=== PATIENT | female | born 1960 | race Caucasian/White ===

== ENCOUNTER 2020-02-10 01:30 | Emergency (ER) | payer OTHER, BC ==
--- OUTSIDE RECORDS SUMMARY | 2020-02-10 01:33 | XMS REPORT | Continuity of Care Document ---
:1960 Author Organization [facility] t Address [address] [place] [address] Care Team Providers Name Role Phone Doctor Unassigned, Name Attending Clinician Unavailable Milo MARCUS, S Attending Clinician Problems This patient has no known problems. Allergies, Adverse Reactions, Alerts This patient has no known allergies or adverse reactions. Medications This patient has no known medications. Procedures This patient has no known procedures. Encounters Start End Encounter Admission Attending Care Care Encounter Source Date/Time Date/Time Type Type Clinicians Facility Department ID 2019-11-08 2019-11-08 Orders Doctor DANUTA [id number] 00:00:00 00:00:00 Only Unassigned, JOSE [id number] [place] [facility] [id number] 2019-11-02 2019-11-02 [facility] ISIDRA Pedraza [id number] 08:01:19 08:16:19 ne Visit [facility] [id number] Surgical [id number] Specialti [id number] [address] [place] 2019-09-28 2019-09-28 ISIDRA Barron [id number] 00:00:00 00:00:00 (Out) [facility] [id number] Surgical [id number] Specialti [id number] [address] 2019-09-13 2019-09-13 ISIDRA Barron [id number] 00:00:00 00:00:00 (Out) [facility] [id number] Surgical [id number] Specialti [id number] [address] [place] 2019-09-11 2019-09-11 Telephone [facility] [id number] 00:00:00 00:00:00 [facility] [id number] Surgical [id number] Specialti [id number] [address] [place] 2019-09-07 2019-09-07 Office [facility] [id number] 07:55:18 08:10:18 Visit [facility] [id number] Surgical [id number] Specialti [id number] [address] [place] 2019-09-07 2019-09-07 Letter [facility] [id number] 00:00:00 00:00:00 (Out) [facility] [id number] Surgical [id number] Specialti [id number] [address] 2019-08-24 2019-08-24 Orders Doctor DANUTA [id number] 00:00:00 00:00:00 Only Unassigned, JOSE [id number] [place] [facility] [id number] Results This patient has no known results.
[2020-02-10] MEDS ORDERED: IBUPROFEN 400 MG TAB ONE (02:23)
--- NOTE | 2020-02-10 03:25 | EDPHYS ---
Physician Documentation [facility] Name: Jade Shaikh Age: 59 yrs Sex: Female : 1960 Arrival Date: 02/10/2020 Time: 01:31 Bed 19 Private MD: SAULO Physician Cain Rosado HPI: 02/09 01:58 This 59 yrs old Female presents to ER via Ambulatory with complaints of Foot mh7 Injury. 01:58 The patient presents with an injury. The complaints affect the left foot. Context: The mh7 problem was sustained at a parking lot, resulted from the patient falling, down stairs, Mechanism of Injury: Unknown the patient can fully bear weight, the patient is able to ambulate, with mild difficulty. 01:59 Onset: The symptoms/episode began/occurred 3 day(s) ago, and became worse today, after mh7 accidentally dropping heavy box onto foot. Modifying factors: The symptoms are alleviated by sitting, the symptoms are aggravated by weight bearing. Associated signs and symptoms: Pertinent negatives: calf tenderness, fever, nausea, numbness, rash, swelling, tingling, vomiting, warmth, weakness. Severity of symptoms: At their worst the symptoms were moderate, earlier today, in the emergency department the symptoms have improved, moderately. Historical: - Allergies: 01:54 Sulfa (Sulfonamide Antibiotics); sg - PSHx: 01:54 Cholecystectomy; Appendectomy; Tubal ligation; Hysterectomy; breast mass removal on sg right; Knee surgery; - Immunization history:: Adult Immunizations up to date. - Social history:: Smoking status: Patient denies any tobacco usage or history of. ROS: 01:59 Constitutional: Negative for fever, chills, and weight loss, Eyes: Negative for injury, mh7 pain, redness, and discharge, ENT: Negative for injury, pain, and discharge, Neck: Negative for injury, pain, and swelling, Cardiovascular: Negative for chest pain, palpitations, and edema, Respiratory: Negative for shortness of breath, cough, wheezing, and pleuritic chest pain, Abdomen/GI: Negative for abdominal pain, nausea, vomiting, diarrhea, and constipation, Back: Negative for injury and pain, : Negative for injury, bleeding, discharge, and swelling, Skin: Negative for injury, rash, and discoloration, Neuro: Negative for headache, weakness, numbness, tingling, and seizure, Psych: Negative for depression, anxiety, suicide ideation, homicidal ideation, and hallucinations, Allergy/Immunology: Negative for hives, rash, and allergies, Endocrine: Negative for neck swelling, polydipsia, polyuria, polyphagia, and marked weight changes, Hematologic/Lymphatic: Negative for swollen nodes, abnormal bleeding, and unusual bruising. Exam: 01:59 Constitutional: This is a well developed, well nourished patient who is awake, alert, mh7 and in no acute distress. Head/Face: Normocephalic, atraumatic. Eyes: Pupils equal round and reactive to light, extra-ocular motions intact. Lids and lashes normal. Conjunctiva and sclera are non-icteric and not injected. Cornea within normal limits. Periorbital areas with no swelling, redness, or edema. Neck: Trachea midline, no thyromegaly or masses palpated, and no cervical lymphadenopathy. Supple, full range of motion without nuchal rigidity, or vertebral point tenderness. No Meningismus. Chest/axilla: Normal chest wall appearance and motion. Nontender with no deformity. No lesions are appreciated. Cardiovascular: Regular rate and rhythm with a normal S1 and S2. No gallops, murmurs, or rubs. Normal PMI, no JVD. No pulse deficits. Respiratory: Lungs have equal breath sounds bilaterally, clear to auscultation and percussion. No rales, rhonchi or wheezes noted. No increased work of breathing, no retractions or nasal flaring. Abdomen/GI: Soft, non-tender, with normal bowel sounds. No distension or tympany. No guarding or rebound. No evidence of tenderness throughout. Back: No spinal tenderness. No costovertebral tenderness. Full range of motion. Skin: Warm, dry with normal turgor. Normal color with no rashes, no lesions, and no evidence of cellulitis. 01:59 Neuro: Awake and alert, GCS 15, oriented to person, place, time, and situation. Cranial nerves II-XII grossly intact. Motor strength 5/5 in all extremities. Sensory grossly intact. Cerebellar exam normal. Normal gait. Psych: Awake, alert, with orientation to person, place and time. Behavior, mood, and affect are within normal limits. 01:59 Musculoskeletal/extremity: Extremities: noted in the left foot: pain, tenderness, noted in the left ankle: pain, tenderness, ROM: intact in all extremities, Circulation is intact in all extremities. Pulses: are normal with no appreciated deficits, Perfusion: the patient is normally perfused throughout, Perfusion: the extremity is normally perfused throughout, Calf tenderness, is absent, Edema, is not appreciated, Sensation intact. Compartment Syndrome exam of affected extremity: is normal. no numbness, no tingling, no sensation deficit, no palor, no weak pulses, Joints: the left ankle displays tenderness, Weight bearing: able to fully bear weight, limping, Tendon exam: specific tendon testing normal through active and passive range of motion Vital Signs: 01:56 BP 150 / 72; Pulse 80; Resp 18; Temp 97.7; Pulse Ox 97% on R/A; Weight 99.79 kg; Height ea 5 ft. 2 in. (157.48 cm); 01:56 Body Mass Index 40.24 (99.79 kg, 157.48 cm) ea MDM: 01:57 Patient medically screened. [facility] 03:21 Differential diagnosis: fracture, sprain, arthritis. Data reviewed: vital signs, nurses [facility] notes, radiologic studies, plain films. Data interpreted: Pulse oximetry: on room air is 97 %. Interpretation: normal. Counseling: I had a detailed discussion with the patient and/or guardian regarding: the historical points, exam findings, and any diagnostic results supporting the discharge/admit diagnosis, the presence of at least one elevated blood pressure reading (>120/80) during this emergency department visit, radiology results, the need for outpatient follow up, a orthopedic surgeon, to return to the emergency department if symptoms worsen or persist or if there are any questions or concerns that arise at home. Response to treatment: the patient's symptoms have markedly improved after treatment. 02/09 01:58 Order name: Foot Left 3 View XRAY 7 02/09 01:58 Order name: Ankle Left 3 View XRAY 7 Administered Medications: 02:16 Drug: Ibuprofen 800 mg Route: PO; ea 03:07 Follow up: Response: No adverse reaction ea Disposition: 02/10/20 03:24 Discharged to Home. Impression: Left Foot Contusion, Left Ankle Sprain. - Condition is Stable. - Discharge Instructions: Ankle Sprain, [id number], Foot Contusion, [id number]. - Prescriptions for Ibuprofen 800 mg Oral Tablet - take 1 tablet by ORAL route every 8 hours As needed take with food; 15 tablet. - Medication Reconciliation Form, Thank You Letter, Antibiotic Education, Prescription Opioid Use form. - Follow up: Pj Olea DPM; When: 2 - 3 days; Reason: Worsening of condition, Recheck today's complaints. - Problem is new. - Symptoms have improved. Signatures: Dispatcher [employer] EDJason Maldonado RN Rola Ortiz RN RN ea Holmes, Maurice, MD MD mh7 Corrections: (The following items were deleted from the chart) 03:33 03:24 02/10/2020 03:24 Discharged to Home. Impression: Left Foot Contusion; Left Ankle ea Sprain. Condition is Stable. Forms are Medication Reconciliation Form, Thank You Letter, Antibiotic Education, Prescription Opioid Use. Follow up: Pj Olea; When: 2 - 3 days; Reason: Worsening of condition, Recheck today's complaints. Problem is new. Symptoms have improved. mh7
--- NOTE | 2020-02-10 03:25 | ER ---
Nurse's Notes [facility] Name: Jade Shaikh Age: 59 yrs Sex: Female : 1960 Arrival Date: 02/10/2020 Time: 01:31 Bed 19 Private MD: Diagnosis: Left Foot Contusion;Left Ankle Sprain Presentation: 02/09 01:50 Chief complaint: Patient states: pt states that she was walking out of the camper when sg she lost her footing on the steps and fell onto her left foot, pain to the left foot and left ankle, pt reports hitting head but denies LOC, pt states pain in the topside of left foot and the left ankle. Coronavirus screen: Patient denies a cough. Patient denies shortness of breath or difficulty breathing. Patient denies measured and/or subjective temperature greater than 100.4F prior to today's visit. Patient denies travel on a cruise ship or to a country the [facility] currently lists as an affected area. Patient denies contact with known and/or suspected case of COVID-19. Proceed with normal triage. Ebola Screen: Patient negative for fever greater than or equal to 101.5 degrees Fahrenheit, and additional compatible Ebola Virus Disease symptoms Patient denies exposure to infectious person. Patient denies travel to an Ebola-affected area in the 21 days before illness onset. No symptoms or risks identified at this time. Initial Sepsis Screen: Does the patient meet any 2 criteria? No. Patient's initial sepsis screen is negative. Does the patient have a suspected source of infection? No. Patient's initial sepsis screen is negative. Risk Assessment: Do you want to hurt yourself or someone else? Patient reports no desire to harm self or others. Onset of symptoms was February 09, 2020. Care prior to arrival: None. Mechanism of Injury: Fall 2 [address] steps. Transition of care: patient was not received from another setting of care. 01:50 Method Of Arrival: Ambulatory sg 01:50 Acuity: STEVE 4 sg Triage Assessment: 02:00 General: Appears uncomfortable, Behavior is appropriate for age. Pain: Complains of ea pain in left foot. Musculoskeletal: Circulation, motion, and sensation intact. Historical: - Allergies: 01:54 Sulfa (Sulfonamide Antibiotics); sg - PSHx: 01:54 Cholecystectomy; Appendectomy; Tubal ligation; Hysterectomy; breast mass removal on sg right; Knee surgery; - Immunization history:: Adult Immunizations up to date. - Social history:: Smoking status: Patient denies any tobacco usage or history of. Screenin:56 Abuse screen: Denies threats or abuse. Nutritional screening: No deficits noted. ea Tuberculosis screening: No symptoms or risk factors identified. Fall Risk Fall in past 12 months (25 points). Assessment: 02:00 Reassessment: see triage assessment. ea 03:32 Reassessment: Patient and/or family updated on plan of care and expected duration. Pain ea level reassessed. Patient is alert, oriented x 3, equal unlabored respirations, skin warm/dry/pink. Discharge instruction given to patient, verbalized the understanding of instruction. Pt left ED ambulatory tolerating well. Vital Signs: 01:56 BP 150 / 72; Pulse 80; Resp 18; Temp 97.7; Pulse Ox 97% on R/A; Weight 99.79 kg; Height ea 5 ft. 2 in. (157.48 cm); 01:56 Body Mass Index 40.24 (99.79 kg, 157.48 cm) ea ED Course: 01:31 Patient arrived in ED. ds1 01:43 Cain Rosado MD is Attending Physician. mh7 01:53 Triage completed. sg 01:54 Arm band placed on. sg 01:59 Patient has correct armband on for positive identification. Bed in low position. Call ea light in reach. 02:14 Rola uLong, SOPHIA is Primary Nurse. ea 02:28 Foot Left 3 View XRAY In Process Unspecified. EDMS 02:28 Ankle Left 3 View XRAY In Process Unspecified. EDMS 03:23 Pj Olea DPM is Referral Physician. 7 03:32 No provider procedures requiring assistance completed. Patient did not have IV access ea during this emergency room visit. Administered Medications: 02:16 Drug: Ibuprofen 800 mg Route: PO; ea 03:07 Follow up: Response: No adverse reaction ea Outcome: 03:24 Discharge ordered by . 7 03:33 Discharged to home ambulatory, with family. ea 03:33 Condition: stable 03:33 Discharge instructions given to patient, Instructed on discharge instructions, follow up and referral plans. medication usage, Demonstrated understanding of instructions, follow-up care, medications, Prescriptions given X 1. 03:33 Patient left the ED. kelsy Signatures: Dispatcher [employer] EDJason Maldonado RN RN sg Sanford, Demi ds1 Rola Luong RN RN ea Holmes, Maurice, MD MD mh7
[2020-02-10 03:55] VITALS: BP 150/72; TEMP 97.7; O2SAT 97
--- NOTE | 2020-02-12 09:12 | RAD REPORT ---
EXAM DESCRIPTION: RAD - Ankle Left 3 View - 02/10/2020 2:28 am CLINICAL HISTORY: Trauma/pain. COMPARISON: None. FINDINGS: 3 views of the left ankle. No acute fracture or dislocation. Normal osseous mineralization . Tibial plafond and talar dome have appropriate alignment. Soft tissue edema. Plantar calcaneal spur . IMPRESSION: 1. No acute fracture or dislocation. Electronically signed by: Ghanshyam Álvarez 02/10/2020 3:14 AM CDT Due to temporary technical issues with the PACS/Fluency reporting system, reports are being signed by the in house radiologist without review as a courtesy to ensure prompt reporting. The interpreting r adiologist is fully responsible for the content of the report.
--- NOTE | 2020-02-12 09:14 | RAD REPORT ---
EXAM DESCRIPTION: RAD - Foot Left 3 View - 02/10/2020 2:28 am CLINICAL HISTORY: Trauma COMPARISON: None. FINDINGS: 3 views of the left foot. No acute fracture or dislocation. Velocities mineralization. Tar sals and metatarsals are appropriately aligned. Dorsal soft tissue edema. IMPRESSION: 1. No acute fracture or dislocation. Electronically signed by: Ghanshyam Álvarez 02/10/2020 3:13 AM CDT Due to temporary technical issues with the PACS/Fluency reporting system, reports are being signed by the in house radiologist without review as a courtesy to ensure prompt reporting. The interpreting r adiologist is fully responsible for the content of the report.
== END 2020-02-10 03:33 | disposition home or self-care (01) ==
LOC: ER 01:30
DX: S93.402A Sprain of unspecified ligament of left ankle, initial encounter (principal); S90.32XA Contusion of left foot, initial encounter; W10.9XXA Fall (on) (from) unspecified stairs and steps, initial encounter; Y93.9 Activity, unspecified; Y92.481 Parking lot as the place of occurrence of the external cause; Z88.2 Allergy status to sulfonamides
CPT/HCPCS: 99283

== ENCOUNTER 2022-09-15 17:16 | Emergency (ER) | payer SELFPAY ==
--- OUTSIDE RECORDS SUMMARY | 2022-09-15 17:37 | XMS REPORT | Continuity of Care Document ---
:1960 Author Organization [facility] t Address [address] [place] [address] [address] [place] [address] Care Team Providers Name Role Phone JODY BRITTON Primary Care Physician Unavailable YESENIA SARABIA Attending Clinician Unavailable Doctor Unassigned, [place] Attending Clinician Unavailable Yesenia Sarabia MD Attending Clinician Vincent Chase Attending Clinician VINCENT AGUSTIN Attending Clinician Unavailable Only, Adc Test Attending Clinician Unavailable Pob, Adc Lab Main Attending Clinician Unavailable Olayinka Ricardo MD Attending Clinician OLAYINKA RICARDO Attending Clinician Unavailable Usama Arteaga DO Attending Clinician Eze Vallejo MD Attending Clinician Pj Mora MD Attending Clinician EZE VALLEJO Attending Clinician Unavailable YESENIA SARABIA Admitting Clinician Unavailable Yesenia Sarabia MD Admitting Clinician Payers Payer Name Policy Type Policy Number Effective Date Expiration Date Chula DE SOUZA II [id number] 2018 00:00:00 [facility] - [id number] 2021 00:00:00 OUT OF STATE Problems Condition Condition Condition Status Onset Resolution Last Treating Co mments Source Name Details Category Date Date Treatment Clinician Date S/P S/P Disease Active 2020-07 Univers revision revision 09-14 ity of of total of total 00:00: [place] knee, left knee, left 00 Me dical Branch Status Status Disease Active 2020-07 Overview: Univer s post post 09-01 Formattin ity of revision revision 00:00: g of this [place] as of total of total 00 note Medica l knee knee might be Branch replacemen replacemen different t, left t, left from the original. Added automatic ally from request for surgery [id number] Primary Primary Disease Active Overview: Univ ers osteoarthr osteoarthr 03-25 Formattin ity of itis of itis of 00:00: g of this [place] left knee left knee 00 note Medi isiah might be Branch different from the original. Added automatic ally from request for surgery [id number] S/P S/P Disease Active 2019-07 Univers revision revision 08-25 ity of of total of total 00:00: [place] knee knee 00 Medical Branch Status Status Disease Active 2019-07 Overview: Univer s post total post total 08-10 Formattin ity of knee knee 00:00: g of this [place] replacemen replacemen 00 note Me dical t, right t, right might be Bran ch different from the original. Added automatic ally from request for surgery [id number] Obesity Obesity Disease Active 2018-07 Univers (BMI (BMI 2-30 ity of 30-39.9) 30-39.9) 00:00: [place] 00 Medical Branch Total knee Total knee Disease Active 2018-07 U nivers replacemen replacemen 2-30 it y of t status t status 00:00: [place] 00 Medical Branch Patellofem Patellofem Disease Active 2018-07 Overview : Univers oral oral 09-10 Formattin ity of arthritis arthritis 00:00: g of this [place] of right of right 00 note Medica l knee knee might be Branch different from the original. Added automatic ally from request for surgery [id number] Low back Low back Disease Active Unive rs pain of pain of 2-19 ity of over 3 over 3 00:00: [place] months months 00 Medical duration duration Branch Type 2 Type 2 Disease Active Univers diabetes diabetes 2-19 ity of mellitus, mellitus, 00:00[place] without without 00 Medical long-term long-term Bran ch current current use of use of insulin insulin Diabetic Diabetic Disease Active Unive rs neuropathy neuropathy 2-19 it y of associated associated [place] with type with type 00 Medi isiah 2 diabetes 2 diabetes Br anch mellitus mellitus Right leg Right leg Disease Active Uni vers pain pain 8-18 ity of 00:00: [address] Branch Allergies, Adverse Reactions, Alerts Allergy Allergy Status Severity Reaction(s) Onset Inactive Treating Comm ents Source Name Type Date Date Clinician SULFA Drug Active Hives Univers (SULFONA Class 5-12 ity of MIDE 00:00: [place] ANTIBIOT 00 Medical ICS) Branch Sulfa Propensi Active Hives Univers (Sulfona ty to 5-12 ity of mide adverse 00:00: [place] Antibiot reaction 00 Medica l ics) s Branch Sulfa Propensi Active Hives Univers (Sulfona ty to 5-12 ity of mide adverse 00:00: [place] Antibiot reaction 00 Medica l ics) s Branch Social History Social Habit Start Date Stop Date Quantity Comments Source History of tobacco Cigarette Smoker University of use [facility] o f Alcohol Frequency [facility] Branch History [facility] o f Alcohol Std Drinks [facility] History [facility] o f Alcohol Binge [facility] Branch Exposure to Not sure University of SARS-CoV-2 (event) [facility] Alcohol intake 2021-08-29 2021-08-29 0 /d University of 00:00:00 00:00:00 [facility] Education 2021-07-14 2021-07-14 9 University of 00:00:00 00:00:00 [facility] Cigarettes smoked 2021-07-09 2021-07-09 Univers ity of current (pack per 00:00:00 00:00:00 [facility] ) - Reported Branch Cigarette 2021-07-09 2021-07-09 University of pack-years 00:00:00 00:00:00 [facility] Tobacco use and 2021-07-09 2021-07-09 User of smokeless Un iversity of exposure 00:00:00 00:00:00 tobacco [facility] Tobacco Comment 2021-07-09 2021-07-09 Vaped and quit 3 Uni versity of 00:00:00 00:00:00 mnths, ago smoker Ariana Lambert edical for 44 years Branch Alcohol Comment 2019-07-10 2019-07-10 Occasional Universit y of 00:00:00 00:00:00 Drinker [facility] Sex Ass[birth year] At [birth year] Universit y of 00:00:00 00:00:00 [facility] Smoking Status Start Date Stop Date Source Ex-smoker 2021-07-09 00:00:00 2021-07-09 00:00:00 Universi ty of [facility] Medications Ordered Filled Start Stop Current Ordering Indication Dosage Frequency Signature Comments Components Source Medication Medication Date Date Medication? Clinician (SIG) Name Name glyBURIDE 5 2020-07 Yes 5mg Take 5 mg U nivers mg tablet 2-28 by mouth 2 ity of 15:00: (two) [place] 27 times Medical daily. Branch glyBURIDE 5 2020-07 Yes 5mg Take 5 mg U nivers mg tablet 2-28 by mouth 2 ity of 15:00: (two) [place] 27 times Medical daily. Branch glyBURIDE 5 2020-07 Yes 5mg Take 5 mg U nivers mg tablet 2-28 by mouth 2 ity of 15:00: (two) [place] 27 times Medical daily. Branch glyBURIDE 5 2020-07 Yes 5mg Take 5 mg U nivers mg tablet 2-28 by mouth 2 ity of 15:00: (two) [place] 27 times Medical daily. Branch glyBURIDE 5 2020-07 Yes 5mg Take 5 mg U nivers mg tablet 2-28 by mouth 2 ity of 15:00: (two) [place] 27 times Medical daily. Branch glyBURIDE 5 2020-07 Yes 5mg Take 5 mg U nivers mg tablet 2-28 by mouth 2 ity of 15:00: (two) [place] 27 times Medical daily. Branch acetaminoph 2020-07 Yes 4647 2{tbl} Take 2 Un torri en-codeine 2-28 tablets by ity of (TYLENOL-CO 00:00: mouth [place] DEINE #3) 00 every 6 Medical 300-30 mg (six) Branch tablet hours as needed for Pain (scale 4-6) or Pain (scale 7-10). Indication s: acute pain acetaminoph 2020-07 Yes 4647 2{tbl} Take 2 Un torri en-codeine 2-28 tablets by ity of (TYLENOL-CO 00:00: mouth [place] DEINE #3) 00 every 6 Medical 300-30 mg (six) Branch tablet hours as needed for Pain (scale 4-6) or Pain (scale 7-10). Indication s: acute pain acetaminoph 2020-07 Yes 4647 2{tbl} Take 2 Un torri en-codeine 2-28 tablets by ity of (TYLENOL-CO 00:00: mouth [place] DEINE #3) 00 every 6 Medical 300-30 mg (six) Branch tablet hours as needed for Pain (scale 4-6) or Pain (scale 7-10). Indication s: acute pain acetaminoph 2020-07 Yes 4647 2{tbl} Take 2 Un torri en-codeine 2-28 tablets by ity of (TYLENOL-CO 00:00: mouth [place] DEINE #3) 00 every 6 Medical 300-30 mg (six) Branch tablet hours as needed for Pain (scale 4-6) or Pain (scale 7-10). Indication s: acute pain acetaminoph 2020-07 Yes 4647 2{tbl} Take 2 Un torri en-codeine 2-28 tablets by ity of (TYLENOL-CO 00:00: mouth [place] DEINE #3) 00 every 6 Medical 300-30 mg (six) Branch tablet hours as needed for Pain (scale 4-6) or Pain (scale 7-10). Indication s: acute pain acetaminoph 2020-07 Yes 4647 2{tbl} Take 2 Un torri en-codeine 2-28 tablets by ity of (TYLENOL-CO 00:00: mouth [place] DEINE #3) 00 every 6 Medical 300-30 mg (six) Branch tablet hours as needed for Pain (scale 4-6) or Pain (scale 7-10). Indication s: acute pain gabapentin 2018-07 Yes 300mg Take 300 Un torri 300 mg 2-19 mg by ity of capsule 00:00: mouth 4 00 (four) Medical times Branch daily. gabapentin 2018-07 Yes 300mg Take 300 Un torri 300 mg 2-19 mg by ity of capsule 00:00: mouth 4 00 (four) Medical times Branch daily. gabapentin 2018-07 Yes 300mg Take 300 Un torri 300 mg 2-19 mg by ity of capsule 00:00: mouth 4 (four) Medical times Branch daily. gabapentin 2018-07 Yes 300mg Take 300 Un torri 300 mg 2-19 mg by ity of capsule 00:00: mouth 4 (four) Medical times Branch daily. gabapentin 2018-07 Yes 300mg Take 300 Un torri 300 mg 2-19 mg by ity of capsule 00:00: mouth 4 (four) Medical times Branch daily. gabapentin 2018-07 Yes 300mg Take 300 Un torri 300 mg 2-19 mg by ity of capsule 00:00: mouth 4 (four) Medical times Branch daily. glipiZIDE 2018-07 Yes 10mg Take 10 mg Un torri 10 mg 1-13 by mouth 2 ity of tablet 00:00: (two) [place] 00 times Medical daily. Branch glipiZIDE 2018-07 Yes 10mg Take 10 mg Un torri 10 mg 1-13 by mouth 2 ity of tablet 00:00: (two) [place] 00 times Medical daily. Branch glipiZIDE 2018-07 Yes 10mg Take 10 mg Un torri 10 mg 1-13 by mouth 2 ity of tablet 00:00: (two) [place] 00 times Medical daily. Branch glipiZIDE 2018-07 Yes 10mg Take 10 mg Un torri 10 mg 1-13 by mouth 2 ity of tablet 00:00: (two) [place] 00 times Medical daily. Branch glipiZIDE 2018-07 Yes 10mg Take 10 mg Un torri 10 mg 1-13 by mouth 2 ity of tablet 00:00: (two) [place] 00 times Medical daily. Branch glipiZIDE 2018-07 Yes 10mg Take 10 mg Un torri 10 mg 1-13 by mouth 2 ity of tablet 00:00: (two) [place] 00 times Medical daily. Branch NYSTOP Yes 1{dose} Apply 1 Unive rs 100,000 9-25 Dose to ity of unit/gram 00:00: area[place] powder 00 needed. Medical Branch NYSTOP Yes 1{dose} Apply 1 Unive rs 100,000 9-25 Dose to ity of unit/gram 00:00: area[place] powder 00 needed. Medical Branch NYSTOP Yes 1{dose} Apply 1 Unive rs 100,000 9-25 Dose to ity of unit/gram 00:00: area[place] powder 00 needed. Medical Branch NYSTOP Yes 1{dose} Apply 1 Unive rs 100,000 9-25 Dose to ity of unit/gram 00:00: area[place] as [place] powder 00 needed. Medical Branch NYSTOP Yes 1{dose} Apply 1 Unive rs 100,000 9-25 Dose to ity of unit/gram 00:00: area[place] as [place] powder 00 needed. Medical Branch NYSTOP Yes 1{dose} Apply 1 Unive rs 100,000 9-25 Dose to ity of unit/gram 00:00: area[place] powder 00 needed. Medical Branch metFORMIN Yes TAKE 1 Univer s 500 mg 3-05 TABLET BY ity of tablet 00:00: MOUTH [facility] Medical TIMES Branch DAILY metFORMIN Yes TAKE 1 Univer s 500 mg 3-05 TABLET BY ity of tablet 00:00: MOUTH 00 THREE Medical TIMES Branch DAILY metFORMIN Yes TAKE 1 Univer s 500 mg 3-05 TABLET BY ity of tablet 00:00: MOUTH 00 THREE Medical TIMES Branch DAILY metFORMIN Yes TAKE 1 Univer s 500 mg 3-05 TABLET BY ity of tablet 00:00: MOUTH 00 THREE Medical TIMES Branch DAILY metFORMIN Yes TAKE 1 Univer s 500 mg 3-05 TABLET BY ity of tablet 00:00: MOUTH [facility] Medical TIMES Branch DAILY metFORMIN Yes TAKE 1 Univer s 500 mg 3-05 TABLET BY ity of tablet 00:00: MOUTH [place] 00 [facility] Medical TIMES Branch DAILY Immunizations Ordered Filled Immunization Date Status Comments [facility] e Immunization Name Name Influenza Virus 2019-07-18 Completed Universit y of Vaccine Quad .5 mL 00:00:00 [facility] IM 6+ MO Branch Influenza Virus 2019-07-18 Completed Universit y of Vaccine Quad .5 mL 00:00:00 [place] [facility] IM 6+ MO Branch Influenza Virus 2019-07-18 Completed Universit y of Vaccine Quad .5 mL 00:00:00 [place] [facility] IM 6+ MO Branch Influenza Virus 2019-07-18 Completed Universit y of Vaccine Quad .5 mL 00:00:00 [facility] [place] [facility] IM 6+ MO Branch Influenza Virus 2019-07-18 Completed Universit y of Vaccine Quad .5 mL 00:00:00 [place] [facility] IM 6+ MO Branch Influenza Virus 2019-07-18 Completed Universit y of Vaccine Quad .5 mL 00:00:00 [facility] 6+ [place] Branch Vital Signs Vital Name Observation Time Observation Value Comments Source Systolic blood 2021-08-29 17:33:00 151 mm[Hg] Univer sity [facility] pressure [facility] Diastolic blood 2021-08-29 17:33:00 82 mm[Hg] Unive rsity [facility] Heart rate 2021-08-29 17:33:00 78 /min [facility] Body height 2021-08-29 17:22:00 160 cm [facility] Body weight 2021-08-29 17:22:00 98.93 kg [facility] BMI 2021-08-29 17:22:00 38.63 kg/m2 [facility] Oxygen saturation 2021-08-29 17:22:00 97 /min [facility] in Arterial blood [facility] anch by Pulse oximetry Procedures Procedure Date / Time Performed Performing Clinician Sour e DISABILITY/FMLA 2022-02-24 05:01:00 [facility]3 VW LEFT 2021-08-29 17:54:29 Yesenia Sarabia [facility] REFERRAL- 2021-08-19 06:01:00 Doctor Unassigned, No Univer sity of [place] REQUEST/RESPONSE [facility] Encounters Start End Encounter Admission Attending Care Care Encounter Source Date/Time Date/Time Type Type Clinicians Facility Department ID 2021-07-02 Outpatient R NO [facility] SOR [id number] Univers 16:08:43 YESENIA cobb [facility] [place] [facility] 2021-05-19 Outpatient NO [facility] SOR [id number] Univers 20:54:10 [facility] 2022-02-24 2022-02-24 Orders Doctor TIPTON [id number] [id number] Univers 00:00:00 00:00:00 Only UnassJOSE araujo [id number] ity of [place] [facility] 4.2.7.2.686 Calvin as [id number] [address] 2021-10-20 2021-10-20 [facility] 1.2.104.412 [id number] Univers 00:00:00 00:00:00 (Out) Yesenia Mckenna [facility] [id number] it y of [facility] [id number] Calvin as DAQUAN?BLEA [id number] [place] elvin LOPEZ [address] [facility] OFFICE [facility] 2021-10-20 2021-10-20 Letter [facility] [id number] Univers 00:00:00 00:00:00 (Out) Yesenia [facility] [id number] it y of [place] 4.2.7.2.686 Calvin as DAQUAN?BLEA [id number] [place] elvin LOPEZ 198 [facility] 2021-08-29 2021-08-29 [facility] [id number] Univers 11:45:00 23:59:00 [facility] 2021-08-29 2021-08-29 [facility] 1.2.840.114 [id number] Univers 11:45:00 23:59:00 Encounter Yesenia [facility] [id number] ity of [place] 4.2.7.2.686 Calvin as DAQUAN?BLEA [id number] [place] elvin LOPEZ [address] [facility] OFFICE [facility] 2021-08-29 2021-08-29 Office [facility] [id number] Univers 11:00:00 11:15:00 Visit [facility] [id number] it y of [facility] 4.2.7.2.686 Calvin as DAQUAN?BLEA [phone] [place] elvin LOPEZ [address] [facility] OFFICE [facility] 2021-08-29 2021-08-29 [facility] [id number] Univers 11:00:00 11:00:00 [facility] 2021-08-19 2021-08-19 Orders Doctor TIPTON 1.2.840.114 [id number] Univers 00:00:00 00:00:00 Only Unassigned, JOSE 350.1.13.10 ity of [facility] 4.2.7.2.686 Calvin as [id number] [address] 2021-07-31 2021-07-31 Outpatient Jimena NIKOLE [facility] [id number] Univers 11:15:00 11:15:00 VINCENT ity [facility] [place] [facility] 2021-07-31 2021-07-31 Outpatient [facility] [id number] Univers 11:15:00 11:15:00 VINCENT ity [facility] [place] [facility] 2021-07-29 2021-07-29 Outpatient [facility] [id number] Univers 13:28:03 23:59:00 VINCENT ity [facility] [place] [facility] 2021-07-29 2021-07-29 [facility] 1.2.840.114 [id number] Univers 13:28:03 23:59:00 Encounter [facility] [id number] ity of [place] 4.2.7.2.686 Calvin as DAQUAN?BLEA [id number] [facility] [address] [place] MEDICAL OFFICE [facility] 2021-07-29 2021-07-29 Outpatient [facility] [id number] Univers 13:28:03 23:59:00 [facility] 2021-07-29 2021-07-29 Office [facility] 1.2.840.114 [id number] Univers 13:15:00 13:30:00 Visit Vincent S HEALTH 350.1.13.10 it y of [place] 4.2.7.2.686 Calvin as DAQUAN?BLEA [id number] [facility] [address] [place] MEDICAL OFFICE [facility] 2021-07-29 2021-07-29 Outpatient Jimena [facility] [id number] Univers 13:15:00 13:15:00 VINCENT ity [facility] [place] [facility] 2021-07-28 2021-07-28 Telephone [facility] 1.2.840.114 [id number] Univers 00:00:00 00:00:00 [facility] HEALTH [id number] it y of [place] 4.2.7.2.686 Calvin as DAQUAN?BLEA [id number] [place] elvin LOPEZ [address] [place] MEDICAL OFFICE [facility] 2021-07-25 2021-07-25 Outpatient R NIKOLE [facility] [id number] Univers 09:00:00 09:00:00 VINCENT ity of [facility] 2021-07-17 2021-07-[address] [facility] 1.2.840.114 [id number] Univers 00:00:00 00:00:00 Yesenia Mckenna HEALTH 350.1.13.10 it y of [place] 4.2.7.2.686 Calvin as DAQUAN?BLEA [id number] Me elvin LOPEZ [address] [place] [address] OFFICE [facility] 2021-07-17 2021-07-[address] [facility] 1.2.840.114 [id number] Univers 00:00:00 00:00:00 Yesenia Mckenna HEALTH 350.1.13.10 it y of [place] 4.2.7.2.686 Calvin as DAQUAN?BLEA [id number] Me elvin LOPEZ [address] [place] [address] OFFICE [facility] 2021-07-17 2021-07-17 Orders Doctor DANUTA 1.2.840.114 [id number] Univers 00:00:00 00:00:00 Only Unassigned, JOSE 350.1.13.10 ity of [place] [facility] 4.2.7.2.686 Calvin as [phone] [address] 2021-07-16 2021-07-[address] [facility] 1.2.840.114 [id number] Univers 00:00:00 00:00:00 Yesenia Mckenna SPECIALTY 350.1.13.10 ity of C[place] 4.2.7.2.686 [place] [facility] [phone] [place] el[place] VOGEL [address] [place] [address] 2021-07-14 2021-07-[address] [facility] SOR [id number] Univers 10:19:00 15:00:00 YESENIA cobb of [facility] 2021-07-14 2021-07-15 [facility] [address] [facility] 1.2.840.114 [id number] Univers 10:19:00 15:00:00 Encounter Yesenia BONNER 350.1.13.10 ity of [place] 4.2.7.2.686 [facility] [id number] [facility] 081 Branch 2021-07-14 2021-07-14 Surgery No [facility] [id number] Univers 12:35:00 15:54:00 Yesenia BONNER 350.1.13.10 i ty of [place] 4.2.7.2.686 [facility] [id number] [facility] 020 Branch 2021-07-14 2021-07-14 Orders Doctor DANUTA 1.2.840.114 [id number] Univers 00:00:00 00:00:00 Only Unassigned, JOSE 350.1.13.10 ity of [place] [facility] 4.2.7.2.686 Calvin as [id number] [facility] [address] [place] 2021-07-11 2021-07-11 Laboratory Only, Adc Test [facility] 1.2.840. 114 [id number] Univers 11:15:00 11:30:00 Only Yesenia Sarabia Clarisa BONNER 350.1.13.10 ity of [place] 4.2.7.2.686 [facility] [id number] [facility] 353 Branch 2021-07-11 2021-07-11 Outpatient R NO [facility] [id number] Univers 11:15:00 11:15:00 YESENIA cobb [facility] [place] [facility] 2021-07-11 2021-07-11 Orders Doctor DANUTA 1.2.840.114 [id number] Univers 00:00:00 00:00:00 Only Unassigned, JOSE 350.1.13.10 ity of [place] [facility] 4.2.7.2.686 Calvin as [id number] [facility] 009 Branch 2021-07-10 2021-07-10 Outpatient R NO [facility] [id number] Univers 14:32:10 23:59:00 YESENIA cobb [facility] [place] [facility] 2021-07-10 2021-07-10 Hospital No [facility] 1.2.840.114 [id number] Univers 12:00:00 23:59:00 Encounter Yesenia BONNER 350.1.13.10 ity of [place] 4.2.7.2.686 [place] [id number] [facility] isiah [address] [place] 2021-07-10 2021-07-10 Outpatient R SARABIA [facility] [id number] Univers 14:31:09 14:31:09 YESENIA ity of [facility] 2021-07-10 2021-07-10 Hospital No [facility] 1.2.840.114 [id number] Univers 11:45:00 11:59:00 Encounter Yesenia BONNER 350.1.13.10 ity of [place] 4.2.7.2.686 [place] [phone] [facility] isiah [address] [place] 2021-07-10 2021-07-10 Rn Family Cl, Genevieve Lab Main [facility] 1.2.8 40.114 [id number] Univers 11:30:00 11:45:00 Visit Yesenia Sarabia KAILEY 350.1.13.10 ity of [place] 4.2.7.2.686 [place] [id number] W[place] dical NAL 353 [facility] 2021-06-30 2021-06-[address] [facility] 1.2.840.114 [id number] Univers 00:00:00 00:00:00 Yesenia Mckenna HEALTH 350.1.13.10 it y of [place] 4.2.7.2.686 Calvin as DAQUAN?BLEA [id number] [place] dicbita LOPEZ [address] [place] MEDICAL OFFICE [facility] 2021-06-30 2021-06-[address] [facility] 1.2.840.114 [id number] Univers 00:00:00 00:00:00 Surgery Yesenia Mckenna HEALTH 350.1.13.10 it y of [place] 4.2.7.2.686 Calvin as DAQUAN?BLEA [phone] Wv dical KNEY [address] [facility] OFFICE [facility] 2021-06-27 2021-06-27 Telephone Haleigh [facility] [id number] Univers 00:00:00 00:00:00 Olayinka CATERINATON 350.1.13.10 ity of [place] 4.2.7.2.686 [place] CRIST[place] [id number] Me dical NAL [address] [facility] 2021-06-26 2021-06-26 [facility] [id number] Univers 09:00:00 11:19:13 YESENIA cobb [facility] [place] [facility] 2021-06-26 2021-06-26 [facility] [id number] Univers 09:00:00 11:19:13 YESENIA cobb [facility] [place] [facility] 2021-06-26 2021-06-[address] [facility] [id number] Univers 08:43:47 11:19:13 Visit Yesenia Mckenna [facility] 350.1.13.10 it y of [facility] 4.2.7.2.686 Calvin as DAQUAN?BLEA [phone] [place] elvin [address] 2021-06-26 2021-06-26 [facility] [id number] Univers 09:00:00 09:00:00 YESENIA cobb [facility] [place] [facility] 2021-06-17 2021-06-[address] [facility] 1.2.840.114 [id number] Univers 00:00:00 00:00:00 Yesenia CABALLERO 350.1.13.10 it y of [place] 4.2.7.2.686 Calvin as DAQUAN?BLEA [phone] [place] elvin [address] 2021-06-16 2021-06-16 Orders Doctor DANUTA 1.2.840.114 [id number] Univers 00:00:00 00:00:00 Only Unassigned, JOSE 350.1.13.10 ity of [place] [facility] 4.2.7.2.686 Calvin as [phone] [address] 2021-05-14 2021-05-[address] [facility] 1.2.840.114 [id number] Univers 13:01:51 13:16:51 Visit Vincent [facility] 350.1.13.10 it y of [place] 4.2.7.2.686 Calvin as Daquan?Blea [phone] [place] el[place] lopez [address] [place] [address] Office [facility] 2021-05-14 2021-05-14 [facility] [id number] Univers 13:00:00 13:00:00 VINCENT [facility] 2021-05-08 2021-05-08 Orders Doctor DANUTA 1.2.840.114 [id number] Univers 00:00:00 00:00:00 Only Unassigned, JOSE 350.1.13.10 [place]y [place] [facility] 4.2.7.2.686 Calvin as [phone] [address] 2021-04-14 2021-04-14 [facility] 1.2.840.114 [id number] Univers 13:35:00 23:59:00 Encounter [facility] 350.1.13.10 ity of [place] 4.2.7.2.686 Calvin as Daquan?Blea [phone] [place] elvin lopez 809 [facility][Note 3] 2021-04-14 2021-04-14 Outpatient Jimena AGUSTIN [facility] [id number] Univers 13:35:00 23:59:00 [facility] 2021-04-14 2021-04-14 Outpatient Jim[facility] [id number] Univers 13:45:00 13:45:00 [facility] 2021-04-14 2021-04-14 Office [facility] 1.2.840.114 [id number] Univers 13:12:59 13:27:59 Visit [facility] 350.1.13.10 it y of [place] 4.2.7.2.686 Calvin as Daquan?Blea [phone] [place] elvin lopez 198 [facility] Office [facility] 2021-03-31 2021-03-31 Hospital Yesenia Sarabia [facility] 1.2.840 .114 [id number] Univers 06:35:00 15:05:00 Encounter Nikole [facility] [place] 350.1.13.10 [place] [phone] [address] 2021-03-31 2021-03-31 Surgery No [facility] 1.2.578.750 [id number] Univers 07:30:00 09:59:00 Yesenia Bonner 350.1.13.10 i [place] [phone] [facility] [address] 2021-03-31 2021-03-[address] [facility] 1.2.840.114 [id number] Univers 00:00:00 00:00:00 [facility] 350.1.13.10 it y of Surgical 4.2.7.2.686 Calvin as Specialti [phone] [place] dical es 198 [facility] 2021-03-31 2021-03-31 Orders Doctor DANUTA 1.2.840.114 [id number] Univers 00:00:00 00:00:00 Only Unassigned, JOSE 350.1.13.10 [place] [facility] 4.2.7.2.686 Calvin as [id number] [facility] [address] 2021-03-28 2021-03-28 Hospital [facility] 1.2.840.114 [id number] Univers 10:00:00 23:59:00 Encounter Yesenia Bonner 350.1.13.10 [place] 4.2.7.2.686 [place] [facility] [phone] [facility] [address] 2021-03-28 2021-03-28 Laboratory Only, [facility] Test [facility] 1.2.840. 114 [id number] Univers 13:30:08 13:45:08 Only Yesenia Sarabia Clarisa [place] 350.1.13.10 [place] 4.2.7.2.686 [place] [facility] [phone] [facility] [address] 2021-03-28 2021-03-28 Rn Family Cl, [facility] Lab Main [facility] 1.2.8 40.114 [id number] Univers 13:24:59 13:39:59 Visit Yesenia Sarabia Clarisa Bonner 350.1.13.10 [place] of [place] 4.2.7.2.686 [facility] Professio [phone] [place] dical nal [address] [facility] 2021-03-28 2021-03-28 Hospital [facility] 1.2.840.114 [id number] Univers 08:00:00 09:59:00 Encounter Yesenia Bonner 350.1.13.10 [place].2.686 [place] [id number] [facility] [address] [place] 2021-03-28 2021-03-28 Outpatient [facility] [id number] Univers 00:00:00 00:00:00 YESENIA ity of [facility] 2021-03-25 2021-03-[address] [facility] 1.2.840.114 [id number] Univers 00:00:00 00:00:00 Yesenia [facility] 350.1.13.10 it y of Surgical 4.2.7.2.686 Calvin as Specialti [phone] [place] elvin [address] 2021-03-17 2021-03-17 Orders Doctor DANUTA 1.2.840.114 [id number] Univers 00:00:00 00:00:00 Only Unassigned, JOSE 350.1.13.10 ity of [place] [facility] 4.2.7.2.686 Calvin as [phone] [facility] [address] [place] 2021-03-17 2021-03-[address] [facility] 1.2.840.114 [id number] Univers 00:00:00 00:00:00 Surgery Yesenia [facility] 350.1.13.10 it y of [place] 4.2.7.2.686 Calvin as Daquan?Blea [phone] [place] elvin lopez [address] [place] [address] Medical Office [facility] 2021-03-17 2021-03-[address] [facility] 1.2.840.114 [id number] Univers 00:00:00 00:00:00 Yesenia [facility] 350.1.13.10 it y of [place] 4.2.7.2.686 Calvin as Daquan?Blea [phone] [place] elvin [address] Medical Office [facility] 2021-03-12 2021-03-[address] [facility] 1.2.998.508 [id number] Univers 00:00:00 00:00:00 [facility] 350.1.13.10 it y of [place] 4.2.7.2.686 Calvin as Daquan?Blea [phone] [place] bayronal kney 198 [facility] Office [facility] 2021-03-07 2021-03-07 Outpatient [facility] [id number] Univers 10:37:43 23:59:00 OLAYINKA cobb o f [facility] 2021-03-07 2021-03-07 Outpatient R [facility] [id number] 363 [facility] [place] 09:20:00 09:47:20 OLAYINKA garciay o [facility] 2021-03-07 2021-03-07 Office [facility] 1.2.840.114 [id number] Univers 09:16:38 09:47:20 Visit Olayinka Bonner 350.1.13.10 [place] [phone] [place] dicbita nal [address] [place] [address] 2021-03-07 2021-03-07 Office [facility] 1.2.840.114 [id number] Univers 09:16:38 09:47:20 Visit Olayinka BONNER 350.1.13.10 ity of [place].2.7.2.[place] [phone] [place] dicbita NAL [address] [place] [address] 2021-03-07 2021-03-07 Outpatient R [facility], [facility] [id number] Univers 09:20:00 09:20:00 OLAYINKA cobb o [facility] 2021-03-07 2021-03-07 Telephone [facility] 1.2.496.423 [id number] Univers 00:00:00 00:00:00 Olayinka Bonner 350.1.13.10 [place] [phone] [place] dical nal [address] [place] [address] 2021-03-07 2021-03-07 Telephone [facility] 1.2.694.530 [id number] Univers 00:00:00 00:00:00 [facility] 350.1.13.10 it y of [place] 4.2.7.2.686 Calvin as Daquan?Blea [phone] Me dical kney 198 [facility] Office [facility] 2021-03-06 2021-03-06 Outpatient R NIKOLE [facility] [id number] Univers 10:30:00 10:30:00 [facility] 2021-03-05 2021-03-[address] [facility] 1.2.824.241 [id number] Univers 00:00:00 00:00:00 Yesenia [facility] 350.1.13.10 it y of Surgical 4.2.7.2.686 Calvin as Specialti [phone] [place] dical es 198 [facility] 2021-01-02 2021-01-02 Outpatient R NIKOLE [facility] [id number] Univers 16:00:00 16:00:00 [facility] 2021-01-02 2021-01-[address] [facility] 1.2.840.114 [id number] Univers 15:41:45 15:56:45 Visit [facility] 350.1.13.10 it y of Surgical 4.2.7.2.686 Calvin as Specialti [phone] [place] dical es 198 [facility] 2020-12-26 2020-12-[address] [facility] 1.2.840.114 [id number] Univers 00:00:00 00:00:00 Yesenia [facility] 350.1.13.10 it y of Surgical 4.2.7.2.686 Calvin as Specialti [phone] [place] dical es 198 [facility] 2020-12-20 2020-12-[address] [facility] 1.2.107.647 [id number] Univers 00:00:00 00:00:00 [facility] 350.1.13.10 it y of Surgical 4.2.7.2.686 Calvin as Specialti [phone] [place] dical es 198 [facility] 2020-12-06 2020-12-06 [facility] 1.2.840.114 [id number] Univers 08:37:34 23:59:00 Encounter [facility] 350.1.13.10 ity of Surgical 4.2.7.2.686 Calvin as Specialti [phone] Me dical es 809 [facility] 2020-12-06 2020-12-06 Outpatient NIKOLE [facility] [id number] Univers 08:37:34 23:59:00 [facility] 2020-12-06 2020-12-06 [facility] [id number] Univers 08:37:34 23:59:00 [facility] 2020-12-06 2020-12-[address] [facility] 1.2.840.114 [id number] Univers 08:16:04 09:36:38 Visit [facility] 350.1.13.10 it y of Surgical 4.2.7.2.686 Calvin as Specialti [phone] [place] dical es 198 [facility] 2020-12-06 2020-12-06 Outpatient R NIKOLE [facility] [id number] Univers 08:30:00 08:30:00 [facility] 2020-11-25 2020-11-25 Orders Doctor DANUTA 1.2.840.114 [id number] Univers 00:00:00 00:00:00 Only Unassigned, JOSE 350.1.13.10 [place] [facility] 4.2.7.2.686 Calvin as [id number] [address] 2020-10-29 2020-10-29 Orders Doctor TIPTON 1.2.840.114 [id number] Univers 00:00:00 00:00:00 Only Unassigned, JOSE 350.1.13.10 [place] [facility] 4.2.7.2.686 Calvin as [phone] [address] 2020-10-15 2020-10-15 Orders Doctor DANUTA Ortega.2.840.114 [id number] Univers 00:00:00 00:00:00 Only Unassigned, JOSE 350.1.13.10 [place] [facility] 4.2.7.2.686 Calvin as [phone] [address] 2020-09-28 2020-09-28 Patient Chandler [facility] 1.2.840.114 [id number] Univers 00:00:00 00:00:00 Outreach Usama PRIMARY 350.1.13.10 i ty of [facility] 4.2.7.2.[place] [phone] [place] dical [address] 2020-09-11 2020-09-11 Orders Doctor DANUTA 1.2.840.114 [id number] Univers 00:00:00 00:00:00 Only Unassigned, JOSE 350.1.13.10 [place] [facility] 4.2.7.2.686 Calvin as [phone] [facility] [address] 2020-08-16 2020-08-16 Outpatient [facility] [id number] Univers 10:00:00 10:00:00 OLAYINKA cobb o f [facility] 2020-08-13 2020-08-13 [facility] 1.2.084.169 [id number] Univers 14:11:28 23:59:00 Encounter Eze Bonner 350.1.13.10 [place] of [place] 4.2.7.2.686 [place] [facility] [phone] [facility] [address] [place] 2020-08-13 2020-08-13 Rn Family lC, [facility] Lab Main [facility] 1.2.8 40.114 [id number] Univers 14:16:27 14:31:27 Visit Pj Mora 350.1.13.10 [place] [phone] [place] dical nal [address] [facility] 2020-08-13 2020-08-13 Outpatient [facility] [id number] Univers 14:10:27 14:10:27 EZE ity of [facility] 2020-08-13 2020-08-13 [facility] 1.2.481.387 [id number] Univers 14:10:27 14:10:27 Encounter Eze Bonner 350.1.13.10 [place] of [place] 4.2.7.2.686 [place] [facility] [phone] [facility] [address] 2020-08-13 2020-08-13 Orders Doctor TIPTON 1.2.840.114 [id number] Univers 00:00:00 00:00:00 Only Unassigned, JOSE 350.1.13.10 [place] [facility] 4.2.7.2.686 Calvin as [phone] [address] 2020-08-06 2020-08-06 Office [facility] 1.2.840.114 [id number] Univers 09:29:10 09:44:10 Visit [facility] 350.1.13.10 it y of Surgical 4.2.7.2.686 Calvin as Specialti [phone] Me dical es 198 [facility] 2020-08-06 2020-08-06 Outpatient R [facility] [id number] Univers 09:30:00 09:30:00 [facility] 2020-07-17 2020-07-17 Orders Doctor DANUTA 1.2.840.114 [id number] Univers 00:00:00 00:00:00 Only Unassigned, JOSE 350.1.13.10 [place] [address].2.7.2.686 Calvin as [phone] [address] 2020-07-09 2020-07-09 Outpatient R [facility] [id number] Univers 09:13:48 23:59:00 VINCENT [facility] 2020-07-09 2020-07-09 Outpatient [facility] [id number] Univers 09:13:48 23:59:00 VINCENT [facility] 2020-07-09 2020-07-09 [facility] 1.2.840.114 [id number] Univers 09:13:48 23:59:00 Encounter [facility] 350.1.13.10 ity of Surgical 4.2.7.2.686 Calvin as Specialti [phone] Me dical es 809 [facility] 2020-07-09 2020-07-09 Office [facility] 1.2.840.114 [id number] Univers 08:45:28 09:27:23 Visit [facility] 350.1.13.10 it y of Surgical 4.2.7.2.686 Calvin as Specialti [phone] Me dical es 198 [facility] 2020-06-24 2020-06-25 Outpatient R NO [facility] SOR [id number] Univers 09:13:00 13:00:00 YESENIA cobb [facility] 2020-06-24 2020-06-25 Hospital No [facility] 1.2.840.114 [id number] Univers 09:13:00 13:00:00 Encounter Yesenia Bonner 350.1.13.10 [place] 4.2.7.2.686 [facility] [phone] [facility] [address] [place] 2020-06-21 2020-06-21 Rn Family Cl, Adc Lab Main [facility] 1.2.8 40.114 [id number] Univers 14:31:45 14:46:45 Visit Yesenia Sarabia 350.1.13.10 [place] 4.2.7.2.686 [facility] [phone] [place] dical nal 353 [facility] 2020-06-21 2020-06-21 Laboratory Only, Adc Test [facility] 1.2.840. 114 [id number] Univers 14:17:58 14:32:58 Only Yesenia Sarabia 350.1.13.10 [place] 4.2.7.2.686 [place] [facility] [phone] [facility] [address] [place] 2020-06-21 2020-06-21 Outpatient R NO [facility] [id number] Univers 14:15:00 14:15:00 YESENIA cobb [facility] 2020-06-21 2020-06-21 Orders Doctor DANUTA 1.2.840.114 [id number] Univers 00:00:00 00:00:00 Only Unassigned, JOSE 350.1.13.10 [place] [facility] 4.2.7.2.686 Calvin as [phone] [facility] [address] [place] 2020-06-10 2020-06-10 Prep For No [facility] 1.2.840.114 [id number] Univers 00:00:00 00:00:00 Surgery Yes[facility] 350.1.13.10 it y of Surgical 4.2.7.2.686 Calvin as Specialti [phone] [place] dical es 198 [facility] 2020-06-10 2020-06-[address] [facility] 1.2.840.114 [id number] 00:00:00 00:00:00 Surgery Yesenia [facility] 350.1.13.10 Surgical 4.2.7.2.686 Specialti [phone] es 198 [place] 2020-06-05 2020-06-[address] [facility] 1.2.840.114 [id number] [facility] [place] 14:35:26 14:50:26 Visit [facility] 350.1.13.10 it y of Surgical 4.2.7.2.686 Calvin as Specialti [phone] Me dical es 198 [facility] 2020-06-05 2020-06-05 Office [facility] 1.2.840.114 [id number] 14:35:26 14:50:26 Visit [facility] 350.1.13.10 Surgical 4.2.7.2.686 Specialti [phone] es [address] [place] [address] 2020-06-05 2020-06-05 Outpatient [facility] [id number] [facility] 14:30:00 14:30:00 VINCENT ity of [facility] 2020-05-29 2020-05-29 Telephone [facility] 1.2.840.114 [id number] Univers 00:00:00 00:00:00 Yesenia [facility] 350.1.13.10 it y of Surgical 4.2.7.2.686 Calvin as Specialti [phone] [place] dical es 198 [facility] 2020-05-23 2020-05-23 Telephone [facility] 1.2.840.114 [id number] Univers 00:00:00 00:00:00 Yesenia [facility] 350.1.13.10 it y of Surgical 4.2.7.2.686 Calvin as Specialti [phone] [place] dical es 198 [facility] 2020-05-22 2020-05-22 [facility] No [facility] 1.2.840.114 [id number] Univers 12:09:00 23:59:00 Encounter Yesenia Mckenna MARCELLUS 350.1.13.10 [place] [id number] [facility] [address] [place] 2020-05-22 2020-05-22 Orders Doctor DANUTA 1.2.840.114 [id number] Univers 00:00:00 00:00:00 Only Unassigned, JOSE 350.1.13.10 [place] [facility] 4.2.7.2.686 Calvin as [id number] [facility] [address] [place] 2020-05-17 2020-05-17 [facility] 1.2.840.114 [id number] Univers 12:41:20 23:59:00 Encounter Yesenia Bonner 350.1.13.10 [place] [phone] [facility] [address] [place] 2020-05-17 2020-05-17 Rn Family Cl, Genevieve Lab Main [facility] 1.2.8 40.114 [id number] Univers 12:36:11 12:51:11 Visit Yesenia Sarabia 350.1.13.10 [place] [phone] Me dical nal 353 [facility] 2020-05-17 2020-05-17 Office [facility] 1.2.632.559 [id number] Univers 10:25:36 11:09:24 Visit eYsenia Caballero 350.1.13.10 it y of Surgical 4.2.7.2.686 Calvin as Specialti [phone] Me dical es 198 [facility] 2020-05-17 2020-05-17 Outpatient [facility] [id number] Univers 10:30:00 10:30:00 YESENIA cobb of [facility] 2020-05-17 2020-05-17 Orders Doctor TIPTON 1.2.840.114 [id number] Univers 00:00:00 00:00:00 Only Unassigned, JOSE 350.1.13.10 [place] [facility] 4.2.7.2.686 Calvin as [phone] [facility] [address] [place] 2020-05-09 2020-05-09 [facility] 1.2.840.114 [id number] Univers 11:06:42 23:59:00 Encounter Yesenia Bonner 350.1.13.10 [place].2.[place] [id number] [facility] [address] [place] 2020-05-09 2020-05-09 Outpatient R NO [facility] [id number] Univers 15:15:00 15:15:00 YESENIA cobb [facility] 2020-05-09 2020-05-09 Rn Family Cl, Genevieve Lab Main [facility] 1.2.8 40.114 [id number] Univers 14:40:14 14:55:14 Visit Yesenia Sarabia 350.1.13.10 [place] [phone] Me dical nal 353 [facility] 2020-05-09 2020-05-[address] [facility] 1.2.057.218 [id number] Univers 13:41:15 14:16:18 Visit Yesenia Caballero 350.1.13.10 it y of Surgical 4.2.7.2.686 Calvin as Specialti [phone] Me dical es 198 [facility] 2020-05-09 2020-05-[address] [facility] 1.2.539.410 [id number] Univers 10:30:00 10:45:00 Visit Yesenia Caballero 350.1.13.10 it y of Surgical 4.2.7.2.686 Calvin as Specialti [id number] Me dical es 198 [facility] 2020-05-09 2020-05-09 Outpatient [facility] [id number] Univers 10:30:00 10:30:00 YESENIA cobb [facility] 2020-05-08 2020-05-08 [facility] 1.2.840.114 [id number] Univers 00:00:00 00:00:00 Yesenia Caballero 350.1.13.10 it y of Surgical 4.2.7.2.686 Calvin as Specialti [phone] Me dical es 198 [facility] 2020-04-30 2020-04-30 Orders Doctor DANUTA 1.2.840.114 [id number] Univers 00:00:00 00:00:00 Only Unassigned, JOSE 350.1.13.10 ity [facility] [place] [facility] 4.2.7.2.686 Calvin as [phone] [address] 2020-03-20 2020-03-20 Telephone No [facility] 1.2.840.114 [id number] Univers 00:00:00 00:00:00 Yesenia [facility] 350.1.13.10 it y of Surgical 4.2.7.2.686 Calvin as Specialti [phone] [place] dical es 198 [facility] 2020-02-22 2020-02-22 Orders Doctor DANUTA 1.2.840.114 [id number] Univers 00:00:00 00:00:00 Only Unassigned, JOSE 350.1.13.10 ity [facility] [place] [facility] 4.2.7.2.686 Calvin as [phone] [address] 2020-02-13 2020-02-13 Orders Doctor DANUTA 1.2.840.114 [id number] Univers 00:00:00 00:00:00 Only Unassigned, JOSE 350.1.13.10 ity [facility] [place] [facility] 4.2.7.2.686 Calvin as [id number] [address] 2019-11-08 2019-11-08 Orders Doctor DANUTA 1.2.840.114 [id number] Univers 00:00:00 00:00:00 Only Unassigned, JOSE 350.1.13.10 ity [facility] [place] [facility] 4.2.7.2.686 Calvin as [id number] [address] 2019-11-02 2019-11-02 Outpatient R NIKOLE [facility] [id number] Univers 13:45:00 13:45:00 VINCENT ity of [facility] 2019-11-02 2019-11-02 Telemedici Nikole DEVÍCTOR 1.2.840.114 [id number] Univers 08:01:19 08:16:19 ne Visit Vincent Membreno [facility] 350.1.13.10 i ty of Surgical 4.2.7.2.686 [place] as Specialti [phone] [place] dical es 198 [facility] 2019-09-28 2019-09-28 Teresa Agustin DEVÍCTOR 1.2.840.114 [id number] Univers 00:00:00 00:00:00 (Out) [facility] 350.1.13.10 it y of Surgical 4.2.7.2.686 Calvin as Specialti [phone] Me dical es 198 [facility] 2019-09-13 2019-09-13 Letter [facility] 1.2.840.114 [id number] Univers 00:00:00 00:00:00 (Out) [facility] 350.1.13.10 it y of Surgical 4.2.7.2.686 Calvin as Specialti [phone] Me dical es 198 [facility] 2019-09-11 2019-09-11 Telephone [facility] 1.2.954.700 [id number] Univers 00:00:00 00:00:00 [facility] 350.1.13.10 it y of Surgical 4.2.7.2.686 Calvin as Specialti [phone] Me dical es 198 [facility] 2019-09-07 2019-09-07 Office [facility] 1.2.840.114 [id number] Univers 07:55:18 08:10:18 Visit [facility] 350.1.13.10 it y of Surgical 4.2.7.2.686 Calvin as Specialti [phone] [place] dical es 198 [facility] 2019-09-07 2019-09-07 Orders Doctor TIPTON 1.2.840.114 [id number] Univers 00:00:00 00:00:00 Only Unassigned, JOSE 350.1.13.10 [facility] [place] [facility] 4.2.7.2.686 Calvin as [phone] [facility] [address] [place] 2019-09-07 2019-09-07 Letter [facility] 1.2.840.114 [id number] Univers 00:00:00 00:00:00 (Out) [facility] 350.1.13.10 it y of Surgical 4.2.7.2.686 Calvin as Specialti [phone] Me dical es 198 [facility] 2019-08-24 2019-08-24 Orders Doctor TIPTON 1.2.840.114 [id number] Univers 00:00:00 00:00:00 Only Unassigned, JOSE 350.1.13.10 ity of [facility] 4.2.7.2.686 Calvin as [id number] [address] 2019-07-31 2019-07-31 [facility] [id number] Univers 14:24:05 23:59:00 [facility] 2019-07-31 2019-07-[address] [facility] 1.2.840.114 [id number] Univers 14:24:00 23:59:00 Encounter [facility] 350.1.13.10 ity of Surgical 4.2.7.2.686 Calvin as Specialti [id number] [place] dical [place] 809 [facility] 2019-07-31 2019-07-[address] [facility] [id number] Univers 13:50:19 15:07:02 [facility] 350[facility]1.13.10 [facility] y of Surgical 4.2.7.2.686 Calvin as Specialti [phone] [place] dical es 198 [facility] 2019-07-17 2019-07-[address] [facility] S[facility] [id number] Univers 09:03:00 14:40[facility] 2019-07-10 2019-07-10 Outpatient [place] [id number] [employer] 15:22:42 15:24:00 [facility] 2019-06-23 2019-06-23 [facility] [id number] [employer] 08:07:23 23:59:00 [facility] Results Test Description Test Time Test Comments Results Result Comments Source LIPID PANEL 2022-03-11 06:03:34 Test Item Value Reference Range Interpretation Comme nts CHOLESTEROL (test code = 2210) 288 MG/DL <200 H TRIGLYCERIDES (test code = 2232) 165 MG/DL <150 H HDL CHOLESTEROL (test code = 42 MG/DL >39 2220) CALC LDL CHOL (test code = 2237) 213 MG/DL <100 H NOTE: CALCULATED LDL IS BASED ON ALEXANDER-GANDHI METHOD WHICHINCLUDES A DJUSTABLE TRIGLYCERIDE:VL DL CHOLESTEROL RATIO.THIS FACT OR VARIES BY MEASURED TRIGLY CERIDE AND NON-HDLCHOLESTE ROL CONCENTRATIONS WITH INCREASED CALCULATED LDL SEENIN HIGHER T RIGLYCERIDE OR LOWER NON-HDL S PECIMENS. FOR MOREINFORMATION , SEE CLIENT ANNOUNCEMENT AT [email or web address] [email or web address] LDL/HDL (test code = 5.07 RATIO <3.22 H 2237) COMPREHENSIVE METABOLIC [id number] 06:03:34 Test Item Value Reference Range Interpretation Comments GLUCOSE (test code = 154 MG/DL 70-99 H 2216) BUN (test code = 20 MG/DL 8-23 2207) CREATININE (test 0.78 MG/DL 0.60-1.30 code = 221) eGFR (2020 CKD-EPI) 87 ML/MIN/1.73 >60 (test code = 56592) CALC BUN/CREAT (test 26 RATIO 6-28 code = 2235) SODIUM (test code = 137 MEQ/L 697-921 6020) POTASSIUM (test code 4.4 MEQ/L 3.5-5.4 = 2227) CHLORIDE (test code 99 MEQ/L 95-107 = 2214) CARBON DIOXIDE (test 24 MEQ/L 19-31 code = 2206) CALCIUM (test code = 9.4 MG/DL 8.5-10.5 2208) PROTEIN, TOTAL (test 7.6 G/DL 6.1-8.3 code = 2229) ALBUMIN (test code = 4.7 G/DL 3.5-5.2 2200) CALC GLOBULIN (test 2.9 G/DL 1.9-3.7 code = 2240) CALC A/G RATIO (test 1.6 RATIO 1.0-2.6 code = 2234) BILIRUBIN, TOTAL 0.4 MG/DL See_Comment [Automated message] (test code = 2207) The syste m which generated this result transmit eze reference range : <=1.2. The refe rence range was not u sed to interpret th is result as normal/abnormal . ALKALINE PHOSPHATASE 136 U/L 40-136 (test code = 2204) AST (test code = 14 U/L 9-40 2217) ALT (test code = 16 U/L 5-40 2218) HEMOGLOBIN [id number] 05:29:44 Test Item Value Reference Range Interpretation Comments HEMOGLOBIN A1c (test 7.3 % 4.2-5.6 H AMERIC AN DIABETES code = 59777) ASSOCIATION IDELINES FOR HGB A1C: PREDIABETES/INC REASED RISK . . . . . . . 5.7 -6.4% DIAGNOSIS OF DI ABETES . . . . . . . . . >=6 .5% WITH CONFIRMATION OR APPROPRIATE SYMPTOMS NOTE: ASSAY MAY BE AFFECTED BY HEMOGLOBINOPATH IES (SICKLE CELL ANEMIA, S- C DISEASE, OTHERS) OR SANTO FICIALLY LOWERED BY DECR EASED RED CELL SURVIVAL ( HEMOLYTIC ANEMIAS, BLOOD LOSS, ETC.). CONSIDER ALTERN ATE TESTING OR LABORATORY C ONSULTATION. UNLESS OTHERWIS E INDICATED, ALL TESTING PER FORMED ATCLINICAL PATH [facility], [facility]. [address] [place] [id number] LABORATORY DIRE CTOR: SREEKANTH SEAY M.D. CLIA NUMBER [id number] [place]. [id number] CBC W/AUTO DIFF WITH [id number] 04:27:32 Test Item Value Reference Range Interpretation Comments WBC (test code = 10.3 K/UL 3.5-11.0 1001) RBC (test code = 4.52 M/UL 3.80-5.40 1002) HEMOGLOBIN (test code 13.1 G/DL 11.5-15.5 = 1003) HEMATOCRIT (test code 38.6 % 34.0-45.0 = 1004) MCV (test code = 85.4 fL 80.0-99.0 1005) MCH (test code = 29.0 PG 25.0-33.0 1006) MCHC (test code = 33.9 G/DL 31.0-36.0 1007) RDW (test code = 14.4 % 11.5-15.0 1038) NEUTROPHILS (test 52.4 % code = 1008) LYMPHOCYTES (test 37.5 % code = 1010) MONOCYTES (test code 5.5 % = 1011) EOSINOPHILS (test 3.3 % code = 1012) BASOPHILS (test code 0.9 % = 1013) IMMATURE GRANULOCYTES 0.4 % (test code = 1036) NUCLEATED RBCS (test 0.0 /100 WBC'S See_Comment [Aut omated code = 1065) message] The sy stem which generated this result transmitted reference range : 0.0. The refere nce range was not u sed to interpret th is result as normal/abnormal . PLATELET COUNT (test 373 K/UL 130-400 code = 1015) ABSOLUTE NEUTROPHILS 5.42 K/UL 1.50-7.50 (test code = 1066) ABSOLUTE LYMPHOCYTES 3.87 K/UL 1.00-4.00 (test code = 1067) ABSOLUTE MONOCYTES 0.57 K/UL 0.20-1.00 (test code = 1068) ABSOLUTE EOSINOPHILS 0.34 K/UL 0.00-0.50 (test code = 1040) ABSOLUTE BASOPHILS 0.09 K/UL 0.00-0.20 (test code = 1069) ABS IMMATURE 0.04 K/UL 0.00-0.10 GRANULOCYTES (test code = 1020) ABS NUCLEATED RBCS 0.00 K/UL 0.00-0.11 (test code = 31793)
--- NOTE | 2022-09-15 18:13 | RAD REPORT ---
EXAM DESCRIPTION: RAD - Knee Left 3 View - 09/15/2022 6:04 pm CLINICAL HISTORY: fall, knee pain COMPARISON: No comparisons FINDINGS/IMPRESSION: No acute fracture. No malalignment. Status post constrained left knee arthropla sty. No hardware complications.
--- NOTE | 2022-09-15 18:40 | EDPHYS ---
Physician Documentation [facility] Name: Jade Shaikh Age: 62 yrs Sex: Female : 1960 Arrival Date: 09/15/2022 Time: 17:19 Bed IW1 Private MD: ED Physician Pato West HPI: 09/15 17:41 This 62 yrs old Female presents to ER via Wheelchair with complaints of Fall Injury. jmm 17:41 Details of fall: The patient fell from an upright position. Onset: The symptoms/episode jmm began/occurred acutely. Is a 62-year-old female with history of diabetes mellitus, arthritis the presents emerged part with complaints of left knee pain following a fall which occurred earlier today. Patient states that she felt something tear when she stood up. Denies other injury. States having multiple surgeries on both knees.. Historical: - Allergies: 17:48 Sulfa (Sulfonamide Antibiotics); ap3 - PMHx: 17:48 Diabetes mellitus; Arthritis; ap3 - PSHx: 17:48 claudia knee replacements; ap3 - Immunization history:: Client reports receiving the 2nd dose of the Covid vaccine, Flu vaccine is not up to date. - Social history:: Smoking status: Reported history of juuling and/or vaping. Patient uses. ROS: 17:41 Constitutional: Negative for fever, chills, and weight loss, Cardiovascular: Negative jmm for chest pain, palpitations, and edema, Respiratory: Negative for shortness of breath, cough, wheezing, and pleuritic chest pain. 17:41 MS/extremity: Positive for pain. 17:41 All other systems are negative. Exam: 17:41 Constitutional: This is a well developed, well nourished patient who is awake, alert, jmm and in no acute distress. Head/Face: atraumatic. Eyes: EOMI, no conjunctival erythema appreciated ENT: Moist Mucus Membranes Neck: Trachea midline, Supple Chest/axilla: Normal chest wall appearance and motion. Cardiovascular: Regular rate and rhythm. No edema appreciated Respiratory: Normal respirations, no respiratory distress appreciated Abdomen/GI: Non distended Back: Normal ROM Skin: General appearance color normal 17:41 Musculoskeletal/extremity: Mild pain appreciated on passive range of motion of the left knee, compartments are soft, full dorsalis pedis pulse, neurovascular intact. 17:41 Skin: Appearance: Color: normal in color. 17:41 Neuro: Orientation: is normal, Mentation: is normal, Memory: is normal. 17:41 Psych: Behavior/mood is pleasant, cooperative. Vital Signs: 17:46 Pulse 78; Resp 18; Temp 98.7; Pulse Ox 100% ; Weight 94.8 kg; ap3 17:49 BP 185 / 99; ap3 MDM: 17:41 Patient medically screened. [facility] 18:19 Differential diagnosis: strain, internal derangement, contusion. Data reviewed: vital [facility] signs, nurses notes. I considered the following discharge prescriptions or medication management in the emergency department. 19:42 Independent interpretation of the following test(s) in the Emergency Department X-Ray: [facility] My interpretation is No fracture appreciated. Counseling: I had a detailed discussion with the patient and/or guardian regarding: the historical points, exam findings, and any diagnostic results supporting the discharge/admit diagnosis, radiology results, the need for outpatient follow up, to return to the emergency department if symptoms worsen or persist or if there are any questions or concerns that arise at home. ED course: Patient advised to follow-up with orthopedics for further evaluation.. 09/15 17:41 Order name: Knee Left 3 View XRAY; Complete Time: 18:19 [facility] 09/15 18:57 Order name: Knee Immobilizer; Complete Time: 19:39 [facility] Administered Medications: No medications were administered Disposition Summary: 09/15/22 18:40 Discharge Ordered Location: Home [facility] Condition: Stable [facility] Diagnosis - Left Leg Strain [facility] Followup: [facility] - With: Private Physician - When: 2 - 3 days - Reason: Recheck today's complaints, Continuance of care, Re-evaluation by your physician Discharge Instructions: - Discharge Summary Sheet [facility] - Acute Knee Pain, Adult [facility] Forms: - Medication Reconciliation Form [facility] - Thank You Letter [facility] - Antibiotic Education [facility] - Prescription Opioid Use [facility] Signatures: Dispatcher [employer] EDMS Sergo Roach PA PA jmm Prokisch, Amanda, RN RN ap3
--- NOTE | 2022-09-15 18:40 | ER ---
Nurse's Notes [facility] Name: Jade Shaikh Age: 62 yrs Sex: Female : 1960 Arrival Date: 09/15/2022 Time: 17:19 Bed IW1 Private MD: Diagnosis: Left Leg Strain Presentation: 09/15 17:46 Chief complaint: Patient states: she is having left knee pain after falling onto ap3 concrete. Coronavirus screen: At this time, the client does not indicate any symptoms associated with coronavirus-19. Ebola Screen: No symptoms or risks identified at this time. Initial Sepsis Screen: Does the patient meet any 2 criteria? No. Patient's initial sepsis screen is negative. Does the patient have a suspected source of infection? No. Patient's initial sepsis screen is negative. Risk Assessment: Do you want to hurt yourself or someone else? Patient reports no desire to harm self or others. Onset of symptoms was September 08, 2022. 17:46 Method Of Arrival: Wheelchair ap3 17:49 Acuity: STEVE 3 ap3 Triage Assessment: 17:50 General: Appears in no apparent distress. Behavior is calm, cooperative, appropriate ap3 for age. Pain: Complains of pain in left knee. Neuro: Level of Consciousness is awake, alert, obeys commands, Oriented to person, place, time, situation. Cardiovascular: Patient's skin is warm and dry. Respiratory: Airway is patent Respiratory effort is even, unlabored, Respiratory pattern is regular, symmetrical. Musculoskeletal: Reports pain in left knee. Historical: - Allergies: 17:48 Sulfa (Sulfonamide Antibiotics); ap3 - PMHx: 17:48 Diabetes mellitus; Arthritis; ap3 - PSHx: 17:48 claudia knee replacements; ap3 - Immunization history:: Client reports receiving the 2nd dose of the Covid vaccine, Flu vaccine is not up to date. - Social history:: Smoking status: Reported history of juuling and/or vaping. Patient uses. Screenin:49 Abuse screen: Denies threats or abuse. Nutritional screening: No deficits noted. ap3 Tuberculosis screening: No symptoms or risk factors identified. 19:39 [facility] ED Fall Risk Assessment (Adult) History of falling in the last 3 months, kd3 including since admission No falls in past 3 months (0 pts) Confusion or Disorientation No (0 pts) Intoxicated or Sedated No (0 pts) Impaired Gait No (0 pts) Mobility Assist Device Used No (0 pt) Altered Elimination No (0 pt) Score/Fall Risk Level 0 - 2 = Low Risk Maintained a safe environment. Vital Signs: 17:46 Pulse 78; Resp 18; Temp 98.7; Pulse Ox 100% ; Weight 94.8 kg; ap3 17:49 BP 185 / 99; ap3 ED Course: 17:19 Patient arrived in ED. rg4 17:21 Sergo Roach PA is PHCP. [facility] 17:21 Pato West MD is Attending Physician. jmm 17:48 Triage completed. ap3 17:50 Arm band placed on right wrist. ap3 18:10 Knee Left 3 View XRAY In Process Unspecified. EDMS 19:39 Farrah Antonio, SOPHIA is Primary Nurse. kd3 19:39 No provider procedures requiring assistance completed. Patient did not have IV access kd3 during this emergency room visit. 19:40 Patient has correct armband on for positive identification. kd3 Administered Medications: No medications were administered Medication: 19:40 VIS not applicable for this client. kd3 Outcome: 18:40 Discharge ordered by . [facility] 19:39 Discharged to home with family. kd3 19:39 Condition: stable 19:39 Discharge instructions given to patient, Instructed on discharge instructions, follow up and referral plans. Demonstrated understanding of instructions, follow-up care. 19:40 Patient left the ED. kd3 Signatures: Dispatcher [employer] EDHI Sergo Roach PA PA Mary Steve rg4 Mrieya Neal RN RN ap3 Farrah Antonio, SOPHIA RN kd3 Corrections: (The following items were deleted from the chart) 17:50 17:46 Acuity: STEVE 4 ap3 ap3
[2022-09-15 19:45] VITALS: TEMP 98.7; O2SAT 100
[2022-09-15 19:46] VITALS: BP 185/99
== END 2022-09-15 19:40 | disposition home or self-care (01) ==
LOC: ER 17:16
DX: S86.912A Strain of unspecified muscle(s) and tendon(s) at lower leg level, left leg, initial encounter (principal); Z96.653 Presence of artificial knee joint, bilateral

== ENCOUNTER 2023-03-13 11:59 | Emergency (ER) | payer SELFPAY ==
--- OUTSIDE RECORDS SUMMARY | 2023-03-13 12:03 | XMS REPORT | Continuity of Care Document ---
:1960 Author Organization [facility] t Address [address] [place] [address] [address] [place] [address] Care Team Providers Name Role Phone JODY BRITTON Primary Care Physician Unavailable YESENIA SARABIA Attending Clinician Unavailable Doctor Unassigned, [place] Attending Clinician Unavailable Yesenia Sarabia MD Attending [...] Date Expiration Date Chula DE SOUZA II [id number] 2018 00:00:[address] [facility] - [id number] 2021 00:00:00 OUT OF STATE Problems Condition [...] Added automatic ally from request for surgery [id number] Primary Primary Disease Active Overview: Univ ers osteoarthr osteoarthr 03-25 Formattin ity of itis of itis of 00:00: g of this [place] left knee left knee 00 note Medi isiah might be Branch different from the original. Added automatic ally from request for surgery [id number] S/P S/P Disease Active 2019-07 Univers revision [...] Added automatic ally from request for surgery [id number] Obesity Obesity Disease Active 2018-07 Univers (BMI [...] Added automatic ally from request for surgery [id number] Low back Low back Disease Active Unive [...] vers pain pain 8-18 ity of 00:00: [address] Branch Allergies, Adverse Reactions, Alerts Allergy [...] of tobacco Cigarette Smoker University of use [facility] f Alcohol Frequency [facility] Branch History SDHI University o f Alcohol Std Drinks [facility] History [facility] o f Alcohol Binge [facility] Branch Exposure to Not sure University of SARS-CoV-2 (event) [facility] Alcohol intake 2021-08-29 2021-08-29 0 /d University of 00:00:00 00:00:00 [facility] Education 2021-07-14 2021-07-14 9 University of 00:00:00 00:00:00 [facility] Cigarettes smoked 2021-07-09 2021-07-09 Univers ity of current (pack per 00:00:00 00:00:00 [facility] ) - Reported Branch Cigarette 2021-07-09 2021-07-09 University of pack-years 00:00:00 00:00:00 [facility] Tobacco use and 2021-07-09 2021-07-09 User of smokeless Un iversity of exposure 00:00:00 00:00:00 tobacco [facility] Tobacco Comment 2021-07-09 2021-07-09 Vaped and quit 3 Uni versity of 00:00:00 00:00:00 mnths, ago smoker Ariana Lambert edical for 44 years Branch Alcohol Comment 2019-07-10 2019-07-10 Occasional Universit y of 00:00:00 00:00:00 Drinker [facility] Sex Ass[birth year] At [birth year] Universit y of 00:00:00 00:00:00 [facility] Smoking Status Start Date Stop Date Source Ex-smoker 2021-07-09 00:00:00 2021-07-09 00:00:00 Universi ty of [facility] Medications Ordered Filled Start Stop Current Ordering Indication Dosage Frequency Signature Comments Components Source Medication Medication Date Date Medication? Clinician (SIG) Name Name glyBURIDE 5 2020-07 Yes 5mg Take 5 mg U nivers mg tablet 2-28 by mouth 2 ity of 15:00: (two) [place] 27 times Medical daily. Branch glyBURIDE 5 2020-07 Yes 5mg Take 5 mg U nivers mg tablet 2-28 by mouth 2 ity of 15:00: (two) [place] 27 times Medical daily. Branch glyBURIDE 5 2020-07 Yes 5mg Take 5 mg U nivers mg tablet 2-28 by mouth 2 ity of 15:00: (two) [place] 27 times Medical daily. Branch glyBURIDE 5 2020-07 Yes 5mg Take 5 mg U nivers mg tablet 2-28 by mouth 2 ity of 15:00: (two) [place] 27 times Medical daily. Branch glyBURIDE 5 2020-07 Yes 5mg Take 5 mg U nivers mg tablet 2-28 by mouth 2 ity of 15:00: (two) [place] 27 times Medical daily. Branch glyBURIDE 5 2020-07 Yes 5mg Take 5 mg U nivers mg tablet 2-28 by mouth 2 ity of 15:00: (two) [place] 27 times Medical daily. Branch acetaminoph 2020-07 [...] mouth 2 ity of tablet 00:00: (two) [place] 00 times Medical daily. Branch glipiZIDE 2018-07 Yes 10mg Take 10 mg Un torri 10 mg 1-13 by mouth 2 ity of tablet 00:00: (two) [place] 00 times Medical daily. Branch glipiZIDE 2018-07 Yes 10mg Take 10 mg Un torri 10 mg 1-13 by mouth 2 ity of tablet 00:00: (two) [place] 00 times Medical daily. Branch glipiZIDE 2018-07 Yes 10mg Take 10 mg Un torri 10 mg 1-13 by mouth 2 ity of tablet 00:00: (two) [place] 00 times Medical daily. Branch glipiZIDE 2018-07 Yes 10mg Take 10 mg Un torri 10 mg 1-13 by mouth 2 ity of tablet 00:00: (two) [place] 00 times Medical daily. Branch glipiZIDE 2018-07 Yes 10mg Take 10 mg Un torri 10 mg 1-13 by mouth 2 ity of tablet 00:00: (two) [place] 00 times Medical daily. Branch NYSTOP Yes [...] TABLET BY ity of tablet 00:00: MOUTH [facility] Medical TIMES Branch DAILY metFORMIN Yes [...] TABLET BY ity of tablet 00:00: MOUTH [facility] Medical TIMES Branch DAILY metFORMIN Yes TAKE 1 Univer s 500 mg 3-05 TABLET BY ity of tablet 00:00: MOUTH [place] 00 [facility] Medical TIMES Branch DAILY Immunizations Ordered Filled Immunization Date Status Comments [facility] e Immunization Name Name Influenza Virus 2019-07-18 Completed Universit y of Vaccine Quad .5 mL 00:00:00 [facility] IM 6+ MO Branch Influenza Virus 2019-07-18 Completed Universit y of Vaccine Quad .5 mL 00:00:00 [place] [facility] IM 6+ MO Branch Influenza Virus 2019-07-18 Completed Universit y of Vaccine Quad .5 mL 00:00:00 [place] [facility] IM 6+ [place] Branch Influenza Virus 2019-07-18 Completed Universit y of Vaccine Quad .5 mL 00:00:00 [facility] IM 6+ [place] Branch Influenza Virus 2019-07-18 Completed Universit y of Vaccine Quad .5 mL 00:00:00 [place] [facility] IM 6+ [place] Branch Influenza Virus 2019-07-18 Completed Universit y of Vaccine Quad .5 mL 00:00:00 [facility] 6+ [place] Branch Vital Signs Vital Name Observation Time Observation Value Comments Source Systolic blood 2021-08-29 17:33:00 151 mm[Hg] Univer sity [facility] pressure [facility] Diastolic blood 2021-08-29 17:33:00 82 mm[Hg] Unive rsity [facility] Heart rate 2021-08-29 17:33:00 78 /min [facility] Body height 2021-08-29 17:22:00 160 cm [facility] Body weight 2021-08-29 17:22:00 98.93 kg [facility] BMI 2021-08-29 17:22:00 38.63 kg/m2 [facility] Oxygen saturation 2021-08-29 17:22:00 97 /min [facility] in [facility] by Pulse oximetry Procedures Procedure Date / Time Performed Performing Clinician Sour e DISABILITY/FMLA 2022-02-24 05:01:00 [facility]3 VW LEFT 2021-08-29 17:54:29 Yesenia Sarabia [facility] REFERRAL- 2021-08-19 06:01:00 Doctor Unassigned, No Univer sity of [place] REQUEST/RESPONSE [facility] Encounters Start End Encounter Admission Attending Care Care Encounter Source Date/Time Date/Time Type Type Clinicians Facility Department ID 2021-07-02 Outpatient R NO [facility] SOR [id number] Univers 16:08:43 YESENIA cobb [facility] 2021-05-19 Outpatient NO [facility] SOR [id number] Univers 20:54:10 [facility] 2022-02-24 2022-02-24 Orders Doctor TIPTON 1.2.840.114 [id number] Univers 00:00:00 00:00:00 Only UnassJOSE araujo 350.1.13.10 ity of [place] [facility] 4.2.7.2.686 Calvin as [phone] [address] 2021-10-20 2021-10-20 [facility] 1.2.620.717 [id number] Univers 00:00:00 00:00:00 (Out) Yesenia Mckenna [facility] 350.1.13.10 it y of [facility] 4.2.7.2.686 Calvin as DAQUAN?BLEA [phone] Ne elvin LOPEZ 198 [facility] OFFICE [facility] 2021-10-20 2021-10-20 Letter [facility] 1.2.398.797 [id number] Univers 00:00:00 00:00:00 (Out) Yesenia [facility] 350.1.13.10 it y of [place] 4.2.7.2.686 Calvin as DAQUAN?BLEA [phone] Ne elvin LOPEZ 198 [facility] 2021-08-29 2021-08-29 Outpatient [facility] [id number] Univers 11:45:00 23:59:00 [facility] 2021-08-29 2021-08-29 [facility] 1.2.840.114 [id number] Univers 11:45:00 23:59:00 Encounter Yesenia [facility] 350.1.13.10 ity of [place] 4.2.7.2.686 Calvin as DAQUAN?BLEA [phone] Ne elvin LOPEZ 809 [facility] OFFICE [facility] 2021-08-29 2021-08-29 Office [facility] 1.2.840.114 [id number] Univers 11:00:00 11:15:00 Visit [facility] 350.1.13.10 it y of [place] [facility] 4.2.7.2.686 Calvin as DAQUAN?BLEA [id number] Ne elvin LOPEZ 198 [facility] OFFICE [facility] 2021-08-29 2021-08-29 Outpatient R [facility] [id number] Univers 11:00:00 11:00:00 [facility] 2021-08-19 2021-08-19 Orders Doctor TIPTON 1.2.840.114 [id number] Univers 00:00:00 00:00:00 Only Unassigned, JOSE 350.1.13.10 ity of [facility] 4.2.7.2.686 Calvin as [phone] [address] 2021-07-31 2021-07-31 Outpatient Jimena NIKOLE [facility] [id number] Univers 11:15:00 11:15:00 VINCENT ity [facility] 2021-07-31 2021-07-31 Outpatient Jimena [facility] [id number] Univers 11:15:00 11:15:00 VINCENT ity [facility] 2021-07-29 2021-07-29 Outpatient Jimena [facility] [id number] Univers 13:28:03 23:59:00 VINCENT ity [facility] 2021-07-29 2021-07-29 [facility] 1.2.840.114 [id number] Univers 13:28:03 23:59:00 Encounter [facility] 350.1.13.10 ity of [place] 4.2.7.2.686 Calvin as DAQUAN?BLEA [phone] [facility] [address] MEDICAL OFFICE [facility] 2021-07-29 2021-07-29 Outpatient Jimena [facility] [id number] Univers 13:28:03 23:59:00 [facility] 2021-07-29 2021-07-29 Office [facility] 1.2.840.114 [id number] Univers 13:15:00 13:30:00 Visit Vincent S HEALTH 350.1.13.10 it y of [place] 4.2.7.2.686 Calvin as DAQUAN?BLEA [phone] [facility] [address] MEDICAL OFFICE [facility] 2021-07-29 2021-07-29 Outpatient Jimena [facility] [id number] Univers 13:15:00 13:15:00 VINCENT ity [facility] 2021-07-28 2021-07-28 Telephone [facility] 1.2.840.114 [id number] Univers 00:00:00 00:00:00 [facility] HEALTH 350.1.13.10 it y of [place] 4.2.7.2.686 Calvin as DAQUAN?BLEA [phone] Ne elvin LOPEZ [address] MEDICAL OFFICE [facility] 2021-07-25 2021-07-25 Outpatient R NIKOLE [facility] [id number] Univers 09:00:00 09:00:00 VINCENT ity of [facility] 2021-07-17 2021-07-17 Telephone [facility] 1.2.840.114 [id number] Univers 00:00:00 00:00:00 Yesenia Mckenna HEALTH 350.1.13.10 it y of [place] 4.2.7.2.686 Calvin as DAQUAN?BLEA [phone] Me elvin LOPEZ [address] [place] [address] OFFICE [facility] 2021-07-17 2021-07-17 Telephone [facility] 1.2.840.114 [id number] Univers 00:00:00 00:00:00 Yesenia Mckenna HEALTH 350.1.13.10 it y of [place] 4.2.7.2.686 Calvin as DAQUAN?BLEA [phone] Me elvin LOPEZ [address] [place] [address] OFFICE [facility] 2021-07-17 2021-07-17 Orders Doctor DANUTA 1.2.840.114 [id number] Univers 00:00:00 00:00:00 Only Unassigned, JOSE 350.1.13.10 ity of [place] [facility] 4.2.7.2.686 Calvin as [phone] [address] 2021-07-16 2021-07-16 Telephone [facility] 1.2.840.114 [id number] Univers 00:00:00 00:00:00 Yesenia Mckenna SPECIALTY 350.1.13.10 ity of [place]2.7.2.686 [place] [id number] Ne elvin VOGEL [address] [place] [address] 2021-07-14 2021-07-15 Outpatient R [facility] [id number] Univers 10:19:00 15:00:00 YESENIA cobb of [facility] 2021-07-14 2021-07-15 [facility] 1.2.840.114 [id number] Univers 10:19:00 15:00:00 Encounter Yesenia BONNER 350.1.13.10 ity of [place] 4.2.7.2.686 [facility] [phone] [facility] 081 Branch 2021-07-14 2021-07-14 Surgery No [facility] 1.2.853.579 [id number] Univers 12:35:00 15:54:00 Yesenia BONNER 350.1.13.10 i ty of [place] 4.2.7.2.686 [facility] [id number] [facility] 020 Branch 2021-07-14 2021-07-14 Orders Doctor DANUTA 1.2.840.114 [id number] Univers 00:00:00 00:00:00 Only Unassigned, JOSE 350.1.13.10 ity of [place] [facility] 4.2.7.2.686 Calvin as [phone] [facility] [address] 2021-07-11 2021-07-11 Laboratory Only, Adc Test [facility] 1.2.840. 114 [id number] Univers 11:15:00 11:30:00 Only Yesenia Sarabia Clarisa BONNER 350.1.13.10 ity of [place] 4.2.7.2.686 [facility] [phone] [facility] 353 Branch 2021-07-11 2021-07-11 Outpatient R NO [facility] [id number] Univers 11:15:00 11:15:00 YESENIA cobb [facility] 2021-07-11 2021-07-11 Orders Doctor DANUTA 1.2.840.114 [id number] Univers 00:00:00 00:00:00 Only Unassigned, JOSE 350.1.13.10 ity of [place] [facility] 4.2.7.2.686 Calvin as [phone] [facility] 009 Branch 2021-07-10 2021-07-10 Outpatient R NO [facility] [id number] Univers 14:32:10 23:59:00 YESENIA cobb [facility] 2021-07-10 2021-07-10 Hospital No [facility] 1.2.840.114 [id number] Univers 12:00:00 23:59:00 Encounter Yesenia BONNER 350.1.13.10 ity of [place].2.[place] [phone] [facility] isiah [address] 2021-07-10 2021-07-10 Outpatient R SARABIA [facility] [id number] Univers 14:31:09 14:31:09 YESENIA ity of [facility] 2021-07-10 2021-07-10 Hospital No [facility] 1.2.840.114 [id number] Univers 11:45:00 11:59:00 Encounter Yesenia BONNER 350.1.13.10 ity of [place] 4.2.7.2.686 [place] [id number] [facility] isiah [address] 2021-07-10 2021-07-10 [employer], [place] Lab Main [facility] 1.2.8 40.114 [id number] Univers 11:30:00 11:45:00 Visit Yesenia Sarabia KAILEY 350.1.13.10 ity of [place] 4.2.7.2.686 [place] PROFESS[place] [phone] Ne dical NAL 353 [facility] 2021-06-30 2021-06-30 Telephone [facility] 1.2.840.114 [id number] Univers 00:00:00 00:00:00 Yesenia Mckenna HEALTH 350.1.13.10 it y of [place] 4.2.7.2.686 Calvin as DAQUAN?BLEA [phone] Ne dicbita LOPEZ [address] MEDICAL OFFICE [facility] 2021-06-30 2021-06-30 Prep For [facility] 1.2.840.114 [id number] Univers 00:00:00 00:00:00 Surgery Yesenia Mckenna HEALTH 350.1.13.10 it y of [place] 4.2.7.2.686 Calvin as DAQUAN?BLEA [phone] Ne dical KNEY 198 [facility] OFFICE [facility] 2021-06-27 2021-06-27 Telephone Haleigh [facility] 1.2.701.750 [id number] Univers 00:00:00 00:00:00 Olayinka CATERINATON 350.1.13.10 ity of [place] 4.2.7.2.686 [place] CRIST[place] [phone] Me dical NAL 085 [facility] 2021-06-26 2021-06-26 Outpatient R [facility] [id number] Univers 09:00:00 11:19:13 YESENIA cobb [facility] 2021-06-26 2021-06-26 Outpatient R [facility] [id number] Univers 09:00:00 11:19:13 YEESNIA cobb [facility] 2021-06-26 2021-06-26 Office [facility] 1.2.530.863 [id number] Univers 08:43:47 11:19:13 Visit Yesenia Mckenna [facility] 350.1.13.10 it y of [place] [facility] [employer] [facility] [employer] [facility] [facility] 4.2.7.2.686 Calvin as DAQUAN?BLEA [phone] Ne elvin [address]CC[address] 2021-06-26 2021-06-26 Outpatient R [facility] [id number] Univers 09:00:00 09:00:00 YESENIA cobb [facility] 2021-06-17 2021-06-17 Telephone [facility] 1.2.840.114 [id number] Univers 00:00:00 00:00:00 Yesenia CABALLERO 350.1.13.10 it y of [place] 4.2.7.2.686 Calvin as DAQUAN?BLEA [id number] Ne elvin [address]CC[address] 2021-06-16 2021-06-16 Orders Doctor DANUTA 1.2.840.114 [id number] Univers 00:00:00 00:00:00 Only Unassigned, JOSE 350.1.13.10 ity of [place] [facility] 4.2.7.2.686 Calvin as [id number] [address] 2021-05-14 2021-05-14 Office [facility] 1.2.840.114 [id number] Univers 13:01:51 13:16:51 Visit Vincent [facility] 350.1.13.10 it y of [place] 4.2.7.2.686 Calvin as Daquan?Blea [phone] Ne elvin lopez [address] [place] [address] Office [facility] 2021-05-14 2021-05-14 Outpatient R [facility] [id number] Univers 13:00:00 13:00:00 VINCENT [facility] 2021-05-08 2021-05-08 Orders Doctor DANUTA 1.2.840.114 [id number] Univers 00:00:00 00:00:00 Only Unassigned, JOSE 350.1.13.10 ity of [place] [facility] 4.2.7.2.686 Calvin as [phone] [address] 2021-04-14 2021-04-14 [facility] 1.2.840.114 [id number] Univers 13:35:00 23:59:00 Encounter Vincent [facility] 350.1.13.10 ity of [place] 4.2.7.2.686 Calvin as Daquan?Blea [phone] Ne elvin lopez 809 [facility] 2021-04-14 2021-04-14 Outpatient Jimena AGUSTIN [facility] [id number] Univers 13:35:00 23:59:00 [facility] 2021-04-14 2021-04-14 Outpatient Jimena [facility] [id number] Univers 13:45:00 13:45:00 [facility] 2021-04-14 2021-04-14 Office [facility] 1.2.840.114 [id number] Univers 13:12:59 13:27:59 Visit Vincent [facility] 350.1.13.10 it y of [place] 4.2.7.2.686 Calvin as Daquan?Blea [phone] Ne elvin lopez 198 [facility] Office [facility] 2021-03-31 2021-03-31 Hospital Yesenia Sarabia [facility] 1.2.840 .114 [id number] Univers 06:35:00 15:05:00 Encounter Nikole Vincent [facility] [place] 350.1.13.10 [place]2.[place].2.686 [place] [phone] [address] 2021-03-31 2021-03-31 Surgery No [facility] 1.2.022.163 [id number] Univers 07:30:00 09:59:00 Yesenia Bonner 350.1.13.10 i ty [place] 4.2.7.2.686 [place] [id number] [facility] 020 Branch 2021-03-31 2021-03-31 Luly [facility] 1.2.840.114 [id number] Univers 00:00:00 00:00:00 [facility] 350.1.13.10 it y of Surgical 4.2.7.2.686 Calvin as Specialti [phone] Ne dical es 198 [facility] 2021-03-31 2021-03-31 Orders Doctor DANUTA 1.2.840.114 [id number] Univers 00:00:00 00:00:00 Only Unassigned, JOSE 350.1.13.10 ity of [place] [facility] 4.2.7.2.686 Calvin as [phone] [facility] 009 Branch 2021-03-28 2021-03-28 Hospital [facility] 1.2.840.114 [id number] Univers 10:00:00 23:59:00 Encounter Yesenia Bonner 350.1.13.10 ity of [place] 4.2.7.2.686 [facility] [id number] [facility] 850 [address] 2021-03-28 2021-03-28 Laboratory Only, [facility] Test [facility] 1.2.840. 114 [id number] Univers 13:30:08 13:45:08 Only Yesenai Sarabia Clarisa [place] 350.1.13.10 ity of [place] 4.2.7.2.686 [facility] [id number] [facility] 353 Branch 2021-03-28 2021-03-28 [employer] Cl, [facility] Lab Main [facility] 1.2.8 40.114 [id number] Univers 13:24:59 13:39:59 Visit Yesenia Sarabia Clarisa Bonner 350.1.13.10 ity of [place] 4.2.7.2.686 [facility] Professio [phone] Ne dical nal 353 Branch [facility] 2021-03-28 2021-03-28 Hospital [facility] 1.2.840.114 [id number] Univers 08:00:00 09:59:00 Encounter Yesenia Bonner 350.1.13.10 ity of [place] 4[place]2.7.2.686 [place] [phone] [facility] [address] 2021-03-28 2021-03-28 Outpatient R [facility] [id number] Univers 00:00:00 00:00:00 YESENIA ity of [facility] 2021-03-25 2021-03-25 Telephone [facility] 1.2.840.114 [id number] Univers 00:00:00 00:00:00 Yesenia Mckenna [facility] 350.1.13.10 it y of Surgical 4.2.7.2.686 Calvin as Specialti [id number] Ne elvin [address] 2021-03-17 2021-03-17 Orders Doctor DANUTA 1.2.840.114 [id number] Univers 00:00:00 00:00:00 Only Unassigned, JOSE 350.1.13.10 ity of [place] [facility] 4.2.7.2.686 Calvin as [id number] [facility] [address] 2021-03-17 2021-03-17 Prep For [facility] 1.2.840.114 [id number] Univers 00:00:00 00:00:00 Surgery Yesenia Mckenna [facility] 350.1.13.10 it y of [place] 4.2.7.2.686 Calvin as Daquan?Blea [phone] Ne elvin lopez [address] [place] [address] Medical Office [facility] 2021-03-17 2021-03-17 Telephone [facility] 1.2.840.114 [id number] Univers 00:00:00 00:00:00 Yesenia Mckenna Health 350.1.13.10 it y of [place] 4.2.7.2.686 Calvin as Daquan?Blea [phone] Ne elvin [address] Medical Office [facility] 2021-03-12 2021-03-12 Telephone [facility] 1.2.986.760 [id number] Univers 00:00:00 00:00:00 Vincent [facility] 350.1.13.10 it y of [place] 4.2.7.2.686 Calvin as Daquan?Blea [phone] Ne bayronal kney 198 [facility] Office [facility] 2021-03-07 2021-03-07 Outpatient R [facility], [facility] [id number] Univers 10:37:43 23:59:00 OLAYINKA cobb o f [facility] 2021-03-07 2021-03-07 Outpatient R [facility], [facility] [id number] [facility] 09:20:00 09:47:20 OLAYINKA garciay o [facility] 2021-03-07 2021-03-07 Office [facility] 1.2.840.114 [id number] Univers 09:16:38 09:47:20 Visit Olayinka Bonner 350.1.13.10 it[place] 4.2.7.2.686 [place] Profess[place] [phone] Ne dicbita nal [address] [place] [address] 2021-03-07 2021-03-07 Office [facility] 1.2.840.114 [id number] Univers 09:16:38 09:47:20 Visit Olayinka BONNER 350.1.13.10 ity of [place] [phone] Ne dicbita NAL [address] [place] [address] 2021-03-07 2021-03-07 Outpatient R [facility], [facility] [id number] Univers 09:20:00 09:20:00 OLAYINKA cobb o [facility] 2021-03-07 2021-03-07 Telephone [facility] 1.2.628.696 [id number] Univers 00:00:00 00:00:00 Olayinka Bonner 350.1.13.10 [place] [phone] Ne dical nal [address] [place] [address] 2021-03-07 2021-03-07 Telephone [facility] 1.2.742.200 [id number] Univers 00:00:00 00:00:00 [facility] 350.1.13.10 it y of [place] 4.2.7.2.686 Calvin as Daquan?Blea [phone] Me dical kney 198 [facility] Office [facility] 2021-03-06 2021-03-06 Outpatient R NIKOLE [facility] [id number] Univers 10:30:00 10:30:00 [facility] 2021-03-05 2021-03-05 [facility] 1.2.753.483 [id number] Univers 00:00:00 00:00:00 Yesenia [facility] 350.1.13.10 it y of Surgical 4.2.7.2.686 Calvin as Specialti [phone] Ne dical es 198 [facility] 2021-01-02 2021-01-02 Outpatient R NIKOLE [facility] [id number] Univers 16:00:00 16:00:00 [facility] 2021-01-02 2021-01-02 Office [facility] 1.2.840.114 [id number] Univers 15:41:45 15:56:45 Visit [facility] 350.1.13.10 it y of Surgical 4.2.7.2.686 Calvin as Specialti [phone] Ne dical es 198 [facility] 2020-12-26 2020-12-26 Telephone [facility] 1.2.840.114 [id number] Univers 00:00:00 00:00:00 Yesenia [facility] 350.1.13.10 it y of Surgical 4.2.7.2.686 Calvin as Specialti [phone] Ne dical es 198 [facility] 2020-12-20 2020-12-20 Telephone [facility] 1.2.303.519 [id number] Univers 00:00:00 00:00:00 [facility] 350.1.13.10 it y of Surgical 4.2.7.2.686 Calvin as Specialti [phone] Ne dical es 198 [facility] 2020-12-06 2020-12-06 [facility] 1.2.840.114 [id number] Univers 08:37:34 23:59:00 Encounter [facility] 350.1.13.10 ity of Surgical 4.2.7.2.686 Calvin as Specialti [phone] Me dical es 809 [facility] 2020-12-06 2020-12-06 Outpatient NIKOLE [facility] [id number] Univers 08:37:34 23:59:00 [facility] 2020-12-06 2020-12-06 [facility] [id number] Univers 08:37:34 23:59:00 [facility] 2020-12-06 2020-12-06 Office [facility] 1.2.840.114 [id number] Univers 08:16:04 09:36:38 Visit [facility] 350.1.13.10 it y of Surgical 4.2.7.2.686 Calvin as Specialti [phone] Ne dical es 198 [facility] 2020-12-06 2020-12-06 Outpatient R NIKOEL [facility] [id number] Univers 08:30:00 08:30:00 [facility] 2020-11-25 2020-11-25 Orders Doctor DANUTA 1.2.840.114 [id number] Univers 00:00:00 00:00:00 Only Unassigned, JOSE 350.1.13.10 ity of [facility] 4.2.7.2.686 Calvin as [phone] [address] 2020-10-29 2020-10-29 Orders Doctor TIPTON 1.2.840.114 [id number] Univers 00:00:00 00:00:00 Only Unassigned, JOSE 350.1.13.10 ity of [facility] 4.2.7.2.686 Calvin as [phone] [address] 2020-10-15 2020-10-15 Orders Doctor DAUNTA Ortega.2.840.114 [id number] Univers 00:00:00 00:00:00 Only Unassigned, JOSE 350.1.13.10 ity of [facility] 4.2.7.2.686 Calvin as [phone] [address] 2020-09-28 2020-09-28 Patient Chandler [facility] 1.2.840.114 [id number] Univers 00:00:00 00:00:00 Outreach Usama PRIMARY 350.1.13.[address] [facility] [place].2.[place] [phone] Ne dical [address] 2020-09-11 2020-09-11 Orders Doctor DANUTA 1.2.840.114 [id number] Univers 00:00:00 00:00:00 Only Unassigned, JOSE 350.1.13.10 ity of [employer] [facility] 4.2.7.2.686 Calvin as [phone] [facility] [address] 2020-08-16 2020-08-16 Outpatient R [facility] [id number] Univers 10:00:00 10:00:00 OLAYINKA cobb o f [facility] 2020-08-13 2020-08-13 [facility] 1.2.656.559 [id number] Univers 14:11:28 23:59:00 Encounter Eze Bonner 350.1.13.10 [place] of [place] 4.2.7.2.686 [facility] [phone] [facility] [address] 2020-08-13 2020-08-13 [employer], [facility] Lab Main [facility] 1.2.8 40.114 [id number] Univers 14:16:27 14:31:27 Visit Pj Mora 350.1.13.10 [place] [phone] Ne dical nal [address] [facility] 2020-08-13 2020-08-13 Outpatient R [facility] [id number] Univers 14:10:27 14:10:27 EZE ity of [facility] 2020-08-13 2020-08-13 [facility] 1.2.834.563 [id number] Univers 14:10:27 14:10:27 Encounter Eze Bonner 350.1.13.10 [place] of [place] 4.2.7.2.686 [facility] [phone] [facility] [address] 2020-08-13 2020-08-13 Orders Doctor TIPTON 1.2.840.114 [id number] Univers 00:00:00 00:00:00 Only Unassigned, JOSE 350.1.13.10 ity of [employer] [place] [facility] 4.2.7.2.686 Calvin as [phone] [address] 2020-08-06 2020-08-06 Office [facility] 1.2.840.114 [id number] Univers 09:29:10 09:44:10 Visit [facility] 350.1.13.10 it y of Surgical 4.2.7.2.686 Calvin as Specialti [phone] Me dical es 198 [facility] 2020-08-06 2020-08-06 Outpatient R [facility] [id number] Univers 09:30:00 09:30:00 [facility] 2020-07-17 2020-07-17 Orders Doctor DANUTA 1.2.840.114 [id number] Univers 00:00:00 00:00:00 Only Unassigned, JOSE 350.1.13.10 ity of [place] [address].2.7.2.686 Calvin as [id number] [address] 2020-07-09 2020-07-09 Outpatient R [facility] [id number] Univers 09:13:48 23:59:00 VINCENT [facility] 2020-07-09 2020-07-09 Outpatient [facility] [id number] Univers 09:13:48 23:59:00 VINCENT [facility] 2020-07-09 2020-07-09 [facility] 1.2.840.114 [id number] Univers 09:13:48 23:59:00 Encounter [facility] 350.1.13.10 ity of Surgical 4.2.7.2.686 Calvin as Specialti [phone] Me dical es 809 [facility] 2020-07-09 2020-07-09 Office [facility] 1.2.840.114 [id number] Univers 08:45:28 09:27:23 Visit [facility] 350.1.13.10 it y of Surgical 4.2.7.2.686 Calvin as Specialti [id number] Me dical es 198 [facility] 2020-06-24 2020-06-25 Outpatient R NO [facility] SOR [id number] Univers 09:13:00 13:00:00 YESENIA cobb [facility] 2020-06-24 2020-06-25 Hospital No [facility] 1.2.840.114 [id number] Univers 09:13:00 13:00:00 Encounter Yesenia Bonner 350.1.13.10 [place] 4.2.7.2.686 [facility] [phone] [facility] [address] 2020-06-21 2020-06-21 [employer], Adc Lab Main [facility] 1.2.8 40.114 [id number] Univers 14:31:45 14:46:45 Visit Yesenia Sarabia 350.1.13.10 [place] 4.2.7.2.686 [facility] [phone] Ne dical nal 353 [facility] 2020-06-21 2020-06-21 Laboratory Only, Adc Test [facility] 1.2.840. 114 [id number] Univers 14:17:58 14:32:58 Only Yesenia Sarabia 350.1.13.10 [place] of [place] 4.2.7.2.686 [facility] [phone] [facility] [address] 2020-06-21 2020-06-21 Outpatient R NO [facility] [id number] Univers 14:15:00 14:15:00 YESENIA cobb [facility] 2020-06-21 2020-06-21 Orders Doctor DANUTA 1.2.840.114 [id number] Univers 00:00:00 00:00:00 Only Unassigned, JOSE 350.1.13.10 ity of [place] [facility] 4.2.7.2.686 Calvin as [phone] [facility] [address] 2020-06-10 2020-06-10 Prep For No [facility] 1.2.840.114 [id number] Univers 00:00:00 00:00:00 Surgery Yesenia [facility] 350.1.13.10 it y of Surgical 4.2.7.2.686 Calvin as Specialti [phone] Ne dical es 198 [facility] 2020-06-10 2020-06-10 [facility] 1.2.840.114 [id number] 00:00:00 00:00:00 Surgery Yesenia [facility] 350.1.13.10 Surgical 4.2.7.2.686 Specialti [phone] es 198 [place] 2020-06-05 2020-06-05 Office [facility] 1.2.840.114 [id number] [facility] 14:35:26 14:50:26 Visit [facility] 350.1.13.10 it y of Surgical 4.2.7.2.686 Calvin as Specialti [phone] Me dical es 198 [facility] 2020-06-05 2020-06-05 Office [facility] 1.2.840.114 [id number] 14:35:26 14:50:26 Visit [facility] 350.1.13.10 Surgical 4.2.7.2.686 Specialti [phone] es [address] [place] [address] 2020-06-05 2020-06-05 Outpatient R [facility] [id number] 912 [facility] 14:30:00 14:30:00 VINCENT ity of [facility] 2020-05-29 2020-05-29 Telephone [facility] 1.2.840.114 [id number] Univers 00:00:00 00:00:00 Yesenia [facility] 350.1.13.10 it y of Surgical 4.2.7.2.686 Calvin as Specialti [phone] Ne dical es 198 [facility] 2020-05-23 2020-05-23 Telephone [facility] 1.2.840.114 [id number] Univers 00:00:00 00:00:00 Yesenia [facility] 350.1.13.10 it y of Surgical 4.2.7.2.686 Calvin as Specialti [phone] Ne dical es 198 [facility] 2020-05-22 2020-05-22 [facility] No [facility] 1.2.840.114 [id number] Univers 12:09:00 23:59:00 Encounter Yesenia Mckenna MARCELLUS 350.1.13.10 [place] [phone] [facility] [address] 2020-05-22 2020-05-22 Orders Doctor DANUTA 1.2.840.114 [id number] Univers 00:00:00 00:00:00 Only Unassigned, JOSE 350.1.13.10 ity of [place] [facility] 4.2.7.2.686 Calvin as [phone] [facility] [address] 2020-05-17 2020-05-17 [facility] 1.2.840.114 [id number] Univers 12:41:20 23:59:00 Encounter Yesenia Bonner 350.1.13.10 [place] [phone] [facility] [address] 2020-05-17 2020-05-17 [employer], Genevieve Lab Main [facility] 1.2.8 40.114 [id number] Univers 12:36:11 12:51:11 Visit Yesenia Sarabia 350.1.13.10 [place] [phone] Me dical nal 353 [facility] 2020-05-17 2020-05-17 Office [facility] 1.2.273.732 [id number] Univers 10:25:36 11:09:24 Visit Yesenia Caballero 350.1.13.10 it y of Surgical 4.2.7.2.686 Calvin as Specialti [phone] Me dical es 198 [facility] 2020-05-17 2020-05-17 Outpatient R [facility] [id number] Univers 10:30:00 10:30:00 YESENIA cobb of [facility] 2020-05-17 2020-05-17 Orders Doctor TIPTON 1.2.840.114 [id number] Univers 00:00:00 00:00:00 Only Unassigned, JOSE 350.1.13.10 ity of [place] [facility] 4.2.7.2.686 Calvin as [phone] [facility] [address] 2020-05-09 2020-05-09 [facility] 1.2.840.114 [id number] Univers 11:06:42 23:59:00 Encounter Yesenia Bonner 350.1.13.10 [place] [id number] [facility] [address] 2020-05-09 2020-05-09 Outpatient R NO [facility] [id number] Univers 15:15:00 15:15:00 YESENIA cobb [facility] 2020-05-09 2020-05-09 [employer], Genevieve Lab Main [facility] 1.2.8 40.114 [id number] Univers 14:40:14 14:55:14 Visit Yesenia Sarabia 350.1.13.10 [place] [phone] Me dical nal 353 [facility] 2020-05-09 2020-05-09 [facility] 1.2.817.802 [id number] Univers 13:41:15 14:16:18 Visit Yesenia Caballero 350.1.13.10 it y of Surgical 4.2.7.2.686 Calvin as Specialti [id number] Me dical es 198 [facility] 2020-05-09 2020-05-09 Office [facility] 1.2.506.556 [id number] Univers 10:30:00 10:45:00 Visit Yesenia Caballero 350.1.13.10 it y of Surgical 4.2.7.2.686 Calvin as Specialti [phone] Me dical es 198 [facility] 2020-05-09 2020-05-09 Outpatient R [facility] [id number] Univers 10:30:00 10:30:00 YESENIA cobb [facility] 2020-05-08 2020-05-08 [facility] 1.2.840.114 [id number] Univers 00:00:00 00:00:00 Yesenia Caballero 350.1.13.10 it y of Surgical 4.2.7.2.686 Calvin as Specialti [phone] Me dical es 198 [facility] 2020-04-30 2020-04-30 Orders Doctor DANUTA 1.2.840.114 [id number] Univers 00:00:00 00:00:00 Only Unassigned, JOSE 350.1.13.10 ity of [employer] [place] [facility] 4.2.7.2.686 Calvin as [phone] [address] 2020-03-20 2020-03-20 Telephone No [facility] 1.2.840.114 [id number] Univers 00:00:00 00:00:00 Yesenia [facility] 350.1.13.10 it y of Surgical 4.2.7.2.686 Calvin as Specialti [id number] Ne dical es 198 [facility] 2020-02-22 2020-02-22 Orders Doctor DANUTA 1.2.840.114 [id number] Univers 00:00:00 00:00:00 Only Unassigned, JOSE 350.1.13.10 ity of [facility] [place] [facility] 4.2.7.2.686 Calvin as [phone] [address] 2020-02-13 2020-02-13 Orders Doctor DANUTA 1.2.840.114 [id number] Univers 00:00:00 00:00:00 Only Unassigned, JOSE 350.1.13.10 ity of [employer] [place] [facility] 4.2.7.2.686 Calvin as [id number] [address] 2019-11-08 2019-11-08 Orders Doctor DANUTA 1.2.840.114 [id number] Univers 00:00:00 00:00:00 Only Unassigned, JOSE 350.1.13.10 ity of [facility] [place] [facility] 4.2.7.2.686 Calvin as [phone] [address] 2019-11-02 2019-11-02 Outpatient R NIKOLE [facility] [id number] Univers 13:45:00 13:45:00 VINCENT ity of [facility] 2019-11-02 2019-11-02 Telemedici Nikole ALVÍCTOR 1.2.840.114 [id number] Univers 08:01:19 08:16:19 ne Visit [facility] 350.1.13.10 i ty of Surgical 4.2.7.2.686 Calvin as Specialti [phone] Ne dical es 198 [facility] 2019-09-28 2019-09-28 Teresa Agustin ALVÍCTOR 1.2.840.114 [id number] Univers 00:00:00 00:00:00 (Out) [facility] 350.1.13.10 it y of Surgical 4.2.7.2.686 Calvin as Specialti [id number] Me dical es 198 [facility] 2019-09-13 2019-09-13 Letter [facility] 1.2.840.114 [id number] Univers 00:00:00 00:00:00 (Out) [facility] 350.1.13.10 it y of Surgical 4.2.7.2.686 Calvin as Specialti [phone] Me dical es 198 [facility] 2019-09-11 2019-09-11 Telephone [facility] 1.2.534.972 [id number] Univers 00:00:00 00:00:00 [facility] 350.1.13.10 it y of Surgical 4.2.7.2.686 Calvin as Specialti [phone] Me dical es 198 [facility] 2019-09-07 2019-09-07 Office [facility] 1.2.840.114 [id number] Univers 07:55:18 08:10:18 Visit [facility] 350.1.13.10 it y of Surgical 4.2.7.2.686 Calvin as Specialti [phone] Ne dical es 198 [facility] 2019-09-07 2019-09-07 Orders Doctor TIPTON 1.2.840.114 [id number] Univers 00:00:00 00:00:00 Only Unassigned, JOSE 350.1.13.10 ity of [place] [facility] 4.2.7.2.686 Calvin as [phone] [facility] [address] 2019-09-07 2019-09-07 Letter [facility] 1.2.840.114 [id number] Univers 00:00:00 00:00:00 (Out) [facility] 350.1.13.10 it y of Surgical 4.2.7.2.686 Calvin as Specialti [phone] Me dical es 198 [facility] 2019-08-24 2019-08-24 Orders Doctor TIPTON 1.2.840.114 [id number] Univers 00:00:00 00:00:00 Only Unassigned, JOSE 350.1.13.10 ity of [place] [facility] 4.2.7.2.686 Calvin as [phone] [address] 2019-07-31 2019-07-31 Outpatient [facility] [id number] Univers 14:24:05 23:59:00 [facility] 2019-07-31 2019-07-31 Hospital [facility] 1.2.840.114 [id number] Univers 14:24:00 23:59:00 Encounter Vincent [facility] 350.1.13.10 ity of Surgical 4.2.7.2.686 Calvin as Specialti [phone] Ne dical es 809 [facility] 2019-07-31 2019-07-31 Office [facility] 1.2.482.179 [id number] Univers 13:50:19 15:07:02 [facility] 350.1.13.10 it y of Surgical 4.2.7.2.686 Calvin as Specialti [phone] Ne dical es 198 [facility] 2019-07-17 2019-07-18 Inpatient [facility] [id number] Univers 09:03:00 14:40:00 [facility] 2019-07-10 2019-07-10 Outpatient Jimena [facility] [id number] Univers 15:22:42 15:24:00 [facility] 2019-06-23 2019-06-23 Outpatient [facility] [id number] Univers 08:07:23 23:59:00 [facility] Results Test Description Test Time Test Comments [...] FOR MOREINFORMATION , SEE CLIENT ANNOUNCEMENT AT [email or web address] [email or web address] RATIO LDL/HDL (test code = 5.07 RATIO <3.22 H 2237) COMPREHENSIVE METABOLIC [id number] 06:03:34 Test Item Value Reference Range Interpretation Comments GLUCOSE (test code = 154 MG/DL 70-99 H 2216) BUN (test code = 20 MG/DL 8-23 2207) CREATININE (test 0.78 MG/DL 0.60-1.30 code = 221) eGFR (2020 CKD-EPI) 87 ML/MIN/1.73 >60 (test code = 69491) CALC BUN/CREAT (test 26 RATIO 6-28 code = 2235) SODIUM (test code = 137 MEQ/L 620-366 7580) POTASSIUM (test code 4.4 MEQ/L 3.5-5.4 = [...] code = 16 U/L 5-40 2218) HEMOGLOBIN [id number] 05:29:44 Test Item Value Reference Range Interpretation Comments HEMOGLOBIN A1c (test 7.3 % 4.2-5.6 H AMERIC AN DIABETES code = 31528) ASSOCIATION IDELINES FOR HGB A1C: PREDIABETES/INC REASED [...] INDICATED, ALL TESTING PER FORMED ATCLINICAL PATH [facility], [facility]. [address] [place] [address] 9101 LABORATORY DIRE CTOR: SREEKANTH SEAY M.D. CLIA NUMBER [id number] [place]. [id number] CBC W/AUTO DIFF WITH [id number] 04:27:32 Test Item Value Reference Range Interpretation [...] RBCS 0.00 K/UL 0.00-0.11 (test code = 22482)
[2023-03-13 13:32] LABS: Absolute Lymphocytes (CBC) 2.7 K/uL (0.7-4.9); Hematocrit 42.3 % (36.0-45.0); Lymphocytes % 35.2 % (15.3-44.8); MCV 87.2 fL (80-100); MPV 7.9 fL (7.6-11.3); Platelets 280 thou/uL (152-406); RBC Red Blood Cell Count 4.86 M/uL (3.86-4.86)
[2023-03-13 13:40] LABS: Specific Gravity > 1.030 (1.005-1.030); Urine Bacteria >50 /HPF (<20); Urine Bilirubin NEGATIVE (Negative); Urine Blood Negative (Negative); Urine Clarity Clear (Clear); Urine Color Light-Yellow (Yellow); Urine Glucose 4+ (Over) (Negative); Urine Mucus Slight /HPF (None Seen); Urine Protein NEGATIVE (Negative); Urine RBC <5 /HPF (None Seen); Urine Urobilinogen Normal (Normal)
[2023-03-13 14:01] LABS: ALT/SGPT 21 U/L (13-56); AST/SGOT 9 U/L (15-37); Albumin 3.2 g/dL (3.4-5.0); Alkaline Phosphatase 123 U/L (45-117); BUN Blood Urea Nitrogen 18 mg/dL (7-18); Bicarbonate 25 mEq/L (21-32); Bilirubin Direct < 0.1 mg/dL (0-0.2); Bilirubin Indirect, Calculated ND mg/dL (0.2-0.8); Bilirubin Total 0.3 mg/dL (0.2-1.0); Glomerular Filtration Rate 50 ml/min (=/>90); Lipase 42 U/L (13-75); Magnesium 1.9 mg/dL (1.6-2.4); NT PRO-BNP 334 pg/mL (<125); Potassium 4.1 mEq/L (3.5-5.1); Protein, Total 7.1 g/dL (6.4-8.2); Sodium Level 131 mEq/L (136-145); Troponin High Sensitivity 18.3 pg/mL (<58.9)
[2023-03-13 14:02] LABS: Glucose Level 474 mg/dL (74-106)
--- NOTE | 2023-03-13 14:06 | RAD REPORT ---
EXAM DESCRIPTION: RAD - Chest Single View - 03/13/2023 1:58 pm CLINICAL HISTORY: COUGH COMPARISON: Chest Pa And Lat (2 Views) dated 02/21/2021; CHEST PA AND LAT 2 VIEW dated 04/01/2006 FINDINGS: Lines: None. Lungs: No evidence of edema or pneumonia. Pleural: No significant pleural effusions or pneumothorax. Cardiac: The heart size is within normal limits. Mediastinum: Within normal limits. Bones: No acute fractures. Other: None IMPRESSION: No acute cardiopulmonary disease.
[2023-03-13] MEDS ORDERED: NA CHLORIDE 0.9% 500 ML ONE (14:16)
[2023-03-13] MEDS ORDERED: ASPIRIN 81 MG CHEWABLE TABLET ONE (14:16)
[2023-03-13] MEDS ORDERED: CEFTRIAXONE 1000 MG/VIAL ONE (14:16)
[2023-03-13] MEDS ORDERED: FAMOTIDINE 20 MG/2 ML VIAL IV ONE (14:16)
--- NOTE | 2023-03-13 14:58 | EDPHYS ---
Physician Documentation [facility] Name: Jade Shaikh Age: 62 yrs Sex: Female : 1960 Arrival Date: 03/13/2023 Time: 11:59 Bed 13 Private MD: ED Physician Miguel Klein HPI: 03/13 12:53 This 62 yrs old Female presents to ER via Ambulatory with complaints of diana Vaginal Problem. 12:53 The patient or guardian reports chest pain that is located primarily in the substernal diana area. Onset: 3 day(s) ago. The patient presents with urinary symptoms, dysuria, frequency, incontinence, urgency, urinary retention. Onset: The symptoms/episode began/occurred 3 day(s) ago. Modifying factors: The symptoms are alleviated by nothing, the symptoms are aggravated by pressure. Associated signs and symptoms: The patient has no apparent associated signs or symptoms. Severity of symptoms: At their worst the symptoms were moderate, in the emergency department the symptoms have improved, mildly. The patient is not sexually active. Historical: - Allergies: 12:17 Sulfa (Sulfonamide Antibiotics); jl7 - Home Meds: 12:17 Glimepiride Oral [Active]; Metformin Oral [Active]; jl7 - PMHx: 12:17 Arthritis; diabetes mellitus; spot on lung; jl7 - PSHx: 12:17 claudia knee replacements; Total abdominal hysterectomy; jl7 12:19 Cholecystectomy; Appendectomy; Ligation of fallopian tube; jl7 - Immunization history:: Adult Immunizations unknown. - Social history:: Smoking status: Patient reports the use of cigarette tobacco products, smokes one pack cigarettes per day. - Family history:: not pertinent. ROS: 12:53 Constitutional: Negative for fever, chills, and weight loss, Eyes: Negative for injury, diana pain, redness, and discharge, ENT: Negative for injury, pain, and discharge, Neck: Negative for injury, pain, and swelling, Respiratory: Negative for shortness of breath, cough, wheezing, and pleuritic chest pain, Abdomen/GI: Negative for abdominal pain, nausea, vomiting, diarrhea, and constipation, Back: Negative for injury and pain, MS/Extremity: Negative for injury and deformity, Skin: Negative for injury, rash, and discoloration, Neuro: Negative for headache, weakness, numbness, tingling, and seizure, Psych: Negative for depression, anxiety, suicide ideation, homicidal ideation, and hallucinations, Allergy/Immunology: Negative for hives, rash, and allergies, Endocrine: Negative for neck swelling, polydipsia, polyuria, polyphagia, and marked weight changes, Hematologic/Lymphatic: Negative for swollen nodes, abnormal bleeding, and unusual bruising. 12:53 Cardiovascular: Positive for chest pain, of the chest. 12:53 : Positive for urinary frequency, small amounts, burning with urination, difficulty urinating, bladder incontinence vaginal itching. Exam: 12:53 Constitutional: This is a well developed, well nourished patient who is awake, alert, diana and in no acute distress. Head/Face: Normocephalic, atraumatic. Eyes: Pupils equal round and reactive to light, extra-ocular motions intact. Lids and lashes normal. Conjunctiva and sclera are non-icteric and not injected. Cornea within normal limits. Periorbital areas with no swelling, redness, or edema. ENT: Nares patent. No nasal discharge, no septal abnormalities noted. Tympanic membranes are normal and external auditory canals are clear. Oropharynx with no redness, swelling, or masses, exudates, or evidence of obstruction, uvula midline. Mucous membranes moist. Neck: Trachea midline, no thyromegaly or masses palpated, and no cervical lymphadenopathy. Supple, full range of motion without nuchal rigidity, or vertebral point tenderness. No Meningismus. Chest/axilla: Normal chest wall appearance and motion. Nontender with no deformity. No lesions are appreciated. Cardiovascular: Regular rate and rhythm with a normal S1 and S2. No gallops, murmurs, or rubs. Normal PMI, no JVD. No pulse deficits. Respiratory: Lungs have equal breath sounds bilaterally, clear to auscultation and percussion. No rales, rhonchi or wheezes noted. No increased work of breathing, no retractions or nasal flaring. Abdomen/GI: Soft, non-tender, with normal bowel sounds. No distension or tympany. No guarding or rebound. No evidence of tenderness throughout. Back: No spinal tenderness. No costovertebral tenderness. Full range of motion. Skin: Warm, dry with normal turgor. Normal color with no rashes, no lesions, and no evidence of cellulitis. 12:53 : CVA tenderness, is absent, Pelvic Exam: External exam: not excoriated, Bladder: cystocele. 15:04 ECG was reviewed by the Attending Physician. [facility] Vital Signs: 12:11 BP 174 / 89; Pulse 96; Resp 17; Temp 97.8; Pulse Ox 98% ; Weight 85.28 kg; Height 5 ft. jl7 2 in. ; Pain 6/10; 14:00 BP 167 / 93; Pulse 94; Resp 18; Pulse Ox 99% on R/A; ph 15:00 BP 156 / 91; Pulse 91; Resp 18; Pulse Ox 98% on R/A; ph 16:08 BP 149 / 78; Pulse 87; Resp 18; Temp 97.9; Pulse Ox 99% on R/A; ph 12:11 Body Mass Index 34.39 (85.28 kg, 157.48 cm) 7 12:11 Pain Scale: Adult jl7 MDM: 12:25 Patient medically screened. [facility] 12:56 Differential diagnosis: abnormal EKG, acute myocardial infarction, acute pericarditis, diana anxiety, Cholelithiasis diana infection, nonspecific abdominal pain, esophagitis, gastritis, pancreatitis, pneumonia, stable angina, unstable angina, urinary tract infection. HEART Score: History: Slightly Suspicious (0), ECG: Non specific repolarization disturbance / LBTB / PM (1), Age: > 45 and < 65 years (1), Risk Factors: > or = 3 Risk factors for atherosclerotic disease (2), [Hypertension] [DM] [+ Family HX] [Obesity] Troponin: < or = 1 x Normal Limit (0). The patient was given aspirin in the Emergency Department. KARIN Risk Score: 1 - Three or more CAD risk factors, TOTAL SCORE = 1. Data reviewed: vital signs, nurses notes, lab test result(s), EKG, radiologic studies, plain films. Consideration of Admission/Observation Escalation of care including admission/observation considered. I considered the following discharge prescriptions or medication management in the emergency department Medications were administered in the Emergency Department. See MAR. Test considered but Not performed: CT: no ct chest. 03/13 12:51 Order name: Basic Metabolic Panel; Complete Time: 14:45 [facility] 03/13 12:51 Order name: CBC with Diff; Complete Time: 14:45 [facility] 03/13 12:51 Order name: LFT's; Complete Time: 14:45 [facility] 03/13 12:51 Order name: Magnesium; Complete Time: 14:45 [facility] 03/13 12:51 Order name: NT PRO-BNP; Complete Time: 14:45 [facility] 03/13 12:51 Order name: PT-INR; Complete Time: 14:45 [facility] 03/13 12:51 Order name: Troponin HS; Complete Time: 14:45 [facility] 03/13 12:51 Order name: Urinalysis w/ reflexes; Complete Time: 14:45 [facility] 03/13 12:51 Order name: Lipase; Complete Time: 14:45 [facility] 03/13 14:55 Order name: Troponin HS: 300pm; Complete Time: 16:26 [facility] 03/13 17:35 Order name: Glucose, Ancillary Testing [facility] 03/13 12:51 Order name: XRAY Chest (1 view); Complete Time: 14:45 [facility] 03/13 12:51 Order name: EKG; Complete Time: 12:52 [facility] 03/13 12:51 Order name: Cardiac monitoring; Complete Time: 13:59 [facility] 03/13 12:51 Order name: EKG - Nurse/Tech; Complete Time: 13:59 [facility] 03/13 12:51 Order name: IV Saline Lock; Complete Time: 13:59 [facility] 03/13 12:51 Order name: Labs collected and sent; Complete Time: 13:59 [facility] 03/13 12:51 Order name: O2 Per Protocol; Complete Time: 13:14 [facility] 03/13 12:51 Order name: O2 Sat Monitoring; Complete Time: 13:14 [facility] EC:04 Rate is 63 beats/min. Rhythm is regular. QRS [place] is Normal. MT interval is normal. QRS diana interval is normal. QT interval is normal. No Q waves. T waves are Normal. No ST changes noted. Clinical impression: NSR w/ Non-specific ST/T Changes and No evidence of ischemia. Interpreted by me. Reviewed by me. Administered Medications: 14:43 Drug: Rocephin IV 1 grams Route: IV; Rate: per protocol; Site: left hand; ph 15:30 Follow up: Response: No adverse reaction; IV Status: Completed infusion ph 14:43 Drug: NS 0.9% IV 500 ml Route: IV; Rate: bolus; Site: left hand; ph 15:30 Follow up: Response: No adverse reaction; IV Status: Completed infusion; IV Intake: ph 500ml 14:43 Drug: Famotidine IVP 20 mg Route: IVP; Site: left hand; ph 19:14 Follow up: Response: No adverse reaction ph 14:43 Drug: Aspirin PO Chewable Tablet 162 mg Route: PO; ph 16:00 Follow up: Response: No adverse reaction ph 15:50 Drug: Insulin Regular Human IVP 10 units {Co-Signature: ap3 (Mireya Neal RN).} ph Route: IVP; Site: left hand; 16:00 Follow up: Response: No adverse reaction ph 15:50 Drug: Insulin Glargine Sub-Q 30 units Route: Sub-Q; Site: right upper arm; ph 16:00 Follow up: Response: No adverse reaction ph 15:50 Drug: Ciprofloxacin PO 500 mg Route: PO; ph 19:13 Follow up: Response: No adverse reaction ph 15:50 Drug: Fluconazole PO 200 mg Route: PO; ph 16:00 Follow up: Response: No adverse reaction ph Disposition Summary: 03/13/23 14:57 Discharge Ordered Location: Home diana Problem: new diana Symptoms: have improved diana Condition: Stable diana Diagnosis - Acute cystitis diana - Cystocele, unspecified diana - UTI/ Urinary tract infection, site not specified diana - Type 2 diabetes mellitus with hyperglycemia diana - Candidiasis of other urogenital sites diana Followup: diana - With: Private Physician - When: 2 - 3 days - Reason: Recheck today's complaints, Continuance of care, Re-evaluation by your physician Followup: diana - With: Paul Kwong MD - When: 2 - 3 days - Reason: Recheck today's complaints, Re-evaluation by your physician Discharge Instructions: - Discharge Summary Sheet diana - Dysuria diana - Urinary Tract Infection, Adult diana - Urinary Tract Infection, Adult, [id number] diana - Blood Glucose Monitoring, Adult diana - Diabetes Mellitus and Nutrition, Adult diana - Aspirin and Your Heart diana Forms: - Medication Reconciliation Form diana - Thank You Letter diana - Antibiotic Education diana - Prescription Opioid Use diana - Patient Portal Instructions diana - Leadership Thank You Letter [facility] Prescriptions: - Cipro 250 mg Oral Tablet - take 2 tablets by ORAL route every 12 hours; 14 tablet; Refills: 0, Product diana Selection Permitted - Pepcid 20 mg Oral Tablet - take 1 tablet by ORAL route every 12 hours for 21 days; 42 tablet; Refills: 0, [facility] Product Selection Permitted - Fluconazole 200 mg Oral Tablet - take 1 tablet by ORAL route once daily; 3 tablet; Refills: 0, Product Selection [facility] Permitted Signatures: Dispatcher [employer] Miguel Shukla, Ruth Colbert MD, cha, RN RN ph Melvin, SOPHIA Wright RN jl7 Mireya Neal RN ap3
--- NOTE | 2023-03-13 14:58 | ER ---
Nurse's Notes [facility] Name: Jade Shaikh Age: 62 yrs Sex: Female : 1960 Arrival Date: 03/13/2023 Time: 11:59 Bed 13 Private MD: Diagnosis: Acute cystitis;Cystocele, unspecified;UTI/ Urinary tract infection, site not specified;Type 2 diabetes mellitus with hyperglycemia;Candidiasis of other urogenital sites Presentation: 03/13 12:11 Chief complaint: Patient states: Probable bladder prolapse with burning upper abdominal jl7 pain and pelvic pain. Also reports recent weight loss without trying and intermittent shortness of breath. Coronavirus screen: At this time, the client does not indicate any symptoms associated with coronavirus-19. Ebola Screen: No symptoms or risks identified at this time. Initial Sepsis Screen: Does the patient meet any 2 criteria? No. Patient's initial sepsis screen is negative. Does the patient have a suspected source of infection? No. Patient's initial sepsis screen is negative. Risk Assessment: Do you want to hurt yourself or someone else? Patient reports no desire to harm self or others. Onset of symptoms is unknown. Care prior to arrival: None. 12:11 Method Of Arrival: Ambulatory jl7 12:11 Acuity: STEVE 3 jl7 Historical: - Allergies: 12:17 Sulfa (Sulfonamide Antibiotics); jl7 - Home Meds: 12:17 Glimepiride Oral [Active]; Metformin Oral [Active]; jl7 - PMHx: 12:17 Arthritis; diabetes mellitus; spot on lung; jl7 - PSHx: 12:17 claudia knee replacements; Total abdominal hysterectomy; jl7 12:19 Cholecystectomy; Appendectomy; Ligation of fallopian tube; jl7 - Immunization history:: Adult Immunizations unknown. - Social history:: Smoking status: Patient reports the use of cigarette tobacco products, smokes one pack cigarettes per day. - Family history:: not pertinent. Screenin:19 Tuberculosis screening: Never had TB. Possible symptoms: unexplained weight loss, Risk jl7 factors: None. 13:33 [facility] ED Fall Risk Assessment (Adult) History of falling in the last 3 months, ph including since admission No falls in past 3 months (0 pts) Confusion or Disorientation No (0 pts) Intoxicated or Sedated No (0 pts) Impaired Gait No (0 pts) Mobility Assist Device Used No (0 pt) Altered Elimination No (0 pt) Score/Fall Risk Level 0 - 2 = Low Risk Oriented to surroundings, Maintained a safe environment, Hourly rounding (assess needs \T\ fall precautionary measures) done, Used ambulatory aids as needed (educated on \T\ assisted with). Abuse screen: Denies threats or abuse. Denies injuries from another. Nutritional screening: No deficits noted. Assessment: 13:33 General: Appears in no apparent distress. comfortable, Behavior is calm, cooperative, ph appropriate for age, Reports sweats Denies fever. Pain: Complains of pain in diaphragm. Neuro: Level of Consciousness is awake, alert, obeys commands, Oriented to person, place, time, situation, Reports dizziness, weakness. Cardiovascular: Reports diaphoresis, lightheadedness, Capillary refill < 3 seconds in bilateral fingers Patient's skin is warm and dry. Respiratory: Airway is patent Respiratory effort is even, unlabored, Respiratory pattern is regular, symmetrical. GI: Patient currently denies diarrhea, nausea, vomiting. Derm: Skin is pink, warm \T\ dry. 16:09 Reassessment: Patient appears in no apparent distress at this time. Patient and/or ph family updated on plan of care and expected duration. Pain level reassessed. Patient is alert, oriented x 3, equal unlabored respirations, skin warm/dry/pink. D/C pending results of repeat troponin. Vital Signs: 12:11 BP 174 / 89; Pulse 96; Resp 17; Temp 97.8; Pulse Ox 98% ; Weight 85.28 kg; Height 5 ft. jl7 2 in. ; Pain 6/10; 14:00 BP 167 / 93; Pulse 94; Resp 18; Pulse Ox 99% on R/A; ph 15:00 BP 156 / 91; Pulse 91; Resp 18; Pulse Ox 98% on R/A; ph 16:08 BP 149 / 78; Pulse 87; Resp 18; Temp 97.9; Pulse Ox 99% on R/A; ph 12:11 Body Mass Index 34.39 (85.28 kg, 157.48 cm) jl7 12:11 Pain Scale: Adult jl7 ED Course: 12:00 Patient arrived in ED. rg4 12:17 Triage completed. jl7 12:25 Miguel Klein MD is Attending Physician. diana 13:13 Ruth Love, RN is Primary Nurse. ph 13:14 Arm band placed on Patient placed in an exam room. ph 13:32 Patient has correct armband on for positive identification. Placed in gown. Bed in low ph position. Call light in reach. Side rails up X2. Client placed on continuous cardiac and pulse oximetry monitoring. NIBP monitoring applied. Door closed. Noise minimized. Warm blanket given. 13:34 Initial lab(s) drawn, by me, sent to lab. Inserted saline lock: 22 gauge in right ph antecubital area, using aseptic technique. Blood collected. 14:00 XRAY Chest (1 view) In Process Unspecified. EDMS 14:55 Paul Kwong MD is Referral Physician. diana 16:06 Troponin HS: 300pm Sent. ph 16:09 No provider procedures requiring assistance completed. ph Administered Medications: 14:43 Drug: Rocephin IV 1 grams Route: IV; Rate: per protocol; Site: left hand; ph 15:30 Follow up: Response: No adverse reaction; IV Status: Completed infusion ph 14:43 Drug: NS 0.9% IV 500 ml Route: IV; Rate: bolus; Site: left hand; ph 15:30 Follow up: Response: No adverse reaction; IV Status: Completed infusion; IV Intake: ph 500ml 14:43 Drug: Famotidine IVP 20 mg Route: IVP; Site: left hand; ph 19:14 Follow up: Response: No adverse reaction ph 14:43 Drug: Aspirin PO Chewable Tablet 162 mg Route: PO; ph 16:00 Follow up: Response: No adverse reaction ph 15:50 Drug: Insulin Regular Human IVP 10 units {Co-Signature: ap3 (Mireya Neal RN).} ph Route: IVP; Site: left hand; 16:00 Follow up: Response: No adverse reaction ph 15:50 Drug: Insulin Glargine Sub-Q 30 units Route: Sub-Q; Site: right upper arm; ph 16:00 Follow up: Response: No adverse reaction ph 15:50 Drug: Ciprofloxacin PO 500 mg Route: PO; ph 19:13 Follow up: Response: No adverse reaction ph 15:50 Drug: Fluconazole PO 200 mg Route: PO; ph 16:00 Follow up: Response: No adverse reaction ph Medication: 13:32 VIS not applicable for this client. ph Intake: 15:30 IV: 500ml; Total: 500ml. ph Outcome: 14:57 Discharge ordered by MD. ortiz 17:48 Patient left the ED. ph Signatures: Dispatcher [employer] EDMiguel Ruiz, Ruth Colbert MD, cha RN RN ph Richard, Mary [id number] Adriana Charles RN RN jl7 Mireya Neal RN ap3
[2023-03-13] MEDS ORDERED: CIPROFLOXACIN HCL 500 MG TAB ONE (15:19)
[2023-03-13] MEDS ORDERED: INSULIN GLARGINE 100 UNIT/ML SQ ONE (15:19)
[2023-03-13] MEDS ORDERED: FLUCONAZOLE 100 MG TAB ONE (15:20)
[2023-03-13] MEDS ORDERED: INSULIN -REGULAR HUMAN 50 UNIT/0.5 ML ML ONE (15:20)
[2023-03-13 18:21] VITALS: BP 149/78; TEMP 97.9; O2SAT 99
--- NOTE | 2023-03-14 15:06 | EKG ---
Test Date: 2023-03-13 Test Time: 13:56:48 [employer] Manager: PH MEASUREMENT RESULTS: Intervals: Rate: 63 TN: 182 QRSD: 98 QT: 402 QTc: 411 [place]: P: 43 TN: 182 QRS: 9 T: 55 INTERPRETIVE STATEMENTS: Normal sinus rhythm Possible Left atrial enlargement Borderline ECG Compared to ECG 05/06/2012 09:41:36 Sinus bradycardia no longer present Electronically Signed On 03-14-23 15:04:57 CDT by Paul Kwong
== END 2023-03-13 17:48 | disposition home or self-care (01) ==
LOC: ER 11:59
DX: N30.00 Acute cystitis without hematuria (principal); N81.10 Cystocele, unspecified; B37.49 Other urogenital candidiasis; E11.65 Type 2 diabetes mellitus with hyperglycemia
CPT/HCPCS: 36415; 71045; 80048; 80076; 81001; 82947; 83690; 83735; 83880; 84484; 85025; 85610; 93005; 96365; 96372; 96375; 99284; J0696; J1815; J7040

== ENCOUNTER → 2023-07-15 | Emergency (ER) | payer OTHER, SELFPAY ==
[~2023-07-15] MED LIST: lisinopriL 10 MG TAB ONE
--- OUTSIDE RECORDS SUMMARY | 2023-07-15 15:06 | XMS REPORT | Continuity of Care Document ---
Author Name Unknown Address [address] [facility] [address] [place] [address] [facility] thconnect Address [address] [facility] 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 Phone Mitchell Palma Primary Care Physician [phone] YESENIA SARABIA Attending Clinician Unavailabl e [id number]_S Attending Clinician Unavailcharlotte campbell Doctor Unassigned, [place] Attending Clinician U Yesenia Dennis MD Attending Clinician [phone] Vincent Chase Attending Clinician [phone] VINCENT AGUSTIN Attending Clinician Unavailable Only, Adc Test Attending Clinician Unavailable Pob, Adc Lab Main Attending Clinician UnavailOlayinka Cohen MD Attending Clinician [phone] OLAYINKA RICARDO Attending Clinician Unavailable Usama Arteaga DO Attending Clinician [phone] Eze Vallejo MD Attending Clinician [phone] Pj Mora MD Attending Clinician [phone] EZE VALLEJO Attending Clinician Unavailable YESENIA SARABIA Admitting Clinician Unavailabl e [email or web address]_S Admitting Clinician UnavailYesenia Belle MD Admitting Clinician [phone] Payers Payer Name Policy Type Policy Number Effective Date Expirati on Date Source AP [id number] 2018 00:00:00 [facility] - OUT OF STATE [id number] 2021 00:00:00 [facility] [id number] Problems Condition Name Condition Details Condition Category Status Onset Date Resolution Date Last Treatment Date Treating Clinician Comments Source S/P revision of total knee, left S/P revision of total knee, left Disease Active 2020-07 00:00: 00 [facility] Status post revision of total knee replacemen t, 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 Added automatic ally from request for surgery [id number] [facility] Primary osteoarthr itis of left knee Primary osteoarthr itis of left knee Disease Active 03-25 00:00: 00 Overview: Formattin g of this note might be different from the original. 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 Added automatic ally from request for surgery [id number] [facility] Obesity (BMI 30-39.9) Obesity (BMI 30-39.9) Disease Active 2018-07 00:00: 00 [facility] Total knee replacemen t status Total knee replacemen t status Disease Active 2018-07 00:00: 00 [facility] Patellofem oral arthritis of right knee Patellofem oral arthritis of right knee Disease Active 2018-07 00:00: 00 Overview: Formattin g of this note might be different from the original. Added automatic ally from request for surgery [id number] [facility] Low back pain of over 3 months duration Low back pain of over 3 months duration Disease Active 09-06 00:00: 00 [facility] Type 2 diabetes mellitus, without long-term current use of insulin Type 2 diabetes mellitus, without long-term current use of insulin Disease Active 09-06 00:00: 00 [facility] Diabetic neuropathy associated with type 2 diabetes mellitus Diabetic neuropathy associated with type 2 diabetes mellitus Disease Active 09-06 00:00: 00 [facility] Right leg pain Right leg pain Disease Active 03-05 00:00: 00 [facility] Allergies, Adverse Reactions, Alerts Allergy Name Allergy Type Status Severity Reaction(s) Onset Date Inactive Date Treating Clinician Comments Source SULFA (SULFONA MIDE ANTIBIOT ICS) Drug Class Active Hives 11-27 00:00: 00 [facility] Sulfa (Sulfona mide Antibiot ics) Propensi ty to adverse reaction s Active Hives 11-27 00:00: 00 [facility] Sulfa (Sulfona mide Antibiot ics) Propensi ty to adverse reaction s Active Hives 11-27 00:00: 00 [facility] Social History Social Habit Start Date Stop Date Quantity Comments Source History of tobacco use Cigarette Smoker [facility] Alcohol Frequency [facility] History SDOH Alcohol Std Drinks [facility] History SDOH Alcohol Binge [facility] Exposure to SARS-CoV-2 (event) 2021-07-30 00:00:00 2021-08-29 10:57:00 Not sure [facility] Education 2021-07-14 00:00:00 2021-07-14 00:00:00 9 [facility] History of Social function 2021-07-14 00:00:00 2021-07-14 00:00:00 [facility] Alcohol intake 2021-03-06 00:00:00 2021-03-06 00:00:00 0 /d [facility] Alcohol Comment 2019-07-10 00:00:00 2019-07-10 00:00:00 Occasional Drinker [facility] Cigarettes smoked current (pack per day) - Reported 2019-06-28 00:00:00 2019-06-28 00:00:00 [facility] Cigarette pack-years 2019-06-28 00:00:00 2019-06-28 00:00:00 [facility] Tobacco use and exposure 2019-06-28 00:00:00 2019-06-28 00:00:00 Smokeless tobacco non-user [facility] Tobacco Comment 2015-10-14 00:00:00 2015-10-14 00:00:00 Vape [facility] Sex Assigned At 1960 00:00:00 1960 00:00:00 [facility] Smoking Status Start Date Stop Date Source Ex-smoker 2019-06-28 00:00:00 2019-06-28 00:00:00 [facility] Medications Ordered Medication Name Filled Medication Name Start Date Stop Date Current Medication? Ordering Clinician Indication Dosage Frequency Signature (SIG) Comments Components Source glyBURIDE 5 mg tablet 2020-07 15:00: 27 Yes 5mg Take 5 mg by mouth 2 (two) times daily. [facility] glyBURIDE 5 mg tablet 2020-07 15:00: 27 Yes 5mg Take 5 mg by mouth 2 (two) times daily. [facility] glyBURIDE 5 mg tablet 2020-07 15:00: 27 Yes 5mg Take 5 mg by mouth 2 (two) times daily. [facility] glyBURIDE 5 mg tablet 2020-07 15:00: 27 Yes 5mg Take 5 mg by mouth 2 (two) times daily. [facility] glyBURIDE 5 mg tablet 2020-07 15:00: 27 Yes 5mg Take 5 mg by mouth 2 (two) times daily. [facility] glyBURIDE 5 mg tablet 2020-07 15:00: 27 Yes 5mg Take 5 mg by mouth 2 (two) times daily. [facility] glyBURIDE 5 mg tablet 2020-07 15:00: 27 Yes 5mg Take 5 mg by mouth 2 (two) times daily. [facility] glyBURIDE 5 mg tablet 2020-07 15:00: 27 Yes 5mg Take 5 mg by mouth 2 (two) times daily. [facility] glyBURIDE 5 mg tablet 2020-07 15:00: 27 Yes 5mg Take 5 mg by mouth 2 (two) times daily. [facility] acetaminoph en-codeine (TYLENOL-CO DEINE #3) 300-30 mg tablet 2020-07 00:00: 00 Yes 4647 2{tbl} Take 2 tablets by mouth every 6 (six) hours as needed for Pain (scale 4-6) or Pain (scale 7-10). Indication s: acute pain [facility] acetaminoph en-codeine (TYLENOL-CO DEINE #3) 300-30 mg tablet 2020-07 00:00: 00 Yes 4647 2{tbl} Take 2 tablets by mouth every 6 (six) hours as needed for Pain (scale 4-6) or Pain (scale 7-10). Indication s: acute pain [facility] acetaminoph en-codeine (TYLENOL-CO DEINE #3) 300-30 mg tablet 2020-07 00:00: 00 Yes 4647 2{tbl} Take 2 tablets by mouth every 6 (six) hours as needed for Pain (scale 4-6) or Pain (scale 7-10). Indication s: acute pain [facility] acetaminoph en-codeine (TYLENOL-CO DEINE #3) 300-30 mg tablet 2020-07 00:00: 00 Yes 4647 2{tbl} Take 2 tablets by mouth every 6 (six) hours as needed for Pain (scale 4-6) or Pain (scale 7-10). Indication s: acute pain [facility] acetaminoph en-codeine (TYLENOL-CO DEINE #3) 300-30 mg tablet 2020-07 00:00: 00 Yes 4647 2{tbl} Take 2 tablets by mouth every 6 (six) hours as needed for Pain (scale 4-6) or Pain (scale 7-10). Indication s: acute pain [facility] acetaminoph en-codeine (TYLENOL-CO DEINE #3) 300-30 mg tablet 2020-07 00:00: 00 Yes 4647 2{tbl} Take 2 tablets by mouth every 6 (six) hours as needed for Pain (scale 4-6) or Pain (scale 7-10). Indication s: acute pain [facility] gabapentin 300 mg capsule 2018-07 00:00: 00 Yes 300mg Take 300 mg by mouth 4 (four) times daily. [facility] gabapentin 300 mg capsule 2018-07 00:00: 00 Yes 300mg Take 300 mg by mouth 4 (four) times daily. [facility] gabapentin 300 mg capsule 2018-07 00:00: 00 Yes 300mg Take 300 mg by mouth 4 (four) times daily. [facility] gabapentin 300 mg capsule 2018-07 00:00: 00 Yes 300mg Take 300 mg by mouth 4 (four) times daily. [facility] gabapentin 300 mg capsule 2018-07 00:00: 00 Yes 300mg Take 300 mg by mouth 4 (four) times daily. [facility] gabapentin 300 mg capsule 2018-07 00:00: 00 Yes 300mg Take 300 mg by mouth 4 (four) times daily. [facility] gabapentin 300 mg capsule 2018-07 00:00: 00 Yes 300mg Take 300 mg by mouth 4 (four) times daily. [facility] gabapentin 300 mg capsule 2018-07 00:00: 00 Yes 300mg Take 300 mg by mouth 4 (four) times daily. [facility] gabapentin 300 mg capsule 2018-07 00:00: 00 Yes 300mg Take 300 mg by mouth 4 (four) times daily. [facility] glipiZIDE 10 mg tablet 2018-07 00:00: 00 Yes 10mg Take 10 mg by mouth 2 (two) times daily. [facility] glipiZIDE 10 mg tablet 2018-07 00:00: 00 Yes 10mg Take 10 mg by mouth 2 (two) times daily. [facility] glipiZIDE 10 mg tablet 2018-07 00:00: 00 Yes 10mg Take 10 mg by mouth 2 (two) times daily. [facility] glipiZIDE 10 mg tablet 2018-07 00:00: 00 Yes 10mg Take 10 mg by mouth 2 (two) times daily. [facility] glipiZIDE 10 mg tablet 2018-07 00:00: 00 Yes 10mg Take 10 mg by mouth 2 (two) times daily. [facility] glipiZIDE 10 mg tablet 2018-07 00:00: 00 Yes 10mg Take 10 mg by mouth 2 (two) times daily. [facility] glipiZIDE 10 mg tablet 2018-07 00:00: 00 Yes 10mg Take 10 mg by mouth 2 (two) times daily. [facility] glipiZIDE 10 mg tablet 2018-07 00:00: 00 Yes 10mg Take 10 mg by mouth 2 (two) times daily. [facility] glipiZIDE 10 mg tablet 2018-07 00:00: 00 Yes 10mg Take 10 mg by mouth 2 (two) times daily. [facility] NYSTOP 100,000 unit/gram powder 04-12 00:00: 00 Yes 1{dose} Apply 1 Dose to area(s) as needed. [facility] NYSTOP 100,000 unit/gram powder 04-12 00:00: 00 Yes 1{dose} Apply 1 Dose to area(s) as needed. [facility] NYSTOP 100,000 unit/gram powder 04-12 00:00: 00 Yes 1{dose} Apply 1 Dose to area(s) as needed. [facility] NYSTOP 100,000 unit/gram powder 04-12 00:00: 00 Yes 1{dose} Apply 1 Dose to area(s) as needed. [facility] NYSTOP 100,000 unit/gram powder 04-12 00:00: 00 Yes 1{dose} Apply 1 Dose to area(s) as needed. [facility] NYSTOP 100,000 unit/gram powder 04-12 00:00: 00 Yes 1{dose} Apply 1 Dose to area(s) as needed. [facility] NYSTOP 100,000 unit/gram powder 04-12 00:00: 00 Yes 1{dose} Apply 1 Dose to area(s) as needed. [facility] NYSTOP 100,000 unit/gram powder 04-12 00:00: 00 Yes 1{dose} Apply 1 Dose to area(s) as needed. [facility] NYSTOP 100,000 unit/gram powder 04-12 00:00: 00 Yes 1{dose} Apply 1 Dose to area(s) as needed. [facility] metFORMIN 500 mg tablet 09-20 00:00: 00 Yes TAKE 1 TABLET BY MOUTH THREE TIMES DAILY [facility] metFORMIN 500 mg tablet 09-20 00:00: 00 Yes TAKE 1 TABLET BY MOUTH THREE TIMES DAILY [facility] metFORMIN 500 mg tablet 09-20 00:00: 00 Yes TAKE 1 TABLET BY MOUTH THREE TIMES DAILY [facility] metFORMIN 500 mg tablet 09-20 00:00: 00 Yes TAKE 1 TABLET BY MOUTH THREE TIMES DAILY [facility] metFORMIN 500 mg tablet 09-20 00:00: 00 Yes TAKE 1 TABLET BY MOUTH THREE TIMES DAILY [facility] metFORMIN 500 mg tablet 09-20 00:00: 00 Yes TAKE 1 TABLET BY MOUTH THREE TIMES DAILY [facility] metFORMIN 500 mg tablet 09-20 00:00: 00 Yes TAKE 1 TABLET BY MOUTH THREE TIMES DAILY [facility] metFORMIN 500 mg tablet 09-20 00:00: 00 Yes TAKE 1 TABLET BY MOUTH THREE TIMES DAILY [facility] metFORMIN 500 mg tablet 09-20 00:00: 00 Yes TAKE 1 TABLET BY MOUTH THREE TIMES DAILY [facility] Immunizations Ordered Immunization Name Filled Immunization Name Date Status Comments Source Influenza Virus Vaccine Quad .5 mL IM 6+ MO 2019-07-18 00:00:00 Completed [facility] Influenza Virus Vaccine Quad .5 mL IM 6+ MO 2019-07-18 00:00:00 Completed [facility] Influenza Virus Vaccine Quad .5 mL IM 6+ MO 2019-07-18 00:00:00 Completed [facility] Influenza Virus Vaccine Quad .5 mL IM 6+ MO 2019-07-18 00:00:00 Completed [facility] Influenza Virus Vaccine Quad .5 mL IM 6+ MO 2019-07-18 00:00:00 Completed [facility] Influenza Virus Vaccine Quad .5 mL IM 6+ MO 2019-07-18 00:00:00 Completed [facility] Influenza Virus Vaccine Quad .5 mL IM 6+ MO (FLUZONE/FLULAVAL/F LUARIX) Unknown Completed [facility] Influenza Virus Vaccine Quad .5 mL IM 6+ MO (FLUZONE/FLULAVAL/F LUARIX) Unknown Completed [facility] Influenza Virus Vaccine Quad .5 mL IM 6+ MO (FLUZONE/FLULAVAL/F LUARIX) Unknown Completed [facility] Vital Signs Vital Name Observation Time Observation Value Comments S ource Systolic blood pressure 2021-08-29 17:33:00 151 mm[Hg] [facility] Diastolic blood pressure 2021-08-29 17:33:00 82 mm[Hg] [facility] Heart rate 2021-08-29 17:33:00 78 [facility] Body height 2021-08-29 17:22:00 160 cm [facility] Body weight 2021-08-29 17:22:00 98.93 kg [facility] BMI 2021-08-29 17:22:00 38.63 kg/m2 [facility] Oxygen saturation in Arterial blood by Pulse oximetry 2021-08-29 17:22:00 97 /min [facility] Procedures Procedure Date / Time Performed Performing Clinicia n Source DISABILITY/FMLA 2022-02-24 05:01:00 Doctor Unass igned, [place] [facility] XR KNEE <3 VW LEFT 2021-08-29 17:54:29 Yesenia Sarabia [facility] REFERRAL- REQUEST/RESPONSE 2021-08-19 06:01:00 Doctor Unassigned, [place] [facility] Encounters Start Date/Time End Date/Time Encounter Type Admission Type Attending [facility] Facility Care Department Encounter ID Source 2021-07-02 16:08:43 Outpatient R YESENIA SARABIA [facility] S[facility] [id number] [facility] 2021-05-19 20:54:10 Outpatient YESENIA SARABIA [facility] [id number] [facility] 2023-05-16 00:00:00 2023-05-16 00:00:00 Outpatient [email or web address] diyala_S [facility] [id number] [facility] 2022-02-24 00:00:00 2022-02-24 00:00:00 Orders Only Doctor Unassigned, [place] [facility] 1.840.114 350.1.13.10 4.2.7.2.686 [id number] [facility] 2021-10-20 00:00:00 2021-10-20 00:00:00 Letter (Out) Yesenia Sarabia [facility] 1..840.114 350.1.13.10 4.2.7.2.686 [id number] [facility] 2021-10-20 00:00:00 2021-10-20 00:00:00 Letter (Out) Yesenia Sarabia [facility] 1..840.114 350.1.13.10 4.2.7.2.686 [id number] [facility] 2021-08-29 11:45:00 2021-08-29 23:59:00 Outpatient R AGUSTÍN SARABIAIG [facility] [id number] [facility] 2021-08-29 11:45:00 2021-08-29 23:59:00 Hospital Encounter Yesenia Sarabia [facility] 1..840.114 350.1.13.10 4.2.7.2.686 [id number] [facility] 2021-08-29 11:00:00 2021-08-29 11:15:00 Office Visit Nikole [facility]LLAUME [facility]ILD[facility] 1.2.840.114 350.1.13.10 4.2.7.2.686 [id number] [facility] 2021-08-29 11:00:00 2021-08-29 11:00:00 Outpatient Jimena AGUSTIN VINCENT [facility] [id number] [facility] 2021-08-19 00:00:00 2021-08-19 00:00:00 Orders Only Doctor Unassigned, [place] [facility] 1.2.840.114 350.1.13.10 4.2.7.2.686 [id number] [facility] 2021-07-31 11:15:00 2021-07-31 11:15:00 [facility] [id number] [facility] 2021-07-31 11:15:00 2021-07-31 11:15:00 Outpatient R NIKOLE VINCENT [facility] [id number] [facility] 2021-07-29 13:28:03 2021-07-29 23:59:00 [facility] [id number] [facility] 2021-07-29 13:28:03 2021-07-29 23:59:00 Hospital Encounter Nikole [facility] 1.2.840.114 350.1.13.10 4.2.7.2.686 [id number] [facility] 2021-07-29 13:28:03 2021-07-29 23:59:00 Outpatient R NIKOLE [facility] [id number] [facility] 2021-07-29 13:15:00 2021-07-29 13:30:00 Office Visit Agustin, Vincent S [facility] DAQUAN?[facility] 1..840.114 350.1.13.10 4.2.7.2.686 [id number] [facility] 2021-07-29 13:15:00 2021-07-29 13:15:00 [facility] [id number] [facility] 2021-07-28 00:00:00 2021-07-28 00:00:00 Telephone SarabiaAgustín nelsonsonya Mck[facility] 1.840.114 350.1.13.10 4.2.7.2.686 [id number] [facility] 2021-07-25 09:00:00 2021-07-25 09:00:00 Outpatient R NIKOLE [facility] [id number] [facility] 2021-07-17 00:00:00 2021-07-17 00:00:00 Telephone Agustín Sarabiasonya Mckenna [facility] 1.840.114 350.1.13.10 4.2.7.2.686 [id number] [facility] 2021-07-17 00:00:00 2021-07-17 00:00:00 Telephone Yesenia [facility]ab[facility] 1.840.114 350.1.13.10 4.2.7.2.686 [id number] [facility] 2021-07-17 00:00:00 2021-07-17 00:00:00 Orders Only Doctor Unassigned, [place] [facility] 1.2840.114 350.1.13.10 4.2.7.2.686 [id number] [facility] 2021-07-16 00:00:00 2021-07-16 00:00:00 Telephone Yesenia Sarabia L [facility] 1.2.840.114 350.1.13.10 4.2.7.2.686 [id number] [facility] 2021-07-14 10:19:00 2021-07-15 15:00:00 Outpatient R YESENIA SARABIA [facility] S[facility] [id number] [facility] 2021-07-14 10:19:00 2021-07-15 15:00:00 Hospital Encounter Yesenia Sarabia [facility] 1.2.840.114 350.1.13.10 4.2.7.2.686 [id number] [facility] 2021-07-14 12:35:00 2021-07-14 15:54:00 Surgery Yesenia Sarabia [facility] 1.2.840.114 350.1.13.10 4.2.7.2.686 [id number] [facility] 2021-07-14 00:00:00 2021-07-14 00:00:00 Orders Only Doctor Unassigned, [place] [facility] 1.2.840.114 350.1.13.10 4.2.7.2.686 [id number] [facility] 2021-07-11 11:15:00 2021-07-11 11:30:00 Laboratory Only Only, Adc Test Yesenia Sarabia [facility] 1.2.840.114 350.1.13.10 4.2.7.2.686 [id number] [facility] 2021-07-11 11:15:00 2021-07-11 11:15:00 Outpatient R YESENIA SARABIA [facility] [id number] [facility] 2021-07-11 00:00:00 2021-07-11 00:00:00 Orders Only Doctor Unassigned, [place] [facility] 1.2.840.114 350.1.13.10 4.2.7.2.686 [id number] [facility] 2021-07-10 14:32:10 2021-07-10 23:59:00 Outpatient R YESENIA SARABIA [facility] [id number] [facility] 2021-07-10 12:00:00 2021-07-10 23:59:00 Hospital Encounter Yesenia Sarabia [facility] 1.20.114 350.1.13.10 4.2.7.2.686 [id number] [facility] 2021-07-10 14:31:09 2021-07-10 14:31:09 Outpatient R YESENIA SARABIA [facility] [id number] [facility] 2021-07-10 11:45:00 2021-07-10 11:59:00 Hospital Encounter Yesenia Sarabia [facility] 1..114 350.1.13.10 4.2.7.2.686 [id number] [facility] 2021-07-10 11:30:00 2021-07-10 11:45:00 [employer] Visit Pob, Adc Lab Main Yesenia Sarabia [facility]ILD[facility] 1.84.114 350.1.13.10 4.2.7.2.686 [id number] [facility] 2021-06-30 00:00:00 2021-06-30 00:00:00 Telephone Yesenia Sarabia [facility] 1.84.114 350.1.13.10 4.2.7.2.686 [id number] [facility] 2021-06-30 00:00:00 2021-06-30 00:00:00 Prep For Surgery Yesenia Sarabia [facility] 1.84.114 350.1.13.10 4.2.7.2.686 [id number] [facility] 2021-06-27 00:00:00 2021-06-27 00:00:00 Telephone [place] Ricardoyonatan [facility] N[facility] BUILD[facility] 1.84.114 350.1.13.10 4.2.7.2.686 [id number] [facility] 2021-06-26 09:00:00 2021-06-26 11:19:13 Outpatient R YESENIA SARABIA [facility] [id number] [facility] 2021-06-26 09:00:00 2021-06-26 11:19:13 Outpatient R YESENIA SARABIA [facility] [id number] [facility] 2021-06-26 08:43:47 2021-06-26 11:19:13 Office Visit Yesenia Sarabia [facility] 1.84114 350.1.13.10 4.2.7.2.686 [id number] [facility] 2021-06-26 09:00:00 2021-06-26 09:00:00 Outpatient R YESENIA SARABIA [facility] [id number] [facility] 2021-06-17 00:00:00 2021-06-17 00:00:00 Telephone Ted Yesenia [facility] 1.84.114 350.1.13.10 4.2.7.2.686 [id number] [facility] 2021-06-16 00:00:00 2021-06-16 00:00:00 Orders Only Doctor Unassigned, [place] [facility] 1.84114 350.1.13.10 4.2.7.2.686 [id number] [facility] 2021-05-14 13:01:51 2021-05-14 13:16:51 [facility] 1.2.840.114 350.1.13.10 4.2.7.2.686 [id number] [facility] 2021-05-14 13:00:00 2021-05-14 13:00:00 Outpatient R [facility] [id number] [facility] [facility] 2021-[facility]-08 00:00:00 2021-05-08 00:00:00 Orders Only Doctor Unassigned, [place] [facility] 1.2.840.114 350.1.13.10 4.2.7.2.686 [id number] [id number] [facility] 2021-04-14 13:35:00 2021-04-14 23:59:00 [facility]Guillaume lopez [facility] 1.2.840.114 350.1.13.10 4.2.7.2.686 [id number] [facility] 2021-04-14 13:35:00 2021-04-14 23:59:00 Outpatient R NIKOLE [facility] [id number] [facility] 2021-04-14 13:45:00 2021-04-14 13:45:00 Outpatient R NIKOLE [facility]EN [facility] [id number] [facility] 2021-04-14 13:12:59 2021-04-14 13:27:59 Office Visit Nikole [facility]?Guillaume lopez [facility] 1.2.840.114 350.1.13.10 4.2.7.2.686 [id number] [facility] 2021-04-04 00:00:00 2021-04-04 00:00:00 Patient Secure Msg Doctor Unassigned, [place] [facility] 1.2.840.114 350.1.13.10 4.2.7.2.686 [id number] 019 [id number] [facility] 2021-03-31 06:35:00 2021-03-31 15:05:00 [facility] 1.2.840.114 350.1.13.10 4.2.7.2.686 [id number] 071 [id number] [facility] 2021-03-31 07:30:00 2021-03-31 09:59:00 Surgery Yesenia Sarabia [facility] 1.2.840.114 350.1.13.10 4.2.7.2.686 [id number] [facility] 2021-03-31 00:00:00 2021-03-31 00:00[facility] 1.2.840.114 350.1.13.10 4.2.7.2.686 [id number] 198 [id number] [facility] 2021-03-31 00:00:00 2021-03-31 00:00:00 Orders Only Doctor Unassigned, [place] [facility] 1.2.840.114 350.1.13.10 4.2.7.2.686 [id number] 009 [id number] [facility] 2021-03-28 10:00:00 2021-03-28 23:59:00 Hospital Encounter Yesenia Sarabia [facility] 1.2.840.114 350.1.13.10 4.2.7.2.686 [id number] [facility] 2021-03-28 13:30:08 2021-03-28 13:45:08 Laboratory Only Only, Adc Test Yesenia Sarabia [facility] 1.2.840.114 350.1.13.10 4.2.7.2.686 [id number] [facility] 2021-03-28 13:24:59 2021-03-28 13:39:59 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 Professio nal Building 1.114 350.1.13.10 4.2.7.2.686 [id number] [facility] 2021-03-28 08:00:00 2021-03-28 09:59:00 Hospital Encounter Ted Yesenia Mckenna [facility] 1.114 350.1.13.10 4.2.7.2.686 [id number] [facility] 2021-03-28 00:00:00 2021-03-28 00:00:00 Outpatient R YESENIA SARABIA [facility] [id number] [facility] 2021-03-25 00:00:00 2021-03-25 00:00:00 Telephone Yesenia Sarabia [facility] Surgical [facility] 1.114 350.1.13.10 4.2.7.2.686 [id number] [facility] 2021-03-17 00:00:00 2021-03-17 00:00:00 Orders Only Doctor Unassigned, [place] [facility] 1.114 350.1.13.10 4.2.7.2.686 [id number] [id number] [facility] 2021-03-17 00:00:00 2021-03-17 00:00:00 Prep For Surgery Yesenia Sarabia [facility]?Guillaume lopez [facility] 1.114 350.1.13.10 4.2.7.2.686 [id number] [facility] 2021-03-17 00:00:00 2021-03-17 00:00:00 Telephone Yesenia Sarabia [facility]?Guillaume [facility] Medical Office Building 1..84.114 350.1.13.10 4.2.7.2.686 [id number] 198 [id number] [facility] 2021-03-12 00:00:00 2021-03-12 00:00:00 Telephone [facility]Guillaume [facility] Medical Office Building 1.84.114 350.1.13.10 4.2.7.2.686 [id number] [facility] 2021-03-09 00:00:00 2021-03-09 00:00:00 Patient Secure Msg [facility] BUILDING 1.84.114 350.1.13.10 4.2.7.2.686 [id number] 059 [id number] [facility] 2021-03-07 10:37:43 2021-03-07 23:59:00 Outpatient R [facility] [id number] [facility] 2021-03-07 09:20:00 2021-03-07 09:47:20 [facility] [id number] 2021-03-07 09:16:38 2021-03-07 09:47:20 Office Visit Haleigh [facility] Building 1.84.114 350.1.13.10 4.2.7.2.686 [id number] 059 [id number] [facility] 2021-03-07 09:16:38 2021-03-07 09:47:20 Office Visit Haleigh [facility] BUILDING 1.840.114 350.1.13.10 4.2.7.2.686 [id number] 059 [id number] [facility] 2021-03-07 09:20:00 2021-03-07 09:20:00 Outpatient INDIA ROAYONATAN [facility] [id number] [facility] 2021-03-07 00:00:00 2021-03-07 00:00:00 [facility] Profess[facility]al [facility] 1..840.114 350.1.13.10 4.2.7.2.686 [id number] [facility] 2021-03-07 00:00:00 2021-03-07 00:00:00 Telephone Nikole [facility] Josue lopez Medical Office Building 1..840.114 350.1.13.10 4.2.7.2.686 [id number] [facility] 2021-03-06 10:30:00 2021-03-06 10:30:00 Outpatient Jimena AGUSTIN VINCENT [facility] [id number] [facility] 2021-03-06 00:00:00 2021-03-06 00:00:00 Patient Secure Msg Doctor Unassigned, [place] [facility] 1..840.114 350.1.13.10 4.2.7.2.686 [id number] [facility] 2021-03-05 00:00:00 2021-03-05 00:00:00 Yesenia Porter [facility] 1.2.840.114 350.1.13.10 4.2.7.2.686 [id number] [facility] 2021-01-02 16:00:00 2021-01-02 16:00:00 Outpatient VINCENT MYERS [facility] [id number] [facility] 2021-01-02 15:41:45 2021-01-02 15:56:45 Office Visit Nikole [facility] Surgical Specialarcelia [facility] [place] 1.2.840.114 350.1.13.10 4.2.7.2.686 [id number] [facility] 2020-12-26 00:00:00 2020-12-26 00:00:00 Telephone Yesenia Sarabia [facility] Surgical Specialti es [place] 1.2.840.114 350.1.13.10 4.2.7.2.686 [id number] [facility] 2020-12-20 00:00:00 2020-12-20 00:00:00 Telephone Vincent Agustin [facility] Surgical Specialti libra [place] 1.2.840.114 350.1.13.10 4.2.7.2.686 [id number] [facility] 2020-12-06 08:37:34 2020-12-06 23:59:00 Hospital Encounter Vincent Agustin [facility] Surgical Specialti libra [place] 1.2.840.114 350.1.13.10 4.2.7.2.686 [id number] [facility] 2020-12-06 08:37:34 2020-12-06 23:59:00 Outpatient NIKOLE VINCENT [facility] [id number] [facility] 2020-12-06 08:37:34 2020-12-06 23:59:00 Outpatient VINCENT AGUSTIN [facility] [id number] [facility] 2020-12-06 08:16:04 2020-12-06 09:36:38 Office Visit Nikole Vincent [facility] Surgical Specialti libra [place] 1.2.840.114 350.1.13.10 4.2.7.2.686 [id number] [facility] 2020-12-06 08:30:00 2020-12-06 08:30:00 Outpatient R NIKOLE VINCENT [facility] [id number] [facility] 2020-11-25 00:00:00 2020-11-25 00:00:00 Orders Only Doctor Unassigned, [place] [facility] 1.2.840.114 350.1.13.10 4.2.7.2.686 [id number] [id number] [facility] 2020-10-29 00:00:00 2020-10-29 00:00:00 Orders Only Doctor Unassigned, [place] [facility] 1.2.840.114 350.1.13.10 4.2.7.2.686 [id number] 009 [id number] [facility] 2020-10-15 00:00:00 2020-10-15 00:00:00 Orders Only Doctor Unassigned, [place] [facility] 1.2.840.114 350.1.13.10 4.2.7.2.686 [id number] [id number] [facility] 2020-09-28 00:00:00 2020-09-28 00:00:00 Patient Outreach Usama Arteaga [facility] 1.2.840.114 350.1.13.10 4.2.7.2.686 [id number] [facility] 2020-09-11 00:00:00 2020-09-11 00:00:00 Orders Only Doctor Unassigned, [place] [facility] 1.2.840.114 350.1.13.10 4.2.7.2.686 [id number] [id number] [facility] 2020-08-16 10:00:00 2020-08-16 10:00:00 Outpatient R OLAYINKA RICARDO [facility] [id number] [facility] 2020-08-13 14:11:28 2020-08-13 23:59:00 Hospital Encounter Eze Valljeo [facility] 1.2.840.114 350.1.13.10 4.2.7.2.686 [id number] [facility] 2020-08-13 14:16:27 2020-08-13 14:31:27 Aircraft Mechanic Structures Visit Pob, Adc Lab Main [facility] 1.2840.114 350.1.13.10 4.2.7.2.686 [id number] [facility] 2020-08-13 14:10:27 2020-08-13 14:10:27 Outpatient R EZE VALLEJO [facility] [id number] [facility] 2020-08-13 14:10:27 2020-08-13 14:10:27 Hospital Encounter Eze Vallejo [facility] 1.2840.114 350.1.13.10 4.2.7.2.686 [id number] [facility] 2020-08-13 00:00:00 2020-08-13 00:00:00 Orders Only Doctor Unassigned, [place] [facility] 1.2840.114 350.1.13.10 4.2.7.2.686 [id number] [id number] [facility] 2020-08-06 09:29:10 2020-08-06 09:44:10 Office Visit Vincent Agustin [facility] 1.2840.114 350.1.13.10 4.2.7.2.686 [id number] [facility] 2020-08-06 09:30:00 2020-08-06 09:30:00 Outpatient VINCENT MYERS [facility] [id number] [facility] 2020-07-17 00:00:00 2020-07-17 00:00:00 Orders Only Doctor Unassigned, [place] [facility] 1.2840.114 350.1.13.10 4.2.7.2.686 [id number] [id number] [facility] 2020-07-09 09:13:48 2020-07-09 23:59:00 Outpatient VINCENT MYERS [facility] [id number] [facility] 2020-07-09 09:13:48 2020-07-09 23:59:00 Outpatient VINCENT AGUSTIN [facility] [id number] [facility] 2020-07-09 09:13:48 2020-07-09 23:59:00 Hospital Encounter Nikole [facility] Surgical Specialti lib[place] 1.2.840.114 350.1.13.10 4.2.7.2.686 [id number] [facility] 2020-07-09 08:45:28 2020-07-09 09:27:23 [facility] Special lib[facility] [place] 1.2840.114 350.1.13.10 4.2.7.2.686 [id number] [facility] 2020-06-24 09:13:00 2020-06-25 13:00:00 Outpatient R YESENIA SARABIA [facility] [id number] [facility] 2020-06-24 09:13:00 2020-06-25 13:00:00 Hospital Encounter Yesenia Sarabia [facility] 1.2840.114 350.1.13.10 4.2.7.2.686 [id number] [facility] 2020-06-21 14:31:45 2020-06-21 14:46:45 Aircraft Mechanic Structures Visit Pob, Adc Lab Main Yesenia Sarabia [facility] 1.2840.114 350.1.13.10 4.2.7.2.686 [id number] [facility] 2020-06-21 14:17:58 2020-06-21 14:32:58 Laboratory Only Only, Adc Test Yesenia Sarabia [facility] 1.2840.114 350.1.13.10 4.2.7.2.686 [id number] [facility] 2020-06-21 14:15:00 2020-06-21 14:15:00 Outpatient R SARABIA YESENIA [facility] [id number] [facility] 2020-06-21 00:00:00 2020-06-21 00:00:00 Orders Only Doctor Unassigned, [place] [facility] 1.2.840.114 350.1.13.10 4.2.7.2.686 [id number] [id number] [facility] 2020-06-10 00:00:00 2020-06-10 00:00:00 Prep For Surgery Yesenia Sarabia [facility] Surgical Specialti es [place] 1.2.840.114 350.1.13.10 4.2.7.2.686 [id number] [facility] 2020-06-10 00:00:00 2020-06-10 00:00:00 Prep For Surgery Yesenia Sarabia [facility] Surgical Specialti es [place] 1.2.840.114 350.1.13.10 4.2.7.2.686 [id number] 2020-06-05 14:35:26 2020-06-05 14:50:26 [facility] [place] 1.2.840.114 350.1.13.10 4.2.7.2.686 [id number] [facility] 2020-06-05 14:35:26 2020-06-05 14:50:26 Office Visit Nikole [facility] Surgical Specialti es [place] 1.2.840.114 350.1.13.10 4.2.7.2.686 [id number] 2020-06-05 14:30:00 2020-06-05 14:30:00 Outpatient R VINCENT AGUSTIN [facility] [id number] [facility] 2020-05-29 00:00:00 2020-05-29 00:00:00 Telephone Yesenia Sarabia [facility] Surgical Specialti es [place] 1.2.840.114 350.1.13.10 4.2.7.2.686 [id number] [facility] 2020-05-23 00:00:00 2020-05-23 00:00:00 Telephone Yesenia Sarabia [facility] Surgical Specialti libra [place] 1.2.840.114 350.1.13.10 4.2.7.2.686 [id number] [facility] 2020-05-22 12:09:00 2020-05-22 23:59:00 Hospital Encounter Yesenia Sarabia [facility] 1.2.840.114 350.1.13.10 4.2.7.2.686 [id number] [facility] 2020-05-22 00:00:00 2020-05-22 00:00:00 Orders Only Doctor Unassigned, [place] [facility] 1.2.840.114 350.1.13.10 4.2.7.2.686 [id number] [id number] [facility] 2020-05-17 12:41:20 2020-05-17 23:59:00 Hospital Encounter eYsenia Sarabia [facility] 1.2.840.114 350.1.13.10 4.2.7.2.686 [id number] [facility] 2020-05-17 12:36:11 2020-05-17 12:51:11 Aircraft Mechanic Structures Visit Pob, Adc Lab Main Yesenia Sarabia [facility] 1.2.840.114 350.1.13.10 4.2.7.2.686 [id number] [facility] 2020-05-17 10:25:36 2020-05-17 11:09:24 Office Visit Yesenia Sarabia [facility] Surgical Specialti libra [place] 1.2.840.114 350.1.13.10 4.2.7.2.686 [id number] [facility] 2020-05-17 10:30:00 2020-05-17 10:30:00 Outpatient R YESENIA SARABIA [facility] [id number] [facility] 2020-05-17 00:00:00 2020-05-17 00:00:00 Orders Only Doctor Unassigned, [place] [facility] 1.2840.114 350.1.13.10 4.2.7.2.686 [id number] [id number] [facility] 2020-05-09 11:06:42 2020-05-09 23:59:00 Hospital Encounter Yesenia Sarabia [facility] 1.2840.114 350.1.13.10 4.2.7.2.686 [id number] [facility] 2020-05-09 15:15:00 2020-05-09 15:15:00 Outpatient R AGUSTÍN SARABIAIG [facility] [id number] [facility] 2020-05-09 14:40:14 2020-05-09 14:55:14 Aircraft Mechanic Structures Visit Pob, Adc Lab Main Yesenia Sarabia [facility] 1.2840.114 350.1.13.10 4.2.7.2.686 [id number] [facility] 2020-05-09 13:41:15 2020-05-09 14:16:18 Office Visit Ted Yesenia L [facility] 1.2.840.114 350.1.13.10 4.2.7.2.686 [id number] 198 [id number] [facility] 2020-05-09 10:30:00 2020-05-09 10:45:00 Office Visit Yesenia Sarabia [facility] Health Surgical Specialti [facility] 1.2.840.114 350.1.13.10 4.2.7.2.686 [id number] [facility] 2020-05-09 10:30:00 2020-05-09 10:30:00 Outpatient R YESENIA SARABIA [facility] [id number] [facility] 2020-05-08 00:00:00 2020-05-08 00:00:00 Telephone Yesenia Sarabia [facility] Surgical Special libra [place] 1.2.840.114 350.1.13.10 4.2.7.2.686 [id number] [facility] 2020-04-30 00:00:00 2020-04-30 00:00:00 Orders Only Doctor Unassigned, [place] [facility] 1.2.840.114 350.1.13.10 4.2.7.2.686 [id number] 009 [id number] [facility] 2020-03-20 00:00:00 2020-03-20 00:00:00 Telephone Yesenia Sarabia [facility] Surgical [facility] libra [place] 1.2.840.114 350.1.13.10 4.2.7.2.686 [id number] [facility] 2020-02-22 00:00:00 2020-02-22 00:00:00 Orders Only Doctor Unassigned, [place] [facility] 1.2.840.114 350.1.13.10 4.2.7.2.686 [id number] [id number] [facility] 2020-02-13 00:00:00 2020-02-13 00:00:00 Orders Only Doctor Unassigned, [place] [facility] 1.2.840.114 350.1.13.10 4.2.7.2.686 [id number] [id number] [facility] 2019-11-08 00:00:00 2019-11-08 00:00:00 Orders Only Doctor Unassigned, [place] [facility] 1.2.840.114 350.1.13.10 4.2.7.2.686 [id number] [id number] [facility] 2019-11-02 13:45:00 2019-11-02 13:45:00 Outpatient R VINCENT AGUSTIN [facility] [id number] [facility] 2019-11-02 08:01:19 2019-11-02 08:16:19 Telemedici ne Visit Nikole [facility] Surgical Specialarcelia [place] 1.2.840.114 350.1.13.10 4.2.7.2.686 [id number] [facility] 2019-09-28 00:00:00 2019-09-28 00:00:00 Letter (Out) Nikole [facility] Surgical Specialarcelia [place] 1.2.840.114 350.1.13.10 4.2.7.2.686 [id number] [facility] 2019-09-13 00:00:00 2019-09-13 00:00:00 Letter (Out) Nikole [facility] Surgical Specialarcelia [place] 1.2.840.114 350.1.13.10 4.2.7.2.686 [id number] 198 [id number] [facility] 2019-09-11 00:00:00 2019-09-11 00:00:00 Telephone Nikole [facility] Surgical Specialarcelia [place] 1.2.840.114 350.1.13.10 4.2.7.2.686 [id number] [facility] 2019-09-07 07:55:18 2019-09-07 08:10:18 Office Visit Nikole [facility] Surgical Specialarcelia [place] 1.2.840.114 350.1.13.10 4.2.7.2.686 [id number] 198 [id number] [facility] 2019-09-07 00:00:00 2019-09-07 00:00:00 Orders Only Doctor Unassigned, [place] [facility] 1.2.840.114 350.1.13.10 4.2.7.2.686 [id number] [id number] [facility] 2019-09-07 00:00:00 2019-09-07 00:00:00 Letter (Out) Vincent Agustin [facility] Surgical Specialarcelia [place] 1.2.840.114 350.1.13.10 4.2.7.2.686 [id number] 198 [id number] [facility] 2019-08-24 00:00:00 2019-08-24 00:00:00 Orders Only Doctor Unassigned, [place] [facility] 1.2.840.114 350.1.13.10 4.2.7.2.686 [id number] [id number] [facility] 2019-07-31 14:24:05 2019-07-31 23:59:00 Outpatient VINCENT AGUSTIN [facility] [id number] [facility] 2019-07-31 14:24:00 2019-07-31 23:59:00 Hospital Encounter Vincent Agustin [facility] Surgical Specialarcelia [place] 1.2.840.114 350.1.13.10 4.2.7.2.686 [id number] [facility] 2019-07-31 13:50:19 2019-07-31 15:07:02 Office Visit Yesenia Sarabia [facility] Surgical Special libra [place] 1.2.840.114 350.1.13.10 4.2.7.2.686 [id number] [facility] 2019-07-17 09:03:00 2019-07-18 14:40:00 Inpatient R YESENIA SARABIA [facility] [id number] [facility] 2019-07-10 15:22:42 2019-07-10 15:24:00 Outpatient R YESENIA SARABIA [facility] [id number] [facility] 2019-06-23 08:07:23 2019-06-23 23:59:00 Outpatient YESENIA SARABIA [facility] [id number] [facility] Results Test Description Test Time Test Comments Results Result Co mments Source COMPREHENSIVE METABOLIC [id number] 06:03:34* Test Item Value Reference Range Interpretation Comme nts GLUCOSE (test code = 2216) 154 MG/DL 70-99 H BUN (test code = 2207) 20 MG/DL 8-23 CREATININE (test code = 2213) 0.78 MG/DL 0.60-1.30 eGFR (2020 CKD-EPI) (test code = 53940) 87 ML/MIN/1.73 >60 CALC BUN/CREAT (test code = 2234) 26 RATIO 6-28 SODIUM (test code = 2230) 137 MEQ/L 133-146 POTASSIUM (test code = 2227) 4.4 MEQ/L 3.5-5.4 CHLORIDE (test code = 2214) 99 MEQ/L 95-107 CARBON DIOXIDE (test code = 2205) 24 MEQ/L 19-31 CALCIUM (test code = 2208) 9.4 MG/DL 8.5-10.5 PROTEIN, TOTAL (test code = 2228) 7.6 G/DL 6.1-8.3 ALBUMIN (test code = 2200) 4.7 G/DL 3.5-5.2 CALC GLOBULIN (test code = 2239) 2.9 G/DL 1.9-3.7 CALC A/G RATIO (test code = 2233) 1.6 RATIO 1.0-2.6 BILIRUBIN, TOTAL (test code = 2206) 0.4 MG/DL See_Comment [Automated me ssage] The system which generated this result transmitted reference range: <=1.2. The reference range was not used to interpret this result as normal/abnormal. ALKALINE PHOSPHATASE (test code = 2203) 136 U/L 40-136 AST (test code = 2217) 14 U/L 9-40 ALT (test code = 2219) 16 U/L 5-40 HEMOGLOBIN [id number] 05:29:44* Test Item Value Reference Range Interpretation Comme nts HEMOGLOBIN A1c (test code = 77044) 7.3 % 4.2-5.6 H [employer] GUIDELINES FOR HGB A1C: PREDIABETES/INCREASED RISK . . . . . . . 5.7-6.4% DIAGNOSIS OF DIABETES . . . . . . . . . >=6.5% WITH CONFIRMATION OR APPROPRIATE SYMPTOMS NOTE: ASSAY MAY BE AFFECTED BY HEMOGLOBINOPATHIES (SICKLE CELL ANEMIA, S-C DISEASE, OTHERS) OR ARTIFICIALLY LOWERED BY DECREASED RED CELL SURVIVAL (HEMOLYTIC ANEMIAS, BLOOD LOSS, ETC.). CONSIDER ALTERNATE TESTING OR LABORATORY CONSULTATION. UNLESS OTHERWISE INDICATED, ALL TESTING PERFORMED [facility] [employer] [address] [place] [id number] INTERNATIONAL GUEST COORDINATOR: SREEKANTH SEAY M.D. [place] NUMBER [id number] [place]. [id number] CBC W/AUTO DIFF WITH [id number] 04:27:32* Test Item Value Reference Range Interpretation Comme nts WBC (test code = 1001) 10.3 K/UL 3.5-11.0 RBC (test code = 1002) 4.52 M/UL 3.80-5.40 HEMOGLOBIN (test code = 1003) 13.1 G/DL 11.5-15.5 HEMATOCRIT (test code = 1004) 38.6 % 34.0-45.0 MCV (test code = 1005) 85.4 fL 80.0-99.0 MCH (test code = 1006) 29.0 PG 25.0-33.0 MCHC (test code = 1007) 33.9 G/DL 31.0-36.0 RDW (test code = 1038) 14.4 % 11.5-15.0 NEUTROPHILS (test code = 1008) 52.4 % LYMPHOCYTES (test code = 1010) 37.5 % MONOCYTES (test code = 1011) 5.5 % EOSINOPHILS (test code = 1012) 3.3 % BASOPHILS (test code = 1013) 0.9 % IMMATURE GRANULOCYTES (test code = 1036) 0.4 % NUCLEATED RBCS (test code = 1065) 0.0 /100 WBC'S See_Comment [Automated messa ge] The system which generated this result transmitted reference range: 0.0. The reference range was not used to interpret this result as normal/abnormal. PLATELET COUNT (test code = 1015) 373 K/UL 130-400 ABSOLUTE NEUTROPHILS (test code = 1066) 5.42 K/UL 1.50-7.50 ABSOLUTE LYMPHOCYTES (test code = 1067) 3.87 K/UL 1.00-4.00 ABSOLUTE MONOCYTES (test code = 1068) 0.57 K/UL 0.20-1.00 ABSOLUTE EOSINOPHILS (test code = 1040) 0.34 K/UL 0.00-0.50 ABSOLUTE BASOPHILS (test code = 1069) 0.09 K/UL 0.00-0.20 ABS IMMATURE GRANULOCYTES (test code = 1020) 0.04 K/UL 0.00-0.10 ABS NUCLEATED RBCS (test code = 07297) 0.00 K/UL 0.00-0.11
--- NOTE | 2023-07-15 16:21 | RAD REPORT ---
EXAM DESCRIPTION: RAD - Chest Single View - 07/15/2023 4:13 pm CLINICAL HISTORY: Hypertension COMPARISON: <Comparisons> FINDINGS: Lines: None. Lungs: No evidence of edema or pneumonia. Pleural: No significant pleural effusions or pneumothorax. Cardiac: The heart size is within normal limits. Mediastinum: Within normal limits. Bones: No acute fractures. Other: None IMPRESSION: No acute cardiopulmonary disease.
[2023-07-15 17:13] LABS: Absolute Lymphocytes (CBC) 2.5 K/uL (0.7-4.9); Hematocrit 36.5 % (36.0-45.0); Lymphocytes % 32.5 % (15.3-44.8); MCV 88.3 fL (80-100); Platelets 304 thou/uL (152-406); RBC Red Blood Cell Count 4.13 M/uL (3.86-4.86)
[2023-07-15 17:27] LABS: Potassium 3.6 mEq/L (3.5-5.1); Troponin High Sensitivity 21.5 pg/mL (<58.9)
--- NOTE | 2023-07-15 17:58 | ER ---
Nurse's Notes [facility] Name: Jade Shaikh Age: 62 yrs Sex: Female : 1960 Arrival Date: 07/15/2023 Time: 15:02 Bed 15 Private MD: Diagnosis: Hypertensive heart disease without heart failure Presentation: 07/15 15:24 Chief complaint: Patient states: Blood pressure has been elevated for the last 2 days. cm10 pt states that her blood pressure was 190/109 this morning. pt reports that she has been having dizzy spells. Pt reports headache, no chest pain. Coronavirus screen: Vaccine status: Patient reports receiving the 2nd dose of the covid vaccine. Client denies travel out of the [place] in the last 14 days. Ebola Screen: Patient denies travel to an Ebola-affected area in the 21 days before illness onset. No symptoms or risks identified at this time. Initial Sepsis Screen: Does the patient meet any 2 criteria? No. Patient's initial sepsis screen is negative. Does the patient have a suspected source of infection? No. Patient's initial sepsis screen is negative. Risk Assessment: Do you want to hurt yourself or someone else? Patient reports no desire to harm self or others. Onset of symptoms was July 15, 2023. 15:24 Method Of Arrival: Ambulatory cm10 15:24 Acuity: STEVE 3 cm10 Historical: - Allergies: 15:26 Sulfa (Sulfonamide Antibiotics); cm10 - PMHx: 15:26 Arthritis; diabetes mellitus; spot on lung; cm10 - PSHx: 15:26 Appendectomy; claudia knee replacements; Cholecystectomy; Ligation of fallopian tube; Total cm10 abdominal hysterectomy; - Immunization history:: Adult Immunizations unknown. - Social history:: Smoking status: Patient reports the use of cigarette tobacco products, smokes one pack cigarettes per day. Screenin:55 [facility] ED Fall Risk Assessment (Adult) History of falling in the last 3 months, ph including since admission No falls in past 3 months (0 pts) Score/Fall Risk Level 0 - 2 = Low Risk Oriented to surroundings, Maintained a safe environment, Provided non-skid footwear, Hourly rounding (assess needs \T\ fall precautionary measures) done. Abuse screen: Denies threats or abuse. Denies injuries from another. Nutritional screening: No deficits noted. Tuberculosis screening: No symptoms or risk factors identified. Assessment: 16:55 General: Appears in no apparent distress. comfortable, Behavior is calm, cooperative, ph appropriate for age. Pain: Denies pain. Neuro: Level of Consciousness is awake, alert, obeys commands, Oriented to person, place, time, situation. Cardiovascular: Capillary refill < 3 seconds in bilateral fingers Patient's skin is warm and dry. Respiratory: Airway is patent Respiratory effort is even, unlabored. GI: No signs and/or symptoms were reported involving the gastrointestinal system. Derm: Skin is pink, warm \T\ dry. Vital Signs: 15:24 BP 200 / 91; Pulse 83; Resp 18 S; Temp 97.5(O); Pulse Ox 100% on R/A; Weight 83.91 kg; cm10 Height 5 ft. 3 in. ; Pain 5/10; 16:58 BP 191 / 85; Pulse 71; Resp 18; Pulse Ox 98% on R/A; ph 17:21 BP 174 / 94; Pulse 73; Resp 18; Pulse Ox 97% on R/A; ph 15:24 Body Mass Index 32.77 (83.91 kg, 160.02 cm) cm10 15:24 Pain Scale: Adult cm10 ED Course: 15:05 Patient arrived in ED. mg5 15:08 Eugene De Jesus MD is Attending Physician. kdr 15:26 Triage completed. cm10 15:26 Arm band placed on Patient placed in an exam room. cm10 15:38 Ruth Love, RN is Primary Nurse. ph 16:15 XRAY Chest (1 view) In Process Unspecified. EDMS 16:55 Patient has correct armband on for positive identification. Placed in gown. Bed in low ph position. Call light in reach. Side rails up X 1. Client placed on continuous cardiac and pulse oximetry monitoring. NIBP monitoring applied. Door closed. Noise minimized. 16:56 Initial lab(s) drawn, by me, sent to lab. EKG done, by ED staff, reviewed by Eugene De Jesus MD. Inserted saline lock: 22 gauge in right antecubital area, using aseptic technique. Blood collected. Administered Medications: 18:24 Drug: Lisinopril PO 10 mg PO once Route: PO; ph Medication: 16:55 VIS not applicable for this client. ph Outcome: 17:57 Discharge ordered by . kdr 18:53 Patient left the ED. ph Signatures: Dispatcher [employer] EDMS Eugene De Jesus MD MD kdr Ruth Love RN RN Louise Yanez RN RN [facility] Collette Talamantes mg5 Corrections: (The following items were deleted from the chart) 15:26 15:26 PMHx: Hypertensive disorder; 10 [facility]
--- NOTE | 2023-07-15 17:58 | EDPHYS ---
Physician Documentation [facility] Name: Jade Shaikh Age: 62 yrs Sex: Female : 1960 Arrival Date: 07/15/2023 Time: 15:02 Bed 15 Private MD: ED Physician Eugene De Jesus HPI: 07/15 17:52 This 62 yrs old Female presents to ER via Ambulatory with complaints of High Blood kdr Pressure. 17:53 Patient presents to the ED complaining of generalized weakness, dizziness and elevated kdr blood pressure for the past 2 days. Patient was told previously that by her PCP that she had elevated blood pressure but has not had resources to follow-up and get on medication.. Onset: The symptoms/episode began/occurred gradually, 2 day(s) ago. Severity of symptoms: At their worst the symptoms were mild moderate this morning, in the emergency department the symptoms are unchanged. The patient has experienced similar episodes in the past, Patient is aware that she is having hypertension issues previously and has not as yet been on any medication. She is also a known diabetic and is taking metformin. The patient has not recently seen a physician. Historical: - Allergies: 15:26 Sulfa (Sulfonamide Antibiotics); cm10 - PMHx: 15:26 Arthritis; diabetes mellitus; spot on lung; cm10 - PSHx: 15:26 Appendectomy; claudia knee replacements; Cholecystectomy; Ligation of fallopian tube; Total cm10 abdominal hysterectomy; - Immunization history:: Adult Immunizations unknown. - Social history:: Smoking status: Patient reports the use of cigarette tobacco products, smokes one pack cigarettes per day. ROS: 17:53 Constitutional: Negative for fever, chills, and weight loss, Eyes: Negative for injury, kdr pain, redness, and discharge, ENT: Negative for injury, pain, and discharge, Neck: Negative for injury, pain, and swelling, Cardiovascular: Negative for chest pain, palpitations, and edema, Respiratory: Negative for shortness of breath, cough, wheezing, and pleuritic chest pain, Abdomen/GI: Negative for abdominal pain, nausea, vomiting, diarrhea, and constipation, Back: Negative for injury and pain, : Negative for injury, bleeding, discharge, and swelling, MS/Extremity: Negative for injury and deformity, Skin: Negative for injury, rash, and discoloration, Psych: Negative for depression, anxiety, suicide ideation, homicidal ideation, and hallucinations, Allergy/Immunology: Negative for hives, rash, and allergies, Endocrine: Negative for neck swelling, polydipsia, polyuria, polyphagia, and marked weight changes, Hematologic/Lymphatic: Negative for swollen nodes, abnormal bleeding, and unusual bruising, 17:53 Neuro: Positive for dizziness, weakness, Exam: 17:53 Constitutional: This is a well developed, well nourished patient who is awake, alert, kdr and in no acute distress. Head/Face: Normocephalic, atraumatic. Eyes: Pupils equal round and reactive to light, extra-ocular motions intact. Lids and lashes normal. Conjunctiva and sclera are non-icteric and not injected. Cornea within normal limits. Periorbital areas with no swelling, redness, or edema. Neck: Trachea midline, no thyromegaly or masses palpated, and no cervical lymphadenopathy. Supple, full range of motion without nuchal rigidity, or vertebral point tenderness. No Meningismus. Chest/axilla: Normal chest wall appearance and motion. Nontender with no deformity. No lesions are appreciated. Cardiovascular: Regular rate and rhythm with a normal S1 and S2. No gallops, murmurs, or rubs. Normal PMI, no JVD. No pulse deficits. Respiratory: Lungs have equal breath sounds bilaterally, clear to auscultation and percussion. No rales, rhonchi or wheezes noted. No increased work of breathing, no retractions or nasal flaring. Abdomen/GI: Soft, non-tender, with normal bowel sounds. No distension or tympany. No guarding or rebound. No evidence of tenderness throughout. Back: No spinal tenderness. No costovertebral tenderness. Full range of motion. Skin: Warm, dry with normal turgor. Normal color with no rashes, no lesions, and no evidence of cellulitis. MS/ Extremity: Pulses equal, no cyanosis. Neurovascular intact. Full, normal range of motion. Neuro: Awake and alert, GCS 15, oriented to person, place, time, and situation. Cranial nerves II-XII grossly intact. Motor strength 5/5 in all extremities. Sensory grossly intact. Cerebellar exam normal. Normal gait. Psych: Awake, alert, with orientation to person, place and time. Behavior, mood, and affect are within normal limits. Vital Signs: 15:24 BP 200 / 91; Pulse 83; Resp 18 S; Temp 97.5(O); Pulse Ox 100% on R/A; Weight 83.91 kg; cm10 Height 5 ft. 3 in. ; Pain 5/10; 16:58 BP 191 / 85; Pulse 71; Resp 18; Pulse Ox 98% on R/A; ph 17:21 BP 174 / 94; Pulse 73; Resp 18; Pulse Ox 97% on R/A; ph 15:24 Body Mass Index 32.77 (83.91 kg, 160.02 cm) cm10 15:24 Pain Scale: Adult cm10 MDM: 17:53 Data reviewed: vital signs, nurses notes, lab test result(s), radiologic studies. kdr 17:57 Patient medically screened. kdr 07/15 15:43 Order name: Basic Metabolic Panel; Complete Time: 17:55 kdr 07/15 15:43 Order name: CBC with Diff; Complete Time: 17:55 kdr 07/15 15:43 Order name: Troponin HS; Complete Time: 17:55 kdr 07/15 15:43 Order name: XRAY Chest (1 view); Complete Time: 17:55 kdr 07/15 15:43 Order name: EKG; Complete Time: 15:44 kdr 07/15 15:43 Order name: Cardiac monitoring; Complete Time: 17:21 kdr 07/15 15:43 Order name: EKG - Nurse/Tech; Complete Time: 17:21 kdr 07/15 15:43 Order name: IV Saline Lock; Complete Time: 17:21 kdr 07/15 15:43 Order name: Labs collected and sent; Complete Time: 17:21 kdr 07/15 15:43 Order name: O2 Per Protocol; Complete Time: 16:18 kdr 07/15 15:43 Order name: O2 Sat Monitoring; Complete Time: 16:18 kdr Administered Medications: 18:24 Drug: Lisinopril PO 10 mg PO once Route: PO; ph Disposition Summary: 07/15/23 17:57 Discharge Ordered Problem: new kdr Symptoms: have improved kdr Condition: Stable kdr Diagnosis - Hypertensive heart disease without heart failure kdr Followup: kdr - With: Private Physician - When: 2 - 3 days - Reason: If symptoms return, Further diagnostic work-up, Recheck today's complaints, Continuance of care, Re-evaluation by your physician Discharge Instructions: - Discharge Summary Sheet kdr - Hypertension, Adult, [id number] kdr Forms: - Medication Reconciliation Form kdr - Thank You Letter kdr - Patient Portal Instructions kdr - Leadership Thank You Letter kdr Prescriptions: - Lisinopril 10 mg Oral tablet - take 1 tablet ORAL route once daily; 30 tablet; Refills: 0, Product Selection kdr Permitted Signatures: Dispatcher [employer] EDNY Eugene De Jesus MD MD kdr Ruth Love RN RN Louise Ahmadi RN RN cm10 Corrections: (The following items were deleted from the chart) 15:26 15:26 PMHx: Hypertensive disorder; cm10 cm10
[2023-07-15 21:18] VITALS: TEMP 97.5
[2023-07-15 21:29] VITALS: BP 174/94; O2SAT 97
--- NOTE | 2023-07-16 15:29 | EKG ---
Test Date: 2023-07-15 Test Time: 16:43:26 Manager Placement: PH MEASUREMENT RESULTS: Intervals: Rate: 69 MD: 184 QRSD: 104 QT: 418 QTc: 447 [place]: P: 60 MD: 184 QRS: 62 T: 43 INTERPRETIVE STATEMENTS: Normal sinus rhythm with sinus arrhythmia Normal ECG Compared to ECG 03/13/2023 13:56:48 No significant changes Electronically Signed On 07-16-23 15:27:20 STRATE[employer]IC COMMUNICATIONS SPECIALIST by Paul Kwong
== END ==
LOC: ER 15:02
DX: I11.9 Hypertensive heart disease without heart failure (principal); E11.9 Type 2 diabetes mellitus without complications; F17.210 Nicotine dependence, cigarettes, uncomplicated; Z88.2 Allergy status to sulfonamides
CPT/HCPCS: 36415; 71045; 80048; 84484; 85025; 93005; 99284

== ENCOUNTER 2023-12-28 22:40 | Emergency (ER) | payer OTHER ==
--- OUTSIDE RECORDS SUMMARY | 2023-12-28 22:45 | XMS REPORT | Continuity of Care Document ---
Author Name Unknown Address [address] [facility] [address] [place] [address] [facility] thconnect Address [address] [facility] [address] [place] [address] Care Team Providers Care Soa Engineer Name Role Phone Mitchell Palma Primary Care Physician [phone] YESENIA SARABIA Attending Clinician UnavailYESENIA Bates Attending Clinician UnavailYesenia Bates MD Attending Clinician [phone] Pob, Adc Lab Main Attending Clinician Unavailyunier e [email or web address]_S Attending Clinician Unavaila ble Lab, Ang - Db Attending Clinician Unavailable Doctor Unassigned, [place] Attending Clinician U Vincent Villaseñor Attending Clinician [phone] VINCENT AGUSTIN Attending Clinician Unavailable Only, Adc Test Attending Clinician Unavailable Olayinka Ricardo MD Attending Clinician [phone] OLAYINKA RICARDO Attending Clinician Unavailable Usama Arteaga DO Attending Clinician [phone] Eze Vallejo MD Attending Clinician [phone] Pj Mora MD Attending Clinician [phone] EZE VALLEJO Attending Clinician Unavailable YESENIA SARABIA Admitting Clinician UnavailYESENIA Bates Admitting Clinician UnavailYesenia Bates MD Admitting Clinician [phone] [email or web address]_S Admitting Clinician Unavaila ble Payers Payer Name Policy Type Policy Number Effective Date Expirati on Date Source AP ORELLANA [id number] 2018 00:00:00 [facility] [id number] 2021 00:00:00 [facility] [id number] 2019 00:00:00 Problems Condition Name Condition Details Condition Category Status Onset Date Resolution Date Last Treatment Date Treating Clinician Comments Source Pre-op testing Pre-op testing Disease Active 10-20 00:00: 00 [facility] S/P revision of total knee, left S/P revision of total knee, left Disease Active 2020-07 00:00: 00 [facility] Status post revision of total knee replacemen t, 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 Added automatic ally from request for surgery [id number] [facility] Primary osteoarthr itis of left knee Primary osteoarthr itis of left knee Disease Active 03-25 00:00: 00 Overview: Formattin g of this note might be different from the original. 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 Added automatic ally from request for surgery [id number] [facility] Obesity (BMI 30-39.9) Obesity (BMI 30-39.9) Disease Active 2018-07 00:00: 00 [facility] Total knee replacemen t status Total knee replacemen t status Disease Active 2018-07 00:00: 00 [facility] Patellofem oral arthritis of right knee Patellofem oral arthritis of right knee Disease Active 2018-07 00:00: 00 Overview: Formattin g of this note might be different from the original. Added automatic ally from request for surgery [id number] [facility] Low back pain of over 3 months duration Low back pain of over 3 months duration Disease Active 09-06 00:00: 00 [facility] Type 2 diabetes mellitus, without long-term current use of insulin Type 2 diabetes mellitus, without long-term current use of insulin Disease Active 09-06 00:00: 00 [facility] Diabetic neuropathy associated with type 2 diabetes mellitus Diabetic neuropathy associated with type 2 diabetes mellitus Disease Active 09-06 00:00: 00 [facility] Right leg pain Right leg pain Disease Active 03-05 00:00: 00 [facility] Allergies, Adverse Reactions, Alerts Allergy Name Allergy Type Status Severity Reaction(s) Onset Date Inactive Date Treating Clinician Comments Source SULFA (SULFONA MIDE ANTIBIOT ICS) Drug Class Active Hives 11-27 00:00: 00 [facility] Sulfa (Sulfona mide Antibiot ics) Propensi ty to adverse reaction s Active Hives 11-27 00:00: 00 [facility] Sulfa (Sulfona mide Antibiot ics) Propensi ty to adverse reaction s Active Hives 11-27 00:00: 00 [facility] Social History Social Habit Start Date Stop Date Quantity Comments Source History of tobacco use Cigarette Smoker [facility] SDOH Alcohol Frequency [facility] History SDOH Alcohol Std Drinks [facility] History SDOH Alcohol Binge [facility] Alcohol intake 2023-11-15 00:00:00 2023-11-15 00:00:00 0 /d [facility] History of Social function 2023-11-01 00:00:00 2023-11-01 00:00:00 [facility] Cigarettes smoked current (pack per day) - Reported 2023-10-25 00:00:00 2023-10-25 00:00:00 [facility] Cigarette pack-years 2023-10-25 00:00:00 2023-10-25 00:00:00 [facility] Tobacco use and exposure 2023-10-25 00:00:00 2023-10-25 00:00:00 User of smokeless tobacco [facility] Tobacco Comment 2023-10-14 00:00:00 2023-10-14 00:00:00 Vaped and quit 3 mnths, ago smoker for 44 years [facility] Exposure to SARS-CoV-2 (event) 2021-07-30 00:00:00 2021-08-29 10:57:00 Not sure [facility] Education - What is the highest level of school you have completed or the highest degree you have received? 2021-07-14 00:00:00 2021-07-14 00:00:00 9th grade [facility] Alcohol Comment 2019-07-10 00:00:00 2019-07-10 00:00:00 Occasional Drinker [facility] Sex Assigned At 1960 00:00:00 1960 00:00:00 [facility] Smoking Status Start Date Stop Date Source Smokes tobacco daily 2023-10-25 00:00:00 [facility] Ex-smoker 2023-10-14 00:00:00 2023-10-14 00:00:00 [facility] Medications Ordered Medication Name Filled Medication Name Start Date Stop Date Current Medication? Ordering Clinician Indication Dosage Frequency Signature (SIG) Comments Components Source diclofenac 75 mg EC tablet 11-14 00:00: 00 Yes [id number] 75mg Take 1 tablet by mouth in the morning and 1 tablet in the evening. Take with meals. [facility] FENTanyl PF (SUBLIMAZE (PF)) injection 25 mcg 10-31 16:34: 31 10-31 19:49 :09 No 25ug 25 mcg, Slow IV Push, Q5MIN PRN, 4 doses, Starting on Wed11/01/23 at 1134, Until Wed11/01/23 at 1449, Routine, Pain (scale 4-6), PACU [facility] ondansetron (ZOFRAN (PF)) injection 4 mg 10-31 16:34: 31 10-31 19:49 :09 No 4mg 4 mg, Slow IV Push, PRN, 1 dose, Starting on Wed11/01/23 at 1134, Until Wed11/01/23 at 1449, Routine, Nausea and Vomiting (N/V), PACU [facility] lactated ringers IV infusion 1,000 mL 10-31 13:30: 00 10-31 13:39 :00 No 1000mL at 42 mL/hr, 1,000 mL, IV Infusion, ONCE, 1 dose, On Wed11/01/23 at 0830, Routine, DSU Pre-op [facility] aspirin 325 mg tablet 10-31 00:00: 00 11-29 04:59 :00 Yes [id number] 325mg Take 1 tablet by mouth in the morning and 1 tablet in the evening. Take with meals. Do all this for 28 days. [facility] lisinopriL 20 mg tablet 10-24 13:03: 45 Yes 20mg Take 1 tablet by mouth in the morning. [facility] baclofen 10 mg tablet 10-24 13:00: 52 Yes 10mg Take 1 tablet by mouth in the morning and 1 tablet in the evening. [facility] diclofenac 75 mg EC tablet 10-24 13:00: 52 Yes 75mg Take 1 tablet by mouth in the morning and 1 tablet at noon and 1 tablet in the evening. Take with meals. [facility] HYDROcodone -acetaminop hen 10-325 mg tablet 10-24 13:00: 52 Yes 1{tbl} Take 1 tablet by mouth every 8 (eight) hours as needed. [facility] WELLBUTRIN SR 100 mg SR tablet 08-18 00:00: 00 Yes 100mg Take 1 tablet by mouth in the morning. [facility] estradioL 0.01 % (0.1 mg/gram) vaginal cream 08-18 00:00: 00 Yes 1g Insert 1 g into vagina weekly. [facility] glyBURIDE 5 mg tablet 2020-07 15:00: 27 Yes 5mg Take 1 tablet by mouth in the morning and 1 tablet in the evening. [facility] acetaminoph en-codeine (TYLENOL-CO DEINE #3) 300-30 mg tablet 2020-07 00:00: 00 10-24 00:00 :00 No [id number] 2{tbl} Take 2 tablets by mouth every 6 (six) hours as needed for Pain (scale 4-6) or Pain (scale 7-10). Indication s: acute pain [facility] gabapentin 300 mg capsule 2018-07 00:00: 00 Yes 300mg Take 300 mg by mouth 4 (four) times daily. [facility] gabapentin 800 mg tablet 2018-07 00:00: 00 Yes 800mg Take 1 tablet by mouth in the morning and 1 tablet at noon and 1 tablet in the evening. [facility] glipiZIDE 10 mg tablet 2018-07 00:00: 00 Yes 10mg Take 1 tablet by mouth in the morning and 1 tablet in the evening. [facility] NYSTOP 100,000 unit/gram powder 04-12 00:00: 00 Yes 1{dose} Apply 1 Dose to area(s) as needed. [facility] metFORMIN 500 mg tablet 05 00:00: 00 Yes TAKE 1 TABLET BY MOUTH THREE TIMES DAILY [facility] Immunizations Ordered Immunization Name Filled Immunization Name Date Status Comments Source Influenza Virus Vaccine Quad .5 mL IM 6+ MO 2019-07-18 00:00:00 Completed [facility] Influenza Virus Vaccine Quad .5 mL IM 6+ MO 2019-07-18 00:00:00 Completed [facility] Influenza Virus Vaccine Quad .5 mL IM 6+ MO 2019-07-18 00:00:00 Completed [facility] Influenza Virus Vaccine Quad .5 mL IM 6+ MO 2019-07-18 00:00:00 Completed [facility] Influenza Virus Vaccine Quad .5 mL IM 6+ MO 2019-07-18 00:00:00 Completed [facility] Influenza Virus Vaccine Quad .5 mL IM 6+ MO 2019-07-18 00:00:00 Completed [facility] Influenza Virus Vaccine Quad .5 mL IM 6+ MO (FLUZONE/FLULAVAL/F LUARIX) Unknown Completed [facility] Influenza Virus Vaccine Quad .5 mL IM 6+ MO (FLUZONE/FLULAVAL/F LUARIX) Unknown Completed [facility] Influenza Virus Vaccine Quad .5 mL IM 6+ MO (FLUZONE/FLULAVAL/F LUARIX) Unknown Completed [facility] Influenza Virus Vaccine Quad .5 mL IM 6+ MO (FLUZONE/FLULAVAL/F LUARIX) Unknown Completed [facility] Influenza Virus Vaccine Quad .5 mL IM 6+ MO (FLUZONE/FLULAVAL/F LUARIX) Unknown Completed [facility] Influenza Virus Vaccine Quad .5 mL IM 6+ MO (FLUZONE/FLULAVAL/F LUARIX) Unknown Completed [facility] Influenza Virus Vaccine Quad .5 mL IM 6+ MO (FLUZONE/FLULAVAL/F LUARIX) Unknown Completed [facility] Influenza Virus Vaccine Quad .5 mL IM 6+ MO (FLUZONE/FLULAVAL/F LUARIX) Unknown Completed [facility] Influenza Virus Vaccine Quad .5 mL IM 6+ MO (FLUZONE/FLULAVAL/F LUARIX) Unknown Completed [facility] Influenza Virus Vaccine Quad .5 mL IM 6+ MO (FLUZONE/FLULAVAL/F LUARIX) Unknown Completed [facility] Influenza Virus Vaccine Quad .5 mL IM 6+ MO (FLUZONE/FLULAVAL/F LUARIX) Unknown Completed [facility] Influenza Virus Vaccine Quad .5 mL IM 6+ MO (FLUZONE/FLULAVAL/F LUARIX) Unknown Completed [facility] Influenza Virus Vaccine Quad .5 mL IM 6+ MO (FLUZONE/FLULAVAL/F LUARIX) Unknown Completed [facility] Influenza Virus Vaccine Quad .5 mL IM 6+ MO (FLUZONE/FLULAVAL/F LUARIX) Unknown Completed [facility] Influenza Virus Vaccine Quad .5 mL IM 6+ MO (FLUZONE/FLULAVAL/F LUARIX) Unknown Completed [facility] Influenza Virus Vaccine Quad .5 mL IM 6+ MO (FLUZONE/FLULAVAL/F LUARIX) Unknown Completed [facility] Influenza Virus Vaccine Quad .5 mL IM 6+ MO (FLUZONE/FLULAVAL/F LUARIX) Unknown Completed [facility] Influenza Virus Vaccine Quad .5 mL IM 6+ MO (FLUZONE/FLULAVAL/F LUARIX) Unknown Completed [facility] Influenza Virus Vaccine Quad .5 mL IM 6+ MO (FLUZONE/FLULAVAL/F LUARIX) Unknown Completed [facility] Influenza Virus Vaccine Quad .5 mL IM 6+ MO (FLUZONE/FLULAVAL/F LUARIX) Unknown Completed [facility] Influenza Virus Vaccine Quad .5 mL IM 6+ MO (FLUZONE/FLULAVAL/F LUARIX) Unknown Completed [facility] Influenza Virus Vaccine Quad .5 mL IM 6+ MO (FLUZONE/FLULAVAL/F LUARIX) Unknown Completed [facility] Vital Signs Vital Name Observation Time Observation Value Comments S ource Systolic blood pressure 2023-11-15 18:58:00 194 mm[Hg] [facility] Diastolic blood pressure 2023-11-15 18:58:00 89 mm[Hg] [facility] Heart rate 2023-11-15 18:58:00 78 /min [facility] Body height 2023-11-15 18:58:00 157.5 cm [facility] Body weight 2023-11-15 18:58:00 90.13 kg [facility] BMI 2023-11-15 18:58:00 36.34 kg/m2 [facility] Oxygen saturation in Arterial blood by Pulse oximetry 2023-11-15 18:58:00 96 /min [facility] Heart rate 2023-11-01 17:03:00 79 /min [facility] Oxygen saturation in Arterial blood by Pulse oximetry 2023-11-01 17:03:00 96 /min [facility] Respiratory rate 2023-11-01 17:02:00 19 /min [facility] Systolic blood pressure 2023-11-01 16:59:00 133 mm[Hg] [facility] Diastolic blood pressure 2023-11-01 16:59:00 71 mm[Hg] [facility] Body temperature 2023-11-01 16:09:00 36.44 Criselda [facility] Body height 2023-10-25 18:00:00 160 cm [facility] Body weight 2023-10-25 18:00:00 89.359 kg [facility] BMI 2023-10-25 18:00:00 34.90 kg/m2 [facility] Heart rate 2023-11-01 17:03:00 79 /min [facility] Oxygen saturation in Arterial blood by Pulse oximetry 2023-11-01 17:03:00 96 /min [facility] Respiratory rate 2023-11-01 17:02:00 19 /min [facility] Systolic blood pressure 2023-11-01 16:59:00 133 mm[Hg] [facility] Diastolic blood pressure 2023-11-01 16:59:00 71 mm[Hg] [facility] Body temperature 2023-11-01 16:09:00 36.44 Criselda [facility] Body height 2023-10-25 18:00:00 160 cm [facility] Body weight 2023-10-25 18:00:00 89.359 kg [facility] BMI 2023-10-25 18:00:00 34.90 kg/m2 [facility] Systolic blood pressure 2023-10-20 20:07:00 176 mm[Hg] [facility] Diastolic blood pressure 2023-10-20 20:07:00 84 mm[Hg] [facility] Heart rate 2023-10-20 20:07:00 81 /min [facility] Respiratory rate 2023-10-20 20:07:00 18 /min [facility] Body height 2023-10-20 20:07:00 160 cm [facility] Body weight 2023-10-20 20:07:00 89.449 kg [facility] BMI 2023-10-20 20:07:00 34.93 kg/m2 [facility] Oxygen saturation in Arterial blood by Pulse oximetry 2023-10-20 20:07:00 95 /min [facility] Body height 2023-10-14 13:25:00 157.5 cm [facility] Body weight 2023-10-14 13:25:00 89.359 kg [facility] BMI 2023-10-14 13:25:00 36.03 kg/m2 [facility] Systolic blood pressure 2021-08-29 17:33:00 151 mm[Hg] [facility] Diastolic blood pressure 2021-08-29 17:33:00 82 mm[Hg] [facility] Heart rate 2021-08-29 17:33:00 78 /min [facility] height 2021-08-29 17:22:00 160 cm [facility] Body weight 2021-08-29 17:22:00 98.93 kg [facility] BMI 2021-08-29 17:22:00 38.63 kg/m2 [facility] Oxygen saturation in Arterial blood by Pulse oximetry 2021-08-29 17:22:00 97 /min [facility] Procedures Procedure Date / Time Performed Performing Clinician Source BODY FLUID DIRECT COUNT 2023-11-01 16:01:00 Yesenia Sarabia [facility] BODY FLUID CULTURE(AEROBIC/ANAEROBI C) 2023-11-01 16:01:00 Yesenia Sarabia [facility] FUNGUS (ROUTINE) CULTURE 2023-11-01 16:01:00 Yesenia Sarabia [facility] ASPIRATION JOINT LOWER EXTREMITY 2023-11-01 15:32:00 Yesenia Sarabia [facility] ASPIRATION JOINT LOWER EXTREMITY 2023-11-01 15:32:00 Yesenia Sarabia [facility] POCT GLUCOSE (AUTOMATED) 2023-11-01 13:40:00 Yesenia Sarabia [facility] POCT GLUCOSE (AUTOMATED) 2023-11-01 13:40:00 Yesenia Sarabia [facility] BASIC METABOLIC PANEL (NA, K, CL, CO2, GLUCOSE, BUN, CREATININE, CA) 2023-10-29 16:15:00 Yesenia Sarabia [facility] CBC WITH DIFF 2023-10-29 16:15:00 Yes[facility] SEDIMENT[facility] RATE 2023-10-14 14:24:00 Yesenia Sarabia [facility] XR KNEE 3 VW LEFT 2023-10-14 14:09:24 Yesenia Sarabia [facility] REFERRAL- REQUEST/RESPONSE 2023-08-18 06:01:00 Doctor Unassigned, [place] [facility] DISABILITY/FMLA 2022-02-24 05:01:00 Doctor Unass igned, [place] [facility] XR KNEE <3 VW LEFT 2021-08-29 17:54:29 Yesenia Sarabia [facility] REFERRAL- REQUEST/RESPONSE 2021-08-19 06:01:00 Doctor Unassigned, [place] [facility] Encounters Start Date/Time End Date/Time Encounter Type Admission Type Attending [facility] Facility Care Department Encounter ID Source 2021-07-02 16:08:43 Outpatient YESENIA OLIVEROS [facility] [id number] [facility] 2021-05-19 20:54:10 Outpatient YESENIA SARABIA [facility] [id number] [facility] 2023-11-15 14:45:00 2023-11-15 14:45:00 Office Visit Yesenia Sarabia [facility] [id number] 350.1.13.10 4.2.7.2.686 [id number] [facility] 2023-11-15 14:45:00 2023-11-15 14:42:24 Outpatient R YESENIA SARABIA [facility] [id number] [facility] 2023-11-01 08:14:00 2023-11-01 12:09:00 Outpatient R YESENIA SARABIA YESENIA [facility] [id number] [facility] 2023-11-01 08:14:00 2023-11-01 12:09:00 Hospital Encounter Yesenia Sarabia [facility] [id number] 350.1.13.10 4.2.7.2.686 [id number] [facility] 2023-11-01 11:40:00 2023-11-01 12:05:00 Surgery Yesenia Sarabia [facility] 1.2.840.114 350.1.13.10 4.2.7.2.686 [id number] [facility] 2023-10-29 10:54:02 2023-10-29 23:59:00 Hospital Encounter Yesenia Sarabia [facility] 1.2.840.114 350.1.13.10 4.2.7.2.686 [id number] [facility] 2023-10-29 11:00:00 2023-10-29 11:15:00 Product Safety Officer Visit Pob, Adc Lab Main Yesenia Sarabia [facility] 1.2.840.114 350.1.13.10 4.2.7.2.686 [id number] [facility] 2023-10-29 10:52:34 2023-10-29 10:53:00 Outpatient R YESENIA SARABIA C[facility] [id number] [facility] 2023-10-29 10:52:34 2023-10-29 10:53:00 Hospital Encounter Yesenia Sarabia [facility] 1.2.840.114 350.1.13.10 4.2.7.2.686 [id number] [facility] 2023-10-22 00:00:00 2023-10-22 00:00:00 Outpatient GC_GCBZW_Ka herminio_S [facility] [id number] [facility] 2023-10-22 00:00:00 2023-10-22 00:00:00 Outpatient R SARABIA, YESENIA MÉNDEZ [facility] [id number] [facility] 2023-10-21 00:00:00 2023-10-21 00:00:00 Prep For Surgery Yesenia Sarabia [facility] 1..840.114 350.1.13.10 4.2.7.2.686 [id number] [facility] 2023-10-20 15:15:00 2023-10-20 15:50:11 Outpatient R SARABIA YESENIA MÉNDEZ [facility] [id number] [facility] 2023-10-20 15:15:00 2023-10-20 15:50:11 Office Visit SarabiaYesenia [facility] 1.840.114 350.1.13.10 4.2.7.2.686 [id number] [facility] 2023-10-18 00:00:00 2023-10-18 00:00:00 Telephone Yesenia Sarabia [facility] 1..840.114 350.1.13.10 4.2.7.2.686 [id number] [facility] 2023-10-14 09:06:14 2023-10-14 23:59:00 [id number] 2023-10-14 09:06:14 2023-10-14 23:59:00 Hospital Encounter Yesenia Sarabia [facility] 1..840.114 350.1.13.10 4.2.7.2.686 [id number] [facility] 2023-10-14 09:45:00 2023-10-14 10:00:00 Product Safety Officer Visit Lab, Ang - Db Yesenia Sarabia [facility] 1.2.840.114 350.1.13.10 4.2.7.2.686 [id number] [facility] 2023-10-14 08:00:00 2023-10-14 09:18:54 Office Visit Yesenia Sarabia [facility] 1.2.840.114 350.1.13.10 4.2.7.2.686 [id number] [facility] 2023-09-24 00:00:00 2023-09-24 00:00:00 Outpatient GC_GCBZW_Ka diyala_S PRIV PRIV [id number] [facility] 2023-09-20 00:00:00 2023-09-20 00:00:00 Outpatient GC_GCBZW_Ka diyala_S PRIV PRIV [id number] [facility] 2023-09-18 00:00:00 2023-09-18 00:00:00 Outpatient GC_GCBZW_Ka diyala_S PRIV PRIV [id number] [facility] 2023-09-06 00:00:00 2023-09-06 00:00:00 Outpatient GC_GCBZW_Ka diyala_S PRIV PRIV [id number] [facility] 2023-08-30 00:00:00 2023-08-30 00:00:00 Outpatient GC_GCBZW_Ka diyala_S PRIV PRIV [id number] [facility] 2023-08-18 00:00:00 2023-08-18 00:00:00 Outpatient GC_GCBZW_Ka diyala_S PRIV PRIV [id number] [facility] 2023-08-18 00:00:00 2023-08-18 00:00:00 Orders Only Doctor Unassigned, [place] [facility] 1.2.840.114 350.1.13.10 4.2.7.2.686 [id number] [id number] [facility] 2023-08-12 00:00:00 2023-08-12 00:00:00 Outpatient GC_GCBZW_Ka diyala_S PRIV PRIV [id number] [facility] 2023-05-16 00:00:00 2023-05-16 00:00:00 Outpatient GC_GCBZW_Ka diyala_S PRIV PRIV [id number] [facility] 2022-02-24 00:00:00 2022-02-24 00:00:00 Orders Only Doctor Unassigned, [place] [address].2.840.114 350.1.13.10 4.2.7.2.686 [id number] [id number] [facility] 2021-10-20 00:00:00 2021-10-20 00:00:00 Letter (Out) [facility]ab[facility] MEDICAL OFFICE BUILDING 1.2.840.114 350.1.13.10 4.2.7.2.686 [id number] 198 [id number] [facility] 2021-10-20 00:00:00 2021-10-20 00:00:00 Letter (Out) Yesenia [facility]ab[facility] MEDICAL OFFICE BUILDING 1.2.840.114 350.1.13.10 4.2.7.2.686 [id number] [facility] 2021-08-29 11:45:00 2021-08-29 23:59:00 Outpatient R YESENIA SARABIA [facility] [id number] [facility] 2021-08-29 11:45:00 2021-08-29 23:59:00 Hospital Encounter Yesenia [facility]ab[facility] MEDICAL OFFICE BUILDING 1.2.840.114 350.1.13.10 4.2.7.2.686 [id number] [facility] 2021-08-29 11:00:00 2021-08-29 11:15:00 Office Visit Nikole [facility] OFF[facility] BUILDING 1..840.114 350.1.13.10 4.2.7.2.686 [id number] [facility] 2021-08-29 11:00:00 2021-08-29 11:00:00 Outpatient R NIKOLE VINCENT [facility] [id number] [facility] 2021-08-19 00:00:00 2021-08-19 00:00:00 Orders Only Doctor Unassigned, [place] [facility] 1..840.114 350.1.13.10 4.2.7.2.686 [id number] [id number] [facility] 2021-07-31 11:15:00 2021-07-31 11:15:00 Outpatient R VINCENT AGUSTIN [facility] [id number] [facility] 2021-07-31 11:15:00 2021-07-31 11:15:00 [facility] [id number] [facility] 2021-07-29 13:28:03 2021-07-29 23:59:00 Outpatient R VINCENT AGUSTIN [facility] [id number] [facility] 2021-07-29 13:28:03 2021-07-29 23:59:00 Hospital Encounter Nikole [facility] OFF[facility] BUILD[facility] 1..840.114 350.1.13.10 4.2.7.2.686 [id number] [facility] 2021-07-29 13:28:03 2021-07-29 23:59:00 Outpatient R NIKOLE [facility] [id number] [facility] 2021-07-29 13:15:00 2021-07-29 13:30:00 Office Visit Vincent Agustin [facility] 1.84114 350.1.13.10 4.2.7.2.686 [id number] [facility] ity [facility] 2021-07-29 13:15:00 2021-07-29 13:15:00 Outpatient R INKOLE [facility] [id number] [facility] ity [facility] 2021-07-28 00:00:00 2021-07-28 00:00:00 Telephone Yesenia Sarabia [facility] 1.84.114 350.1.13.10 4.2.7.2.686 [id number] [facility] ity [facility] 2021-07-25 09:00:00 2021-07-25 09:00:00 Outpatient R NIKOLE VINCENT [facility] [id number] [facility] ity [facility] 2021-07-17 00:00:00 2021-07-17 00:00:00 Telephone Yesenia Sarabia [facility] 1.84114 350.1.13.10 4.2.7.2.686 [id number] [facility] ity [facility] 2021-07-17 00:00:00 2021-07-17 00:00:00 Telephone Yesenia Sarabia [facility] 1.114 350.1.13.10 4.2.7.2.686 [id number] [facility] 2021-07-17 00:00:00 2021-07-17 00:00:00 Orders Only Doctor Unassigned, [place] [facility] 1.114 350.1.13.10 4.2.7.2.686 [id number] [id number] [facility] 2021-07-16 00:00:00 2021-07-16 00:00:00 Telephone Yesenia Sarabia [facility] 1.2840.114 350.1.13.10 4.2.7.2.686 [id number] [facility] 2021-07-14 10:19:00 2021-07-15 15:00:00 Outpatient R YESENIA SARABIA [facility] SOR [id number] [facility] 2021-07-14 10:19:00 2021-07-15 15:00:00 Hospital Encounter Yesenia Sarabia [facility] 1.20.114 350.1.13.10 4.2.7.2.686 [id number] [facility] 2021-07-14 12:35:00 2021-07-14 15:54:00 Surgery Yesenia Sarabia [facility] 1.2840.114 350.1.13.10 4.2.7.2.686 [id number] [facility] 2021-07-14 00:00:00 2021-07-14 00:00:00 Orders Only Doctor Unassigned, [place] [facility] 1.2840.114 350.1.13.10 4.2.7.2.686 [id number] [id number] [facility] 2021-07-11 11:15:00 2021-07-11 11:30:00 Laboratory Only Only, Adc Test Yesenia Sarabia [facility] 1.2840.114 350.1.13.10 4.2.7.2.686 [id number] [facility] 2021-07-11 11:15:00 2021-07-11 11:15:00 Outpatient R YESENIA SARABIA [facility] [id number] [facility] 2021-07-11 00:00:00 2021-07-11 00:00:00 Orders Only Doctor Unassigned, [place] [facility] 1..114 350.1.13.10 4.2.7.2.686 [id number] [id number] [facility] 2021-07-10 14:32:10 2021-07-10 23:59:00 Outpatient R YESENIA SARABIA [facility] [id number] [facility] 2021-07-10 12:00:00 2021-07-10 23:59:00 Hospital Encounter Yesenia Sarabia [facility] 1..114 350.1.13.10 4.2.7.2.686 [id number] [facility] 2021-07-10 14:31:09 2021-07-10 14:31:09 Outpatient R YESENIA SARABIA [facility] [id number] [facility] 2021-07-10 11:45:00 2021-07-10 11:59:00 Hospital Encounter Yesenia Sarabia [facility] 1..114 350.1.13.10 4.2.7.2.686 [id number] [facility] 2021-07-10 11:30:00 2021-07-10 11:45:00 Product Safety Officer Visit Pob, Adc Lab Main Yesenia Sarabia [facility] PROFESSIO NAL BUILDING 1.114 350.1.13.10 4.2.7.2.686 [id number] [facility] 2021-06-30 00:00:00 2021-06-30 00:00:00 Telephone [facility]ab[facility] 1..114 350.1.13.10 4.2.7.2.686 [id number] [facility] 2021-06-30 00:00:00 2021-06-30 00:00:00 Prep For Surgery Yesenia Sarabia [facility] 1.2.840.114 350.1.13.10 4.2.7.2.686 [id number] [facility] 2021-06-27 00:00:00 2021-06-27 00:00:00 Telephone Olayinka Ricarod [facility] PROFESSIO NAL BUILDING 1.2.840.114 350.1.13.10 4.2.7.2.686 [id number] [facility] 2021-06-26 09:00:00 2021-06-26 11:19:13 Outpatient R YESENIA SARABIA [facility] [id number] [facility] 2021-06-26 09:00:00 2021-06-26 11:19:13 Outpatient R YESENIA SARABIA [facility] [id number] [facility] 2021-06-26 08:43:47 2021-06-26 11:19:13 Office Visit Yesenia Sarabia [facility] 1.2.840.114 350.1.13.10 4.2.7.2.686 [id number] [facility] 2021-06-26 09:00:00 2021-06-26 09:00:00 Outpatient R YESENIA SARABIA [facility] [id number] [facility] 2021-06-17 00:00:00 2021-06-17 00:00:00 Telephone Yesenia Sarabia [facility] 1.2.840.114 350.1.13.10 4.2.7.2.686 [id number] [facility] 2021-06-16 00:00:00 2021-06-16 00:00:00 Orders Only Doctor Unassigned, [place] [facility] 1.2.840.114 350.1.13.10 4.2.7.2.686 [id number] [id number] [facility] 2021-05-14 13:01:51 2021-05-14 13:16:51 [facility] Medical Office Building 1.2.840.114 350.1.13.10 4.2.7.2.686 [id number] [facility] 2021-05-14 13:00:00 2021-05-14 13:00:00 [facility] [id number] [facility] 2021-05-08 00:00:00 2021-05-08 00:00:00 Orders Only Doctor Unassigned, [place] [facility] 1..840.114 350.1.13.10 4.2.7.2.686 [id number] [id number] [facility] 2021-04-14 13:35:00 2021-04-14 23:59:00 [facility] 1.840.114 350.1.13.10 4.2.7.2.686 [id number] [facility] 2021-04-14 13:35:00 2021-04-14 23:59:00 Outpatient R NIKOLE [facility] [id number] [facility] 2021-04-14 13:45:00 2021-04-14 13:45:00 Outpatient R [facility] [id number] [facility] 2021-04-14 13:12:59 2021-04-14 13:27:59 Office Visit [facility]illaume farley Medical Office Building 1.2.840.114 350.1.13.10 4.2.7.2.686 [id number] [facility] 2021-04-04 00:00:00 2021-04-04 00:00:00 Patient Secure Msg Doctor Unassigned, [place] [facility] 1.2.840.114 350.1.13.10 4.2.7.2.686 [id number] [facility] 2021-03-31 06:35:00 2021-03-31 15:05:00 [facility] 1.2.840.114 350.1.13.10 4.2.7.2.686 [id number] [facility] 2021-03-31 07:30:00 2021-03-31 09:59:00 Surgery Yesenia Sarabia [facility] 1.2.840.114 350.1.13.10 4.2.7.2.686 [id number] [facility] 2021-03-31 00:00:00 2021-03-31 00:00:00 [facility] 1.2.840.114 350.1.13.10 4.2.7.2.686 [id number] [facility] 2021-03-31 00:00:00 2021-03-31 00:00:00 Orders Only Doctor Unassigned, [place] [facility] 1.2.840.114 350.1.13.10 4.2.7.2.686 [id number] [id number] [facility] 2021-03-28 10:00:00 2021-03-28 23:59:00 Hospital Encounter Yesenia Sarabia [facility] 1.2.840.114 350.1.13.10 4.2.7.2.686 [id number] [facility] 2021-03-28 13:30:08 2021-03-28 13:45:08 Laboratory Only Only, Adc Test Yesenia Sarabia [facility] 1.840.114 350.1.13.10 4.2.7.2.686 [id number] [facility] 2021-03-28 13:24:59 2021-03-28 13:39:59 Product Safety Officer Visit Pob, Adc Lab Main Yesenia Sarabia [facility] Professio nal Building 1.20.114 350.1.13.10 4.2.7.2.686 [id number] [facility] 2021-03-28 08:00:00 2021-03-28 09:59:00 Hospital Encounter Yesenia Sarabia [facility] 1.0.114 350.1.13.10 4.2.7.2.686 [id number] [facility] 2021-03-28 00:00:00 2021-03-28 00:00:00 Outpatient R YESENIA SARABIA [facility] [id number] [facility] 2021-03-25 00:00:00 2021-03-25 00:00:00 Telephone Yesenia Sarabia [facility] 1.0.114 350.1.13.10 4.2.7.2.686 [id number] [facility] 2021-03-17 00:00:00 2021-03-17 00:00:00 Orders Only Doctor Unassigned, [place] [facility] 1.0.114 350.1.13.10 4.2.7.2.686 [id number] [id number] [facility] 2021-03-17 00:00:00 2021-03-17 00:00:00 Prep For Surgery Yesenia Sarabia [facility] Daquan?Guillaume lopez Medical Office Building 1..114 350.1.13.10 4.2.7.2.686 [id number] [facility] 2021-03-17 00:00:00 2021-03-17 00:00:00 Telephone Yesenia Sarabia [facility] Daquan?Guillaume lopez Medical Office Building 1..840.114 350.1.13.10 4.2.7.2.686 [id number] [facility] 2021-03-12 00:00:00 2021-03-12 00:00:00 Telephone [facility] 1..840.114 350.1.13.10 4.2.7.2.686 [id number] [facility] 2021-03-09 00:00:00 2021-03-09 00:00:00 Patient Secure Msg [facility] BUILDING 1..840.114 350.1.13.10 4.2.7.2.686 [id number] [facility] 2021-03-07 10:37:43 2021-03-07 23:59:00 [facility] [id number] [facility] 2021-03-07 09:20:00 2021-03-07 09:47:20 [facility] [id number] [facility] 2021-03-07 09:16:38 2021-03-07 09:47:20 Office Visit Halegih [facility] Building 1..840.114 350.1.13.10 4.2.7.2.686 [id number] [facility] 2021-03-07 09:16:38 2021-03-07 09:47:20 [facility] 1..840.114 350.1.13.10 4.2.7.2.686 [id number] [facility] 2021-03-07 09:20:00 2021-03-07 09:20:00 Outpatient OLAYINKA ROA [facility] [id number] [facility] 2021-03-07 00:00:00 2021-03-07 00:00:00 Telephone Olayinka Ricardo [facility] Professio nal Building 1.84.114 350.1.13.10 4.2.7.2.686 [id number] [facility] 2021-03-07 00:00:00 2021-03-07 00:00:00 Vincent Taylor [facility] Medical Office Building 1.840.114 350.1.13.10 4.2.7.2.686 [id number] [facility] 2021-03-06 10:30:00 2021-03-06 10:30:00 Outpatient VINCENT MYERS [facility] [id number] [facility] 2021-03-06 00:00:00 2021-03-06 00:00:00 Patient Secure Msg Doctor Unassigned, [place] [facility] 1.84.114 350.1.13.10 4.2.7.2.686 [id number] [facility] 2021-03-05 00:00:00 2021-03-05 00:00:00 Yesenia Porter [facility] 1.84.114 350.1.13.10 4.2.7.2.686 [id number] [facility] 2021-01-02 16:00:00 2021-01-02 16:00:00 Outpatient VINCENT MYERS [facility] [id number] [facility] 2021-01-02 15:41:45 2021-01-02 15:56:45 Office Visit Nikole [facility] Surgical Specialti libra Rouse 1.2.840.114 350.1.13.10 4.2.7.2.686 [id number] [facility] 2020-12-26 00:00:00 2020-12-26 00:00:00 Telephone Yesenia Sarabia [facility] Surgical Specialti libra R[place] 1.2.840.114 350.1.13.10 4.2.7.2.686 [id number] [facility] 2020-12-20 00:00:00 2020-12-20 00:00:00 Telephone Nikole [facility] Surgical Specialti libra Rouse 1.2.840.114 350.1.13.10 4.2.7.2.686 [id number] [facility] 2020-12-06 08:37:34 2020-12-06 23:59:00 Hospital Encounter Nikole [facility] Surgical Specialti libra Rouse 1.2.840.114 350.1.13.10 4.2.7.2.686 [id number] [facility] 2020-12-06 08:37:34 2020-12-06 23:59:00 Outpatient [facility]IN [facility] [id number] [facility] 2020-12-06 08:37:34 2020-12-06 23:59:00 Outpatient NIKOLE VINCENT [facility] [id number] [facility] 2020-12-06 08:16:04 2020-12-06 09:36:38 Office Visit [facility] Surgical Specialti libra Rouse 1.2.840.114 350.1.13.10 4.2.7.2.686 [id number] [facility] 2020-12-06 08:30:00 2020-12-06 08:30:00 Outpatient R NIKOLEVINCENT [facility] [id number] [facility] 2020-11-25 00:00:00 2020-11-25 00:00:00 Orders Only Doctor Unassigned, [place] [facility] 1.2.840.114 350.1.13.10 4.2.7.2.686 [id number] [id number] [facility] 2020-10-29 00:00:00 2020-10-29 00:00:00 Orders Only Doctor Unassigned, [place] [facility] 1.2.840.114 350.1.13.10 4.2.7.2.686 [id number] [id number] [facility] 2020-10-15 00:00:00 2020-10-15 00:00:00 Orders Only Doctor Unassigned, [place] [facility] 1.2.840.114 350.1.13.10 4.2.7.2.686 [id number] [facility] 2020-09-28 00:00:00 2020-09-28 00:00:00 Patient Outreach Usama Arteaga [facility] 1.2.840.114 350.1.13.10 4.2.7.2.686 [id number] [facility] 2020-09-11 00:00:00 2020-09-11 00:00:00 Orders Only Doctor Unassigned, [place] [facility] 1.2.840.114 350.1.13.10 4.2.7.2.686 [id number] [facility] 2020-08-16 10:00:00 2020-08-16 10:00:00 Outpatient OLAYINKA ROA [facility] [id number] [facility] 2020-08-13 14:11:28 2020-08-13 23:59:00 Hospital Encounter Eze Vallejo [facility] 1.2.840.114 350.1.13.10 4.2.7.2.686 [id number] [facility] 2020-08-13 14:16:27 2020-08-13 14:31:27 Product Safety Officer Visit Cl, Adc Lab Main Pj Mora [facility] Professio [facility] 1.2840.114 350.1.13.10 4.2.7.2.686 [id number] [facility] 2020-08-13 14:10:27 2020-08-13 14:10:27 Outpatient R EZE VALLEJO [facility] [id number] [facility] 2020-08-13 14:10:27 2020-08-13 14:10:27 Hospital Encounter Eze Vallejo [facility] 1.2840.114 350.1.13.10 4.2.7.2.686 [id number] [facility] 2020-08-13 00:00:00 2020-08-13 00:00:00 Orders Only Doctor Unassigned, [place] [facility] 1.2840.114 350.1.13.10 4.2.7.2.686 [id number] [id number] [facility] 2020-08-06 09:29:10 2020-08-06 09:44:10 Office Visit Vincent Agustin [facility] 1.2840.114 350.1.13.10 4.2.7.2.686 [id number] [facility] 2020-08-06 09:30:00 2020-08-06 09:30:00 Outpatient R NIKOLE VINCENT [facility] [id number] [facility] 2020-07-17 00:00:00 2020-07-17 00:00:00 Orders Only Doctor Unassigned, [place] [facility] 1.2840.114 350.1.13.10 4.2.7.2.686 [id number] [facility] 2020-07-09 09:13:48 2020-07-09 23:59:00 Outpatient R VINCENT AGUSTIN [facility] [id number] [facility] 2020-07-09 09:13:48 2020-07-09 23:59:00 Outpatient VINCENT AGUSTIN [facility] [id number] [facility] 2020-07-09 09:13:48 2020-07-09 23:59:00 Hospital Encounter [facility] 1.2840.114 350.1.13.10 4.2.7.2.686 [id number] [facility] 2020-07-09 08:45:28 2020-07-09 09:27:23 Office Visit [facility] Surgical [facility] 1.0.114 350.1.13.10 4.2.7.2.686 [id number] [facility] 2020-06-24 09:13:00 2020-06-25 13:00:00 Outpatient R YESENIA SARABIA [facility] SOR [id number] [facility] 2020-06-24 09:13:00 2020-06-25 13:00:00 Hospital Encounter Yesenia Sarabia [facility] 1..114 350.1.13.10 4.2.7.2.686 [id number] [facility] 2020-06-21 14:31:45 2020-06-21 14:46:45 Product Safety Officer Visit Pob, Adc Lab Main [facility]enia [facility] 1..114 350.1.13.10 4.2.7.2.686 [id number] [facility] 2020-06-21 14:17:58 2020-06-21 14:32:58 Laboratory Only Only, Adc Test Yesenia Sarabia [facility] 1.2.840.114 350.1.13.10 4.2.7.2.686 [id number] [facility] 2020-06-21 14:15:00 2020-06-21 14:15:00 Outpatient R YESENIA SARABIA [facility] [id number] [facility] 2020-06-21 00:00:00 2020-06-21 00:00:00 Orders Only Doctor Unassigned, [place] [facility] 1.2.840.114 350.1.13.10 4.2.7.2.686 [id number] [facility] 2020-06-10 00:00:00 2020-06-10 00:00:00 Prep For Surgery Yesenia Sarabia [facility] Surgical Specialti es [place] 1.2.840.114 350.1.13.10 4.2.7.2.686 [id number] [facility] 2020-06-10 00:00:00 2020-06-10 00:00:00 Prep For Surgery Yesenia Sarabia [facility] Surgical Specialti es [place] 1.2.840.114 350.1.13.10 4.2.7.2.686 [id number] 2020-06-05 14:35:26 2020-06-05 14:50:26 Office Visit Vincent Agustin [facility] Surgical Specialti es [place] 1.2.840.114 350.1.13.10 4.2.7.2.686 [id number] [facility] 2020-06-05 14:35:26 2020-06-05 14:50:26 Office Visit Vincent Agustin [facility] Surgical Specialti es [place] 1.2.840.114 350.1.13.10 4.2.7.2.686 [id number] 2020-06-05 14:30:00 2020-06-05 14:30:00 Outpatient R VINCENT AGUSTIN [facility] [id number] [facility] 2020-05-29 00:00:00 2020-05-29 00:00:00 Telephone Yesenia Sarabia [facility] [place] 1.2.840.114 350.1.13.10 4.2.7.2.686 [id number] [facility] 2020-05-23 00:00:00 2020-05-23 00:00:00 Telephone Yesenia Sarabia [facility]arcel[facility] 1.2.840.114 350.1.13.10 4.2.7.2.686 [id number] [facility] 2020-05-22 12:09:00 2020-05-22 23:59:00 Hospital Encounter Yesenia Sarabia [facility] 1.2.840.114 350.1.13.10 4.2.7.2.686 [id number] [facility] 2020-05-22 00:00:00 2020-05-22 00:00:00 Orders Only Doctor Unassigned, [place] [facility] 1.2.840.114 350.1.13.10 4.2.7.2.686 [id number] [facility] 2020-05-17 12:41:20 2020-05-17 23:59:00 Hospital Encounter Yesenia Sarabia [facility] 1.2.840.114 350.1.13.10 4.2.7.2.686 [id number] [facility] 2020-05-17 12:36:11 2020-05-17 12:51:11 Product Safety Officer Visit Pob, [facility] Main [facility] 1.2.840.114 350.1.13.10 4.2.7.2.686 [id number] [facility] 2020-05-17 10:25:36 2020-05-17 11:09:24 Office Visit Yesenia Sarabia [facility] libra [place] 1.2840.114 350.1.13.10 4.2.7.2.686 [id number] [facility] 2020-05-17 10:30:00 2020-05-17 10:30:00 Outpatient R YESENIA SARABIA [facility] [id number] [facility] 2020-05-17 00:00:00 2020-05-17 00:00:00 Orders Only Doctor Unassigned, [place] [facility] 1.2840.114 350.1.13.10 4.2.7.2.686 [id number] 009 [id number] [facility] 2020-05-09 11:06:42 2020-05-09 23:59:00 Hospital Encounter Yesenia Sarabia [facility] 1.2840.114 350.1.13.10 4.2.7.2.686 [id number] [facility] 2020-05-09 15:15:00 2020-05-09 15:15:00 Outpatient R YESENIA SARABIA [facility] [id number] [facility] 2020-05-09 14:40:14 2020-05-09 14:55:14 Product Safety Officer Visit Pob, Adc Lab Main Yesenia Sarabia [facility] 1.840.114 350.1.13.10 4.2.7.2.686 [id number] [facility] 2020-05-09 13:41:15 2020-05-09 14:16:18 Office Visit Yesenia Sarabia [facility] 1.2840.114 350.1.13.10 4.2.7.2.686 [id number] [facility] 2020-05-09 10:30:00 2020-05-09 10:45:00 Office Visit Yesenia Sarabia [facility] 1.2840.114 350.1.13.10 4.2.7.2.686 [id number] [facility] 2020-05-09 10:30:00 2020-05-09 10:30:00 Outpatient R YESENIA SARABIA [facility] [id number] [facility] 2020-05-08 00:00:00 2020-05-08 00:00:00 Telephone Yesenia Sarabia [facility] 1.2.840.114 350.1.13.10 4.2.7.2.686 [id number] 198 [id number] [facility] 2020-04-30 00:00:00 2020-04-30 00:00:00 Orders Only Doctor Unassigned, [place] [facility] 1.2.840.114 350.1.13.10 4.2.7.2.686 [id number] 009 [id number] [facility] 2020-03-20 00:00:00 2020-03-20 00:00:00 Telephone Yesenia Sarabia [facility] Surgical [facility] 1.2.840.114 350.1.13.10 4.2.7.2.686 [id number] [facility] 2020-02-22 00:00:00 2020-02-22 00:00:00 Orders Only Doctor Unassigned, [place] [facility] 1.2.840.114 350.1.13.10 4.2.7.2.686 [id number] 009 [id number] [facility] 2020-02-13 00:00:00 2020-02-13 00:00:00 Orders Only Doctor Unassigned, [place] [facility] 1.2.840.114 350.1.13.10 4.2.7.2.686 [id number] 009 [id number] [facility] 2019-11-08 00:00:00 2019-11-08 00:00:00 Orders Only Doctor Unassigned, [place] [facility] 1.2.840.114 350.1.13.10 4.2.7.2.686 [id number] 009 [id number] [facility] 2019-11-02 13:45:00 2019-11-02 13:45:00 Outpatient R VINCENT AGUSTIN [facility] [id number] [facility] 2019-11-02 08:01:19 2019-11-02 08:16:19 Telemedici ne Visit [facility] Surgical Specialarcelia [place] 1.2840.114 350.1.13.10 4.2.7.2.686 [id number] [facility] 2019-09-28 00:00:00 2019-09-28 00:00:00 Letter (Out) [facility] Surgical Specialarcelia [place] 1.2.840.114 350.1.13.10 4.2.7.2.686 [id number] 198 [id number] [facility] 2019-09-13 00:00:00 2019-09-13 00:00:00 Letter (Out) [facility] Surgical Specialarcelia Rouse 1.2.840.114 350.1.13.10 4.2.7.2.686 [id number] [facility] 2019-09-11 00:00:00 2019-09-11 00:00:00 Telephone [facility] Surgical Specialarcelia Rouse 1.2.840.114 350.1.13.10 4.2.7.2.686 [id number] [facility] 2019-09-07 07:55:18 2019-09-07 08:10:18 Office Visit [facility] Surgical Specialarcelia Rouse 1.2840.114 350.1.13.10 4.2.7.2.686 [id number] [facility] 2019-09-07 00:00:00 2019-09-07 00:00:00 Orders Only Doctor Unassigned, [place] [facility] 1.2.840.114 350.1.13.10 4.2.7.2.686 [id number] 009 [id number] [facility] 2019-09-07 00:00:00 2019-09-07 00:00:00 Letter (Out) Vincent Agustin [facility] Surgical Specialti libra [place] 1.2.840.114 350.1.13.10 4.2.7.2.686 [id number] [facility] 2019-08-24 00:00:00 2019-08-24 00:00:00 Orders Only Doctor Unassigned, [place] [facility] 1.2.840.114 350.1.13.10 4.2.7.2.686 [id number] 009 [id number] [facility] 2019-07-31 14:24:05 2019-07-31 23:59:00 Outpatient VINCENT AGUSTIN [facility] [id number] [facility] 2019-07-31 14:24:00 2019-07-31 23:59:00 Hospital Encounter Vincent Agustin [facility] Surgical Specialti libra [place] 1.2.840.114 350.1.13.10 4.2.7.2.686 [id number] [facility] 2019-07-31 13:50:19 2019-07-31 15:07:02 Office Visit Yesenia Sarabia [facility] Surgical Specialti lib[place] 1.2.840.114 350.1.13.10 4.2.7.2.686 [id number] 198 [id number] [facility] 2019-07-17 09:03:00 2019-07-18 14:40:00 Inpatient R YESENIA SARABIA [facility] [id number] [facility] 2019-07-10 15:22:42 2019-07-10 15:24:00 Outpatient YESENIA OLIVEROS [facility] [id number] [facility] 2019-06-23 08:07:23 2019-06-23 23:59:00 Outpatient YESENIA SARABIA [facility] [id number] [facility] Results Test Description Test Time Test Comments Results Result Co mments Source [facility] Qljvy3680-83-29 18:15:13* Test Item Value Reference Range Interpretation Comme nts BF COLOR (test code = 9234238096) Yellow BF WBC Count (test code = 6672032798) 287 0-150 BF RBC Count (test code = 0565934734) 3000 See_Comment [Automated me ssage] The system which generated this result transmitted reference range: /?L. The reference range was not used to interpret this result as normal/abnormal. [facility] GLUCOSE (AUTOMATED)2023-11-01 13:41:16* Test Item Value Reference Range Interpretation Comme nts POCT GLU (test code = 8987631795) 161 mg/dL 70-110 H Lab Interpretation (test cod e = 20895-1) Abnormal [facility] GLUCOSE (AUTOMATED)2023-11-01 13:41:16* Test Item Value Reference Range Interpretation Comme nts POCT GLU (test code = 4615164667) 161 mg/dL 70-110 H Lab Interpretation (test cod e = 25443-6) Abnormal [facility] MET[facility]OL[facility] PANEL (NA, K, CL, CO2, GLUCOSE, BUN, CREATININE, CA)2023-10-29 16:57:30* Test Item Value Reference Range Interpretation Comme nts NA (test code = 4147163433) 136 mmol/L 135-145 K (test code = 2056830975) 4.4 mmol/L 3.5-5.0 CL (test code = 7356118024) 101 mmol/L 98-108 CO2 TOTAL (test code = 5034613615) 28 mmol/L 23-31 AGAP (test code = 9470157529) 7 2-16 BUN (test code = 9404473394) 30 mg/dL 7-23 H GLUCOSE (test code = 3309823163) 254 mg/dL 70-110 H CREATININE (test code = 2160-0) 1.02 mg/dL 0.50-1.04 CALCIUM (test code = 1950828693) 8.5 mg/dL 8.6-10.6 L eGFR (test code = 30814-7) 62.3 mL/min/1.73m2 CKD-EPI eGFR (2020). Assuming creatinine has been stable day-to-day for at least three months, the eGFR indicates Category G2 (60 - 89 mL/min/1.73 m2) Lab Interpretation (test code = 81919-8) Abnormal [facility] METABOLIC PANEL (NA, K, CL, CO2, GLUCOSE, BUN, CREATININE, CA)2023-10-29 16:57:30* Test Item Value Reference Range Interpretation Comme nts NA (test code = 3059328639) 136 mmol/L 135-145 K (test code = 9608530701) 4.4 mmol/L 3.5-5.0 CL (test code = 2886990555) 101 mmol/L 98-108 CO2 TOTAL (test code = 2747763266) 28 mmol/L 23-31 AGAP (test code = 5628234051) 7 2-16 BUN (test code = 9830421428) 30 mg/dL 7-23 H GLUCOSE (test code = 9363259426) 254 mg/dL 70-110 H CREATININE (test code = 2160-0) 1.02 mg/dL 0.50-1.04 CALCIUM (test code = 1384459928) 8.5 mg/dL 8.6-10.6 L eGFR (test code = 23409-4) 62.3 mL/min/1.73m2 CKD-EPI eGFR (2020). Assuming creatinine has been stable day-to-day for at least three months, the eGFR indicates Category G2 (60 - 89 mL/min/1.73 m2) Lab Interpretation (test code = 02204-4) Abnormal [facility] WITH [id number] 16:36:09* Test Item Value Reference Range Interpretation Comme nts WBC (test code = 6690-2) 6.99 4.30-11.10 RBC (test code = 789-8) 4.09 3.93-5.25 HGB (test code = 718-7) 12.2 g/dL 11.6-15.0 HCT (test code = 4544-3) 37.9 % 35.7-45.2 MCV (test code = 787-2) 92.7 fL 80.6-95.5 MCH (test code = 785-6) 29.8 pg 25.9-32.8 MCHC (test code = 786-4) 32.2 g/dL 31.6-35.1 RDW-SD (test code = 02012-6) 47.5 fL 39.0-49.9 RDW-CV (test code = 788-0) 14.1 % 12.0-15.5 PLT (test code = 777-3) 290 166-358 MPV (test code = 15646-0) 9.8 fL 9.5-12.9 NRBC/100 WBC (test code = 8583316565) 0.0 0.0-10.0 NRBC x10^3 (test code = 5648369413) See_Comment [Automated messa ge] The system which generated this result transmitted reference range: 10*3/?L. The reference range was not used to interpret this result as normal/abnormal. GRAN MAT (NEUT) % (test code = 770-8) 52.4 % IMM GRAN % (test code = 6395334122) 0.40 % LYMPH % (test code = 736-9) 34.6 % MONO % (test code = 5905-5) 6.9 % EOS % (test code = 713-8) 4.4 % BASO % (test code = 706-2) 1.3 % GRAN MAT x10^3(ANC) (test code = 7684229752) 3.66 10*3/uL 1.88-7.09 IMM GRAN x10^3 (test code = 8231524785) 0.03 10*3/uL 0.00-0.06 LYMPH x10^3 (test code = 731-0) 2.42 10*3/uL 1.32-3.29 MONO x10^3 (test code = 742-7) 0.48 10*3/uL 0.33-0.92 EOS x10^3 (test code = 711-2) 0.31 10*3/uL 0.03-0.39 BASO x10^3 (test code = 704-7) 0.09 10*3/uL 0.01-0.07 H Lab Interpretation (test code = 50218-8) Abnormal [facility] WITH [id number] 16:36:09* Test Item Value Reference Range Interpretation Comme nts WBC (test code = 6690-2) 6.99 4.30-11.10 RBC (test code = 789-8) 4.09 3.93-5.25 HGB (test code = 718-7) 12.2 g/dL 11.6-15.0 HCT (test code = 4544-3) 37.9 % 35.7-45.2 MCV (test code = 787-2) 92.7 fL 80.6-95.5 MCH (test code = 785-6) 29.8 pg 25.9-32.8 MCHC (test code = 786-4) 32.2 g/dL 31.6-35.1 RDW-SD (test code = 10022-0) 47.5 fL 39.0-49.9 RDW-CV (test code = 788-0) 14.1 % 12.0-15.5 PLT (test code = 777-3) 290 166-358 MPV (test code = 97775-3) 9.8 fL 9.5-12.9 NRBC/100 WBC (test code = 7084847142) 0.0 0.0-10.0 NRBC x10^3 (test code = 5269875512) See_Comment [Automated messa ge] The system which generated this result transmitted reference range: 10*3/?L. The reference range was not used to interpret this result as normal/abnormal. GRAN MAT (NEUT) % (test code = 770-8) 52.4 % IMM GRAN % (test code = 0968953844) 0.40 % LYMPH % (test code = 736-9) 34.6 % MONO % (test code = 5905-5) 6.9 % EOS % (test code = 713-8) 4.4 % BASO % (test code = 706-2) 1.3 % GRAN MAT x10^3(ANC) (test code = 3132764113) 3.66 10*3/uL 1.88-7.09 IMM GRAN x10^3 (test code = 5227088596) 0.03 10*3/uL 0.00-0.06 LYMPH x10^3 (test code = 731-0) 2.42 10*3/uL 1.32-3.29 MONO x10^3 (test code = 742-7) 0.48 10*3/uL 0.33-0.92 EOS x10^3 (test code = 711-2) 0.31 10*3/uL 0.03-0.39 BASO x10^3 (test code = 704-7) 0.09 10*3/uL 0.01-0.07 H Lab Interpretation (test code = 69551-8) [facility]normal [facility] Bjtw6525-65-13 20:17:11* Test Item Value Reference Range Interpretation Comme nts ESR (test code = 14188-7) 38 0-20 H Lab Interpretation (test cod e = 75509-7) Abnormal [facility] Qsba3175-24-83 20:17:11* Test Item Value Reference Range Interpretation Comme nts ESR (test code = 52871-3) 38 0-20 H Lab Interpretation (test cod e = 86846-5) Abnormal [facility]ney[facility] KNEE 3 VW HPEH5248-45-31 15:06:58XR KNEE 3 VW LEFT INDICATION: lt knee pain Room 5 COMPARISON: 08/29/2021 FINDINGS: Constrained totalknee arthroplasty in anatomic alignment. No acutefracture or dislocation. Diffuse soft tissue swelling.[facility] COMPREHENSIVE METABOLIC DOYAS5268-00-17 06:03:34* Test Item Value Reference Range Interpretation Comme nts GLUCOSE (test code = 2217) 154 MG/DL 70-99 H BUN (test code = 2208) 20 MG/DL 8-23 CREATININE (test code = 2214) 0.78 MG/DL 0.60-1.30 eGFR (2020 CKD-EPI) (test code = 43447) 87 ML/MIN/1.73 >60 CALC BUN/CREAT (test code = 2235) 26 RATIO 6-28 SODIUM (test code = 2231) 137 MEQ/L 133-146 POTASSIUM (test code = 2228) 4.4 MEQ/L 3.5-5.4 CHLORIDE (test code = 2215) 99 MEQ/L 95-107 CARBON DIOXIDE (test code = 2206) 24 MEQ/L 19-31 CALCIUM (test code = 2209) 9.4 MG/DL 8.5-10.5 PROTEIN, TOTAL (test code = 9) 7.6 G/DL 6.1-8.3 ALBUMIN (test code = 2201) 4.7 G/DL 3.5-5.2 CALC GLOBULIN (test code = 2240) 2.9 G/DL 1.9-3.7 CALC A/G RATIO (test code = 2234) 1.6 RATIO 1.0-2.6 BILIRUBIN, TOTAL (test code = 2206) 0.4 MG/DL See_Comment [Automated me ssage] The system which generated this result transmitted reference range: <=1.2. The reference range was not used to interpret this result as normal/abnormal. ALKALINE PHOSPHATASE (test code = 2203) 136 U/L 40-136 AST (test code = 2218) 14 U/L 9-40 ALT (test code = 2219) 16 U/L 5-40 LIPID [id number] 06:03:34* Test Item Value Reference Range Interpretation Comme nts CHOLESTEROL (test code = 0) 288 MG/DL <200 H TRIGLYCERIDES (test code = 2232) 165 MG/DL <150 H HDL CHOLESTEROL (test code = 0) 42 MG/DL >39 CALC LDL CHOL (test code = 7) 213 MG/DL <100 H NOTE: CALCULATED LDL IS BASED ON ALEXANDER-GANDHI METHOD WHICHINCLUDES ADJUSTABLE TRIGLYCERIDE:VLDL CHOLESTEROL RATIO.THIS FACTOR VARIES BY MEASURED TRIGLYCERIDE AND NON-HDLCHOLESTEROL CONCENTRATIONS WITH INCREASED CALCULATED LDL SEENIN HIGHER TRIGLYCERIDE OR LOWER NON-HDL SPECIMENS. FOR MOREINFORMATION, SEE CLIENT ANNOUNCEMENT AT [email or web address] RISK RATIO LDL/HDL (test code = 2237) 5.07 RATIO <3.22 H HEMOGLOBIN [id number] 05:29:44* Test Item Value Reference Range Interpretation Comme nts HEMOGLOBIN A1c (test code = 80014) 7.3 % 4.2-5.6 H [employer] GUIDELINES FOR HGB A1C: [...] CONSULTATION. UNLESS OTHERWISE INDICATED, ALL TESTING PERFORMED [facility] [employer] [address] [place] [id number] WELFARE SUPERVISOR: SREEKANTH SEAY M.D. CLIA NUMBER [id number] [facility] [place]. [id number] CBC W/AUTO DIFF WITH [id number] 04:27:32* Test Item Value Reference Range Interpretation [...] 0.00-0.10 ABS NUCLEATED RBCS (test code = 28505) 0.00 K/UL 0.00-0.11 Notes Date/Time Note Provider Source 2023-10-29 11:00:00 4666-08-45P76:00:00F ormatting of this note is different from the original.Images from the original note were not included.Venipuncture collection performed by clean technique on the right anticubitus. Total of 1 attempts were made. Slight pressure and a bandage/dressing were applied to the site(s). The patient experienced no complications. The following specimens were processed according to instructions and sent to [facility] laboratories per lab order on 10/29/2023:LT BLUESST 1REDLAV 1PPTDK GREEN (LiHep)DK GREEN (SodH)GRAYDK BLUE (K2)DK BLUE (S)ACDBlood CultureNIPT/NTDPt could not void at Time of Draw. Urine kit provided to bring back soon. 52763-6Wocfs QtucZD6891-77-15K83:18:39Nurse NoteTXT1.2.840.446390.1.13.104.2.7 .2.057903|[id number] for patient jxfj54895-9Rhaci NoteLNNARRATIVEFormatted C-CDA narrative textUT[address] OlqcV[id number] 11IUKDDDIZUAWBZQJJUPGFGL3803-12-64 T11:18:391.2.840.411134.1.72.3.15| 1.2.840.498496.1.13.104.2.7.2.7278 [id number] [facility] 2023-10-29 09:25:04 7392-05-41C18:25:04F ormatting of this note might be different from the original.The patient was called to notify about lab work and chest x-ray. The patient stated she was unaware and will come in as soon as she can. 45788-1Rxaxg RtqwZP8001-14-27B75:26:33Nurse NoteTXT1.2.840.023901.1.13.104.2.7 .2.665354|[id number] for patient swog79551-5Qfgux NoteLNNARRATIVEFormatted C-CDA narrative [id number] Foster RN[address] NxoqJqyeisnceLwbeczcmvUQTE14489826 07IQCMTCRXCNIDZWEKZYDVCT3621-70-66 T09:26:331.2.840.742688.1.72.3.15| 1.2.840.537357.1.13.104.2.7.2.7278 [id number] Venecia Foster RN [facility] 2023-10-25 13:09:57 1362-93-58P37:09:57F ormatting of this note might be different from the original.Images from the original note were not included.[facility] at [facility]. The address is [address] [place] [address], [facility]. [facility] nursing staff will call you the workday before your procedure to let you know what time to arrive.On the day of your procedure, please go inside that door and check in at the desk.Please note: You may not travel home alone and that includes in a taxi or by bus. We must speak to your Responsible Adult (who will be picking you up) the morning of your procedure, before the start of your procedure. This person must be an adult over the age of 18 years of age.Do not eat any solid food after midnight the night before surgery. You may have sips of clear liquids such as water, gatorade, and sprite up until two hours before your scheduled procedure.You may take your medications with a sip of water as directed by physician.Anticoagulants will be per physician guidance. Medication Note(s)/Instructions:Instructed to hold lisinopril day before and morning of procedure and hold glipizide, glyburide, and metformin evening before and morning of surgery.Pending screening, we may test for COVID. If a patient tests positive, their cases are cancelled and/or rescheduled. COVID SCREENING NOTE: Denies COVID symptoms, no testing required.Additional requests, questions, concerns:CB number provided.Patient verbalized understanding of pre-op instructions and voiced no further questions at this time. 68409-2Wkdkg XwoyZE1500-02-10S79:19:54Nurse NoteTXT1.2.840.135718.1.13.104.2.7 .2.735632|[id number] for patient lvwh13715-8Lytea NoteLNNARRATIVEFormatted C-CDA narrative text[id number] 83RNMQWBEJRVODZMGPINQXEB7313-35-01 T13:19:541.2.840.797460.1.72.3.15| 1.2.840.167884.1.13.104.2.7.2.7278 [id number] [facility] 2023-10-19 13:53:56 7842-04-06D82:53:56F ormatting of this note might be different from the original.Patient is scheduled. 40326-7Kllcfnmsk encounter JqbwDG8428-00-98Z42:54:09Telephone encounter NoteTXT1.2.840.513867.1.13.104.2.7 .2.035940|[id number] for patient razd33790-2MefdZBLBIWUFZKFOwfzydud d C-CDA narrative [id number] L Zeigler[id number] 93HWCUYLOEWXKELOIPXRQQWT8244-71-26 T13:54:091.2.840.416050.1.72.3.15| 1.2.840.903658.1.13.104.2.7.2.7278 [id number] Marylu Negrete [facility] 2023-10-19 09:24:19 9306-82-45Q79:24:19F ormatting of this note might be different from the original.Routed message to PSS to schedule. Results are given at appointment.Celina Latham 10/19/2023 9:24 AM 65812-7Ycfrcdgrf encounter JgsnJG1938-16-93J00:24:43Telephone encounter NoteTXT1.2.840.731473.1.13.104.2.7 .2.932993|[id number] for patient yxxj33693-1WjgiGLHIICCKFFTCsqxgzwm d C-CDA narrative textUT93 Howard [id number] 92KUXKPITPVNEAZRMGNAYBFX0163-15-82 T09:24:431.2.840.124595.1.72.3.15| 1.2.840.784733.1.13.104.2.7.2.7278 [id number] [facility] 2023-10-18 11:14:14 1072-15-96E99:14:14F ormatting of this note might be different from the original.Patient is requesting to go over lab results. 06400-2Vebbbnyet encounter ZgddIT8030-87-08U16:14:42Telephone encounter NoteTXT1.2.840.063481.1.13.104.2.7 .2.705844|[id number] for patient rlnf52867-0ReajZZGFFHWPFMOWuilfqre d C-CDA narrative pskf16709894Gsxug S Hernandez[address]vdGalvestonGalvestonTXTX[address] 34YIZXPPDHXYADJOCSQAALOS6502-03-40 T11:14:421.2.840.454745.1.72.3.15| 1.2.840.095507.1.13.104.2.7.2.7278 [id number] Vannesa Verduzco [facility] 2023-10-14 09:45:00 2237-81-69H69:45:00F ormatting of this note is different from the original.Images from the original note were not included.Venipuncture collection performed by clean technique on the right anticubitus. Total of 1 attempts were made. Slight pressure and a bandage/dressing were applied to the site(s). The patient experienced no complications. The following specimens were processed according to instructions and sent to [facility] laboratories per lab order on 10/14/2023:LT BLUESST 1REDLAV 1PPTDK GREEN (LiHep)DK GREEN (SodH)GRAYDK BLUE (K2)DK BLUE (S)ACDBlood CultureNIPT/NTD 75696-7Kvhrp FbfsYR8389-46-12K58:26:44Nurse NoteTXT1.2.840.994334.1.13.104.2.7 .2.656301|[id number] for patient ovey00773-9Iepkm NoteLNNARRATIVEFormatted C-CDA narrative text[address]vdG[id number] 91RVLLYBWWBBRLWJMGUUHVMM9949-96-10 T09:26:441.2.840.196997.1.72.3.15| 1.2.840.764474.1.13.104.2.7.2.7278 [id number] [facility]"
[2023-12-29] MEDS ORDERED: METHOCARBAMOL 1,000 MG/10 ML VIAL ONE (00:07)
[2023-12-29] MEDS ORDERED: NA CHLORIDE 0.9% 100 ML ONE (00:07)
[2023-12-29] MEDS ORDERED: KETOROLAC 30 MG/ML INJ ONE (00:07)
[2023-12-29 00:37] LABS: Absolute Basophils 0.1 K/uL (0-0.5); Absolute Eosinophils 0.4 K/uL (0-0.5); Absolute Lymphocytes (CBC) 3.1 K/uL (0.7-4.9); Absolute Monocytes 0.7 K/uL (0.1-1.3); Absolute Neutrophil 3.6 K/uL (1.8-8.0); Basophils % 1.1 % (0-1.3); Eosinophils % 4.5 % (0-4.4); Hematocrit 36.1 % (36.0-45.0); Lymphocytes % 39.9 % (15.3-44.8); MCH 29.9 pg (27.0-35.0); MCHC 33.4 g/dL (32.0-36.0); MCV 89.5 fL (80-100); MPV 7.9 fL (7.6-11.3); Monocytes % 8.4 % (3.3-12.3); Neutrophils % 46.1 % (41.7-73.7); Nucleated Red Blood Cells % 0.1 % (0-0); Platelets 300 thou/uL (152-406); RBC Red Blood Cell Count 4.03 M/uL (3.86-4.86); Red Cell Distribution Width 14.4 % (12.1-15.2)
[2023-12-29 00:47] LABS: ALT/SGPT 19 U/L (13-56); Albumin 3.4 g/dL (3.4-5.0); Alkaline Phosphatase 97 U/L (45-117); Anion Gap 9.3 mEq/L (5.0-15.0); BUN Blood Urea Nitrogen 30 mg/dL (7-18); Bicarbonate 26 mEq/L (21-32); Bilirubin Total 0.2 mg/dL (0.2-1.0); Globulin 3.5 g/dL (2.3-3.5); Glomerular Filtration Rate 50 ml/min (=/>90); Glucose Level 144 mg/dL (74-106); Lipase 26 U/L (13-75); Magnesium 1.9 mg/dL (1.6-2.4); Potassium 4.3 mEq/L (3.5-5.1); Protein, Total 6.9 g/dL (6.4-8.2); Sodium Level 138 mEq/L (136-145); Troponin High Sensitivity 10.8 pg/mL (<58.9)
[2023-12-29 01:07] LABS: AST/SGOT < 10 U/L (15-37); Bilirubin Direct < 0.2 mg/dL (0-0.2)
--- NOTE | 2023-12-29 01:39 | EDPHYS ---
Physician Documentation [facility] Name: Jade Shaikh Age: 63 yrs Sex: Female : 1960 Arrival Date: 12/28/2023 Time: 22:40 Bed 8 Private MD: ED Physician Jaspal Morris HPI: 12/27 23:15 This 63 yrs old Female presents to ER via Ambulatory with complaints of Abdominal Pain, cp Back Pain, PT STATED SHE INJURED HER SIDE ABD AREA AND BACK. 23:15 Patient is a 63-year-old female who presents to the emergency department with cp complaints of left-sided abdomen and chest pain. Patient reports she was getting into her car on the passenger side when she reached over across the middle console, lost her balance and the left side of her chest and abdomen area struck the console causing pain. Historical: - Allergies: 22:50 Sulfa (Sulfonamide Antibiotics); tm6 - PMHx: 22:50 Arthritis; diabetes mellitus; spot on lung; Hypertensive disorder; tm6 22:52 neuropathy; tm6 - PSHx: 22:50 Appendectomy; claudia knee replacements; Cholecystectomy; Ligation of fallopian tube; Total tm6 abdominal hysterectomy; - Immunization history:: Client reports receiving the 2nd dose of the Covid vaccine. - Infectious Disease History:: Denies. - Social history:: Smoking status: Patient reports the use of cigarette tobacco products, smokes one-half pack cigarettes per day, Patient uses Patient/guardian denies using alcohol. ROS: 23:20 Constitutional: Negative for body aches, chills, fever, poor PO intake, cp 23:20 Cardiovascular: Positive for chest pain, of the left lower lateral chest, cp 23:20 Respiratory: Negative for cough, shortness of breath, wheezing, 23:20 Abdomen/GI: Positive for abdominal pain, of the posterior aspect of left lateral abdomen and anterior aspect of left lateral abdomen, Negative for vomiting, diarrhea, constipation, Exam: 23:25 Constitutional: The patient appears in no acute distress, alert, awake, cp non-diaphoretic, non-toxic, well developed, well nourished, obese, uncomfortable, 23:25 Head/Face: Normocephalic, atraumatic. cp 23:25 Eyes: Periorbital structures: appear normal, Conjunctiva: normal, no exudate, no injection, Sclera: no appreciated abnormality, Lids and lashes: appear normal, 23:25 ENT: External ear(s): are unremarkable, Nose: is normal, Mouth: Lips: moist, Oral mucosa: pink and intact, moist, Posterior pharynx: Airway: no evidence of obstruction, patent, 23:25 Chest/axilla: Inspection: normal, Palpation: crepitus, is not appreciated, tenderness, that is moderate, of the left side lower lateral chest wall, 23:25 Cardiovascular: Rate: normal, Rhythm: regular, Edema: is not appreciated, JVD: is not appreciated, 23:25 Respiratory: the patient does not display signs of respiratory distress, Respirations: normal, no use of accessory muscles, no retractions, labored breathing, is not present, Breath sounds: are clear throughout, no decreased breath sounds, no stridor, no wheezing, 23:25 Abdomen/GI: Inspection: obese Bowel sounds: active, all quadrants, Palpation: soft, in all quadrants, moderate abdominal tenderness, in the posterior aspect of left lateral abdomen and anterior aspect of left lateral abdomen, rebound tenderness, is not appreciated, involuntary guarding, is not appreciated, 23:25 Back: CVA tenderness, is noted on the left, vertebral tenderness, is not appreciated, 23:25 Skin: cellulitis, is not appreciated, no rash present. 23:25 Neuro: Orientation: to person, place \T\ time. Mentation: is normal, Motor: moves all fours, strength is normal, 23:45 ECG was reviewed by the Attending Physician. cp Vital Signs: 22:47 BP 153 / 67; Pulse 87; Resp 22; Temp 97(TE); Pulse Ox 98% on R/A; MAP 93 mmHg; Weight tm6 86.64 kg; Height 5 ft. 2 in. ; Pain 10/; 12/28 01:32 BP 106 / 63; Pulse 99; Resp 20; Temp 98.2; Pulse Ox 100% ; Pain 2/10; bm8 12/27 22:47 Body Mass Index 34.93 (86.64 kg, 157.48 cm) tm6 12/27 22:47 Pain Scale: Adult tm6 12/28 01:32 Pain Scale: Adult bm8 [place] Coma Score: 01:32 Eye Response: spontaneous(4). Motor Response: obeys commands(6). Verbal Response: bm8 oriented(5). Total: 15. MDM: 12/27 22:56 Patient medically screened. 12/28 00:00 Differential diagnosis: Pyelonephritis, Ureterolithiasis, urinary tract infection, rib cp fracture, rib contusion. 01:37 Data reviewed: vital signs, nurses notes, lab test result(s), radiologic studies, CT cp scan, and as a result, I will discharge patient. 01:37 I considered the following discharge prescriptions or medication management in the emergency department Medications were administered in the Emergency Department. See MAR. Counseling: I had a detailed discussion with the patient and/or guardian regarding the historical points, exam findings, and any diagnostic results supporting the discharge/admit diagnosis, lab results, radiology results, to return to the emergency department if symptoms worsen or persist or if there are any questions or concerns that arise at home. Response to treatment: the patient's symptoms have markedly improved after treatment, and as a result, I will discharge patient. 12/27 23:13 Order name: Basic Metabolic Panel; Complete Time: :17 12/28 01:18 Interpretation: Normal except: GLUC 144; BUN 30; CRE 1.22; GFR 50. 12/27 23:13 Order name: CBC with Diff; Complete Time: : 12/28 01:18 Interpretation: Reviewed. 12/27 23:13 Order name: LFT's; Complete Time: 01: 12/27 23:13 Order name: Magnesium; Complete Time: : 12/27 23:13 Order name: Troponin HS; Complete Time: : 12/27 23:13 Order name: Lipase; Complete Time: : 12/28 00:59 Order name: Urinalysis W/Microscopic 12/27 23:13 Order name: CT Chest Abdomen Pelvis W/O Contrast 12/27 23:13 Order name: EKG; Complete Time: 23:13 12/27 23:13 Order name: Cardiac monitoring; Complete Time: 23:41 12/27 23:13 Order name: EKG - Nurse/Tech; Complete Time: 23:41 12/27 23:13 Order name: IV Saline Lock; Complete Time: 00:22 12/27 23:13 Order name: Labs collected and sent; Complete Time: 00:22 cp 12/27 23:13 Order name: O2 Per Protocol; Complete Time: 23:41 cp 12/27 23:13 Order name: O2 Sat Monitoring; Complete Time: 23:41 cp EC/11 23:45 Rate is 69 beats/min. Rhythm is regular. WV interval is normal. QRS interval is cp prolonged at 102 msec. QT interval is normal. T waves are Inverted in lead aVR. Interpreted by me. Reviewed by me. Administered Medications: 12/28 00:21 Drug: Methocarbamol IVPB 1 grams IVPB once over 1 hrs; (mix in NS 100 mL) Route: IVPB; bm8 Infused Over: 1 hrs; Site: right antecubital; 01:36 Follow up: Response: No adverse reaction; IV Status: Completed infusion; IV Intake: bm8 1000ml 00:21 Drug: Ketorolac IVP 15 mg IVP once Route: IVP; Site: right antecubital; bm8 01:36 Follow up: Response: No adverse reaction bm8 Disposition: 04:06 Co-signature as Attending Physician, Jaspal Morris MD I agree with the assessment sp4 and plan of care. I reviewed the patient's care provided by the Advanced Practice Provider and agree with the diagnosis and treatment plan. Disposition Summary: 12/29/23 01:38 Discharge Ordered Notes: Location: Home cp Problem: new cp Symptoms: have improved cp Condition: Stable cp Diagnosis - Chest pain, unspecified - left lower lateral cp - Other abdominal pain - left lateral cp Followup: cp - With: Private Physician - When: 2 - 3 days - Reason: Worsening of condition Discharge Instructions: - Discharge Summary Sheet cp - Rib Contusion cp - Musculoskeletal Pain cp Forms: - Medication Reconciliation Form cp - Antibiotic Education cp - Prescription Opioid Use cp - Patient Portal Instructions cp - Leadership Thank You Letter cp Prescriptions: - Diclofenac Sodium 75 mg Oral Tablet Sustained Release - take 1 tablet ORAL route 2 times per day; 30 tablet; Refills: 0, Product cp Selection Permitted - methocarbamol 750 mg Oral tablet - take 1 tablet ORAL route 4 times per day; 30 tablet; Refills: 0, Product cp Selection Permitted Signatures: Dispatcher [employer] EDSD Miguel Goldman PA PA cp Potepalov, Sergey, MD MD sp4 Homero Trejo RN RN 6 Del Jean RN RN bm8 Corrections: (The following items were deleted from the chart) 12/27 23:13 23:13 BASIC METABOLIC PANEL+C.LAB.BRZ ordered. EDMS EDMS 23:13 23:13 CBC+H.LAB.BRZ ordered. EDMS EDMS 23:13 23:13 HEPATIC FUNCTION+C.LAB.BRZ ordered. EDMS EDMS 23:13 23:13 MAGNESIUM+C.LAB.BRZ ordered. EDMS EDMS 23:13 23:13 Troponin High Sensitivity+C.LAB.BRZ ordered. EDMS EDMS 23:13 23:13 LIPASE+C.LAB.BRZ ordered. EDMS EDMS 12/28 00:59 00:59 Urinalysis W/Microscopic+U.LAB.BRZ ordered. EDMS EDMS 12/29 01:23 12/27 23:15 Patient is a 63-year-old female who presents to the emergency department cp with complaints of left-sided abdomen and chest pain. Patient reports she was getting into her car on the passenger side when she reached over across the middle console, lost her balance and her left side of her chest and abdomen area struck the console causing pain. cp
--- NOTE | 2023-12-29 01:39 | ER ---
Nurse's Notes [facility] Name: Jade Shaikh Age: 63 yrs Sex: Female : 1960 Arrival Date: 12/28/2023 Time: 22:40 Bed 8 Private MD: Diagnosis: Chest pain, unspecified-left lower lateral;Other abdominal pain-left lateral Presentation: 12/27 22:47 Chief complaint: Patient states: "knots" in left flank causing pain. On Wednesday hit left tm6 flank on a console and has had sharp pain since. Coronavirus screen: Vaccine status: Patient reports receiving the 2nd dose of the covid vaccine. Ebola Screen: Patient negative for fever greater than or equal to 101.5 degrees Fahrenheit, and additional compatible Ebola Virus Disease symptoms Patient denies exposure to infectious person. Patient denies travel to an Ebola-affected area in the 21 days before illness onset. No symptoms or risks identified at this time. Initial Sepsis Screen: Does the patient meet any 2 criteria? RR > 20 per min. No. Patient's initial sepsis screen is negative. Does the patient have a suspected source of infection? No. Patient's initial sepsis screen is negative. Risk Assessment: Do you want to hurt yourself or someone else? Patient reports no desire to harm self or others. Onset of symptoms was December 26, 2023. 22:47 Method Of Arrival: Ambulatory 6 22:47 Acuity: STEVE 3 tm6 Triage Assessment: 22:53 General: Appears uncomfortable, Behavior is cooperative. Pain: Complains of pain in tm6 left low back Pain currently is 10 out of 10 on a pain scale. Quality of pain is described as sharp. Neuro: Level of Consciousness is awake, alert, obeys commands, Oriented to person, place, time, situation. Cardiovascular: Patient's skin is warm and dry. Respiratory: Airway is patent Respiratory effort is even, unlabored, Respiratory pattern is regular, symmetrical. GI: Abdomen is round non-distended. : No signs and/or symptoms were reported regarding the genitourinary system. Derm: No signs and/or symptoms reported regarding the dermatologic system. Musculoskeletal: Reports pain in left low back Denies. Historical: - Allergies: 22:50 Sulfa (Sulfonamide Antibiotics); tm6 - PMHx: 22:50 Arthritis; diabetes mellitus; spot on lung; Hypertensive disorder; tm6 22:52 neuropathy; tm6 - PSHx: 22:50 Appendectomy; claudia knee replacements; Cholecystectomy; Ligation of fallopian tube; Total tm6 abdominal hysterectomy; - Immunization history:: Client reports receiving the 2nd dose of the Covid vaccine. - Infectious Disease History:: Denies. - Social history:: Smoking status: Patient reports the use of cigarette tobacco products, smokes one-half pack cigarettes per day, Patient uses Patient/guardian denies using alcohol. Screenin/12 01:32 [facility] ED Fall Risk Assessment (Adult) History of falling in the last 3 months, bm8 including since admission No falls in past 3 months (0 pts). Abuse screen: Denies threats or abuse. Nutritional screening: No deficits noted. Tuberculosis screening: No symptoms or risk factors identified. Assessment: 01:32 Reassessment: Patient appears in no apparent distress at this time. Patient and/or bm8 family updated on plan of care and expected duration. Pain level reassessed. Patient is alert, oriented x 3, equal unlabored respirations, skin warm/dry/pink. Patient states feeling better. Patient states symptoms have improved. General: Appears in no apparent distress. comfortable, Behavior is calm, cooperative, appropriate for age. Pain: Denies pain. Neuro: No deficits noted. Level of Consciousness is awake, alert, obeys commands, Oriented to person, place, time, situation. Cardiovascular: Denies chest pain, Heart tones S1 S2 present. Respiratory: Airway is patent Trachea midline Respiratory effort is even, unlabored, Respiratory pattern is regular, symmetrical, Breath sounds are clear bilaterally. GI: No deficits noted. No signs and/or symptoms were reported involving the gastrointestinal system. Bowel sounds present X 4 quads. Abd is soft and non tender X 4 quads. : No deficits noted. No signs and/or symptoms were reported regarding the genitourinary system. EENT: No deficits noted. No signs and/or symptoms were reported regarding the EENT system. Derm: No deficits noted. No signs and/or symptoms reported regarding the dermatologic system. Musculoskeletal: No deficits noted. No signs and/or symptoms reported regarding the musculoskeletal system. Vital Signs: 12/27 22:47 BP 153 / 67; Pulse 87; Resp 22; Temp 97(TE); Pulse Ox 98% on R/A; MAP 93 mmHg; Weight tm6 86.64 kg; Height 5 ft. 2 in. ; Pain 10/10; 12/28 01:32 BP 106 / 63; Pulse 99; Resp 20; Temp 98.2; Pulse Ox 100% ; Pain 2/10; bm8 12/27 22:47 Body Mass Index 34.93 (86.64 kg, 157.48 cm) tm6 12/27 22:47 Pain Scale: Adult tm6 12/28 01:32 Pain Scale: Adult bm8 [place] Coma Score: 01:32 Eye Response: spontaneous(4). Motor Response: obeys commands(6). Verbal Response: bm8 oriented(5). Total: 15. ED Course: 12/27 22:44 Patient arrived in ED. jj6 22:45 Miguel Goldman PA is PHCP. cp 22:45 Jaspal Morris MD is Attending Physician. cp 22:50 Triage completed. tm6 22:50 Arm band placed on right wrist. tm6 22:59 Del Jean, RN is Primary Nurse. bm8 23:31 CT Chest Abdomen Pelvis W/O Contrast In Process Unspecified. EDMS 23:41 EKG done, by ED staff, reviewed by Miguel AVILA. 6 12/28 01:32 Patient has correct armband on for positive identification. Bed in low position. Call bm8 light in reach. Side rails up X 1. Provided Education on: post er care. Client placed on continuous cardiac and pulse oximetry monitoring. NIBP monitoring applied. Pulse ox on. NIBP on. Door closed. Noise minimized. Warm blanket given. Verbal reassurance given. 01:32 No provider procedures requiring assistance completed. Initial lab(s) drawn, by nicki tang sent to lab. Inserted saline lock: 20 gauge in right antecubital area, using aseptic technique. Blood collected. 01:54 IV discontinued, intact, bleeding controlled, No redness/swelling at site. Pressure bm8 dressing applied. Administered Medications: 00:21 Drug: Methocarbamol IVPB 1 grams IVPB once over 1 hrs; (mix in NS 100 mL) Route: IVPB; bm8 Infused Over: 1 hrs; Site: right antecubital; 01:36 Follow up: Response: No adverse reaction; IV Status: Completed infusion; IV Intake: bm8 1000ml 00:21 Drug: Ketorolac IVP 15 mg IVP once Route: IVP; Site: right antecubital; bm8 01:36 Follow up: Response: No adverse reaction bm8 Medication: 01:32 VIS not applicable for this client. bm8 Intake: 01:36 IV: 1000ml; Total: 1000ml. bm8 Outcome: 01:38 Discharge ordered by . cp 01:54 Discharged to home ambulatory, bm8 01:54 Condition: stable 01:54 Discharge instructions given to patient, Instructed on discharge instructions, follow up and referral plans. Demonstrated understanding of instructions, follow-up care, medications, Prescriptions given X 2, 01:55 Patient left the ED. bm8 Signatures: Dispatcher [employer] EDMS Miguel Goldman PA PA cp Jeffries, Jennifer jj6 Masterson, Tawney, RN RN tm6 Del Jean RN RN bm8
[2023-12-29 01:54] LABS: Specific Gravity > 1.030 (1.005-1.030); Urine Bacteria <20 /HPF (<20); Urine Bilirubin NEGATIVE (Negative); Urine Blood Negative (Negative); Urine Clarity Extremely Turbid (Clear); Urine Color Yellow (Yellow); Urine Culture Reflex Order REFLEXED; Urine Glucose NEGATIVE (Negative); Urine Ketones TRACE (Negative); Urine Micro Reflex YN NO BILL MICROSCOPIC; Urine Mucus Slight /HPF (None Seen); Urine Nitrite NEGATIVE (Negative); Urine Protein TRACE (Negative); Urine RBC None Seen /HPF (None Seen); Urine Urobilinogen Normal (Normal); Urine Yeast (Budding) Many /HPF (None Seen); Urine pH 5.5 (5.0-7.0)
[2023-12-29 02:05] VITALS: BP 106/63; TEMP 98.2; O2SAT 100
--- NOTE | 2023-12-29 12:18 | RAD REPORT ---
EXAM DESCRIPTION: CT CHEST ABDOMEN PELVIS WITHOUT IV CONTRAST CLINICAL HISTORY: Female, 63 years old, left flank/rib pain COMPARISON: None. TECHNIQUE: CT acquisition of the chest, abdomen and pelvis without contrast. Coronal and sagittal re formatted images provided. This exam was performed according to departmental dose-optimization progra m which includes automated exposure control, adjustment of the mA and/or kV according to patient size , and/or use of iterative reconstruction technique. FINDINGS: Lack of intravenous contrast limits evaluation of the abdominal and pelvic viscera and vas cular structures. SUPPORTIVE DEVICES: None. LOWER NECK: Unremarkable. CHEST: Mediastinum/gareth: Aortic atherosclerosis without aneurysm. The pulmonary vasculature is unremarkable. No evident thoracic adenopathy. Unremarkable esophagus. Heart: Normal size. No pericardial thickening or effusion. Aortic annular calcification. Lungs: No pulmonary consolidation. Minimal apical centrilobular emphysema. Central airways are clear. Pleural Space: No pleural effusion or pneumothorax. ABDOMEN AND PELVIS: Liver: Unremarkable. Gallbladder and bile ducts: Postcholecystectomy changes. Pancreas: Unremarkable. Spleen: Unremarkable. Adrenal glands: Unremarkable. Kidneys and ureters: No evidence of stone or obstruction. Bladder: Nondistended without evident abnormality. Reproductive organs: Absent uterus. No identified pelvic mass. GI tract: Normal caliber without wall thickening. Post appendectomy change. Distal colonic diverticul osis without diverticulitis. Lymph nodes: No obvious adenopathy. Peritoneum: No evidence of ascites, fluid collection, or free air. Abdominal wall: No significant hernia. Vessels: Atherosclerosis without evidence of aneurysm. MUSCULOSKELETAL: No acute osseous abnormality. Degenerative change of the spine and pelvis. IMPRESSION: 1. No acute findings of the chest, abdomen, or pelvis within the limitations of a nonc ontrast exam. 2. Chronic and incidental findings above. Electronically signed by: Jason Valdivia MD 12/29/2023 12:14 AM CDT RP Due to temporary technical issues with the PACS/Fluency reporting system, reports are being signed by the in house radiologist without review as a courtesy to ensure prompt reporting. The interpreting r adiologist is fully responsible for the content of the report.
--- NOTE | 2023-12-30 12:13 | EKG ---
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
== END 2023-12-29 01:55 | disposition home or self-care (01) ==
LOC: ER 22:40
DX: R07.89 Other chest pain (principal); R10.32 Left lower quadrant pain
CPT/HCPCS: 93005; 87088; 85025; 81001; 87086; 80048; 36415; 83735; 80076; 84484; 83690; 71250; 74176; J2800

== ENCOUNTER 2024-03-06 11:01 | Inpatient (IN) | payer OTHER ==
[2024-03-06 12:37] LABS: Absolute Basophils 0.1 K/uL (0-0.5); Absolute Lymphocytes (CBC) 0.9 K/uL (0.7-4.9); Absolute Monocytes 0.9 K/uL (0.1-1.3); Absolute Neutrophil 11.3 K/uL (1.8-8.0); Basophils % 0.7 % (0-1.3); Eosinophils % 0.2 % (0-4.4); Hematocrit 34.9 % (36.0-45.0); Hemoglobin 11.3 g/dL (12.0-15.0); Lymphocytes % 6.8 % (15.3-44.8); MCH 29.2 pg (27.0-35.0); MCHC 32.3 g/dL (32.0-36.0); MCV 90.4 fL (80-100); MPV 7.9 fL (7.6-11.3); Monocytes % 6.5 % (3.3-12.3); Neutrophils % 85.8 % (41.7-73.7); Platelets 237 thou/uL (152-406); RBC Red Blood Cell Count 3.86 M/uL (3.86-4.86); Red Cell Distribution Width 14.7 % (12.1-15.2)
[2024-03-06 12:49] LABS: SARS-CoV-2 Antigen CONTROL BLUE LINE VIS/BG OK; SARS-CoV-2 Antigen Rapid Res Negative (Negative)
[2024-03-06 12:55] LABS: Albumin 2.9 g/dL (3.4-5.0); Albumin/Globulin Ratio 0.7 (1.1-1.8); Anion Gap 12.1 mEq/L (5.0-15.0); Bilirubin Total 0.7 mg/dL (0.2-1.0); Globulin 4.4 g/dL (2.3-3.5); Potassium 4.1 mEq/L (3.5-5.1); Protein, Total 7.3 g/dL (6.4-8.2)
--- NOTE | 2024-03-06 13:10 | RAD REPORT ---
EXAM DESCRIPTION: Arit Single View03/06/2024 12:34 pm CLINICAL HISTORY: FEVER COMPARISON: Chest Single View dated 07/15/2023; Chest Single View dated 03/13/2023; Chest Pa And Lat (2 Views) dated 02/21/2021; CHEST PA AND LAT 2 VIEW dated 04/01/2006 TECHNIQUE: Portable AP view of the chest. FINDINGS: The lungs are clear apart from perihilar streaky opacities particularly on the right. No pneumothorax or effusion. The cardiomediastinal contours are unremarkable. IMPRESSION: Perihilar streaky opacities particularly on the right, may suggest reactive airway munson es or viral infection.
--- NOTE | 2024-03-06 13:51 | RAD REPORT ---
EXAM DESCRIPTION: CT - Abdomen Pelvis Wo Contrast - 03/06/2024 1:21 pm CLINICAL HISTORY: ABD PAIN COMPARISON: No comparisons TECHNIQUE: Thin cut axial CT imaging of the abdomen and pelvis was performed without IV contrast. Mu ltiplanar reformats were generated and reviewed. All CT scans are performed using dose optimization technique as appropriate and may include automated exposure control or mA/KV adjustment according to patient size. FINDINGS: No suspicious findings in the lung bases. The liver, spleen, adrenal glands, and pancreas show no suspicious findings. Gallbladder was surgical ly removed. Symmetric renal contour, without suspicious parenchymal findings within limits of noncontrast techniq ue. Mild right hydronephrosis. Ureter is not significantly dilated, except with a short segment of ca liber prominence most distally, see axial image 76. Prominent right perinephric fat stranding. Suspec meghan 4 mm distal right ureteral calculus, although presence of numerous pelvic phleboliths limits eval uation. No dilated bowel loops or bowel wall thickening. No free air, free fluid or inflammatory stranding. N o hernia, mass or bulky lymphadenopathy. The urinary bladder is without significant finding. No suspicious bony findings. IMPRESSION: Mild right hydronephrosis. Questionable 4 mm distal right ureteric calculus. Prominent r ight perinephric fat stranding which could relate to ongoing obstruction versus infectious process lopez ch as pyelonephritis, although this is difficult to assess on noncontrast imaging. The findings were communicated to Milly Kayleen on 03/06/2024 at 13:47 hours.
[2024-03-06 14:28] LABS: Band Neutrophils 2 % (0-1); Differential Total Cells Count 100; Lymphocytes 7 % (15-42); Monocytes 6 % (0-10); Segmented Neutrophils 85 % (40-80)
[2024-03-06 14:29] LABS: Blood Morphology Comment NOTED (NOT SEEN); Hypochromasia 1+; Platelet Estimate ADEQ
[2024-03-06] MEDS ORDERED: NA CHLORIDE 0.9% 500 ML ONE (14:36)
[2024-03-06] MEDS ORDERED: CEFTRIAXONE 2000 MG/VIAL ONE (14:36)
[2024-03-06] MEDS ORDERED: NA CHLORIDE 0.9% 2,000 ML ONE (14:37)
[2024-03-06] MEDS ORDERED: NA CHLORIDE 0.9% 100 ML ONE (14:37)
--- NOTE | 2024-03-06 14:42 | EDPHYS ---
Physician Documentation [facility] Name: Jade Shaikh Age: 63 yrs Sex: Female : 1960 Arrival Date: 03/06/2024 Time: 11:01 Bed 12 Private MD: ED Physician Milly Beyer Historical: - Allergies: 03/06 11:40 Sulfa (Sulfonamide Antibiotics); tm6 - Home Meds: 13:01 metformin 1,000 mg oral tablet 2 times per day [Active]; diclofenac sodium 75 mg oral tl4 tablet, delayed release (enteric coated) 2 times per day [Active]; gabapentin 800 mg oral tablet 3 times per day [Active]; glipizide 10 mg Oral tablet 2 times per day [Active]; lisinopril 20 mg oral tablet daily [Active]; baclofen 10 mg Oral tablet 2 times per day [Active]; hydrocodone-acetaminophen 10-325 mg Oral tablet 3 times per day [Active]; - PMHx: 11:40 Arthritis; diabetes mellitus; Hypertensive disorder; neuropathy; spot on lung; tm6 15:30 Prolapsed bladder; tl4 - PSHx: 11:40 claudia knee replacements; Appendectomy; Cholecystectomy; Ligation of fallopian tube; Total tm6 abdominal hysterectomy; mass removed from right breast (Total abdominal hysterectomy); - Immunization history:: Client reports receiving the 2nd dose of the Covid vaccine. - Infectious Disease History:: Denies. - Social history:: Smoking status: Patient reports the use of cigarette tobacco products, smokes one pack cigarettes per day. Patient uses Patient/guardian denies using alcohol. Vital Signs: 11:38 BP 153 / 76; Pulse 93; Resp 19; Temp 98.7(O); Pulse Ox 95% on R/A; Weight 89.36 kg; tm6 Height 5 ft. 2 in. ; Pain 8/10; 12:30 BP 130 / 74; Pulse 76; Resp 18; Pulse Ox 100% on R/A; tl4 13:30 BP 149 / 100; Pulse 70; Resp 18; Pulse Ox 99% on R/A; tl4 14:30 BP 148 / 102; Pulse 77; Resp 16; Pulse Ox 99% on R/A; tl4 15:30 BP 170 / 84; Pulse 78; Resp 18; Temp 97.9(O); Pulse Ox 100% on R/A; tl4 16:35 BP 134 / 67; Pulse 70; Resp 18; Pulse Ox 99% on R/A; tl4 11:38 Body Mass Index 36.03 (89.36 kg, 157.48 cm) tm6 11:38 Pain Scale: Adult tm6 MDM: 11:50 Patient medically screened. [facility] 03/06 12:07 Order name: CBC with Diff; Complete Time: 14:49 gb1 03/06 12:07 Order name: CMP; Complete Time: 13:18 gb1 03/06 12:07 Order name: Lactate w/ 2H reflex if indic.; Complete Time: 13:18 gb1 03/06 12:07 Order name: Urine W/Microscopic (UAM); Complete Time: 15:46 gb1 03/06 12:07 Order name: SARS RAPID; Complete Time: 13:18 gb1 03/06 12:59 Order name: Glucose, Ancillary Testing; Complete Time: 13:18 EDTX 03/06 13:51 Order name: Blood Culture Adult (2) [facility] 03/06 13:52 Order name: Lactate w/ 2H reflex if indic.; Complete Time: 15:46 gb1 03/06 14:28 Order name: Manual Differential; Complete Time: 14:49 EDTX 03/06 14:47 Order name: Hemoglobin A1c [facility] 03/06 14:47 Order name: Hemoglobin A1c [facility] 03/06 12:07 Order name: Chest Single View XRAY; Complete Time: 13:18 gb1 03/06 12:07 Order name: CT Abd/Pelvis - Without Cont (PO Contrast Only); Complete Time: 13:53 gb1 03/06 14:42 Order name: CONS Physician Consult [facility] 03/06 12:07 Order name: Accucheck; Complete Time: 12:48 gb1 03/06 12:07 Order name: Cardiac monitoring; Complete Time: 12:28 gb1 03/06 12:07 Order name: EKG - Nurse/Tech; Complete Time: 12:50 gb1 03/06 12:07 Order name: IV Saline Lock - Large Bore; Complete Time: 12:28 gb1 03/06 12:07 Order name: Labs collected and sent; Complete Time: 12:28 gb1 03/06 12:07 Order name: Vital Signs; Complete Time: 12:28 gb1 Administered Medications: 14:57 Drug: Sodium Chloride 0.9% IVPB 30 ml/kg IVPB once Route: IVPB; Site: right antecubital;tl4 16:34 Follow up: Response: No adverse reaction; IV Status: Completed infusion; IV Intake: tl4 2680ml 14:58 Drug: Rocephin IV 2 grams IV at bolus once; Given slow IV push per pharmarcy tl4 instructions {Note: mixed in 100 mL.} Route: IV; Rate: bolus; Site: right antecubital; 16:35 Follow up: Response: No adverse reaction; IV Status: Completed infusion; IV Intake: tl4 100ml Disposition Summary: 03/06/24 14:41 Hospitalization Ordered Notes: Hospitalization Status: Inpatient Admission gb1 Provider: Kathy Nix Location: Telemetry/MedSur (Inpatient) gb1 Condition: Stable gb1 Problem: new gb1 Symptoms: are unchanged gb1 Bed/Room Type: Standard [facility] Room Assignment: 208(03/06/24 14:52) bd Diagnosis - Pyelonephritis acute gb1 - Hydronephrosis with renal and ureteral calculous obstruction gb1 Forms: - Medication Reconciliation Form gb1 - SBAR form gb1 - Leadership Thank You Letter gb1 Signatures: Dispatcher [employer] EDMS Alice Sandoval Gina, MD MD gb1 Homero Trejo RN RN tm6 Yasir Wilhelm RN RN tl4 Corrections: (The following items were deleted from the chart) 12:08 12:08 Chest Single View+RAD.RAD.BRZ ordered. EDMS EDMS 12:08 12:08 Abdomen Pelvis Wo Con+CT.RAD.BRZ ordered. EDMS EDMS 14:52 14:41 gb1 bd
--- NOTE | 2024-03-06 14:42 | ER ---
Nurse's Notes [facility] Name: Jade Shaikh Age: 63 yrs Sex: Female : 1960 Arrival Date: 03/06/2024 Time: 11:01 Bed 12 Private MD: Diagnosis: Pyelonephritis acute;Hydronephrosis with renal and ureteral calculous obstruction Presentation: 03/06 11:39 Chief complaint: Patient states: started 4 days ago with a crick in the neck, then lack tm6 of appetite, chills, body aches, nausea and vomiting. Coronavirus screen: Vaccine status: Patient reports receiving the 2nd dose of the covid vaccine. Ebola Screen: Patient negative for fever greater than or equal to 101.5 degrees Fahrenheit, and additional compatible Ebola Virus Disease symptoms Patient denies exposure to infectious person. Patient denies travel to an Ebola-affected area in the 21 days before illness onset. No symptoms or risks identified at this time. Initial Sepsis Screen: Does the patient meet any 2 criteria? No. Patient's initial sepsis screen is negative. Does the patient have a suspected source of infection? No. Patient's initial sepsis screen is negative. Risk Assessment: Do you want to hurt yourself or someone else? Patient reports no desire to harm self or others. Onset of symptoms was March 02, 2024. 11:39 Method Of Arrival: Ambulatory tm6 11:39 Acuity: STEVE 3 tm6 Triage Assessment: 11:40 General: Appears uncomfortable, Behavior is calm, cooperative. Pain: Complains of pain tm6 in body aches. EENT: No signs and/or symptoms were reported regarding the EENT system. Neuro: Level of Consciousness is awake, alert, obeys commands, Oriented to person, place, time, situation. Cardiovascular: Patient's skin is warm and dry. Respiratory: Airway is patent Respiratory effort is even, unlabored, Respiratory pattern is regular, symmetrical. GI: Reports nausea, vomiting. : No signs and/or symptoms were reported regarding the genitourinary system. Derm: No signs and/or symptoms reported regarding the dermatologic system. Musculoskeletal: Reports body aches and shaking. Historical: - Allergies: 11:40 Sulfa (Sulfonamide Antibiotics); tm6 - Home Meds: 13:01 metformin 1,000 mg oral tablet 2 times per day [Active]; diclofenac sodium 75 mg oral tl4 tablet, delayed release (enteric coated) 2 times per day [Active]; gabapentin 800 mg oral tablet 3 times per day [Active]; glipizide 10 mg Oral tablet 2 times per day [Active]; lisinopril 20 mg oral tablet daily [Active]; baclofen 10 mg Oral tablet 2 times per day [Active]; hydrocodone-acetaminophen 10-325 mg Oral tablet 3 times per day [Active]; - PMHx: 11:40 Arthritis; diabetes mellitus; Hypertensive disorder; neuropathy; spot on lung; tm6 15:30 Prolapsed bladder; tl4 - PSHx: 11:40 claudia knee replacements; Appendectomy; Cholecystectomy; Ligation of fallopian tube; Total tm6 abdominal hysterectomy; mass removed from right breast (Total abdominal hysterectomy); - Immunization history:: Client reports receiving the 2nd dose of the Covid vaccine. - Infectious Disease History:: Denies. - Social history:: Smoking status: Patient reports the use of cigarette tobacco products, smokes one pack cigarettes per day. Patient uses Patient/guardian denies using alcohol. Screenin:29 [facility] ED Fall Risk Assessment (Adult) History of falling in the last 3 months, tl4 including since admission No falls in past 3 months (0 pts) Confusion or Disorientation No (0 pts) Intoxicated or Sedated No (0 pts) Impaired Gait No (0 pts) Mobility Assist Device Used No (0 pt) Altered Elimination No (0 pt) Score/Fall Risk Level 0 - 2 = Low Risk Oriented to surroundings, Maintained a safe environment, Educated pt \T\ family on fall prevention, incl call for assistance when getting out of bed, Assessed \T\ reinforced patient's understanding of fall precautions. Abuse screen: Denies threats or abuse. Denies injuries from another. Nutritional screening: No deficits noted. Tuberculosis screening: No symptoms or risk factors identified. Assessment: 12:45 General: Appears uncomfortable, Behavior is calm, cooperative. Pain: Complains of pain tl4 in back and neck Quality of pain is described as aching. Neuro: Level of Consciousness is awake, alert, obeys commands, Oriented to person, place, time, situation, Moves all extremities. Full function Gait is steady, Speech is normal, Facial symmetry appears normal. Cardiovascular: Denies chest pain, lightheadedness, palpitations, shortness of breath, syncope, Capillary refill < 3 seconds Patient's skin is warm and dry. Rhythm is sinus rhythm. Respiratory: Airway is patent Respiratory effort is even, unlabored, Respiratory pattern is regular, symmetrical, Breath sounds are clear bilaterally. GI: Reports vomiting, Patient currently denies diarrhea, intolerance of fluids, intolerance of food, nausea. GI: Abdomen is non-distended, Bowel sounds present X 4 quads. Abd is soft and non tender. : No signs and/or symptoms were reported regarding the genitourinary system. EENT: No signs and/or symptoms were reported regarding the EENT system. Derm: No signs and/or symptoms reported regarding the dermatologic system. Musculoskeletal: Reports pain in back and neck. 14:08 Reassessment: Patient and/or family updated on plan of care and expected duration. Pain tl4 level reassessed. Patient is alert, oriented x 3, equal unlabored respirations, skin warm/dry/pink. Pt denies needs. Call sandhu at bedside. Will continue to monitor. 15:39 Reassessment: Patient and/or family updated on plan of care and expected duration. Pain tl4 level reassessed. Patient is alert, oriented x 3, equal unlabored respirations, skin warm/dry/pink. Pt updated on admission diagnosis and status. Call sandhu at bedside. Pt denies needs. Will continue to monitor. Vital Signs: 11:38 BP 153 / 76; Pulse 93; Resp 19; Temp 98.7(O); Pulse Ox 95% on R/A; Weight 89.36 kg; tm6 Height 5 ft. 2 in. ; Pain 8/10; 12:30 BP 130 / 74; Pulse 76; Resp 18; Pulse Ox 100% on R/A; tl4 13:30 BP 149 / 100; Pulse 70; Resp 18; Pulse Ox 99% on R/A; tl4 14:30 BP 148 / 102; Pulse 77; Resp 16; Pulse Ox 99% on R/A; tl4 15:30 BP 170 / 84; Pulse 78; Resp 18; Temp 97.9(O); Pulse Ox 100% on R/A; tl4 16:35 BP 134 / 67; Pulse 70; Resp 18; Pulse Ox 99% on R/A; tl4 11:38 Body Mass Index 36.03 (89.36 kg, 157.48 cm) tm6 11:38 Pain Scale: Adult tm6 ED Course: 11:25 Patient arrived in ED. ra3 11:26 Milly Beyer MD is Attending Physician. gb1 11:40 Triage completed. tm6 11:40 Arm band placed on right wrist. tm6 12:28 SARS RAPID Sent. tl4 12:28 CBC with Diff Sent. tl4 12:29 CMP Sent. tl4 12:29 Lactate w/ 2H reflex if indic. Sent. tl4 12:30 Inserted saline lock: 22 gauge in right antecubital area, using aseptic technique. tl4 Blood collected. Flushed with 10 mL NS. 12:36 Chest Single View XRAY In Process Unspecified. EDMS 12:45 Patient has correct armband on for positive identification. Placed in gown. Bed in low tl4 position. Call light in reach. Side rails up X 1. Provided Education on: ed process, call sandhu. Client placed on continuous cardiac and pulse oximetry monitoring. NIBP monitoring applied. satellite project site monitor on. Door closed. Noise minimized. Lights dimmed. Moved to private room. Warm blanket given. Pillow given. 12:45 No provider procedures requiring assistance completed. tl4 12:50 EKG done, by ED staff, reviewed by Milly Beyer MD. tm6 13:23 CT Abd/Pelvis - Without Cont (PO Contrast Only) In Process Unspecified. EDMS 14:40 Kathy Nix MD is Hospitalizing Provider. gb1 14:50 Repeat lab(s) drawn. sent to lab. First set of blood cultures drawn. tl4 15:00 1500 CM met with Mrs. Shaikh at bedside in ED exam room. Patient identified by name ane and . Demographic sheet confirmed and changes sent to appropriate personnel. Patient states she lives with her and their 15 y/o son in a double wide trailer. Prior to admission, krzysztof states she perform ADLs independently. She states she occasionally uses a walker if her knee pain has increased. No other DME, HH, home oxygen or other medical services at this time. Mrs. Shaikh states she has an MPOA appointing her Mustapha Shaikh. Patient states her preferred plan is to return home upon discharge. She states her son or her Mustapha will transport her home when discharged. CM team will continue to follow and coordinate care. 15:38 Patient admitted, IV remains in place. tl4 Administered Medications: 14:57 Drug: Sodium Chloride 0.9% IVPB 30 ml/kg IVPB once Route: IVPB; Site: right antecubital;tl4 16:34 Follow up: Response: No adverse reaction; IV Status: Completed infusion; IV Intake: tl4 2680ml 14:58 Drug: Rocephin IV 2 grams IV at bolus once; Given slow IV push per [employer] tl4 instructions {Note: mixed in 100 mL.} Route: IV; Rate: bolus; Site: right antecubital; 16:35 Follow up: Response: No adverse reaction; IV Status: Completed infusion; IV Intake: tl4 100ml Medication: 12:45 VIS not applicable for this client. tl4 Intake: 16:34 IV: 2680ml; Total: 2680ml. tl4 16:35 IV: 100ml; Total: 2780ml. tl4 Outcome: 14:41 Decision to Hospitalize by Provider. gb1 16:36 Admitted to Med/surg accompanied by tech, via wheelchair, tl4 16:36 Condition: stable 16:36 Instructed on the need for admit, 16:36 Patient left the ED. tl4 Signatures: Dispatcher [employer] EDMS Milly Beyer MD MD gb1 Homero Trejo RN RN tm6 Yasir Wilhelm RN RN tl4 Laura Ybarra ra3 Leslye Randolph RN SOPHIA garcia
--- NOTE | 2024-03-06 14:46 | P.HP ---
Certification for Inpatient Patient admitted to: Inpatient With expected LOS: <2 Midnights <Daksha Abbott - Last Filed: 03/06/24 15:22> Patient History Date of Service: 03/06/24 Reason for admission: obstructing renal stone History of Present Illness: 63 year old female with past medical history of arthritis; diabetes mellitus; Hypertensive disorder; neuropathy; spot on lung pressents to ER for abdominal pain. she reports flank pain that started 4 days ago, she reports nausea, poor po intake. She reports she has been working alot, and reports moderate fatigue. She reports chills, she denies fever, vomiting, denies history of renal stones., she denies chest pain. She reports history of prolapsed bladder. ER evaluation CT IMPRESSION: Mild right hydronephrosis. Questionable 4 mm distal right ureteric calculus. Prominent right perinephric fat stranding which could relate to ongoing obstruction versus infectious process such as pyelonephritis, although this is difficult to assess on noncontrast imaging. Plan to admit to med surg for pyelonephritis,right hydronephrosis, 4 mm distal right ureteric obstructing calculus, with urology to consult. - Past Medical/Surgical History Diabetic: Yes -: Arthritis -: diabetes mellitus -: Hypertensive disorder -: neuropathy -: spot on lung -: claudia knee replacements -: Appendectomy -: Cholecystectomy -: Ligation of fallopian - Social History Place of Residence: Home <Daksha Abbott - Last Filed: 03/06/24 15:22> Date of Service: 03/06/24 <Kathy Nix - Last Filed: 03/06/24 17:57> Review of Systems per HPI <Daksha Abbott - Last Filed: 03/06/24 15:22> Physical Examination - Physical Exam General: Alert, In no apparent distress, Oriented x3 HEENT: Atraumatic, Normocephalic Neck: Supple, 2+ carotid pulse no bruit Respiratory: Clear to auscultation bilaterally, Normal air movement Cardiovascular: Normal pulses, Regular rate/rhythm Capillary refill: <2 Seconds Gastrointestinal: Normal bowel sounds, Other (right flank pain) Musculoskeletal: No swelling, No contractures Integumentary: No breakdown, No significant lesion Neurological: Normal speech, Normal strength at 5/5 x4 extr, Cranial nerves 3-12 intact - Studies Laboratory Data (last 24 hrs) 03/06/24 03/06/24 12:25 12:25 WBC 13.20 H Hgb 11.3 L Hct 34.9 L Plt Count 237 Sodium 130 L Potassium 4.1 BUN 21 H Creatinine 1.31 H Glucose 224 H Total Bilirubin 0.7 AST 20 ALT 33 Alkaline Phosphatase 122 H <Daksha Abbott - Last Filed: 03/06/24 15:22> - Studies Laboratory Data (last 24 hrs) 03/06/24 03/06/24 12:25 12:25 WBC 13.20 H Hgb 11.3 L Hct 34.9 L Plt Count 237 Sodium 130 L Potassium 4.1 BUN 21 H Creatinine 1.31 H Glucose 224 H Total Bilirubin 0.7 AST 20 ALT 33 Alkaline Phosphatase 122 H <Kathy Nix - Last Filed: 03/06/24 17:57> Assessment and Plan - Plan Assessment/Plan Pyelonephritis acute Hydronephrosis with renal and ureteral calculous obstruction Urology consult, IV fluid, IV antibiotics, flomax, prn analgesics CT IMPRESSION: Mild right hydronephrosis. Questionable 4 mm distal right ureteric calculus. Prominent right perinephric fat stranding which could relate to ongoing obstruction versus infectious process such as pyelonephritis, although this is difficult to assess on noncontrast imaging. Plan to admit to med surg for pyelonephritis,right hydronephrosis, 4 mm distal right ureteric obstructing calculus, with urology to consult. diabetes mellitus with hypeglycemia A1c, Acu cks, SSI Tobacco use educate on cessation Hypertensive disorder neuropathy resume appropp home meds spot on lung 02 2l prn Full code diet Diabetic DVT scd Dispostion, independent prior to admission Discharge Plan: Home - Advance Directives Does patient have a Living Will: No Does patient have a Durable POA for Healthcare: No - Code Status/Comfort Care Code Status: Full Code Critical Care: No Time Spent Managing Pts Care (In Minutes): 55 <Daksha Abbott - Last Filed: 03/06/24 15:22> - Plan Pt seen and examined. I agree with the note by the AIR POLLUTION ENGINEER. Pt is a 63yo female with past medical history of arthritis, diabetes mellitus, Hypertensive disorder, neuropathy, and spot on lung who presents with abdominal pain that started 4 days ago and progressively worsened. It is associated with nausea and poor oral intake. On admission, CT abd shows mild right hyronephrosis with questionable 4mm distal right ureteric calculus and prominent right perinephric fat stranding which suggests pyelonephritis. Lab studies how wbc 13.2, Hgb 11.3, K 4.1, Cr 1.31 and glucose 224. At bedside, pt is is in NAD. A/P: Sepsis 2/2 Acute pyelonephritis: Will continue iv abx and f/u urine cx. Hydronephrosis with renal and ureteral calculi: Consulted Urology. Will continue IVF and flomax. Hyponatremia: Na is 130. Will continue IVF and monitor Na level. VERNELL: Cr is 1.31. Will continue IVF, avoid nephrotoxins and monitor renal function. DM II: Continue accuchek, SSI and ADA diet. Htn: Continue home med Spot on lung; Will f/u with imaging study on outpt. Neuropathy: Continue gabapentin. DVT ppx: SCD Code: full <Kathy Nix - Last Filed: 03/06/24 17:57>
[2024-03-06] MEDS ORDERED: D10W 250 ML BAG IV PRN (14:51)
[2024-03-06] MEDS ORDERED: GLUCAGON 1 MG/VIAL IM PRN (15:00)
[2024-03-06] MEDS ORDERED: D50W 25 GM/50 ML SYRINGE IV PRN (15:00)
[2024-03-06 15:22] LABS: Specific Gravity 1.008 (1.005-1.030); Sqamous Epithelial <5 /HPF (None Seen); Urine Bacteria <20 /HPF (<20); Urine Bilirubin NEGATIVE (Negative); Urine Blood 1+ (Negative); Urine Clarity Extremely Turbid (Clear); Urine Color Light-Yellow (Yellow); Urine Culture Reflex Order NOT NEEDED; Urine Glucose 4+ (Over) (Negative); Urine Ketones 1+ (Negative); Urine Micro Reflex YN NO BILL MICROSCOPIC; Urine Nitrite 2+ (Negative); Urine Protein 1+ (Negative); Urine RBC <5 /HPF (None Seen); Urine Urobilinogen Normal (Normal); Urine WBC <5 /HPF (<5); Urine pH 5.5 (5.0-7.0)
[2024-03-06] MEDS: INSULIN REGULAR (HUMAN) 100 UNIT/ML SQ SCH (16:30)
[2024-03-06 16:52] VITALS: BMI 36.0
[2024-03-06] MEDS: NA CHLORIDE 0.9% 1,000 ML IV SCH (18:08)
[2024-03-06] MEDS: HYDROMORPHONE HCL 0.5 MG/0.5 ML INJ IV PRN (18:08)
[2024-03-06] MEDS: ONDANSETRON 4 MG/2 ML VIAL IV PRN (18:08)
[2024-03-06] MEDS: HYDROMORPHONE HCL 0.5 MG/0.5 ML INJ IV ONE (19:00)
[2024-03-06] MEDS: ACETAMINOPHEN 500 MG TAB PO PRN (20:42)
[2024-03-06] MEDS: TAMSULOSIN 0.4 MG SR CAP PO SCH (20:45)
[2024-03-06] MEDS: INSULIN GLARGINE 100 UNIT/ML SQ SCH (20:45)
[2024-03-06] MEDS: PROMETHAZINE INJ 25 MG/ML AMP IV PRN (20:50)
[2024-03-06] MEDS: CEFEPIME 1 GM in NA CHLORIDE 0.9% 100 ML IV SCH (20:59)
[2024-03-07] MEDS: HYDROMORPHONE HCL 1 MG/ML INJ IV PRN (04:17)
[2024-03-07 05:20] LABS: Absolute Lymphocytes (CBC) 1.1 K/uL (0.7-4.9); Absolute Monocytes 0.6 K/uL (0.1-1.3); Absolute Neutrophil 7.1 K/uL (1.8-8.0); Basophils % 0.4 % (0-1.3); Eosinophils % 0.3 % (0-4.4); Hematocrit 31.2 % (36.0-45.0); Hemoglobin 10.1 g/dL (12.0-15.0); Lymphocytes % 12.1 % (15.3-44.8); MCH 29.4 pg (27.0-35.0); MCHC 32.4 g/dL (32.0-36.0); MCV 90.7 fL (80-100); MPV 8.1 fL (7.6-11.3); Monocytes % 6.5 % (3.3-12.3); Neutrophils % 80.7 % (41.7-73.7); Platelets 215 thou/uL (152-406); RBC Red Blood Cell Count 3.44 M/uL (3.86-4.86); Red Cell Distribution Width 14.8 % (12.1-15.2)
[2024-03-07 05:47] LABS: Anion Gap 10.1 mEq/L (5.0-15.0); Magnesium 1.7 mg/dL (1.6-2.4); Potassium 4.1 mEq/L (3.5-5.1)
--- NOTE | 2024-03-07 07:10 | P.PN ---
Date of Service: 03/07/24 subjective N.p.o. for ureteral stent today, pain control as needed Review of Systems per HPI Physical Examination - Physical Exam General: Alert, In no apparent distress, afebrile HEENT: Atraumatic, Normocephalic Neck: Supple, 2+ carotid pulse no bruit Respiratory: Clear to auscultation bilaterally, Normal air movement Cardiovascular: Normal pulses, Regular rate/rhythm Capillary refill: <2 Seconds Gastrointestinal: Normal bowel sounds, mild tenderness other (right flank pain) Musculoskeletal: No swelling, No contractures Integumentary: No breakdown, No significant lesion Neurological: Normal speech, Normal strength at 5/5 x4 extr, Cranial nerves 3-12 intact Assessment and Plan - Plan Assessment/Plan Pyelonephritis acute Hydronephrosis with renal and ureteral calculous obstruction Urology consult, IV fluid, IV antibiotics, flomax, prn analgesics CT IMPRESSION: Mild right hydronephrosis. Questionable 4 mm distal right ureteric calculus. Prominent right perinephric fat stranding which could relate to ongoing obstruction versus infectious process such as pyelonephritis, although this is difficult to assess on noncontrast imaging. Plan to admit to med surg for pyelonephritis,right hydronephrosis, 4 mm distal right ureteric obstructing calculus, with urology to consult. diabetes mellitus with hypeglycemia Uncontrolled diabetes A1c, Acu cks, SSI Started on Lantus Microcytic anemia Trend H&H Tobacco use spot on lung 02 2l prn educate on cessation Hypertensive disorder Hyperlipidemia neuropathy resume appropp home meds Will start cholesterol meds, Full code diet Diabetic DVT scd Dispostion, independent prior to admission Discharge Plan: Home - Advance Directives Does patient have a Living Will: No Does patient have a Durable POA for Healthcare: No - Code Status/Comfort Care Code Status: Full Code Critical Care: No Time Spent Managing Pts Care (In Minutes): 35
--- NOTE | 2024-03-07 08:41 | RAD REPORT ---
EXAM DESCRIPTION: US - Renal Ultrasound-Complete - 03/07/2024 8:26 am CLINICAL HISTORY: evalulate renal stone COMPARISON: Abdomen Pelvis Wo Contrast dated 03/06/2024 FINDINGS: Both kidneys are normal in size, shape and echotexture. The right kidney measures 10.0 x 5.1 x 4.7 cm. Slight right-sided hydronephrosis. The left kidney measures 11.1 x 5.2 x 3.9 cm. No hydronephrosis, focal mass or perinephric fluid. The urinary bladder is incompletely distended without gross abnormality seen. IMPRESSION: Slight right-sided hydronephrosis, otherwise unremarkable study
[2024-03-07] MEDS: MAGNESIUM SULFATE 1 gm IVPB 1 GM/100 ML BAG IV ONE (09:00)
--- NOTE | 2024-03-07 12:58 | RAD REPORT ---
EXAM DESCRIPTION: RAD - Abdomen 1 View (KUB) - 03/07/2024 12:42 pm CLINICAL HISTORY: eval R) ureteral stone COMPARISON: Abdomen Pelvis Wo Contrast dated 03/06/2024 TECHNIQUE: Single AP view of the abdomen. FINDINGS: Persistent enteric contrast throughout the large bowel somewhat limits evaluation. Nonobst ructive bowel gas pattern. No air-fluid levels, free air, or pneumatosis. Allowing for the amount of enteric contrast present, numerous pelvic phleboliths are present, larger on the right. It is difficu lt to evaluate which of these represents the small focus of calcification, questionably a distal uret wyatt calculus on the prior CT. No significant bony abnormality. IMPRESSION: As above.
--- OUTSIDE RECORDS SUMMARY | 2024-03-07 13:55 | XMS REPORT | Continuity of Care Document ---
Author Name Unknown Address [address] [facility] [address] [place] [address] [facility] thconnect Address [address] [facility]. [address] [place] [address] Care Team Providers Care Dope Firer Name Role Phone JODY PALMA Primary Care Physician Jody Driver Attending Clinician Unavailable YESENIA SARABIA Attending Clinician YESENIA Watters Attending Clinician Yesenia Watters MD Attending Clinician [phone] Yesenia Sarabia MD Attending Clinician [phone] Pob, [facility] Main Attending Clinician Unavailyunier horn [email or web address] Attending Clinician Unavaila ble Lab, Ang - Db Attending Clinician Unavailable Doctor Unassigned, [place] Attending Clinician Vincent Sarkar Attending Clinician [phone] VINCENT AGUSTIN Attending Clinician Unavailable Only, Adc Test Attending Clinician Unavailable Olayinka Ricardo MD Attending Clinician [phone] OLAYINKA RICARDO Attending Clinician Unavailable Usama Arteaga DO Attending Clinician [phone] Eze Vallejo MD Attending Clinician [phone] Pj Mora MD Attending Clinician [phone] EZE VALLEJO Attending Clinician Unavailable YESENIA SAARBIA Admitting Clinician YESENIA Watters Admitting Clinician Yesenia Watters MD Admitting Clinician [email or web address] Admitting Clinician Unavailcharlotte ble Payers Payer Name Policy Type Policy Number Effective Date Expirati on Date Source Nearlyweds [id number] 2018 00:00:00 [facility] [id number] 2021 00:00:00 [facility] [facility] [id number] 2019 00:00:00 Problems Condition Name Condition Details Condition Category Status Onset Date Resolution Date Last Treatment Date Treating Clinician Comments Source Pre-op testing Pre-op testing Disease Active 404 00:00: 00 [facility] S/P revision of total knee, left S/P revision of total knee, left Disease Active 2020-07 00:00: 00 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 Added automatic ally from request for surgery [id number] [facility] Primary osteoarthr itis of left knee Primary osteoarthr itis of left knee Disease Active 03-25 00:00: 00 Overview: Formattin g of this note might be different from the original. Added automatic ally from request for surgery [id number] [facility] S/P revision of total knee S/P revision of total knee Disease Active 2019-07 00:00: 00 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 Added automatic ally from request for surgery [id number] [facility] Obesity (BMI 30-39.9) Obesity (BMI 30-39.9) Disease Active 2018-07 00:00: 00 [facility] Total knee replacemen t status Total knee replacemen t status Disease Active 2018-07 00:00: 00 [facility] Patellofem oral arthritis of right knee Patellofem oral arthritis of right knee Disease Active 2018-07 00:00: 00 Overview: Formattin g of this note might be different from the original. Added automatic ally from request for surgery [id number] [facility] Low back pain of over 3 months duration Low back pain of over 3 months duration Disease Active 09-06 00:00: 00 [facility] Type 2 diabetes mellitus, without long-term current use of insulin Type 2 diabetes mellitus, without long-term current use of insulin Disease Active 09-06 00:00: 00 [facility] Diabetic neuropathy associated with type 2 diabetes mellitus Diabetic neuropathy associated with type 2 diabetes mellitus Disease Active 09-06 00:00: 00 [facility] Right leg pain Right leg pain Disease Active 03-05 00:00: 00 [facility] Osteoarthr itis of knee Primary osteoarthr itis of left knee Problem [facility] Chronic pain syndrome Chronic pain syndrome Problem [facility] Lumbar spondylosi s Lumbar spondylosi s Problem [facility] [id number] Adult-onse t obesity Problem [facility] Allergies, Adverse Reactions, Alerts Allergy Name Allergy Type Status Severity Reaction(s) Onset Date Inactive Date Treating Clinician Comments Source SULFA (SULFONA MIDE ANTIBIOT ICS) Drug Class Active Hives 11-27 00:00: 00 [facility] Sulfa (Sulfona mide Antibiot ics) Propensi ty to adverse reaction s Active Hives 11-27 00:00: 00 [facility] Sulfa (Sulfona mide Antibiot ics) Propensi ty to adverse reaction s Active Hives 11-27 00:00: 00 [facility] Substanc e with sulfonam demetrius structur e and antibact erial mechanis m of action (substan ce) Substanc e with sulfonam demetrius structur e and antibact erial mechanis m of action (substan ce) Active Unknown [facility] Social History Social Habit Start Date Stop Date Quantity Comments Source [facility] SDOH Alcohol Frequency [facility] History SDOH [facility] History SDOH Alcohol Binge [facility] History of Tobacco Use Current Smoker [facility] Sex Assigned At [facility] Alcoholic beverage intake 2023-11-15 00:00:00 2023-11-15 00:00:00 0 /d [facility] Alcohol intake 2023-11-15 00:00:00 2023-11-15 00:00:00 0 /d [facility] History of Social function 2023-11-01 00:00:00 2023-11-01 00:00:00 [facility] Cigarettes smoked current (pack per day) - Reported 2023-10-25 00:00:00 2023-10-25 00:00:00 [facility] Cigarette pack-years 2023-10-25 00:00:00 2023-10-25 00:00:00 [facility] Tobacco use and exposure 2023-10-25 00:00:00 2023-10-25 00:00:00 User of smokeless tobacco [facility] Tobacco Comment 2023-10-14 00:00:00 2023-10-14 00:00:00 Vaped and quit 3 mnths, ago smoker for 44 years [facility] Exposure to SARS-CoV-2 (event) 2021-07-30 00:00:00 2021-08-29 10:57:00 Not sure [facility] Education 2021-07-14 00:00:00 2021-07-14 00:00:00 9 [facility] Alcohol Comment 2019-07-10 00:00:00 2019-07-10 00:00:00 Occasional Drinker [facility] Smoking Status Start Date Stop Date Source Current Smoker 2024-01-12 00:00:00 [facility] Ex-smoker 2023-10-14 00:00:00 2023-10-14 00:00:00 [facility] Medications Ordered Medication Name Filled Medication Name Start Date Stop Date Current Medication? Ordering Clinician Indication Dosage Frequency Signature (SIG) Comments Components Source HYDROcodone -Acetaminop hen 10-325 MG HYDROcodone -Acetaminop hen 10-325 MG 02-20 00:00: 00 No 1{table t_as_ne eded} TID HYDROcodon e-Acetamin ophen 10-325 MG diclofenac 75 mg EC tablet 11-14 00:00: 00 Yes [id number] 75mg Take 1 tablet by mouth in the morning and 1 tablet in the evening. Take with meals. [facility] FENTanyl PF (SUBLIMAZE (PF)) injection 25 mcg 10-31 16:34: 31 10-31 19:49 :09 No 25ug 25 mcg, Slow IV Push, Q5MIN PRN, 4 doses, Starting on Wed11/01/23 at 1134, Until Wed11/01/23 at 1449, Routine, Pain (scale 4-6), PACU [facility] ondansetron (ZOFRAN (PF)) injection 4 mg 10-31 16:34: 31 10-31 19:49 :09 No 4mg 4 mg, Slow IV Push, PRN, 1 dose, Starting on Wed11/01/23 at 1134, Until Wed11/01/23 at 1449, Routine, Nausea and Vomiting (N/V), PACU [facility] lactated ringers IV infusion 1,000 mL 10-31 13:30: 00 10-31 13:39 :00 No 1000mL at 42 mL/hr, 1,000 mL, IV Infusion, ONCE, 1 dose, On Wed11/01/23 at 0830, Routine, DSU Pre-op [facility] glyBURIDE 5 mg tablet 10-31 12:49: 07 Yes 5mg Take 1 tablet by mouth in the morning and 1 tablet in the evening. [facility] baclofen 10 mg tablet 10-31 12:49: 07 Yes 10mg Take 1 tablet by mouth in the morning and 1 tablet in the evening. [facility] diclofenac 75 mg EC tablet 10-31 12:49: 07 Yes 75mg Take 1 tablet by mouth in the morning and 1 tablet at noon and 1 tablet in the evening. Take with meals. [facility] lisinopriL 20 mg tablet 10-31 12:49: 07 Yes 20mg Take 1 tablet by mouth in the morning. [facility] HYDROcodone -acetaminop hen 10-325 mg tablet 10-31 12:49: 07 Yes 1{tbl} Take 1 tablet by mouth every 8 (eight) hours as needed. [facility] aspirin 325 mg tablet 10-31 00:00: 00 11-29 04:59 :00 No [id number] 325mg Take 1 tablet by mouth in the morning and 1 tablet in the evening. Take with meals. Do all this for [address] [facility] lisinopriL 20 mg tablet 10-24 13:03: 45 Yes 20mg Take 1 tablet by mouth in the morning. [facility] baclofen 10 mg tablet 10-24 13:00: 52 Yes 10mg Take 1 tablet by mouth in the morning and 1 tablet in the evening. [facility] diclofenac 75 mg EC tablet 10-24 13:00: 52 Yes 75mg Take 1 tablet by mouth in the morning and 1 tablet at noon and 1 tablet in the evening. Take with meals. [facility] HYDROcodone -acetaminop hen 10-325 mg tablet 10-24 13:00: 52 Yes 1{tbl} Take 1 tablet by mouth every 8 (eight) hours as needed. [facility] WELLBUTRIN SR 100 mg SR tablet 08-18 00:00: 00 Yes 100mg Take 1 tablet by mouth in the morning. [facility] estradioL 0.01 % (0.1 mg/gram) vaginal cream 08-18 00:00: 00 Yes 1g Insert 1 g into vagina weekly. [facility] glyBURIDE 5 mg tablet 2020-07 15:00: 27 Yes 5mg Take 1 tablet by mouth in the morning and 1 tablet in the evening. [facility] acetaminoph en-codeine (TYLENOL-CO DEINE #3) 300-30 mg tablet 2020-07 00:00: 00 10-24 00:00 :00 No [id number] 2{tbl} Take 2 tablets by mouth every 6 (six) hours as needed for Pain (scale 4-6) or Pain (scale 7-10). Indication s: acute pain [facility] gabapentin 300 mg capsule 2018-07 00:00: 00 Yes 300mg Take 300 mg by mouth 4 (four) times daily. [facility] gabapentin 800 mg tablet 2018-07 00:00: 00 Yes 800mg Take 1 tablet by mouth in the morning and 1 tablet at noon and 1 tablet in the evening. [facility] NYSTOP 100,000 unit/gram powder 9 00:00: 00 Yes 1{dose} Apply 1 Dose to area(s) as needed. [facility] metFORMIN 500 mg tablet 3-05 00:00: 00 Yes TAKE 1 TABLET BY MOUTH THREE TIMES DAILY [facility] glipiZIDE 10 MG glipiZIDE 10 MG No glipiZIDE 10 MG Diclofenac Sodium 75 MG Diclofenac Sodium 75 MG No 1{table t_as_ne eded} BID Diclofenac Sodium 75 MG Baclofen 10 MG Baclofen 10 MG No 1{table t_as_ne eded} BID Baclofen 10 MG Gabapentin 800 MG Gabapentin 800 MG No 1{table t} TID Gabapentin 800 MG Immunizations Ordered Immunization Name Filled Immunization Name Date Status Comments Source Influenza Virus Vaccine Quad .5 mL IM 6+ MO 2019-07-18 00:00:00 Completed [facility] Influenza Virus Vaccine Quad .5 mL IM 6+ MO 2019-07-18 00:00:00 Completed [facility] Influenza Virus Vaccine Quad .5 mL IM 6+ MO 2019-07-18 00:00:00 Completed [facility] Influenza Virus Vaccine Quad .5 mL IM 6+ MO 2019-07-18 00:00:00 Completed [facility] Influenza Virus Vaccine Quad .5 mL IM 6+ MO 2019-07-18 00:00:00 Completed [facility] Influenza Virus Vaccine Quad .5 mL IM 6+ MO 2019-07-18 00:00:00 Completed [facility] Influenza Virus Vaccine Quad .5 mL IM 6+ MO (FLUZONE/FLULAVAL/F LUARIX) Unknown Completed [facility] Influenza Virus Vaccine Quad .5 mL IM 6+ MO (FLUZONE/FLULAVAL/F LUARIX) Unknown Completed [facility] Influenza Virus Vaccine Quad .5 mL IM 6+ MO (FLUZONE/FLULAVAL/F LUARIX) Unknown Completed [facility] Influenza Virus Vaccine Quad .5 mL IM 6+ MO (FLUZONE/FLULAVAL/F LUARIX) Unknown Completed [facility] Influenza Virus Vaccine Quad .5 mL IM 6+ MO (FLUZONE/FLULAVAL/F LUARIX) Unknown Completed [facility] Influenza Virus Vaccine Quad .5 mL IM 6+ MO (FLUZONE/FLULAVAL/F LUARIX) Unknown Completed [facility] Influenza Virus Vaccine Quad .5 mL IM 6+ MO (FLUZONE/FLULAVAL/F LUARIX) Unknown Completed [facility] Influenza Virus Vaccine Quad .5 mL IM 6+ MO (FLUZONE/FLULAVAL/F LUARIX) Unknown Completed [facility] Influenza Virus Vaccine Quad .5 mL IM 6+ MO (FLUZONE/FLULAVAL/F LUARIX) Unknown Completed [facility] Influenza Virus Vaccine Quad .5 mL IM 6+ MO (FLUZONE/FLULAVAL/F LUARIX) Unknown Completed [facility] Influenza Virus Vaccine Quad .5 mL IM 6+ MO (FLUZONE/FLULAVAL/F LUARIX) Unknown Completed [facility] Influenza Virus Vaccine Quad .5 mL IM 6+ MO (FLUZONE/FLULAVAL/F LUARIX) Unknown Completed [facility] Influenza Virus Vaccine Quad .5 mL IM 6+ MO (FLUZONE/FLULAVAL/F LUARIX) Unknown Completed [facility] Influenza Virus Vaccine Quad .5 mL IM 6+ MO (FLUZONE/FLULAVAL/F LUARIX) Unknown Completed [facility] Influenza Virus Vaccine Quad .5 mL IM 6+ MO (FLUZONE/FLULAVAL/F LUARIX) Unknown Completed [facility] Influenza Virus Vaccine Quad .5 mL IM 6+ MO (FLUZONE/FLULAVAL/F LUARIX) Unknown Completed [facility] Influenza Virus Vaccine Quad .5 mL IM 6+ MO (FLUZONE/FLULAVAL/F LUARIX) Unknown Completed [facility] Influenza Virus Vaccine Quad .5 mL IM 6+ MO (FLUZONE/FLULAVAL/F LUARIX) Unknown Completed [facility] Influenza Virus Vaccine Quad .5 mL IM 6+ MO (FLUZONE/FLULAVAL/F LUARIX) Unknown Completed [facility] Influenza Virus Vaccine Quad .5 mL IM 6+ MO (FLUZONE/FLULAVAL/F LUARIX) Unknown Completed [facility] Influenza Virus Vaccine Quad .5 mL IM 6+ MO (FLUZONE/FLULAVAL/F LUARIX) Unknown Completed [facility] Influenza Virus Vaccine Quad .5 mL IM 6+ MO (FLUZONE/FLULAVAL/F LUARIX) Unknown Completed [facility] Influenza Virus Vaccine Quad .5 mL IM 6+ MO (FLUZONE/FLULAVAL/F LUARIX) Unknown Completed [facility] Influenza Virus Vaccine Quad .5 mL IM 6+ MO (FLUZONE/FLULAVAL/F LUARIX) Unknown Completed [facility] Vital Signs Vital Name Observation Time Observation Value Comments S ource height 2024-01-12 10:45:00 62 [in_i] [facility] weight-kg 2024-01-12 10:45:[address] [facility] bmi 2024-01-12 10:45:00 35.11 kg/m2 Melva r [facility] heart rate 2024-01-12 10:45:00 84 /min [facility] blood pressure systolic 2024-01-12 10:45:00 163 mm[Hg] [facility] blood pressure diastolic 2024-01-12 10:45:00 96 mm[Hg] [facility] Systolic blood pressure 2023-11-15 18:58:00 194 mm[Hg] [facility] Diastolic blood pressure 2023-11-15 18:58:00 89 mm[Hg] [facility] Heart rate 2023-11-15 18:58:00 78 /min Unive [facility] Body height 2023-11-15 18:58:00 157.5 cm [facility] Body weight 2023-11-15 18:58:00 90.13 kg [facility] BMI 2023-11-15 18:58:00 36.34 kg/m2 [facility] Oxygen saturation in Arterial blood by Pulse oximetry 2023-11-15 18:58:00 96 /min [facility] Heart rate 2023-11-01 17:03:00 79 /min [facility] in Arterial blood by Pulse oximetry 2023-11-01 17:03:00 96 /min [facility] Respiratory rate 2023-11-01 17:02:00 19 /min [facility] Systolic blood pressure 2023-11-01 16:59:00 133 mm[Hg] [facility] Diastolic blood pressure 2023-11-01 16:59:00 71 mm[Hg] [facility] Body temperature 2023-11-01 16:09:00 36.44 Criselda [facility] Body height 2023-10-25 18:00:00 160 cm [facility] Body weight 2023-10-25 18:00:00 89.359 kg [facility] BMI 2023-10-25 18:00:00 34.90 kg/m2 [facility] Heart rate 2023-11-01 17:03:00 79 /min [facility] Oxygen saturation in Arterial blood by Pulse oximetry 2023-11-01 17:03:00 96 /min [facility] Respiratory rate 2023-11-01 17:02:00 19 /min [facility] Systolic blood pressure 2023-11-01 16:59:00 133 mm[Hg] [facility] Diastolic blood pressure 2023-11-01 16:59:00 71 mm[Hg] [facility] Body temperature 2023-11-01 16:09:00 36.44 Criselda [facility] Body height 2023-10-25 18:00:00 160 cm [facility] Body weight 2023-10-25 18:00:00 89.359 kg [facility] BMI 2023-10-25 18:00:00 34.90 kg/m2 [facility] Systolic blood pressure 2023-10-20 20:07:00 176 mm[Hg] [facility] Diastolic blood pressure 2023-10-20 20:07:00 84 mm[Hg] [facility] Heart rate 2023-10-20 20:07:00 81 /min [facility] Respiratory rate 2023-10-20 20:07:00 18 /min [facility] Body height 2023-10-20 20:07:00 160 cm [facility] Body weight 2023-10-20 20:07:00 89.449 kg [facility] BMI 2023-10-20 20:07:00 34.93 kg/m2 [facility] Oxygen saturation in Arterial blood by Pulse oximetry 2023-10-20 20:07:00 95 /min [facility] Body height 2023-10-14 13:25:00 157.5 cm [facility] Body weight 2023-10-14 13:25:00 89.359 kg [facility] BMI 2023-10-14 13:25:00 36.03 kg/m2 [facility] Systolic blood pressure 2021-08-29 17:33:00 151 mm[Hg] [facility] Diastolic blood pressure 2021-08-29 17:33:00 82 mm[Hg] [facility] Heart rate 2021-08-29 17:33:00 78 /min [facility] Body height 2021-08-29 17:22:00 160 cm [facility] Body weight 2021-08-29 17:22:00 98.93 kg [facility] BMI 2021-08-29 17:22:00 38.63 kg/m2 [facility] Oxygen saturation in Arterial blood by Pulse oximetry 2021-08-29 17:22:00 97 /min [facility] Procedures Procedure Date / Time Performed Performing Clinician Source BODY FLUID DIRECT COUNT 2023-11-01 16:01:00 Yesenia Sarabia [facility] BODY FLUID CULTURE(AEROBIC/ANAEROBI C) 2023-11-01 16:01:00 Yesenia Sarabia [facility] FUNGUS (ROUTINE) CULTURE 2023-11-01 16:01:00 Yesenia Sarabia [facility] ASPIRATION JOINT LOWER EXTREMITY 2023-11-01 15:32:00 Yesenia Sarabia [facility] ASPIRATION JOINT LOWER EXTREMITY 2023-11-01 15:32:00 Yesenia Sarabia [facility] POCT GLUCOSE (AUTOMATED) 2023-11-01 13:40:00 Yesenia Sarabia [facility] POCT GLUCOSE (AUTOMATED) 2023-11-01 13:40:00 Yesenia Sarabia [facility] BASIC METABOLIC PANEL (NA, K, CL, CO2, GLUCOSE, BUN, CREATININE, CA) 2023-10-29 16:15:00 Yesenia Sarabia [facility] CBC WITH DIFF 2023-10-29 16:15:00 [facility] 2023-10-14 14:24:00 Yesenia Sarabia [facility] XR KNEE 3 VW LEFT 2023-10-14 14:09:24 Yesenia Sarabia [facility] REFERRAL- REQUEST/RESPONSE 2023-08-18 06:01:00 Doctor Unassigned, [place] [facility] DISABILITY/FMLA 2022-02-24 05:01:00 Doctor Unass igned, [place] [facility] XR KNEE <3 VW LEFT 2021-08-29 17:54:29 Yesenia Sarabia [facility] REFERRAL- REQUEST/RESPONSE 2021-08-19 06:01:00 Doctor Unassigned, [place] [facility] Encounters Start Date/Time End Date/Time Encounter Type Admission Type Attending [facility] Facility Care Department Encounter ID Source 2024-01-12 10:27:00 Outpatient Palma, Jody CLS CLS [id number] [facility] 2021-07-02 16:08:43 Outpatient R YESENIA SARABIA [facility] SOR [id number] [facility] 2021-05-19 20:54:10 Outpatient YESENIA SARABIA [facility] SOR [id number] [facility] 2024-02-22 08:00:00 2024-02-22 08:00:00 Outpatient R YESENIA SARABIA [facility] [id number] [facility] 2024-02-14 14:30:00 2024-02-14 15:00:00 Office Visit Agustín Sarabiaig [facility] [id number] [facility] 2024-02-14 14:30:00 2024-02-14 14:30:00 Outpatient R YESENIA SARABIA [facility] [id number] [facility] 2024-02-02 00:00:00 2024-02-02 00:00:00 (TEL) CLS CLS [id number] [facility] 2024-01-26 00:00:00 2024-01-26 00:00:00 (TEL) CLS CLS [id number] [facility] 2024-01-21 00:00:00 2024-01-21 00:00:00 (TEL) CLS CLS [id number] [facility] 2024-01-18 00:00:00 2024-01-18 08:45:41 Refill Agustín Sarabiaig Clarisa [facility] [id number] [facility] 2024-01-12 00:00:00 2024-01-12 00:00:00 Office Visit- Est Pt.- Level 4 CLS CLS [id number] [facility] 2023-11-15 14:45:00 2023-11-15 14:45:00 Office Visit Yesenia Sarabia [facility] [id number] [facility] 2023-11-15 14:45:00 2023-11-15 14:42:24 Outpatient R YESENIA [facility]ABIA [facility] [id number] [facility] 2023-11-01 08:14:00 2023-11-01 12:09:00 Outpatient R YESENIA SARABIA [facility] SOR [id number] [facility] 2023-11-01 08:14:00 2023-11-01 12:09:00 Hospital Encounter Yesenia Sarabia [facility] [id number] [id number] [facility] 2023-11-01 11:40:00 2023-11-01 12:05:00 Surgery Yesenia Sarabia [facility] [id number] [id number] [facility] 2023-10-29 10:54:02 2023-10-29 23:59:00 Hospital Encounter Yesenia Sarabia [facility] [id number] [id number] [id number] 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 2023-10-29 10:52:34 2023-10-29 10:53:00 Outpatient R YESENIA SARABIA [facility] [id number] [facility] 2023-10-29 10:52:34 2023-10-29 10:53:00 Hospital Encounter Yesenia Sarabia [facility] [id number] [id number] [id number] [facility] 2023-10-22 00:00:00 2023-10-22 00:00:00 Outpatient GC_GCBZW_Ka diyala_S PRIV PRIV [id number] [facility] 2023-10-22 00:00:00 2023-10-22 00:00:00 Outpatient R YESENIA SARABIA [facility] [facility] [id number] [facility] 2023-10-21 00:00:00 2023-10-21 00:00:00 Prep For Surgery Yesenia Sarabia [facility] MEDICAL OFF[facility] BUILD[facility] 1..114 350.1.13.10 4.2.7.2.[id number] [facility] 2023-10-20 15:15:00 2023-10-20 15:50:11 Outpatient R YESENIA SARABIA [facility] [id number] [facility] 2023-10-20 15:15:00 2023-10-20 15:50:11 Office Visit Yesenia Sarabia [facility] 1.84.114 350.1.13.10 4.2.7.2.[id number] [facility] 2023-10-18 00:00:00 2023-10-18 00:00:00 Telephone Yesenia Sarabia [facility] 1.84.114 350.1.13.10 4.2.7.2.[id number] [facility] 2023-10-14 09:06:14 2023-10-14 23:59:00 Outpatient R YESENIA SARABIA [facility] [id number] [facility] 2023-10-14 09:06:14 2023-10-14 23:59:00 Hospital Encounter Yesenia Sarabia [facility] 1.2.840.114 350.1.13.10 4.2.7.2.[id number] 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 2023-10-14 08:00:00 2023-10-14 09:18:54 Office Visit Yesenia Sarabia [facility] 1.2.840.114 350.1.13.10 4.2.7.2.[id number] [facility] 2023-09-24 00:00:00 2023-09-24 00:00:00 Outpatient GC_GCBZW_Ka diyala_S PRIV PRIV [id number] [facility] 2023-09-20 00:00:00 2023-09-20 00:00:00 Outpatient GC_GCBZW_Ka diyala_S PRIV PRIV [id number] [facility] 2023-09-18 00:00:00 2023-09-18 00:00:00 Outpatient GC_GCBZW_Ka diyala_S PRIV PRIV [id number] [facility] 2023-09-06 00:00:00 2023-09-06 00:00:00 Outpatient GC_GCBZW_Ka diyala_S PRIV PRIV [id number] [facility] 2023-08-30 00:00:00 2023-08-30 00:00:00 Outpatient GC_GCBZW_Ka diyala_S PRIV PRIV [id number] [facility] 2023-08-18 00:00:00 2023-08-18 00:00:00 Outpatient GC_GCBZW_Ka diyala_S PRIV PRIV [id number] [facility] 2023-08-18 00:00:00 2023-08-18 00:00:00 Orders Only Doctor Unassigned, [place] [address]840.114 350.1.13.10 4.2.7.2.[id number] [facility] 2023-08-12 00:00:00 2023-08-12 00:00:00 Outpatient GC_GCBZW_Ka diyala_S PRIV PRIV [id number] [facility] 2023-05-16 00:00:00 2023-05-16 00:00:00 Outpatient GC_GCBZW_Ka diyala_S PRIV PRIV [id number] [facility] 2022-02-24 00:00:00 2022-02-24 00:00:00 Orders Only Doctor Unassigned, [place] [address]840.114 350.1.13.10 4.2.7.2.[id number] [facility] 2021-10-20 00:00:00 2021-10-20 00:00:00 Letter (Out) Yesenia Sarabia [facility] 1.2.840.114 350.1.13.10 4.2.7.2.[id number] [facility] 2021-10-20 00:00:00 2021-10-20 00:00:00 Letter (Out) [facility] MEDICAL OFFICE BUILDING 1.2.840.114 350.1.13.10 4.2.7.2.[id number] [facility] 2021-08-29 11:45:00 2021-08-29 23:59:00 Outpatient R SARABIAYESENIA WILLIS [facility] [id number] [facility] 2021-08-29 11:45:00 2021-08-29 23:59:00 Hospital Encounter Yesenia Sarabia [facility] MEDICAL OFFICE BUILDING 1.2.840.114 350.1.13.10 4.2.7.2.[id number] [facility] 2021-08-29 11:00:00 2021-08-29 11:15:00 Office Visit Vincent Agustin [facility] MED[facility] OFF[facility] BU[facility] 1.2.840.114 350.1.13.10 4.2.7.2.[id number] [facility] 2021-08-29 11:00:00 2021-08-29 11:00:00 Outpatient VINCENT MYERS [facility] [id number] [facility] 2021-08-19 00:00:00 2021-08-19 00:00:00 Orders Only Doctor Unassigned, [place] [facility] 1..840.114 350.1.13.10 4.2.7.2.[id number] [facility] 2021-07-31 11:15:00 2021-07-31 11:15:00 Outpatient VINCENT MYERS [facility] [id number] [facility] 2021-07-31 11:15:00 2021-07-31 11:15:00 Outpatient VINCENT MYERS [facility] [id number] [facility] 2021-07-29 13:28:03 2021-07-29 23:59:00 Outpatient VINCENT MYERS [facility] [id number] [facility] 2021-07-29 13:28:03 2021-07-29 23:59:00 Hospital Encounter Vincent Agustin [facility] MEDICAL OFFICE BUILDING 1.2.840.114 350.1.13.10 4.2.7.2.686 [id number] [facility] 2021-07-29 13:28:03 2021-07-29 23:59:00 Outpatient R NIKOLE V[facility]ENT [facility] [id number] [facility] 2021-07-29 13:15:00 2021-07-29 13:30:00 Office Visit Nikole [facility] MEDICAL OFFICE BUILDING 1..840.114 350.1.13.10 4.2.7.2.[id number] [facility] 2021-07-29 13:15:00 2021-07-29 13:15:00 Outpatient R NIKOLE [facility] [id number] [facility] 2021-07-28 00:00:00 2021-07-28 00:00:00 Telephone Yesenia Sarabia [facility] MEDICAL OFFICE BUILDING 1.2.840.114 350.1.13.10 4.2.7.2.686 [id number] [facility] 2021-07-25 09:00:00 2021-07-25 09:00:00 Outpatient R NIKOLE [facility] [id number] [facility] 2021-07-17 00:00:00 2021-07-17 00:00:00 Telephone Yesenia Sarabia [facility] MEDICAL OFFICE BUILDING 1.2.840.114 350.1.13.10 4.2.7.2.686 [id number] [facility] 2021-07-17 00:00:00 2021-07-17 00:00:00 Telephone Yesenia [facility]ab[facility] 1.840.114 350.1.13.10 4.2.7.2.[id number] [facility] 2021-07-17 00:00:00 2021-07-17 00:00:00 Orders Only Doctor Unassigned, [place] [facility] 1.2840.114 350.1.13.10 4.2.7.2.[id number] [facility] 2021-07-16 00:00:00 2021-07-16 00:00:00 Telephone Yesenia Sarabia [facility] 1.840.114 350.1.13.10 4.2.7.2.[id number] [facility] 2021-07-14 10:19:00 2021-07-15 15:00:00 Outpatient R YESENIA SARABIA [facility] [id number] [facility] 2021-07-14 10:19:00 2021-07-15 15:00:00 Hospital Encounter Yesenia Sarabia [facility] 1.840.114 350.1.13.10 4.2.7.2.[id number] [facility] 2021-07-14 12:35:00 2021-07-14 15:54:00 Surgery Yesenia Sarabia [facility] 1.2840.114 350.1.13.10 4.2.7.2.[id number] [facility] 2021-07-14 00:00:00 2021-07-14 00:00:00 Orders Only Doctor Unassigned, [place] [facility] 1.2840.114 350.1.13.10 4.2.7.2.[id number] [facility] 2021-07-11 11:15:00 2021-07-11 11:30:00 Laboratory Only Only, Adc Test Yesenia Sarabia [facility] 1.840.114 350.1.13.10 4.2.7.2.[id number] [facility] 2021-07-11 11:15:00 2021-07-11 11:15:00 Outpatient R YESENIA SARABIA [facility] [id number] [facility] 2021-07-11 00:00:00 2021-07-11 00:00:00 Orders Only Doctor Unassigned, [place] [facility] 1.84.114 350.1.13.10 4.2.7.2.[id number] [facility] 2021-07-10 14:32:10 2021-07-10 23:59:00 Outpatient R YESENIA SARABIA [facility] [id number] [facility] 2021-07-10 12:00:00 2021-07-10 23:59:00 Hospital Encounter Yesenia Sarabia [facility] 1.84.114 350.1.13.10 4.2.7.2.[id number] [facility] 2021-07-10 14:31:09 2021-07-10 14:31:09 Outpatient R YESENIA SARABIA [facility] [id number] [facility] 2021-07-10 11:45:00 2021-07-10 11:59:00 Hospital Encounter Yesenia Sarabia [facility] 1.84.114 350.1.13.10 4.2.7.2.[id number] 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 2021-06-30 00:00:00 2021-06-30 00:00:00 Telephone [facility] MEDICAL OFFICE BUILDING 1..840.114 350.1.13.10 4.2.7.2.[id number] [facility] 2021-06-30 00:00:00 2021-06-30 00:00:00 Prep For Surgery Yesenia Sarabia [facility] MEDICAL OFFICE BUILDING 1..840.114 350.1.13.10 4.2.7.2.[id number] [facility] 2021-06-27 00:00:00 2021-06-27 00:00:00 Telephone Olayinka Ricardo [facility] 1..840.114 350.1.13.10 4.2.7.2.[id number] [facility] 2021-06-26 09:00:00 2021-06-26 11:19:13 Outpatient R YESENIA SARABIA [facility] [id number] [facility] 2021-06-26 09:00:00 2021-06-26 11:19:13 Outpatient R YESENIA SARABIA [facility] [id number] [facility] 2021-06-26 08:43:47 2021-06-26 11:19:13 Office Visit [facility]ab[facility] MEDICAL OFFICE BUILDING 1.2.840.114 350.1.13.10 4.2.7.2.[id number] [facility] 2021-06-26 09:00:00 2021-06-26 09:00:00 Outpatient R YESENIA SARABIA [facility] [id number] [facility] 2021-06-17 00:00:00 2021-06-17 00:00:00 Telephone Yesenia Sarabia [facility] OFF[facility] BUILD[facility] 1.2.840.114 350.1.13.10 4.2.7.2.[id number] [facility] 2021-06-16 00:00:00 2021-06-16 00:00:00 Orders Only Doctor Unassigned, [place] [facility] 1..840.114 350.1.13.10 4.2.7.2.[id number] [facility] 2021-05-14 13:01:51 2021-05-14 13:16:51 Office Visit [place] [facility] 1..840.114 350.1.13.10 4.2.7.2.[id number] [facility] 2021-05-14 13:00:00 2021-05-14 13:00:00 [facility] [id number] [facility] 2021-05-08 00:00:00 2021-05-08 00:00:00 Orders Only Doctor Unassigned, [place] [facility] 1.2840.114 350.1.13.10 4.2.7.2.[id number] [facility] 2021-04-14 13:35:00 2021-04-14 23:59:00 Hospital Encounter [place] [facility] [place] Medical Office Building 1.2.840.114 350.1.13.10 4.2.7.2.[id number] [facility] 2021-04-14 13:35:00 2021-04-14 23:59:00 Outpatient R [facility]USTIN[id number] [facility] 2021-04-14 13:45:00 2021-04-14 13:45:00 Outpatient R NIKOLE [facility] [id number] [facility] 2021-04-14 13:12:59 2021-04-14 13:27:59 Office Visit [facility] Daquan?Guillaume lopez Medical Office Building 1.2840.114 350.1.13.10 4.2.7.2.[id number] [facility] 2021-04-04 00:00:00 2021-04-04 00:00:00 Patient Secure Msg Doctor Unassigned, [place] [facility] 1.2840.114 350.1.13.10 4.2.7.2.[id number] [facility] 2021-03-31 06:35:00 2021-03-31 15:05:00 [facility] 1.2840.114 350.1.13.10 4.2.7.2.[id number] [facility] 2021-03-31 07:30:00 2021-03-31 09:59:00 Surgery Yesenia Sarabia [facility] 1.2840.114 350.1.13.10 4.2.7.2.[id number] [facility] 2021-03-31 00:00:00 2021-03-31 00:00:00 Refill Nikole [facility] Surgical Specialti [facility] 1.2840.114 350.1.13.10 4.2.7.2.[id number] [facility] 2021-03-31 00:00:00 2021-03-31 00:00:00 Orders Only Doctor Unassigned, [place] [facility] 1.2.840.114 350.1.13.10 4.2.7.2.[id number] [facility] 2021-03-28 10:00:00 2021-03-28 23:59:00 Hospital Encounter Yesenia Sarabia [facility] 1.2.840.114 350.1.13.10 4.2.7.2.[id number] [facility] 2021-03-28 13:30:08 2021-03-28 13:45:08 Laboratory Only Only, Adc Test Yesenia Sarabia [facility] 1.2.840.114 350.1.13.10 4.2.7.2.[id number] 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 Professio [facility] 1.2.840.114 350.1.13.10 4.2.7.2.[id number] [facility] 2021-03-28 08:00:00 2021-03-28 09:59:00 Hospital Encounter Yesenia Sarabia [facility] 1.2.840.114 350.1.13.10 4.2.7.2.[id number] [facility] 2021-03-28 00:00:00 2021-03-28 00:00:00 Outpatient R YESENIA SARABIA [facility] [id number] [facility] 2021-03-25 00:00:00 2021-03-25 00:00:00 Telephone Yesenia Sarabia Clarisa [facility] 1.2.840.114 350.1.13.10 4.2.7.2.[id number] [facility] 2021-03-17 00:00:00 2021-03-17 00:00:00 Orders Only Doctor Unassigned, [place] [facility] 1.2.840.114 350.1.13.10 4.2.7.2.[id number] [facility] 2021-03-17 00:00:00 2021-03-17 00:00:00 Prep For Surgery Yesenia Sarabia [facility] Building 1..840.114 350.1.13.10 4.2.7.2.[id number] [facility] 2021-03-17 00:00:00 2021-03-17 00:00:00 Telephone [facility] [place] Medical Office Building 1..840.114 350.1.13.10 4.2.7.2.[id number] [facility] 2021-03-12 00:00:00 2021-03-12 00:00:00 Telephone Vincnet [facility]in [facility] [place] Medical Office Building 1.2.840.114 350.1.13.10 4.2.7.2.[id number] [facility] 2021-03-09 00:00:00 2021-03-09 00:00:00 Patient Secure [facility] 1..840.114 350.1.13.10 4.2.7.2.[id number] [facility] 2021-03-07 10:37:43 2021-03-07 23:59:00 [facility] [id number] [facility] 2021-03-07 09:20:00 2021-03-07 09:47:20 [facility] [id number] [facility] 2021-03-07 09:16:38 2021-03-07 09:47:20 [facility] 1.2840.114 350.1.13.10 4.2.7.2.[id number] [facility] 2021-03-07 09:16:38 2021-03-07 09:47:20 Office Visit Haleigh [facility] BUILDING 1..114 350.1.13.10 4.2.7.2.[id number] [facility] 2021-03-07 09:20:00 2021-03-07 09:20:00 [facility] [id number] [facility] 2021-03-07 00:00:00 2021-03-07 00:00:00 Telephone Haleigh [facility] 1.84.114 350.1.13.10 4.2.7.2.[id number] [facility] 2021-03-07 00:00:00 2021-03-07 00:00:00 Telephone Vincent Agustin [facility]?Guillaume jessica Medical Office Building 1.84.114 350.1.13.10 4.2.7.2.[id number] [facility] 2021-03-06 10:30:00 2021-03-06 10:30:00 Outpatient R VINCENT AGUSTIN [facility] [id number] [facility] 2021-03-06 00:00:00 2021-03-06 00:00:00 Patient Secure Msg Doctor Unassigned, [place] [facility] 1.840.114 350.1.13.10 4.2.7.2.[id number] [facility] 2021-03-05 00:00:00 2021-03-05 00:00:[address] [facility] Surgical Specialti libra Harrell 1.2.840.114 350.1.13.10 4.2.7.2.[id number] [facility] 2021-01-02 16:00:00 2021-01-02 16:00:00 Outpatient R NIKOLE VINCENT [facility] [id number] [facility] 2021-01-02 15:41:45 2021-01-02 15:56:45 Office Visit Nikole [facility] Surgical Specialti libra Rouse 1.2.840.114 350.1.13.10 4.2.7.2.[id number] [facility] 2020-12-26 00:00:00 2020-12-26 00:00:00 Telephone Sarabia Yesenia Mckenna [facility] Surgical Specialti libra Rouse 1.2.840.114 350.1.13.10 4.2.7.2.[id number] [facility] 2020-12-20 00:00:00 2020-12-20 00:00:00 Telephone Nikole [facility] Surgical Specialti libra Harrell 1.2.840.114 350.1.13.10 4.2.7.2.[id number] [facility] 2020-12-06 08:37:34 2020-12-06 23:59:00 Hospital Encounter Nikole [facility] Surgical Specialti libra Harrell 1.2.840.114 350.1.13.10 4.2.7.2.[id number] [facility] 2020-12-06 08:37:34 2020-12-06 23:59:00 Outpatient VINCENT AGUSTIN [facility] [id number] [facility] 2020-12-06 08:37:34 2020-12-06 23:59:00 Outpatient VINCENT AGUSTIN [facility] [id number] [facility] 2020-12-06 08:16:04 2020-12-06 09:36:38 Office [facility] Surgical Specialti libra Rouse 1.2.840.114 350.1.13.10 4.2.7.2.[id number] [facility] 2020-12-06 08:30:00 2020-12-06 08:30:00 Outpatient R VINCENT AGUSTIN [facility] [id number] [facility] 2020-11-25 00:00:00 2020-11-25 00:00:00 Orders Only Doctor Unassigned, [place] [facility] 1.2.840.114 350.1.13.10 4.2.7.2.[id number] [facility] 2020-10-29 00:00:00 2020-10-29 00:00:00 Orders Only Doctor Unassigned, [place] [facility] 1.2.840.114 350.1.13.10 4.2.7.2.[id number] [facility] 2020-10-15 00:00:00 2020-10-15 00:00:00 Orders Only Doctor Unassigned, [place] [facility] 1.2840.114 350.1.13.10 4.2.7.2.[id number] [facility] 2020-09-28 00:00:00 2020-09-28 00:00:00 Patient Outreach Usama Arteaga [facility] 1.2.840.114 350.1.13.10 4.2.7.2.[id number] [facility] 2020-09-11 00:00:00 2020-09-11 00:00:00 Orders Only Doctor Unassigned, [place] [facility] 1.2.840.114 350.1.13.10 4.2.7.2.[id number] [facility] 2020-08-16 10:00:00 2020-08-16 10:00:00 Outpatient R OLAYINKA RICARDO [facility] [id number] [facility] 2020-08-13 14:11:28 2020-08-13 23:59:00 Hospital Encounter Eze Vallejo [facility] 1.20.114 350.1.13.10 4.2.7.2.[id number] 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 2020-08-13 14:10:27 2020-08-13 14:10:27 Outpatient R MAXIMUSEZE VILLATORO [facility] [id number] [facility] 2020-08-13 14:10:27 2020-08-13 14:10:27 Hospital Encounter Eze Vallejo [facility] 1.2.114 350.1.13.10 4.2.7.2.[id number] [facility] 2020-08-13 00:00:00 2020-08-13 00:00:00 Orders Only Doctor Unassigned, [place] [facility] 1.2.114 350.1.13.10 4.2.7.2.[id number] [facility] 2020-08-06 09:29:10 2020-08-06 09:44:10 Office Visit Vincent Agustin [facility] 1.2.840.114 350.1.13.10 4.2.7.2.[id number] [facility] 2020-08-06 09:30:00 2020-08-06 09:30:00 Outpatient VINCENT MYERS [facility] [id number] [facility] 2020-07-17 00:00:00 2020-07-17 00:00:00 Orders Only Doctor Unassigned, [place] [facility] 1.0.114 350.1.13.10 4.2.7.2.[id number] [facility] 2020-07-09 09:13:48 2020-07-09 23:59:00 Outpatient VINCENT MYERS [facility] [id number] [facility] 2020-07-09 09:13:48 2020-07-09 23:59:00 [id number] 2020-07-09 09:13:48 2020-07-09 23:59:00 Hospital Encounter [facility] 1.0.114 350.1.13.10 4.2.7.2.[id number] [facility] 2020-07-09 08:45:28 2020-07-09 09:27:23 Office Visit [facility] 1.2840.114 350.1.13.10 4.2.7.2.[id number] [facility] 2020-06-24 09:13:00 2020-06-25 13:00:00 Outpatient R YESENIA SARABIA [facility] [id number] [facility] 2020-06-24 09:13:00 2020-06-25 13:00:00 Hospital Encounter Yesenia Sarabia [facility] 1..114 350.1.13.10 4.2.7.2.[id number] [facility] 2020-06-21 14:31:45 2020-06-21 14:46:45 [employer] Visit Pob, Adc Lab Main [facility] 1.20.114 350.1.13.10 4.2.7.2.[id number] [facility] 2020-06-21 14:17:58 2020-06-21 14:32:58 Laboratory Only Only, Adc Test Yesenia Sarabia [facility] 1.20.114 350.1.13.10 4.2.7.2.[id number] [facility] 2020-06-21 14:15:00 2020-06-21 14:15:00 Outpatient R YESENIA SARABIA [facility] [id number] [facility] 2020-06-21 00:00:00 2020-06-21 00:00:00 Orders Only Doctor Unassigned, [place] [facility] 1.2840.114 350.1.13.10 4.2.7.2.[id number] [facility] 2020-06-10 00:00:00 2020-06-10 00:00:00 Prep For Surgery Yesenia Sarabia [facility] Surgical Specialti libra [place] 1.2840.114 350.1.13.10 4.2.7.2.[id number] [facility] 2020-06-10 00:00:00 2020-06-10 00:00:00 Prep For Surgery Yesenia Sarabia [facility] [place] 1.2.840.114 350.1.13.10 4.2.7.2.686 [id number] 2020-06-05 14:35:26 2020-06-05 14:50:26 Office Visit Vincent Agustin [facility] es [place] 1.2840.114 350.1.13.10 4.2.7.2.[id number] [facility] 2020-06-05 14:35:26 2020-06-05 14:50:26 Office Visit Vincent Agustin [facility] Surgical Specialti libra [place] 1.2.840.114 350.1.13.10 4.2.7.2.686 [id number] 2020-06-05 14:30:00 2020-06-05 14:30:00 Outpatient R VINCENT AGUSTIN [facility] [id number] [facility] 2020-05-29 00:00:00 2020-05-29 00:00:[address] [facility] Surgical Special libra [place] 1.2.840.114 350.1.13.10 4.2.7.2.[id number] [facility] 2020-05-23 00:00:00 2020-05-23 00:00:00 Telephone No Yesenia L [facility] Surgical Special libra [place] 1.2.840.114 350.1.13.10 4.2.7.2.[id number] [facility] 2020-05-22 12:09:00 2020-05-22 23:59:00 Hospital Encounter No Yesenia Clarisa [facility] 1.2.840.114 350.1.13.10 4.2.7.2.[id number] [facility] 2020-05-22 00:00:00 2020-05-22 00:00:00 Orders Only Doctor Unassigned, [place] [facility] 1.2.840.114 350.1.13.10 4.2.7.2.[id number] [facility] 2020-05-17 12:41:20 2020-05-17 23:59:00 Hospital Encounter Agustín Sarabiaig Clarisa [facility] 1.2.840.114 350.1.13.10 4.2.7.2.[id number] [facility] 2020-05-17 12:36:11 2020-05-17 12:51:11 [employer] Superintendent Visit Cl, Adc Lab Main Yesenia Sarabia [facility] Building 1..114 350.1.13.10 4.2.7.2.[id number] [facility] 2020-05-17 10:25:36 2020-05-17 11:09:24 Office Visit Yesenia Sarabia [facility] Surgical Specialti [facility] 1..114 350.1.13.10 4.2.7.2.[id number] [facility] 2020-05-17 10:30:00 2020-05-17 10:30:00 Outpatient R YESENIA SARABIA [facility] [id number] [facility] 2020-05-17 00:00:00 2020-05-17 00:00:00 Orders Only Doctor Unassigned, [place] [facility] 1.0.114 350.1.13.10 4.2.7.2.[id number] [facility] 2020-05-09 11:06:42 2020-05-09 23:59:00 Hospital Encounter Yesenia Sarabia [facility] 1.0.114 350.1.13.10 4.2.7.2.[id number] [facility] 2020-05-09 15:15:00 2020-05-09 15:15:00 Outpatient R NO YESENIA [facility] [id number] [facility] 2020-05-09 14:40:14 2020-05-09 14:55:14 [employer] Superintendent Visit Cl, Adc Lab Main Yesenia Sarabia [facility] 1..114 350.1.13.10 4.2.7.2.[id number] [facility] 2020-05-09 13:41:15 2020-05-09 14:16:18 Office Visit Yesenia Sarabia [facility] Surgical Specialarcelia [place] 1.2.840.114 350.1.13.10 4.2.7.2.[id number] [facility] 2020-05-09 10:30:00 2020-05-09 10:45:00 Office Visit Yesenia Sarabia [facility] Surgical Special libra [place] 1.2.840.114 350.1.13.10 4.2.7.2.[id number] [facility] 2020-05-09 10:30:00 2020-05-09 10:30:00 [facility] [id number] [facility] 2020-05-08 00:00:00 2020-05-08 00:00:[address] [facility] Surgical [facility] libra [place] 1.2.840.114 350.1.13.10 4.2.7.2.[id number] [facility] 2020-04-30 00:00:00 2020-04-30 00:00:00 Orders Only Doctor Unassigned, [place] [facility] 1.2.840.114 350.1.13.10 4.2.7.2.[id number] [facility] 2020-03-20 00:00:00 2020-03-20 00:00:[address] [facility] libra [place] 1.2.840.114 350.1.13.10 4.2.7.2.[id number] [facility] 2020-02-22 00:00:00 2020-02-22 00:00:00 Orders Only Doctor Unassigned, [place] [facility] 1.2.840.114 350.1.13.10 4.2.7.2.[id number] [facility] 2020-02-13 00:00:00 2020-02-13 00:00:00 Orders Only Doctor Unassigned, [place] [facility] 1.2.840.114 350.1.13.10 4.2.7.2.[id number] [facility] 2019-11-08 00:00:00 2019-11-08 00:00:00 Orders Only Doctor Unassigned, [place] [facility] 1.2.840.114 350.1.13.10 4.2.7.2.[id number] [facility] 2019-11-02 13:45:00 2019-11-02 13:45:00 [id number] 2019-11-02 08:01:19 2019-11-02 08:16:19 Telemedici ne Visit Nikole [facility] Surgical Special es [place] 1.2.840.114 350.1.13.10 4.2.7.2.[id number] [facility] 2019-09-28 00:00:00 2019-09-28 00:00:00 Letter (Out) [facility] Surgical Specialti es [place] 1.2.840.114 350.1.13.10 4.2.7.2.[id number] [facility] 2019-09-13 00:00:00 2019-09-13 00:00:00 [facility] [place] 1.2.840.114 350.1.13.10 4.2.7.2.[id number] [facility] 2019-09-11 00:00:00 2019-09-11 00:00:00 [facility] [place] 1.2.840.114 350.1.13.10 4.2.7.2.[id number] [facility] 2019-09-07 07:55:18 2019-09-07 08:10:18 Office Visit Agustin [facility] Surgical Specialarcelia [place] 1.2.840.114 350.1.13.10 4.2.7.2.[id number] [facility] 2019-09-07 00:00:00 2019-09-07 00:00:00 Orders Only Doctor Unassigned, [place] [facility] 1.2.840.114 350.1.13.10 4.2.7.2.[id number] [facility] 2019-09-07 00:00:00 2019-09-07 00:00:00 Letter (Out) [facility] Surgical [facility] libra [place] 1.2840.114 350.1.13.10 4.2.7.2.[id number] [facility] 2019-08-24 00:00:00 2019-08-24 00:00:00 Orders Only Doctor Unassigned, [place] [facility] 1.2.840.114 350.1.13.10 4.2.7.2.[id number] [facility] 2019-07-31 14:24:05 2019-07-31 23:59:00 Outpatient NIKOLE [facility] [id number] [facility] 2019-07-31 14:24:00 2019-07-31 23:59:00 Hospital Encounter [place] [facility] Surgical Specialarcelia [place] 1.2.840.114 350.1.13.10 4.2.7.2.[id number] [facility] 2019-07-31 13:50:19 2019-07-31 15:07:02 Office Visit Yesenia Sarabia [facility] Surgical Specialarcelia [place] 1.2.840.114 350.1.13.10 4.2.7.2.[id number] [facility] 2019-07-17 09:03:00 2019-07-18 14:40:00 Inpatient YESENIA OLIVEROS [facility] SOR [id number] [facility] 2019-07-10 15:22:42 2019-07-10 15:24:00 Outpatient YESENIA OLIVEROS [facility] [id number] [facility] 2019-06-23 08:07:23 2019-06-23 23:59:00 Outpatient YESENIA SARABIA [facility] [id number] [facility] Results Test Description Test Time Test Comments Results Result Co mments Source [facility] [id number] 18:15:13* Test Item Value Reference Range Interpretation Comme nts BF COLOR (test code = 3326935682) Yellow BF WBC Count (test code = 1635714764) 287 0-150 BF RBC Count (test code = 6035471341) 3000 See_Comment [Automated me ssage] The system which generated this result transmitted reference range: /?L. The reference range was not used to interpret this result as normal/abnormal. [facility] GLUCOSE (AUTOMATED)2023-11-01 13:41:16* Test Item Value Reference Range Interpretation Comme [facility] POCT GLU (test code = 4563676611) 161 mg/dL 70-110 H Lab Interpretation (test cod e = 26638-1) Abnormal [facility] GLUCOSE (AUTOMATED)2023-11-01 13:41:16* Test Item Value Reference Range Interpretation Comme [facility] POCT GLU (test code = 7841729263) 161 mg/dL 70-110 H Lab Interpretation (test cod e = 01969-7) Abnormal [facility]OL[facility] (NA, K, CL, CO2, GLUCOSE, BUN, CREATININE, CA)2023-10-29 16:57:30* Test Item Value Reference Range Interpretation Comme [facility] NA (test code = 1976425532) 136 mmol/L 135-145 K (test code = 4257551721) 4.4 mmol/L 3.5-5.0 CL (test code = 1776385477) 101 mmol/L 98-108 CO2 TOTAL (test code = 8808689910) 28 mmol/L 23-31 AGAP (test code = 5750342831) 7 2-16 BUN (test code = 3023231014) 30 mg/dL 7-23 H GLUCOSE (test code = 4657013608) 254 mg/dL 70-110 H CREATININE (test code = 2160-0) 1.02 mg/dL 0.50-1.04 CALCIUM (test code = 5861032060) 8.5 mg/dL 8.6-10.6 L eGFR (test code = 16090-4) 62.3 mL/min/1.73m2 CKD-EPI eGFR (2020). Assuming creatinine has been stable day-to-day for at least three months, the eGFR indicates Category G2 (60 - 89 mL/min/1.73 m2) Lab Interpretation (test code = 07660-1) Abnormal [facility] METABOLIC PANEL (NA, K, CL, CO2, GLUCOSE, BUN, CREATININE, CA)2023-10-29 16:57:30* Test Item Value Reference Range Interpretation Comme nts NA (test code = 2913908302) 136 mmol/L 135-145 K (test code = 0231631980) 4.4 mmol/L 3.5-5.0 CL (test code = 7360464906) 101 mmol/L 98-108 CO2 TOTAL (test code = 2941210782) 28 mmol/L 23-31 AGAP (test code = 1854128185) 7 2-16 BUN (test code = 1965931978) 30 mg/dL 7-23 H GLUCOSE (test code = 7045476632) 254 mg/dL 70-110 H CREATININE (test code = 2160-0) 1.02 mg/dL 0.50-1.04 CALCIUM (test code = 5977281826) 8.5 mg/dL 8.6-10.6 L eGFR (test code = 17198-1) 62.3 mL/min/1.73m2 CKD-EPI eGFR (2020). Assuming creatinine has been stable day-to-day for at least three months, the eGFR indicates Category G2 (60 - 89 mL/min/1.73 m2) Lab Interpretation (test code = 95012-4) Abnormal [facility] WITH [id number] 16:36:09* Test Item Value Reference Range Interpretation [...] 32.2 g/dL 31.6-35.1 RDW-SD (test code = 11014-0) 47.5 fL 39.0-49.9 RDW-CV (test code = 788-0) 14.1 % 12.0-15.5 PLT (test code = 777-3) 290 166-358 MPV (test code = 86428-1) 9.8 fL 9.5-12.9 NRBC/100 WBC (test code = 6589810751) 0.0 0.0-10.0 NRBC x10^3 (test code = 6739649571) See_Comment [Automated messa ge] The system which generated this result transmitted reference range: 10*3/?L. The reference range was not used to interpret this result as normal/abnormal. GRAN MAT (NEUT) % (test code = 770-8) 52.4 % IMM GRAN % (test code = 3648843235) 0.40 % LYMPH % (test code = 736-9) 34.6 % MONO % (test code = 5905-5) 6.9 % EOS % (test code = 713-8) 4.4 % BASO % (test code = 706-2) 1.3 % GRAN MAT x10^3(ANC) (test code = 6575731503) 3.66 10*3/uL 1.88-7.09 IMM GRAN x10^3 (test code = 9262733683) 0.03 10*3/uL 0.00-0.06 LYMPH x10^3 (test code = 731-0) 2.42 10*3/uL 1.32-3.29 MONO x10^3 (test code = 742-7) 0.48 10*3/uL 0.33-0.92 EOS x10^3 (test code = 711-2) 0.31 10*3/uL 0.03-0.39 BASO x10^3 (test code = 704-7) 0.09 10*3/uL 0.01-0.07 H Lab Interpretation (test code = 56530-3) Abnormal [facility] WITH [id number] 16:36:09* Test Item Value Reference Range Interpretation [...] 32.2 g/dL 31.6-35.1 RDW-SD (test code = 30842-3) 47.5 fL 39.0-49.9 RDW-CV (test code = 788-0) 14.1 % 12.0-15.5 PLT (test code = 777-3) 290 166-358 MPV (test code = 93561-4) 9.8 fL 9.5-12.9 NRBC/100 WBC (test code = 4409441829) 0.0 0.0-10.0 NRBC x10^3 (test code = 2939642433) See_Comment [Automated messa ge] The system which generated this result transmitted reference range: 10*3/?L. The reference range was not used to interpret this result as normal/abnormal. GRAN MAT (NEUT) % (test code = 770-8) 52.4 % IMM GRAN % (test code = 9521377262) 0.40 % LYMPH % (test code = 736-9) 34.6 % MONO % (test code = 5905-5) 6.9 % EOS % (test code = 713-8) 4.4 % BASO % (test code = 706-2) 1.3 % GRAN MAT x10^3(ANC) (test code = 9754399395) 3.66 10*3/uL 1.88-7.09 IMM GRAN x10^3 (test code = 2012641044) 0.03 10*3/uL 0.00-0.06 LYMPH x10^3 (test code = 731-0) 2.42 10*3/uL 1.32-3.29 MONO x10^3 (test code = 742-7) 0.48 10*3/uL 0.33-0.92 EOS x10^3 (test code = 711-2) 0.31 10*3/uL 0.03-0.39 BASO x10^3 (test code = 704-7) 0.09 10*3/uL 0.01-0.07 H Lab Interpretation (test code = 21580-4) Abnormal [facility] [id number] 20:17:11* Test Item Value Reference Range Interpretation Comme nts ESR (test code = 98752-8) 38 0-20 H Lab Interpretation (test cod e = 82022-2) Abnormal [facility] [id number] 20:17:11* Test Item Value Reference Range Interpretation Comme nts ESR (test code = 83761-6) 38 0-20 H Lab Interpretation (test cod e = 63162-9) Abnormal [facility] Center[facility] KNEE 3 VW [id number] 15:06:58XR KNEE 3 VW LEFT INDICATION: lt knee pain Room 5 COMPARISON: 08/29/2021 FINDINGS: Constrained totalknee arthroplasty in anatomic alignment. No acutefracture or dislocation. Diffuse soft tissue swelling.[facility] LIPID [id number] 06:03:34* Test Item Value Reference Range Interpretation Comme nts CHOLESTEROL (test code = 2210) 288 MG/DL <200 H TRIGLYCERIDES (test code = 2232) 165 MG/DL <150 H HDL CHOLESTEROL (test code = 2220) 42 MG/DL >39 CALC LDL CHOL (test code = 2236) 213 MG/DL <100 H NOTE: CALCULATED LDL IS BASED ON ALEXANDER-GANDHI METHOD WHICHINCLUDES ADJUSTABLE TRIGLYCERIDE:VLDL CHOLESTEROL RATIO.THIS FACTOR VARIES BY MEASURED TRIGLYCERIDE AND NON-HDLCHOLESTEROL CONCENTRATIONS WITH INCREASED CALCULATED LDL SEENIN HIGHER TRIGLYCERIDE OR LOWER NON-HDL SPECIMENS. FOR MOREINFORMATION, SEE CLIENT ANNOUNCEMENT AT [email or web address] [email or web address] RATIO LDL/HDL (test code = 2237) 5.07 RATIO <3.22 H COMPREHENSIVE METABOLIC [id number] 06:03:34* Test Item Value Reference Range Interpretation Comme nts GLUCOSE (test code = 2216) 154 MG/DL 70-99 H BUN (test code = 2207) 20 MG/DL 8-23 CREATININE (test code = 221) 0.78 MG/DL 0.60-1.30 eGFR (2020 CKD-EPI) (test code = 73018) 87 ML/MIN/1.73 >60 CALC BUN/CREAT (test code = 5) 26 RATIO 6-28 SODIUM (test code = 2230) 137 MEQ/L 133-146 POTASSIUM (test code = 2228) 4.4 MEQ/L 3.5-5.4 CHLORIDE (test code = 221) 99 MEQ/L 95-107 CARBON DIOXIDE (test code = 6) 24 MEQ/L 19-31 CALCIUM (test code = 220) 9.4 MG/DL 8.5-10.5 PROTEIN, TOTAL (test code = 2228) 7.6 G/DL 6.1-8.3 ALBUMIN (test code = 2200) 4.7 G/DL 3.5-5.2 CALC GLOBULIN (test code = 2240) 2.9 G/DL 1.9-3.7 CALC A/G RATIO (test code = 223) 1.6 RATIO 1.0-2.6 BILIRUBIN, TOTAL (test code = 2206) 0.4 MG/DL See_Comment [Automated me ssage] The system which generated this result transmitted reference range: <=1.2. The reference range was not used to interpret this result as normal/abnormal. ALKALINE PHOSPHATASE (test code = 2203) 136 U/L 40-136 AST (test code = 221) 14 U/L 9-40 ALT (test code = 2219) 16 U/L 5-40 HEMOGLOBIN [id number] 05:29:44* Test Item Value Reference Range Interpretation Comme nts HEMOGLOBIN A1c (test code = 74210) 7.3 % 4.2-5.6 H [employer] GUIDELINES FOR HGB A1C: [...] CONSULTATION. UNLESS OTHERWISE INDICATED, ALL TESTING PERFORMED [facility] [employer] [address] [place] [address] CAKE PULLER: SREEKANTH SEAY M.D. CLIA NUMBER [id number] [facility] [place]. [id number] CBC W/AUTO DIFF WITH [id number] 04:27:32* Test Item Value Reference Range Interpretation [...] 0.00-0.10 ABS NUCLEATED RBCS (test code = 41366) 0.00 K/UL 0.00-0.11 Notes Date/Time Note Provider Source 2023-10-29 11:00:00 Images from the original note were not included. Venipuncture collection performed by clean technique on the right anticubitus. Total of 1 attempts were made. Slight pressure and a bandage/dressing were applied to the site(s). The patient experienced no complications. The following specimens were processed according to instructions and sent to [facility] laboratories per lab order on 10/29/2023: LT BLUE SST 1 RED LAV 1 PPT DK GREEN (LiHep) DK GREEN (SodH) RAYMUNDO DK BLUE (K2) DK BLUE (S) ACD Blood Culture NIPT/NTD Pt could not void at Time of Draw. Urine kit provided to bring back soon. T [facility] 2023-10-29 09:25:04 The patient was called to notify about lab work and chest x-ray. The patient stated she was unaware and will come in as soon as she can. Venecia Foster RN [facility] 2023-10-25 13:09:57 Images from the original note were not included. Your procedure is at [facility] on 11/01/23. The address is [address] [place] [address], [address]. [facility] nursing staff will call you the workday before your procedure to let you know what time to arrive.On the day of your procedure, please go inside that door and check in at the desk. Please note: You may not travel home alone and that includes in a taxi or by bus. We must speak to your Responsible Adult (who will be picking you up) the morning of your procedure, before the start of your procedure. This person must be an adult over the age of 18 years of age. Do not eat any solid food after midnight the night before surgery. You may have sips of clear liquids such as water, gatorade, and sprite up until two hours before your scheduled procedure. You may take your medications with a sip of water as directed by physician. Anticoagulants will be per physician guidance. Medication Note(s)/Instructions:Instructed to hold lisinopril day before and morning of procedure and hold glipizide, glyburide, and metformin evening before and morning of surgery. Pending screening, we may test for COVID. If a patient tests positive, their cases are cancelled and/or rescheduled. COVID SCREENING NOTE: Denies COVID symptoms, no testing required. Additional requests, questions, concerns:CB number provided. Patient verbalized understanding of pre-op instructions and voiced no further questions at this time. [facility] 2023-10-19 13:53:56 Patient is scheduled. Marylu Negrete [facility] 2023-10-19 09:24:19 Routed message to PSS to schedule. Results are given at appointment. Celina Latham 10/19/2023 9:24 AM T [facility] 2023-10-18 11:14:14 Patient is requesting to go over lab results. Vannesa Verduzco [facility] 2023-10-14 09:45:00 Images from the original note were not included. Venipuncture collection performed by clean technique on the right anticubitus. Total of 1 attempts were made. Slight pressure and a bandage/dressing were applied to the site(s). The patient experienced no complications. The following specimens were processed according to instructions and sent to [facility] laboratories per lab order on 10/14/2023: LT BLUE SST 1 RED LAV 1 PPT DK GREEN (LiHep) DK GREEN (SodH) RAYMUNDO DK BLUE (K2) DK BLUE (S) ACD [facility]
[2024-03-07] MEDS ORDERED: ONDANSETRON 4 MG/2 ML VIAL ONE (14:49)
[2024-03-07] MEDS ORDERED: LIDOCAINE 1% MPF 5 ML VIAL ONE (14:49)
[2024-03-07] MEDS ORDERED: MIDAZOLAM HCL 2 MG/2 ML INJ ONE (14:49)
[2024-03-07] MEDS ORDERED: FENTANYL CITR 100 MCG/2 ML ONE (14:49)
[2024-03-07] MEDS ORDERED: propofoL 200 MG/20 ML VIAL IV ONE (14:49)
--- NOTE | 2024-03-07 15:12 | P.CNS ---
Date of Consult: 03/07/24 Chief Complaint: obstructing renal stone History of Present Illness: 63-year-old woman with DM 2 with neuropathy, hypertension, and arthritis presents with a 5-day history of fever/night sweats and chills with nausea and vomiting associated with some right lower back pain. She had some issues with lipomas on her back and thought that they were the source of the pain; so she delayed coming to the emergency department. She was seen and evaluated in the ER and admitted with presumptive pyelonephritis. Since her admission, her Tmax has been 100.1 Fahrenheit, and her pulse has been nontachycardic with occasional bouts of hypertension. She has not had any further nausea or vomiting since her admission yesterday. She denies any prior history of kidney stones. She does acknowledge having known bladder "prolapse" with some urge incontinence that tends to occur at night. This resulted in her wearing 1 thick liner pad per evening. Past surgical history: RAJEEV with bilateral tubal ligation in the , appendectomy, knee replacements x 4, cholecystectomy Allergies: Sulfa yields rash Family history: Denies urologic malignancy Social history: 1 pack/day for 48 years Examination: Patient reasonably well-appearing and in no acute distress Alert, awake, oriented x 3 No dyspnea or sign of respiratory distress Abdomen soft and nontender Sitting upright in hospital bed 03/06/2024 1:[address] - Abdomen Pelvis Wo Contrast - FINDINGS: No suspicious findings in the lung bases. The liver, spleen, adrenal glands, and pancreas show no suspicious findings. Gallbladder was surgically removed. Symmetric renal contour, without suspicious parenchymal findings within limits of noncontrast technique. Mild right hydronephrosis. Ureter is not significantly dilated, except with a short segment of caliber prominence most distally, see axial image 76. Prominent right perinephric fat stranding. Suspected 4 mm distal right ureteral calculus, although presence of numerous pelvic phleboliths limits evaluation. No dilated bowel loops or bowel wall thickening. No free air, free fluid or inflammatory stranding. No hernia, mass or bulky lymphadenopathy. The urinary bladder is without significant finding. No suspicious bony findings. IMPRESSION: Mild right hydronephrosis. Questionable 4 mm distal right ureteric calculus. Prominent right perinephric fat stranding which could relate to ongoing obstruction versus infectious process such as pyelonephritis, although this is difficult to assess on noncontrast imaging. 03/06/2024 blood culture anaerobic bottle: Gram-negative rods. Anaerobic culture pending. Assessment and recommendation: 63-year-old woman with DM 2 with neuropathy, hypertension, and arthritis first time stone former admitted with presumptive 4 mm distal right obstructive ureterolithiasis with pyelonephritic sepsis suspected but clinically stable. -I counseled the patient that given the suspicion for bacterial infection that it entered her bloodstream associated with a possible obstructing calculus, surgical intervention would be recommended to decompress the kidney and relieve the obstruction to allow the infection to clear. -I explained the procedure would be cystoscopy with right retrograde pyelography and right ureteral stent placement. I described the procedure in detail including the risks of the procedure to include urethral stricture, worsening of infection, blood in urine, and failure to achieve desired result requiring percutaneous nephrostomy tube placement. Side effects of stent discomfort were specifically discussed to include irritative LUTS and flank pain during voiding. -I explained that the stent was a foreign body that required removal to prevent complications down the line of its retention. -Once the infection is cleared, which may take 14 days of IV antimicrobial therapy, I explained that she should follow-up with me in the urology clinic to discuss the plans for definitive management of her obstructive ureterolithiasis. Allergies Sulfa (Sulfonamide Antibiotics) Adverse Reaction (Verified 03/06/24 17:04) Rash Home medications list reviewed: Yes - Past Medical/Surgical History Diabetic: Yes -: Arthritis -: diabetes mellitus -: Hypertensive disorder -: neuropathy -: spot on lung -: prolapsed bladder -: chronic back pain -: claudia knee replacements -: Appendectomy -: Cholecystectomy -: Ligation of fallopian - Social History Smoking Status: Current every day smoker Alcohol use: No CD- Drugs: No Caffeine use: Yes Place of Residence: Home Physical Examination Temp Pulse Resp BP Pulse Ox 98.3 F 69 14 126/65 93 03/07/24 12:00 03/07/24 12:00 03/07/24 12:00 03/07/24 12:03/07/24 12:00 - Problems (1) Obstructive pyelonephritis Current Visit: Yes Status: Acute (2) Ureterolithiasis Current Visit: Yes Status: Acute (3) Sepsis Current Visit: Yes Status: Acute Conclusions/Impression: see A&P in HPI Critical Care: No Time Spent Managing Pts care (In Minutes): 30
[2024-03-07] MEDS ORDERED: dexAMETHasone 10 MG/ML VIAL ONE (15:13)
--- NOTE | 2024-03-07 15:49 | P.OP ---
Date of Service: 03/07/24 Preoperative diagnoses: Right 4 mm ureterolithiasis Obstructive pyelonephritis Suspected urosepsis Cystocele Postoperative diagnoses: Right 4 mm ureterolithiasis Obstructive pyelonephritis Suspected urosepsis Cystocele with enterocele Principal procedures: Cystoscopy Right retrograde pyelography Right 6 x 22 cm ureteral stent placement Indication for procedure: 63-year-old woman with DM 2 with neuropathy, hypertension, and arthritis first time stone former admitted with presumptive 4 mm distal right obstructive ureterolithiasis with pyelonephritic sepsis suspected but clinically stable. Procedure note: The patient was consented in the preoperative holding area before being transferred to the operative suite where general anesthesia was induced. She was being treated with cefepime antimicrobial therapy on the floor, and she received her last dose about 5 hours earlier this morning. Pneumoboots were provided for DVT prophylaxis. She was placed in the lithotomy position, padded and secured to the table appropriately. Her genitalia was prepped with Hibiclens and draped in standard fashion. The case was begun using a 22 [place] rigid cystoscope to traverse the urethra which was downward angled before entry into the bladder. I decompressed her bladder of fluid and urine and surveyed the bladder in its entirety. There were no papillary mucosal lesions, foreign bodies or stones noted throughout. The ureteral orifices were orthotopic in location and the urine was otherwise clear with a slight odor to it. Of note, there was a grade 3-4 cystocele with a component of an enterocele but no significant rectocele causing the vaginal vault prolapse. I cannulated the right ureteral orifice using the tip of the 5 [place] ureteral access catheter and performed a retrograde pyelography study. Right retrograde pyelography: Using a 70: 30 mixture of Omnipaque and saline, contrast was injected via the lumen of the 5 [place] ureteral access catheter before propping up the distal into the mid distal ureter where a point of delayed contrast propagation was encountered. There was also a slight filling defect at that location, but no radiopaque calculus was noted. The contrast did progress into the mid proximal ureter before entering the renal pelvis and calyces which were noted to be mildly dilated with some mild pelvic caliectasis. As a result, I passed the sensor wire via the 5 [place] ureteral access catheter coiling it within the upper pole calyces of the right kidney. I then remove the 5 [place] ureteral access catheter leaving the wire in place, and passed over the sensor wire a 6 [place] by 22 cm double-J ureteral stent. A coil was formed fluoroscopically observed in her upper pole and renal pelvis, an additional coil was formed cystoscopically within her bladder. I then decompressed her bladder of fluid and urine and remove the cystoscope. She was then taken out of the lithotomy position, awakened from general anesthesia, transferred to a stretcher, and then transferred to the recovery room in good condition. Complications: None Discharge disposition: Given the suspected sepsis, she will likely be discharged with 14 days of antimicrobial. Thereafter, follow-up should be established in the urology clinic to discuss definitive management of her suspected obstructive right ureterolithiasis via ureteroscopy with laser lithotripsy and stent exchange. As discussed with the patient preoperatively, if significant stent bother is present, she would be a reasonable candidate for Ditropan XL, as long as she has no history of closed angle glaucoma or use of extended release potassium tablets.
[2024-03-07 16:17] VITALS: O2SAT 98
--- NOTE | 2024-03-07 20:17 | RAD REPORT ---
EXAM DESCRIPTION: RAD - Urethrocystogrphy Retrograde - 03/07/2024 4:03 pm CLINICAL HISTORY: RIGHT STENT COMPARISON: None available. FINDINGS: Eight Images were sent to PACS, documenting fluoroscopy use during an image guided right u reteral stenting procedure. No radiologist was available for the procedure, nor will any image interp retation he provided. Please refer to the procedural report for additional details. Fluoroscopy time: 00:10 Minutes. IMPRESSION: Documentation of fluoroscopy utilization as above.
[2024-03-07] MEDS: HYDROCODONE/APAP 10/325 TAB PO PRN (22:06)
[2024-03-08 05:50] LABS: Absolute Lymphocytes (CBC) 0.7 K/uL (0.7-4.9); Absolute Monocytes 0.3 K/uL (0.1-1.3); Absolute Neutrophil 6.7 K/uL (1.8-8.0); Basophils % 0.2 % (0-1.3); Eosinophils % 0.1 % (0-4.4); Hematocrit 33.3 % (36.0-45.0); Lymphocytes % 9.2 % (15.3-44.8); MCH 29.8 pg (27.0-35.0); MCHC 33.1 g/dL (32.0-36.0); MCV 89.9 fL (80-100); MPV 8.6 fL (7.6-11.3); Monocytes % 3.3 % (3.3-12.3); Neutrophils % 87.2 % (41.7-73.7); Nucleated Red Blood Cells % 0.1 % (0-0); Platelets 239 thou/uL (152-406); RBC Red Blood Cell Count 3.71 M/uL (3.86-4.86); Red Cell Distribution Width 14.3 % (12.1-15.2)
[2024-03-08 05:51] LABS: Anion Gap 15.4 mEq/L (5.0-15.0); Magnesium 2.1 mg/dL (1.6-2.4); Potassium 4.4 mEq/L (3.5-5.1)
--- NOTE | 2024-03-08 07:46 | P.DS ---
Admission Date: 03/06/24 Discharge Date: 03/08/24 Disposition: ROUTINE DISCHARGE Discharge Condition: GOOD Reason for Admission: obstructing renal stone Brief History of Present Illness: 63 year old female with past medical history of arthritis; diabetes mellitus; Hypertensive disorder; neuropathy; spot on lung pressents to ER for abdominal pain. she reports flank pain that started 4 days ago, she reports nausea, poor po intake. She reports she has been working alot, and reports moderate fatigue. She reports chills, she denies fever, vomiting, denies history of renal stones., she denies chest pain. She reports history of prolapsed bladder. ER evaluation CT IMPRESSION: Mild right hydronephrosis. Questionable 4 mm distal right ureteric calculus. Prominent right perinephric fat stranding which could relate to ongoing obstruction versus infectious process such as pyelonephritis, although this is difficult to assess on noncontrast imaging. Plan to admit to [facility] for pyelonephritis,right hydronephrosis, 4 mm distal right ureteric obstructing calculus, with urology to consult. Physical Exam General: Alert, In no apparent distress, Oriented x3 HEENT: Atraumatic, Normocephalic Neck: Supple, 2+ carotid pulse no bruit Respiratory: Clear to auscultation bilaterally, Normal air movement Cardiovascular: Normal pulses, Regular rate/rhythm Capillary refill: <2 Seconds Gastrointestinal: Normal bowel sounds, right flank tenderness Musculoskeletal: No swelling, No contractures Integumentary: No breakdown, No significant lesion Neurological: Normal speech, Normal strength at 5/5 x4 extr, Cranial nerves 3-12 intact Hospital Course: 63 year old female with past medical history of arthritis; diabetes mellitus; Hypertensive disorder; neuropathy; spot on lung pressents to ER for abdominal pain. she reports flank pain that started 4 days ago, she reports nausea, poor po intake. She was noted to have Pyelonephritis acute Hydronephrosis with renal and ureteral calculous obstruction. She was evaluated by urology, status post ureteral stent placement,. Was treated with IV fluids, as needed analgesics, as needed antibiotic. Tolerating diet, plan to discharge home, follow-up with urology after discharge no driving or operating heavy equipment while taking narcotics. Follow-up with primary care in 1 to 2 weeks for blood pressure, diabetes with blood glucose management 03/06 CT MPRESSION: Mild right hydronephrosis. Questionable 4 mm distal right ur eteric calculus. Prominent right perinephric fat stranding which could relate to ongoing obstruction versus infectious process such as pyelonephritis, although this is difficult to assess on noncontrast imaging. 03/07 ystoscopy with right retrograde pyelography and right ureteral stent placement New medication Lantus 10 mg SQ nightly Cipro twice daily for 14 days Flomax 0.4 daily #30 As needed analgesics-instructed not to drive on or operate heavy equipment on analgesics/narcotic patient verbalized understanding Instructed to avoid NSAIDs, started on PPI pantoprazole 1 p.o. twice daily for 30 days Assessment Bacteremia, gram-negative tyree, is on IV antibiotics, repeat blood cultures 03/08 Pyelonephritis acute-finish 14 days of antibiotics as directed Hydronephrosis with renal and ureteral calculous obstruction. She was evaluated by urology,03/07 status post ureteral stent placement diabetes with hyperglycemia uncontrolled, educated on Lantus insulin, Accu-Cheks with Accu-Chek monitoring hypertension-resume antihypertensives-educated on blood pressure, blood pressure monitoring Take blood glucose log, blood pressure log to Appointment follow-up in 1-[address] Brizuela Urology follow-up once the infection is cleared, which may take 14 days of IV antimicrobial therapy in the urology clinic to discuss the plans for definitive management of her obstructive ureterolithiasis. Continue home medicines as previously prescribed GOAL: Clear understanding of disease process INSTRUCTIONS: Physician Discharge Instructions: -Follow-up with urology 2 weeks -Follow-up with PCP in 1 to 2 weeks -Please call Dr. Snyder at [phone] if any questions regarding hospital stay -Please call nursing station at [phone] if any nursing or medication questions -Return to the emergency room if symptoms worsen Diet: ADA, low sodium Activity: Fall precautions Vital Signs/Physical Exam: Temp Pulse Resp BP Pulse Ox 97.6 F 73 17 177/79 H 95 03/08/24 04:00 03/08/24 04:00 03/08/24 04:00 03/08/24 04:00 03/08/24 04:00 Laboratory Data at Discharge: WBC 7.70 thou/uL (4.3-10.9) 03/08/24 05:08 Hgb 11.0 g/dL (12.0-15.0) L D 03/08/24 05:08 Hct 33.3 % (36.0-45.0) L 03/08/24 05:08 Plt Count 239 thou/uL (152-406) 03/08/24 05:08 Sodium 134 mEq/L (136-145) L 03/08/24 05:08 Potassium 4.4 mEq/L (3.5-5.1) 03/08/24 05:08 BUN 24 mg/dL (7-18) H 03/08/24 05:08 Creatinine 1.05 mg/dL (0.55-1.02) H 03/08/24 05:08 Glucose 261 mg/dL (74-106) H 03/08/24 05:08 Magnesium 2.1 mg/dL (1.6-2.4) 03/08/24 05:08 Total Bilirubin 0.7 mg/dL (0.2-1.0) 03/06/24 12:25 AST 20 U/L (15-37) 03/06/24 12:25 ALT 33 U/L (13-56) 03/06/24 12:25 Alkaline Phosphatase 122 U/L (45-117) H 03/06/24 12:25 Triglycerides 322 mg/dL (<150) H 03/07/24 04:54 Cholesterol 190 mg/dL (<200) 03/07/24 04:54 HDL Cholesterol 8 mg/dL (40-60) L 03/07/24 04:54 Cholesterol/HDL Ratio 23.75 03/07/24 04:54 Home Medications: Amlodipine [Norvasc*] 10 mg PO DAILY 30 Days #30 tab 03/08/24 Blood-Glucose Meter [Blood Glucose Monitoring] 1 each [facility] 30 Days #1 kit 03/08/24 Ciprofloxacin HCl 500 mg PO BID 14 Days #28 tab 03/08/24 Gabapentin [Neurontin] 800 mg PO TID 03/08/24 Hydrocodone 10/APAP 325 [[place] [address]] 1 tab PO Q6H PRN #30 tab 03/08/24 Insulin Glargine,Hum.rec.anlog [Semglee] 10 unit SQ BEDTIME 30 Days #1 bottle 03/08/24 Lisinopril [Zestril] 20 mg PO BID #60 tab 03/08/24 Metformin HCl 1,000 mg PO BID 03/08/24 Metoprolol Tartrate [Lopressor] 25 mg PO BID #60 tab 03/08/24 Mvit-Mins/Folic Acid/Soy Isofl [One-A-Day Menopause Formula Tb] 1 each PO 30 MIN BEFORE HS 30 Days #30 tab 03/08/24 Pantoprazole [Protonix Tab*] 40 mg PO BID 30 Days #60 tab 03/08/24 Tamsulosin [Flomax*] 0.4 mg PO BEDTIME 30 Days #30 cap 03/08/24 glipiZIDE [Glipizide] 10 mg PO BID 03/08/24 New Medications: Blood-Glucose Meter [Blood Glucose Monitoring] 1 each ACHS 30 Days #1 kit Ciprofloxacin HCl 500 mg PO BID 14 Days #28 tab Tamsulosin [Flomax*] 0.4 mg PO BEDTIME 30 Days #30 cap Metoprolol Tartrate [Lopressor] 25 mg PO BID #60 tab Hydrocodone 10/APAP 325 [[place] 10/325] 1 tab PO Q6H PRN #30 tab PRN Reason: Pain Amlodipine [Norvasc*] 10 mg PO DAILY 30 Days #30 tab Mvit-Mins/Folic Acid/Soy Isofl [One-A-Day Menopause Formula Tb] 1 each PO 30 MIN BEFORE HS 30 Days #30 tab Pantoprazole [Protonix Tab*] 40 mg PO BID 30 Days #60 tab Insulin Glargine,Hum.rec.anlog [Semglee] 10 unit SQ BEDTIME 30 Days #1 bottle Lisinopril [Zestril] 20 mg PO BID #60 tab Physician Discharge Instructions: 63 year old female with past medical history of arthritis; diabetes mellitus; Hypertensive disorder; neuropathy; spot on lung pressents to ER for abdominal pain. she reports flank pain that started 4 days ago, she reports nausea, poor po intake. She was noted to have Pyelonephritis acute Hydronephrosis with renal and ureteral calculous obstruction. She was evaluated by urology, status post ureteral stent placement,. Was treated with IV fluids, as needed analgesics, as needed antibiotic. Tolerating diet, plan to discharge home, follow-up with urology after discharge no driving or operating heavy equipment while taking narcotics. Follow-up with primary care in 1 to 2 weeks for blood pressure, diabetes with blood glucose management 03/06 CT MPRESSION: Mild right hydronephrosis. Questionable 4 mm distal right ureteric calculus. Prominent right perinephric fat stranding which could relate to ongoing obstruction versus infectious process such as pyelonephritis, although this is difficult to assess on noncontrast imaging. 03/07 ystoscopy with right retrograde pyelography and right ureteral stent placement Assessment Bacteremia, gram-negative tyree, is on IV antibiotics, repeat blood cultures 03/08 Pyelonephritis acute-finish 14 days of antibiotics as directed Hydronephrosis with renal and ureteral calculous obstruction. She was evaluated by urology,03/07 status post ureteral stent placement diabetes with hyperglycemia hypertension-resume antihypertensives Take blood glucose log, blood pressure log to Appointment follow-up in 1-2 Dr Brizuela Urology follow-up once the infection is cleared, which may take 14 days of IV antimicrobial therapy in the urology clinic to discuss the plans for definitive management of her obstructive ureterolithiasis. Continue home medicines as previously prescribed GOAL: Clear understanding of disease process INSTRUCTIONS: Physician Discharge Instructions: -Follow-up with urology 2 weeks -Follow-up with PCP in 1 to 2 weeks -Please call Dr. Snyder at [phone] if any questions regarding hospital stay -Please call nursing station at [phone] if any nursing or medication questions -Return to the emergency room if symptoms worsen Diet: ADA, low sodium Activity: Fall precautions Diet: Regular Activity: Fall precautions Followup: Mitchell Palma MD [Primary Care Provider] - 1-2 Weeks Bernardo Brizuela [ACTIVE - CAN ADMIT] - 1-2 Weeks Time spent managing pt's care (in minutes): 55
[2024-03-08] MEDS: CIPROFLOXACIN HCL 500 MG TAB PO SCH (08:40)
[2024-03-08] MEDS ORDERED: CEFEPIME 2 GM in NA CHLORIDE 0.9% 100 ML IV SCH (09:00)
[2024-03-08 12:20] VITALS: BP 188/91; TEMP 97.4
[2024-03-08] MEDS: METOPROLOL TARTRATE 5 MG/5 ML INJ IV PRN (12:22)
[2024-03-08 12:24] LABS: Hematocrit 32.2 % (36.0-45.0); Hemoglobin 10.5 g/dL (12.0-15.0)
--- NOTE | 2024-03-08 17:02 | EKG ---
Test Date: 2024-03-06 Test Time: 12:47:38 [employer] Traffic Manager: AUGUSTINE MEASUREMENT RESULTS: Intervals: Rate: 82 AL: 158 QRSD: 98 QT: 380 QTc: 443 [place]: P: 55 AL: 158 QRS: 56 T: 69 INTERPRETIVE STATEMENTS: Normal sinus rhythm Normal ECG Compared to ECG 12/28/2023 23:38:41 No significant changes Electronically Signed On 03-08-24 16:58:53 CDT by Aki Menendez
== END 2024-03-08 15:53 | disposition home or self-care (01) | DRG 854 ==
LOC: ER 11:01 → ERHOLD 14:38 → 2ND 16:17
PROVIDERS: ADMIT Hospitalist; ATTEND Hospitalist
PROC: BT1D1ZZ Fluoroscopy of Right Kidney, Ureter and Bladder using Low Osmolar Contrast (ICD-10-PCS; 2024-03-07)
PROC: 0T768DZ Dilation of Right Ureter with Intraluminal Device, Via Natural or Artificial Opening Endoscopic (ICD-10-PCS; principal; 2024-03-07 12:15)
DX: A41.9 Sepsis, unspecified organism (principal); E87.1 Hypo-osmolality and hyponatremia; N10 Acute pyelonephritis; N17.9 Acute kidney failure, unspecified; N13.2 Hydronephrosis with renal and ureteral calculous obstruction; E11.40 Type 2 diabetes mellitus with diabetic neuropathy, unspecified; E11.65 Type 2 diabetes mellitus with hyperglycemia; I10 Essential (primary) hypertension; E78.5 Hyperlipidemia, unspecified; D50.9 Iron deficiency anemia, unspecified; G89.29 Other chronic pain; M54.9 Dorsalgia, unspecified; M19.90 Unspecified osteoarthritis, unspecified site; F17.210 Nicotine dependence, cigarettes, uncomplicated; Z88.2 Allergy status to sulfonamides; Z79.4 Long term (current) use of insulin; Z98.51 Tubal ligation status; Z79.84 Long term (current) use of oral hypoglycemic drugs; Z90.49 Acquired absence of other specified parts of digestive tract; Z79.899 Other long term (current) drug therapy; Z96.653 Presence of artificial knee joint, bilateral; Z90.710 Acquired absence of both cervix and uterus
CPT/HCPCS: 36415; 51610; 71045; 74018; 74176; 74450; 76770; 80048; 80053; 80061; 81001; 82947; 83605; 83735; 85014; 85018; 85025; 87040; 87205; 87811; 93005; 96365; 99285; J0692; J0696; J1100; J1170; J2001; J2250; J2405; J2550; J2704; J3010; J3475; J7030; J7040

== ENCOUNTER 2024-03-19 11:51 | Inpatient (IN) | payer OTHER ==
--- OUTSIDE RECORDS SUMMARY | 2024-03-19 11:56 | XMS REPORT | Continuity of Care Document ---
Author Name Unknown Address [address] [facility] [address] [place] [address] [facility] thconnect Address [address] [facility] [place] [address] Care Team Providers Care Manager In Training Name Role Phone JODY PALMA Primary Care Physician Jody Driver Attending Clinician Unavailable YESENIA SARABIA Attending Clinician YESENIA Watters Attending Clinician Yesenia Watters MD Attending Clinician [phone] Yesenia Sarabia MD Attending Clinician [phone] Pob, [facility] Main Attending Clinician Unavailyunier horn [email or web address]_S Attending Clinician Unavaila ble Lab, Ang - Db Attending Clinician Unavailable Doctor Unassigned, [place] Attending Clinician Vincent Sarkar Attending Clinician [phone] VINCENT AGUSTIN Attending Clinician Unavailable Only, Adc Test Attending Clinician Unavailable Olayinka Ricardo MD Attending Clinician [phone] OLAYINKA RICARDO Attending Clinician Unavailable Usama Arteaga DO Attending Clinician [phone] Eze Vallejo MD Attending Clinician Pj Mora MD Attending Clinician [phone] EZE VALLEJO Attending Clinician Unavailable YESENIA SARABIA Admitting Clinician YESENIA Watters Admitting Clinician Yesenia Watters MD Admitting Clinician [phone] [email or web address] Admitting Clinician Unavailcharlotte ble Payers Payer Name Policy Type Policy Number Effective Date Expirati on Date Source [place] [id number] 2018 00:00[facility]00 [facility] [id number] 2021 00:00:00 [facility] [id number] 2019 00:00:00 Problems Condition Name Condition Details Condition Category Status Onset Date Resolution Date Last Treatment Date Treating Clinician Comments Source Pre-op testing Pre-op testing Disease Active 404 00:00: 00 [facility] S/P revision of total knee, left S/P revision of total knee, left Disease Active 2020-07 00:00: 00 [facility] Status post revision of total knee replacemen t, 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 Added automatic ally from request for surgery [id number] [facility] Primary osteoarthr itis of left knee Primary osteoarthr itis of left knee Disease Active 03-25 00:00: 00 Overview: Formattin g of this note might be different from the original. 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 Added automatic ally from request for surgery [id number] [facility] Obesity (BMI 30-39.9) Obesity (BMI 30-39.9) Disease Active 2018-07 00:00: 00 [facility] Total knee replacemen t status Total knee replacemen t status Disease Active 2018-07 00:00: 00 [facility] Patellofem oral arthritis of right knee Patellofem oral arthritis of right knee Disease Active 2018-07 00:00: 00 Overview: Formattin g of this note might be different from the original. Added automatic ally from request for surgery [id number] [facility] Low back pain of over 3 months duration Low back pain of over 3 months duration Disease Active 09-06 00:00: 00 [facility] Type 2 diabetes mellitus, without long-term current use of insulin Type 2 diabetes mellitus, without long-term current use of insulin Disease Active 09-06 00:00: 00 [facility] Diabetic neuropathy associated with type 2 diabetes mellitus Diabetic neuropathy associated with type 2 diabetes mellitus Disease Active 09-06 00:00: 00 [facility] Right leg pain Right leg pain Disease Active 03-05 00:00: 00 [facility] Osteoarthr itis of knee Primary osteoarthr itis of left knee Problem [facility] Chronic pain syndrome Chronic pain syndrome Problem [facility] Lumbar spondylosi s Lumbar spondylosi s Problem [facility] [id number] Adult-onse t obesity Problem [facility] Allergies, Adverse Reactions, Alerts Allergy Name Allergy Type Status Severity Reaction(s) Onset Date Inactive Date Treating Clinician Comments Source SULFA (SULFONA MIDE ANTIBIOT ICS) Drug Class Active Hives 11-27 00:00: 00 [facility] Sulfa (Sulfona mide Antibiot ics) Propensi ty to adverse reaction s Active Hives 11-27 00:00: 00 [facility] Sulfa (Sulfona mide Antibiot ics) Propensi ty to adverse reaction s Active Hives 11-27 00:00: 00 [facility] Substanc e with sulfonam demetrius structur e and antibact erial mechanis m of action (substan ce) Substanc e with sulfonam demetrius structur e and antibact erial mechanis m of action (substan ce) Active Unknown [facility] Social History Social Habit Start Date Stop Date Quantity Comments Source History of Tobacco Use Current Smoker [facility] Sexual orientation [facility] History SDOH Alcohol Frequency [facility] History SDOH Alcohol Std Drinks [facility] History SDOH Alcohol Binge [facility] Sex Assigned At [facility] Alcoholic beverage intake 2023-11-15 00:00:00 2023-11-15 00:00:00 0 /d [facility] Alcohol intake 2023-11-15 00:00:00 2023-11-15 00:00:00 0 /d [facility] History of Social function 2023-11-01 00:00:00 2023-11-01 00:00:00 [facility] Cigarettes smoked current (pack per day) - Reported 2023-10-25 00:00:00 2023-10-25 00:00:00 [facility] Cigarette pack-years 2023-10-25 00:00:00 2023-10-25 00:00:00 [facility] Tobacco use and exposure 2023-10-25 00:00:00 2023-10-25 00:00:00 User of smokeless tobacco [facility] Tobacco Comment 2023-10-14 00:00:00 2023-10-14 00:00:00 Vaped and quit 3 mnths, ago smoker for 44 years [facility] Exposure to SARS-CoV-2 (event) 2021-07-30 00:00:00 2021-08-29 10:57:00 Not sure [facility] Education 2021-07-14 00:00:00 2021-07-14 00:00:00 9 [facility] Alcohol Comment 2019-07-10 00:00:00 2019-07-10 00:00:00 Occasional Drinker [facility] Smoking Status Start Date Stop Date Source Current Smoker 2024-01-12 00:00:00 [facility] Ex-smoker 2023-10-14 00:00:00 2023-10-14 00:00:00 [facility] Medications Ordered Medication Name Filled Medication Name Start Date Stop Date Current Medication? Ordering Clinician Indication Dosage Frequency Signature (SIG) Comments Components Source HYDROcodone -Acetaminop hen 10-325 MG HYDROcodone -Acetaminop hen 10-325 MG 02-20 00:00: 00 No 1{table t_as_ne eded} TID HYDROcodon e-Acetamin ophen 10-325 MG diclofenac 75 mg EC tablet 11-14 00:00: 00 Yes [id number] 75mg Take 1 tablet by mouth in the morning and 1 tablet in the evening. Take with meals. [facility] FENTanyl PF (SUBLIMAZE (PF)) injection 25 mcg 10-31 16:34: 31 10-31 19:49 :09 No 25ug 25 mcg, Slow IV Push, Q5MIN PRN, 4 doses, Starting on Wed11/01/23 at 1134, Until Wed11/01/23 at 1449, Routine, Pain (scale 4-6), PACU [facility] ondansetron (ZOFRAN (PF)) injection 4 mg 10-31 16:34: 31 10-31 19:49 :09 No 4mg 4 mg, Slow IV Push, PRN, 1 dose, Starting on Wed11/01/23 at 1134, Until Wed11/01/23 at 1449, Routine, Nausea and Vomiting (N/V), PACU [facility] lactated ringers IV infusion 1,000 mL 10-31 13:30: 00 10-31 13:39 :00 No 1000mL at 42 mL/hr, 1,000 mL, IV Infusion, ONCE, 1 dose, On Wed11/01/23 at 0830, Routine, DSU Pre-op [facility] glyBURIDE 5 mg tablet 10-31 12:49: 07 Yes 5mg Take 1 tablet by mouth in the morning and 1 tablet in the evening. [facility] baclofen 10 mg tablet 10-31 12:49: 07 Yes 10mg Take 1 tablet by mouth in the morning and 1 tablet in the evening. [facility] diclofenac 75 mg EC tablet 10-31 12:49: 07 Yes 75mg Take 1 tablet by mouth in the morning and 1 tablet at noon and 1 tablet in the evening. Take with meals. [facility] lisinopriL 20 mg tablet 10-31 12:49: 07 Yes 20mg Take 1 tablet by mouth in the morning. [facility] HYDROcodone -acetaminop hen 10-325 mg tablet 10-31 12:49: 07 Yes 1{tbl} Take 1 tablet by mouth every 8 (eight) hours as needed. [facility] aspirin 325 mg tablet 10-31 00:00: 00 11-29 04:59 :00 No [id number] 325mg Take 1 tablet by mouth in the morning and 1 tablet in the evening. Take with meals. Do all this for 28 days. [facility] lisinopriL 20 mg tablet 10-24 13:03: 45 Yes 20mg Take 1 tablet by mouth in the morning. [facility] baclofen 10 mg tablet 10-24 13:00: 52 Yes 10mg Take 1 tablet by mouth in the morning and 1 tablet in the evening. [facility] diclofenac 75 mg EC tablet 10-24 13:00: 52 Yes 75mg Take 1 tablet by mouth in the morning and 1 tablet at noon and 1 tablet in the evening. Take with meals. [facility] HYDROcodone -acetaminop hen 10-325 mg tablet 10-24 13:00: 52 Yes 1{tbl} Take 1 tablet by mouth every 8 (eight) hours as needed. [facility] WELLBUTRIN SR 100 mg SR tablet 08-18 00:00: 00 Yes 100mg Take 1 tablet by mouth in the morning. [facility] estradioL 0.01 % (0.1 mg/gram) vaginal cream 08-18 00:00: 00 Yes 1g Insert 1 g into vagina weekly. [facility] glyBURIDE 5 mg tablet 2020-07 15:00: 27 Yes 5mg Take 1 tablet by mouth in the morning and 1 tablet in the evening. [facility] acetaminoph en-codeine (TYLENOL-CO DEINE #3) 300-30 mg tablet 2020-07 00:00: 00 10-24 00:00 :00 No [id number] 2{tbl} Take 2 tablets by mouth every 6 (six) hours as needed for Pain (scale 4-6) or Pain (scale 7-10). Indication s: acute pain [facility] gabapentin 300 mg capsule 2018-07 00:00: 00 Yes 300mg Take 300 mg by mouth 4 (four) times daily. [facility] gabapentin 800 mg tablet 2018-07 00:00: 00 Yes 800mg Take 1 tablet by mouth in the morning and 1 tablet at noon and 1 tablet in the evening. [facility] NYSTOP 100,000 unit/gram powder 9 00:00: 00 Yes 1{dose} Apply 1 Dose to area(s) as needed. [facility] metFORMIN 500 mg tablet 3-05 00:00: 00 Yes TAKE 1 TABLET BY MOUTH THREE TIMES DAILY [facility] glipiZIDE 10 MG glipiZIDE 10 MG [...] IM 6+ MO 2019-07-18 00:00:00 Completed [facility] Influenza Virus Vaccine Quad .5 mL IM 6+ MO 2019-07-18 00:00:00 Completed [facility] Influenza Virus Vaccine Quad .5 mL IM 6+ MO 2019-07-18 00:00:00 Completed [facility] Influenza Virus Vaccine Quad .5 mL IM 6+ MO 2019-07-18 00:00:00 Completed [facility] Influenza Virus Vaccine Quad .5 mL IM 6+ MO 2019-07-18 00:00:00 Completed [facility] Influenza Virus Vaccine Quad .5 mL IM 6+ MO 2019-07-18 00:00:00 Completed [facility] Influenza Virus Vaccine Quad .5 mL IM 6+ MO (FLUZONE/FLULAVAL/F LUARIX) Unknown Completed [facility] Influenza Virus Vaccine Quad .5 mL IM 6+ MO (FLUZONE/FLULAVAL/F LUARIX) Unknown Completed [facility] Influenza Virus Vaccine Quad .5 mL IM 6+ MO (FLUZONE/FLULAVAL/F LUARIX) Unknown Completed [facility] Influenza Virus Vaccine Quad .5 mL IM 6+ MO (FLUZONE/FLULAVAL/F LUARIX) Unknown Completed [facility] Influenza Virus Vaccine Quad .5 mL IM 6+ MO (FLUZONE/FLULAVAL/F LUARIX) Unknown Completed [facility] Influenza Virus Vaccine Quad .5 mL IM 6+ MO (FLUZONE/FLULAVAL/F LUARIX) Unknown Completed [facility] Influenza Virus Vaccine Quad .5 mL IM 6+ MO (FLUZONE/FLULAVAL/F LUARIX) Unknown Completed [facility] Influenza Virus Vaccine Quad .5 mL IM 6+ MO (FLUZONE/FLULAVAL/F LUARIX) Unknown Completed [facility] Influenza Virus Vaccine Quad .5 mL IM 6+ MO (FLUZONE/FLULAVAL/F LUARIX) Unknown Completed [facility] Influenza Virus Vaccine Quad .5 mL IM 6+ MO (FLUZONE/FLULAVAL/F LUARIX) Unknown Completed [facility] Influenza Virus Vaccine Quad .5 mL IM 6+ MO (FLUZONE/FLULAVAL/F LUARIX) Unknown Completed [facility] Influenza Virus Vaccine Quad .5 mL IM 6+ MO (FLUZONE/FLULAVAL/F LUARIX) Unknown Completed [facility] Influenza Virus Vaccine Quad .5 mL IM 6+ MO (FLUZONE/FLULAVAL/F LUARIX) Unknown Completed [facility] Influenza Virus Vaccine Quad .5 mL IM 6+ MO (FLUZONE/FLULAVAL/F LUARIX) Unknown Completed [facility] Influenza Virus Vaccine Quad .5 mL IM 6+ MO (FLUZONE/FLULAVAL/F LUARIX) Unknown Completed [facility] Influenza Virus Vaccine Quad .5 mL IM 6+ MO (FLUZONE/FLULAVAL/F LUARIX) Unknown Completed [facility] Influenza Virus Vaccine Quad .5 mL IM 6+ MO (FLUZONE/FLULAVAL/F LUARIX) Unknown Completed [facility] Influenza Virus Vaccine Quad .5 mL IM 6+ MO (FLUZONE/FLULAVAL/F LUARIX) Unknown Completed [facility] Influenza Virus Vaccine Quad .5 mL IM 6+ MO (FLUZONE/FLULAVAL/F LUARIX) Unknown Completed [facility] Influenza Virus Vaccine Quad .5 mL IM 6+ MO (FLUZONE/FLULAVAL/F LUARIX) Unknown Completed [facility] Influenza Virus Vaccine Quad .5 mL IM 6+ MO (FLUZONE/FLULAVAL/F LUARIX) Unknown Completed [facility] Influenza Virus Vaccine Quad .5 mL IM 6+ MO (FLUZONE/FLULAVAL/F LUARIX) Unknown Completed [facility] Influenza Virus Vaccine Quad .5 mL IM 6+ MO (FLUZONE/FLULAVAL/F LUARIX) Unknown Completed [facility] Influenza Virus Vaccine Quad .5 mL IM 6+ MO (FLUZONE/FLULAVAL/F LUARIX) Unknown Completed [facility] Vital Signs Vital Name Observation Time Observation Value Comments S ource height 2024-01-12 10:45:00 62 [in_i] [facility] weight-kg 2024-01-12 10:45:00 87.09 kg [facility] bmi 2024-01-12 10:45:00 35.11 kg/m2 Melva r [facility] heart rate 2024-01-12 10:45:00 84 /min [facility] blood pressure systolic 2024-01-12 10:45:00 163 mm[Hg] [facility] blood pressure diastolic 2024-01-12 10:45:00 96 mm[Hg] [facility] Systolic blood pressure 2023-11-15 18:58:00 194 mm[Hg] [facility] Diastolic blood pressure 2023-11-15 18:58:00 89 mm[Hg] [facility] Heart rate 2023-11-15 18:58:00 78 /min [facility] Body height 2023-11-15 18:58:00 157.5 cm [facility] Body weight 2023-11-15 18:58:00 90.13 kg [facility] BMI 2023-11-15 18:58:00 36.34 kg/m2 [facility] Oxygen saturation in Arterial blood by Pulse oximetry 2023-11-15 18:58:00 96 /min [facility] Heart rate 2023-11-01 17:03:00 79 /min [facility] in Arterial blood by Pulse oximetry 2023-11-01 17:03:00 96 /min [facility] Respiratory rate 2023-11-01 17:02:00 19 /min [facility] Systolic blood pressure 2023-11-01 16:59:00 133 mm[Hg] [facility] Diastolic blood pressure 2023-11-01 16:59:00 71 mm[Hg] [facility] Body temperature 2023-11-01 16:09:00 36.44 Criselda [facility] Body height 2023-10-25 18:00:00 160 cm [facility] Body weight 2023-10-25 18:00:00 89.359 kg [facility] BMI 2023-10-25 18:00:00 34.90 kg/m2 [facility] Heart rate 2023-11-01 17:03:00 79 /min [facility] Oxygen saturation in Arterial blood by Pulse oximetry 2023-11-01 17:03:00 96 /min [facility] Respiratory rate 2023-11-01 17:02:00 19 /min [facility] Systolic blood pressure 2023-11-01 16:59:00 133 mm[Hg] [facility] Diastolic blood pressure 2023-11-01 16:59:00 71 mm[Hg] [facility] Body temperature 2023-11-01 16:09:00 36.44 Criselda [facility] Body height 2023-10-25 18:00:00 160 cm [facility] Body weight 2023-10-25 18:00:00 89.359 kg [facility] BMI 2023-10-25 18:00:00 34.90 kg/m2 [facility] Systolic blood pressure 2023-10-20 20:07:00 176 mm[Hg] [facility] Diastolic blood pressure 2023-10-20 20:07:00 84 mm[Hg] [facility] Heart rate 2023-10-20 20:07:00 81 /min [facility] Respiratory rate 2023-10-20 20:07:00 18 /min [facility] Body height 2023-10-20 20:07:00 160 cm [facility] Body weight 2023-10-20 20:07:00 89.449 kg [facility] BMI 2023-10-20 20:07:00 34.93 kg/m2 [facility] Oxygen saturation in Arterial blood by Pulse oximetry 2023-10-20 20:07:00 95 /min [facility] Body height 2023-10-14 13:25:00 157.5 cm [facility] Body weight 2023-10-14 13:25:00 89.359 kg [facility] BMI 2023-10-14 13:25:00 36.03 kg/m2 [facility] Systolic blood pressure 2021-08-29 17:33:00 151 mm[Hg] [facility] Diastolic blood pressure 2021-08-29 17:33:00 82 mm[Hg] [facility] Heart rate 2021-08-29 17:33:00 78 /min [facility] Body height 2021-08-29 17:22:00 160 cm [facility] Body weight 2021-08-29 17:22:00 98.93 kg [facility] BMI 2021-08-29 17:22:00 38.63 kg/m2 [facility] Oxygen saturation in Arterial blood by Pulse oximetry 2021-08-29 17:22:00 97 /min [facility] Procedures Procedure Date / Time Performed Performing Clinician Source BODY FLUID DIRECT COUNT 2023-11-01 16:01:00 Yesenia Sarabia [facility] BODY FLUID CULTURE(AEROBIC/ANAEROBI C) 2023-11-01 16:01:00 Yesenia Sarabia [facility] FUNGUS (ROUTINE) CULTURE 2023-11-01 16:01:00 Yesenia Sarabia [facility] ASPIRATION JOINT LOWER EXTREMITY 2023-11-01 15:32:00 Yesenia Sarabia [facility] ASPIRATION JOINT LOWER EXTREMITY 2023-11-01 15:32:00 Yesenia Sarabia [facility] POCT GLUCOSE (AUTOMATED) 2023-11-01 13:40:00 Yesenia Sarabia [facility] POCT GLUCOSE (AUTOMATED) 2023-11-01 13:40:00 Yesenia Sarabia [facility] BASIC METABOLIC PANEL (NA, K, CL, CO2, GLUCOSE, BUN, CREATININE, CA) 2023-10-29 16:15:00 Yesenia Sarabia [facility] CBC WITH DIFF 2023-10-29 16:15:00 [facility] 2023-10-14 14:24:00 Yesenia Sarabia [facility] XR KNEE 3 VW LEFT 2023-10-14 14:09:24 Yesenia Sarabia [facility] REFERRAL- REQUEST/RESPONSE 2023-08-18 06:01:00 Doctor Unassigned, [place] [facility] DISABILITY/FMLA 2022-02-24 05:01:00 Doctor Unass igned, [place] [facility] XR KNEE <3 VW LEFT 2021-08-29 17:54:29 Yesenia Sarabia [facility] REFERRAL- REQUEST/RESPONSE 2021-08-19 06:01:00 Doctor Unassigned, [place] [facility] Encounters Start Date/Time End Date/Time Encounter Type Admission Type Attending [facility] Care Facility Care Department Encounter ID Source 2024-01-12 10:27:00 Outpatient Palma, Jody CLS CLS [id number] [facility] 2021-07-02 16:08:43 Outpatient R YESENIA SARABIA [facility] SOR [id number] [facility] 2021-05-19 20:54:10 Outpatient YESENIA SARABIA [facility] SOR [id number] [facility] 2024-02-22 08:00:00 2024-02-22 08:00:00 Outpatient R YESENIA SARABIA [facility] [id number] [facility] 2024-02-14 14:30:00 2024-02-14 15:00:00 Office Visit Agustín Sarabiaig [facility] [id number] [facility] 2024-02-14 14:30:00 2024-02-14 14:30:00 Outpatient R YESENIA SARABIA [facility] [id number] [facility] 2024-02-02 00:00:00 2024-02-02 00:00:00 (TEL) CLS CLS [id number] [facility] 2024-01-26 00:00:00 2024-01-26 00:00:00 (TEL) CLS CLS [id number] [facility] 2024-01-21 00:00:00 2024-01-21 00:00:00 (TEL) CLS CLS [id number] [facility] 2024-01-18 00:00:00 2024-01-18 08:45:41 Refill Agustín Sarabiaig Clarisa [facility] [id number] [id number] [facility] 2024-01-12 00:00:00 2024-01-12 00:00:00 Office Visit- Est Pt.- Level 4 CLS CLS [id number] [facility] 2023-11-15 14:45:00 2023-11-15 14:45:00 Office Visit Yesenia Sarabia [facility] [id number] 350.1.13.10 4.2.7.2.686 [id number] [facility] 2023-11-15 14:45:00 2023-11-15 14:42:24 Outpatient R YESENIA SARABIA [facility] [id number] [facility] 2023-11-01 08:14:00 2023-11-01 12:09:00 Outpatient R YESENIA SARABIA [facility] SOR [id number] [facility] 2023-11-01 08:14:00 2023-11-01 12:09:00 Hospital Encounter Yesenia Sarabia [facility] [id number] [id number] [id number] [id number] [facility] 2023-11-01 11:40:00 2023-11-01 12:05:00 Surgery Yesenia Sarabia [facility] [id number] [id number] 4.2.7.2.686 [id number] [facility] 2023-10-29 10:54:02 2023-10-29 23:59:00 Hospital Encounter Yesenia Sarabia [facility] [id number] [id number] [id number] [id number] [facility] 2023-10-29 11:00:00 2023-10-29 11:15:00 Pelts Skinner Visit Pob, Adc Lab Main Yesenia Sarabia Clarisa [facility] [id number] 350.1.13.10 4.2.7.2.686 [id number] [facility] 2023-10-29 10:52:34 2023-10-29 10:53:00 Outpatient R YESENIA SARABIA [facility] [id number] [facility] 2023-10-29 10:52:34 2023-10-29 10:53:00 Hospital Encounter Yesenia Sarabia [facility] [id number] [id number] 4.2.7.2.686 [id number] [facility] 2023-10-22 00:00:00 2023-10-22 00:00:00 Outpatient GC_GCBZW_Ka diyala_S PRIV PRIV [id number] [facility] 2023-10-22 00:00:00 2023-10-22 00:00:00 Outpatient R YESENIA SARABIA [facility] [id number] [facility] 2023-10-21 00:00:00 2023-10-21 00:00:00 Prep For Surgery Yesenia Sarabia [facility] 1..114 350.1.13.10 [id number] [id number] [facility] 2023-10-20 15:15:00 2023-10-20 15:50:11 Outpatient R YESENIA SARABIA [facility] [id number] [facility] 2023-10-20 15:15:00 2023-10-20 15:50:11 Office Visit Yesenia Sarabia [facility] [id number] 350.1.13.10 [id number] [id number] [facility] 2023-10-18 00:00:00 2023-10-18 00:00:00 Telephone Yesenia [place] [facility] 1.84.114 350.1.13.10 4.2.7.2.686 [id number] [facility] 2023-10-14 09:06:14 2023-10-14 23:59:00 Outpatient R YESENIA SARABIA [facility] [id number] [facility] 2023-10-14 09:06:14 2023-10-14 23:59:00 Hospital Encounter Yesenia Sarabia [facility] BU[facility] 1.2.840.114 350.1.13.10 4.2.7.2.686 [id number] [facility] 2023-10-14 09:45:00 2023-10-14 10:00:00 Pelts Skinner Visit Lab, Marito - Logan Yesenia Sarabia [facility] OFF[facility] BU[facility] 1.2.840.114 350.1.13.10 4.2.7.2.686 [id number] [facility] 2023-10-14 08:00:00 2023-10-14 09:18:54 Office Visit Yesenia Sarabia [facility] MED[facility] OFF[facility] BUILD[facility] 1.2.840.114 350.1.13.10 4.2.7.2.686 [id number] [facility] 2023-09-24 00:00:00 2023-09-24 00:00:00 Outpatient GC_GCBZW_Ka diyala_S PRIV PRIV [id number] [facility] 2023-09-20 00:00:00 2023-09-20 00:00:00 Outpatient GC_GCBZW_Ka diyala_S PRIV PRIV [id number] [facility] 2023-09-18 00:00:00 2023-09-18 00:00:00 Outpatient GC_GCBZW_Ka diyala_S PRIV PRIV [id number] [facility] 2023-09-06 00:00:00 2023-09-06 00:00:00 Outpatient GC_GCBZW_Ka diyala_S PRIV PRIV [id number] [facility] 2023-08-30 00:00:00 2023-08-30 00:00:00 Outpatient GC_GCBZW_Ka diyala_S PRIV PRIV [id number] [facility] 2023-08-18 00:00:00 2023-08-18 00:00:00 Outpatient GC_GCBZW_Ka diyala_S PRIV PRIV [id number] [facility] 2023-08-18 00:00:00 2023-08-18 00:00:00 Orders Only Doctor Unassigned, [place] [address].840.114 350.1.13.10 4.2.7.2.686 [id number] [id number] [facility] 2023-08-12 00:00:00 2023-08-12 00:00:00 Outpatient GC_GCBZW_Ka diyala_S PRIV PRIV [id number] [facility] 2023-05-16 00:00:00 2023-05-16 00:00:00 Outpatient GC_GCBZW_Ka diyala_S PRIV PRIV [id number] [facility] 2022-02-24 00:00:00 2022-02-24 00:00:00 Orders Only Doctor Unassigned, [place] [address]840.114 350.1.13.10 4.2.7.2.686 [id number] [id number] [facility] 2021-10-20 00:00:00 2021-10-20 00:00:00 Letter (Out) Yesenia Sarabia [facility] 1.2.840.114 350.1.13.10 4.2.7.2.686 [id number] [facility] 2021-10-20 00:00:00 2021-10-20 00:00:00 Letter (Out) [place], [facility] [place] [facility] MED[facility] OFFICE BUILDING 1.2.840.114 350.1.13.10 4.2.7.2.686 [id number] [facility] 2021-08-29 11:45:00 2021-08-29 23:59:00 Outpatient R SARABIAYESENIA WILLIS [facility] [id number] [facility] 2021-08-29 11:45:00 2021-08-29 23:59:00 Hospital Encounter Yesenia Sarabia [facility] MEDICAL OFFICE BUILDING 1.2.840.114 350.1.13.10 4.2.7.2.686 [id number] [facility] 2021-08-29 11:00:00 2021-08-29 11:15:00 Office Visit Vincent Agustin [facility] MED[facility] OFF[facility] BUILD[facility] 1.2.840.114 350.1.13.10 4.2.7.2.686 [id number] [facility] 2021-08-29 11:00:00 2021-08-29 11:00:00 Outpatient VINCENT MYERS [facility] [id number] [facility] 2021-08-19 00:00:00 2021-08-19 00:00:00 Orders Only Doctor Unassigned, [place] [facility] 1..840.114 350.1.13.10 4.2.7.2.686 [id number] [id number] [facility] 2021-07-31 11:15:00 2021-07-31 11:15:00 Outpatient VINCENT MYERS [facility] [id number] [facility] 2021-07-31 11:15:00 2021-07-31 11:15:00 Outpatient VINCENT MYERS [facility] [id number] [facility] 2021-07-29 13:28:03 2021-07-29 23:59:00 Outpatient VINCENT MYERS [facility] [id number] [facility] 2021-07-29 13:28:03 2021-07-29 23:59:00 Hospital Encounter Vincent Agustin [facility] MEDICAL OFFICE BUILDING 1.2.840.114 350.1.13.10 4.2.7.2.686 [id number] [facility] 2021-07-29 13:28:03 2021-07-29 23:59:00 Outpatient R NIKOLE [facility] [id number] [facility] 2021-07-29 13:15:00 2021-07-29 13:30:00 Office Visit Nikole [facility] MEDICAL OFFICE BUILDING 1..840.114 350.1.13.10 4.2.7.2.686 [id number] [facility] 2021-07-29 13:15:00 2021-07-29 13:15:00 Outpatient R NIKOLE [facility] [id number] [facility] 2021-07-28 00:00:00 2021-07-28 00:00:00 Telephone Yesenia Sarabia [facility]?[place] [facility] MEDICAL OFFICE BUILDING 1.2.840.114 350.1.13.10 4.2.7.2.686 [id number] [facility] 2021-07-25 09:00:00 2021-07-25 09:00:00 Outpatient R NIKOLE [facility] [id number] [facility] 2021-07-17 00:00:00 2021-07-17 00:00:00 Telephone Yesenia Sarabia [facility] [place] [facility] MEDICAL OFFICE BUILDING 1.2.840.114 350.1.13.10 4.2.7.2.686 [id number] [facility] 2021-07-17 00:00:00 2021-07-17 00:00:00 Telephone Yesenia Sarabia [facility] 1.840.114 350.1.13.10 4.2.7.2.686 [id number] [facility] 2021-07-17 00:00:00 2021-07-17 00:00:00 Orders Only Doctor Unassigned, [place] [facility] 1.2840.114 350.1.13.10 4.2.7.2.686 [id number] [id number] [facility] 2021-07-16 00:00:00 2021-07-16 00:00:00 Telephone Yesenia Sarabia [facility] 1.840.114 350.1.13.10 4.2.7.2.686 [id number] [facility] 2021-07-14 10:19:00 2021-07-15 15:00:00 Outpatient R YESENIA SARABIA [facility] SOR [id number] [facility] 2021-07-14 10:19:00 2021-07-15 15:00:00 Hospital Encounter Yesenia Sarabia [facility] 1.840.114 350.1.13.10 4.2.7.2.686 [id number] [facility] 2021-07-14 12:35:00 2021-07-14 15:54:00 Surgery Yesenia Sarabia [facility] 1.2840.114 350.1.13.10 4.2.7.2.686 [id number] [facility] 2021-07-14 00:00:00 2021-07-14 00:00:00 Orders Only Doctor Unassigned, [place] [facility] 1.2840.114 350.1.13.10 4.2.7.2.686 [id number] [id number] [facility] 2021-07-11 11:15:00 2021-07-11 11:30:00 Laboratory Only Only, Adc Test Yesenia Sarabia [facility] 1.840.114 350.1.13.10 4.2.7.2.686 [id number] [facility] 2021-07-11 11:15:00 2021-07-11 11:15:00 Outpatient R YESENIA SARABIA [facility] [id number] [facility] 2021-07-11 00:00:00 2021-07-11 00:00:00 Orders Only Doctor Unassigned, [place] [facility] 1.84.114 350.1.13.10 4.2.7.2.686 [id number] [id number] [facility] 2021-07-10 14:32:10 2021-07-10 23:59:00 Outpatient R YESENIA SARABIA [facility] [id number] [facility] 2021-07-10 12:00:00 2021-07-10 23:59:00 Hospital Encounter Yesenia Sarabia [facility] 1.84.114 350.1.13.10 4.2.7.2.686 [id number] [facility] 2021-07-10 14:31:09 2021-07-10 14:31:09 Outpatient R YESENIA SARABIA [facility] [id number] [facility] 2021-07-10 11:45:00 2021-07-10 11:59:00 Hospital Encounter Yesenia Sarabia [facility] 1.84.114 350.1.13.10 4.2.7.2.686 [id number] [facility] 2021-07-10 11:30:00 2021-07-10 11:45:00 Pelts Skinner Visit Pob, Adc Lab Main Yesenia Sarabia [facility] NAL BUILDING 1.2.840.114 350.1.13.10 4.2.7.2.686 [id number] [facility] 2021-06-30 00:00:00 2021-06-30 00:00:00 Telephone Yesenia [facility] MEDICAL OFFICE BUILDING 1..840.114 350.1.13.10 4.2.7.2.686 [id number] 198 [id number] [facility] 2021-06-30 00:00:00 2021-06-30 00:00:00 Prep For Surgery Yesenia Sarabia [facility] [place] [facility] MEDICAL OFFICE BUILDING 1..840.114 350.1.13.10 4.2.7.2.686 [id number] 198 [id number] [facility] 2021-06-27 00:00:00 2021-06-27 00:00:00 Telephone Olayinka Ricardo [facility] NAL BUILDING 1..840.114 350.1.13.10 4.2.7.2.686 [id number] [facility] 2021-06-26 09:00:00 2021-06-26 11:19:13 Outpatient R YESENIA SARABIA [facility] [id number] [facility] 2021-06-26 09:00:00 2021-06-26 11:19:13 Outpatient R YESENIA SARABIA [facility] [id number] [facility] 2021-06-26 08:43:47 2021-06-26 11:19:13 Office Visit Yesenia [facility]ab[facility] MEDICAL OFFICE BUILDING 1.2.840.114 350.1.13.10 4.2.7.2.686 [id number] [facility] 2021-06-26 09:00:00 2021-06-26 09:00:00 Outpatient R YESENIA SARABIA [facility] [id number] [facility] 2021-06-17 00:00:00 2021-06-17 00:00:00 Telephone Yesenia Sarabia [facility] MEDICAL OFFICE BUILDING 1.2.840.114 350.1.13.10 4.2.7.2.686 [id number] [facility] 2021-06-16 00:00:00 2021-06-16 00:00:00 Orders Only Doctor Unassigned, [place] [facility] 1..840.114 350.1.13.10 4.2.7.2.686 [id number] [id number] [facility] 2021-05-14 13:01:51 2021-05-14 13:16:51 Office Visit [facility] [place] [facility] 1..840.114 350.1.13.10 4.2.7.2.686 [id number] [facility] 2021-05-14 13:00:00 2021-05-14 13:00:00 [id number] 2021-05-08 00:00:00 2021-05-08 00:00:00 Orders Only Doctor Unassigned, [place] [facility] 1.2840.114 350.1.13.10 4.2.7.2.686 [id number] [id number] [facility] 2021-04-14 13:35:00 2021-04-14 23:59:00 Hospital Encounter [facility] Medical Office Building 1.2.840.114 350.1.13.10 4.2.7.2.686 [id number] [facility] 2021-04-14 13:35:00 2021-04-14 23:59:00 Out[facility]IN[facility] [id number] [facility] 2021-04-14 13:45:00 2021-04-14 13:45:00 Outpatient R NIKOLE [facility] [id number] [facility] 2021-04-14 13:12:59 2021-04-14 13:27:59 Office Visit [facility]?Guillaume lopez Medical Office Building 1.2840.114 350.1.13.10 4.2.7.2.686 [id number] [facility] 2021-04-04 00:00:00 2021-04-04 00:00:00 Patient Secure Msg Doctor Unassigned, [place] [facility] 1.2840.114 350.1.13.10 4.2.7.2.686 [id number] [facility] 2021-03-31 06:35:00 2021-03-31 15:05:00 [facility] 1.2840.114 350.1.13.10 4.2.7.2.686 [id number] [facility] 2021-03-31 07:30:00 2021-03-31 09:59:00 Surgery Yesenia Sarabia [facility] 1.2840.114 350.1.13.10 4.2.7.2.686 [id number] [facility] 2021-03-31 00:00:00 2021-03-31 00:00:00 Refill Nik[facility] Surgical Specialti [facility] 1.2840.114 350.1.13.10 4.2.7.2.686 [id number] [facility] 2021-03-31 00:00:00 2021-03-31 00:00:00 Orders Only Doctor Unassigned, [place] [facility] 1.2.840.114 350.1.13.10 4.2.7.2.686 [id number] [id number] [facility] 2021-03-28 10:00:00 2021-03-28 23:59:00 Hospital Encounter Yesenia Sarabia [facility] 1.2.840.114 350.1.13.10 4.2.7.2.686 [id number] [facility] 2021-03-28 13:30:08 2021-03-28 13:45:08 Laboratory Only Only, Adc Test Yesenia Sarabia [facility] 1.2.840.114 350.1.13.10 4.2.7.2.686 [id number] [facility] 2021-03-28 13:24:59 2021-03-28 13:39:59 Pelts Skinner Visit Pob, Adc Lab Main Yesenia Sarabia [facility] 1.2.840.114 350.1.13.10 4.2.7.2.686 [id number] [facility] 2021-03-28 08:00:00 2021-03-28 09:59:00 Hospital Encounter Yesenia Sarabia [facility] 1.2.840.114 350.1.13.10 4.2.7.2.686 [id number] [facility] 2021-03-28 00:00:00 2021-03-28 00:00:00 Outpatient R YESENIA SARABIA [facility] [id number] [facility] 2021-03-25 00:00:00 2021-03-25 00:00:00 Telephone Yesenia Sarabia Clarisa [facility] Health [facility] 1.2.840.114 350.1.13.10 4.2.7.2.686 [id number] [facility] 2021-03-17 00:00:00 2021-03-17 00:00:00 Orders Only Doctor Unassigned, [place] [facility] 1.2.840.114 350.1.13.10 4.2.7.2.686 [id number] [id number] [facility] 2021-03-17 00:00:00 2021-03-17 00:00:00 Prep For Surgery Yesenia Sarabia [facility] 1..840.114 350.1.13.10 4.2.7.2.686 [id number] [facility] 2021-03-17 00:00:00 2021-03-17 00:00:00 Telephone [facility] Medical Office Building 1..840.114 350.1.13.10 4.2.7.2.686 [id number] 198 [id number] [facility] 2021-03-12 00:00:00 2021-03-12 00:00:00 Telephone [facility] Medical Office Building 1.2.840.114 350.1.13.10 4.2.7.2.686 [id number] [facility] 2021-03-09 00:00:00 2021-03-09 00:00:00 [facility] 1..840.114 350.1.13.10 4.2.7.2.686 [id number] [facility] 2021-03-07 10:37:43 2021-03-07 23:59:00 [id number] 2021-03-07 09:20:00 2021-03-07 09:47:20 [facility] [id number] [facility] 2021-03-07 09:16:38 2021-03-07 09:47:20 [facility] 1.2840.114 350.1.13.10 4.2.7.2.686 [id number] [facility] 2021-03-07 09:16:38 2021-03-07 09:47:20 Office Visit Haleigh [facility] BUILDING 1..114 350.1.13.10 4.2.7.2.686 [id number] [facility] 2021-03-07 09:20:00 2021-03-07 09:20:00 Outpatient R [facility] [id number] [facility] 2021-03-07 00:00:00 2021-03-07 00:00:00 Telephone Haleigh [facility] 1.84.114 350.1.13.10 4.2.7.2.686 [id number] [facility] 2021-03-07 00:00:00 2021-03-07 00:00:00 Telephone Vincent Agustin [facility]Guillaume jessica Medical Office Building 1.84.114 350.1.13.10 4.2.7.2.686 [id number] [facility] 2021-03-06 10:30:00 2021-03-06 10:30:00 Outpatient R VINCENT AGUSTIN [facility] [id number] [facility] 2021-03-06 00:00:00 2021-03-06 00:00:00 Patient Secure Msg Doctor Unassigned, [place] [facility] 1.840.114 350.1.13.10 4.2.7.2.686 [id number] [facility] 2021-03-05 00:00:00 2021-03-05 00:00:00 Refill Yesenia Sarabia [facility] Surgical Specialti [place] 1.2.840.114 350.1.13.10 4.2.7.2.686 [id number] [facility] 2021-01-02 16:00:00 2021-01-02 16:00:00 Outpatient R NIKOLE [facility] [id number] [facility] 2021-01-02 15:41:45 2021-01-02 15:56:45 Office Visit Nikole [facility] Surgical Specialti libra [place] 1.2.840.114 350.1.13.10 4.2.7.2.686 [id number] [facility] 2020-12-26 00:00:00 2020-12-26 00:00:00 Telephone Sarabia Yesenia Mckenna [facility] Surgical Specialti libra [place] 1.2.840.114 350.1.13.10 4.2.7.2.686 [id number] [facility] 2020-12-20 00:00:00 2020-12-20 00:00:00 Telephone Nikole [facility] Surgical Specialti [place] 1.2.840.114 350.1.13.10 4.2.7.2.686 [id number] [facility] 2020-12-06 08:37:34 2020-12-06 23:59:00 Hospital Encounter Nikole [facility] Surgical Specialti [place] 1.2.840.114 350.1.13.10 4.2.7.2.686 [id number] [facility] 2020-12-06 08:37:34 2020-12-06 23:59:00 Outpatient VINCENT AGUSTIN [facility] [id number] [facility] 2020-12-06 08:37:34 2020-12-06 23:59:00 Outpatient VINCENT AGUSTIN [facility] [id number] [facility] 2020-12-06 08:16:04 2020-12-06 09:36:38 [facility] Surgical Specialti libra [place] 1.2.840.114 350.1.13.10 4.2.7.2.686 [id number] [facility] 2020-12-06 08:30:00 2020-12-06 08:30:00 Outpatient R VINCENT AGUSTIN [facility] [id number] [facility] 2020-11-25 00:00:00 2020-11-25 00:00:00 Orders Only Doctor Unassigned, [place] [facility] 1.2.840.114 350.1.13.10 4.2.7.2.686 [id number] [facility] 2020-10-29 00:00:00 2020-10-29 00:00:00 Orders Only Doctor Unassigned, [place] [facility] 1.2.840.114 350.1.13.10 4.2.7.2.686 [id number] [facility] 2020-10-15 00:00:00 2020-10-15 00:00:00 Orders Only Doctor Unassigned, [place] [facility] 1.2840.114 350.1.13.10 4.2.7.2.686 [id number] [id number] [facility] 2020-09-28 00:00:00 2020-09-28 00:00:00 Patient Outreach Usama Arteaga [facility] 1.2.840.114 350.1.13.10 4.2.7.2.686 [id number] [facility] 2020-09-11 00:00:00 2020-09-11 00:00:00 Orders Only Doctor Unassigned, [place] [facility] 1.2.840.114 350.1.13.10 4.2.7.2.686 [id number] [facility] 2020-08-16 10:00:00 2020-08-16 10:00:00 Outpatient R OLAYINKA RICARDO [facility] [id number] [facility] 2020-08-13 14:11:28 2020-08-13 23:59:00 Hospital Encounter Eze Vallejo [facility] 1.20.114 350.1.13.10 4.2.7.2.686 [id number] [facility] 2020-08-13 14:16:27 2020-08-13 14:31:27 Pelts Skinner Visit Podora, Adc Lab Main Pj Mora [facility] 1..114 350.1.13.10 4.2.7.2.686 [id number] [facility] 2020-08-13 14:10:27 2020-08-13 14:10:27 Outpatient R MAXIMUSEZE VILLATORO [facility] [id number] [facility] 2020-08-13 14:10:27 2020-08-13 14:10:27 Hospital Encounter Eze Vallejo [facility] 1.2.114 350.1.13.10 4.2.7.2.686 [id number] [facility] 2020-08-13 00:00:00 2020-08-13 00:00:00 Orders Only Doctor Unassigned, [place] [facility] 1.2.114 350.1.13.10 4.2.7.2.686 [id number] [facility] 2020-08-06 09:29:10 2020-08-06 09:44:10 Office Visit Vincent Agustin [facility] Health Surgical Specialti [facility] 1.2.840.114 350.1.13.10 4.2.7.2.686 [id number] [facility] 2020-08-06 09:30:00 2020-08-06 09:30:00 Outpatient VINCENT MYERS [facility] [id number] [facility] 2020-07-17 00:00:00 2020-07-17 00:00:00 Orders Only Doctor Unassigned, [place] [facility] 1.0.114 350.1.13.10 4.2.7.2.686 [id number] [facility] 2020-07-09 09:13:48 2020-07-09 23:59:00 Outpatient VINCENT MYERS [facility] [id number] [facility] 2020-07-09 09:13:48 2020-07-09 23:59:00 [facility] [id number] 2020-07-09 09:13:48 2020-07-09 23:59:00 Hospital Encounter [facility] 1.0.114 350.1.13.10 4.2.7.2.686 [id number] [facility] 2020-07-09 08:45:28 2020-07-09 09:27:23 Office Visit [facility] 1.2840.114 350.1.13.10 4.2.7.2.686 [id number] [facility] 2020-06-24 09:13:00 2020-06-25 13:00:00 Outpatient R YESENIA SARABIA [facility] [id number] [facility] 2020-06-24 09:13:00 2020-06-25 13:00:00 Hospital Encounter Yesenia Sarabia [facility] 1..114 350.1.13.10 4.2.7.2.686 [id number] [facility] 2020-06-21 14:31:45 2020-06-21 14:46:45 [facility] Visit Pob, Adc Lab [facility] 1.20.114 350.1.13.10 4.2.7.2.686 [id number] [facility] 2020-06-21 14:17:58 2020-06-21 14:32:58 Laboratory Only Only, Adc Test Yesenia Sarabia [facility] 1.20.114 350.1.13.10 4.2.7.2.686 [id number] [facility] 2020-06-21 14:15:00 2020-06-21 14:15:00 Outpatient R YESENIA SARABIA [facility] [id number] [facility] 2020-06-21 00:00:00 2020-06-21 00:00:00 Orders Only Doctor Unassigned, [place] [facility] 1.2840.114 350.1.13.10 4.2.7.2.686 [id number] [facility] 2020-06-10 00:00:00 2020-06-10 00:00:00 Prep For Surgery Yesenia Sarabia [facility] [place] 1.2840.114 350.1.13.10 4.2.7.2.686 [id number] [facility] 2020-06-10 00:00:00 2020-06-10 00:00:00 Prep For Surgery Yesenia Sarabia [facility] [place] 1.2.840.114 350.1.13.10 4.2.7.2.686 [id number] 2020-06-05 14:35:26 2020-06-05 14:50:26 Office Visit Vincent Agustin [facility] [place] 1.2840.114 350.1.13.10 4.2.7.2.686 [id number] [facility] 2020-06-05 14:35:26 2020-06-05 14:50:26 Office Visit Vincent Agustin [facility] [place] 1.2.840.114 350.1.13.10 4.2.7.2.686 [id number] 2020-06-05 14:30:00 2020-06-05 14:30:00 Outpatient R VINCENT AGUSTIN [facility] [id number] [facility] 2020-05-29 00:00:00 2020-05-29 00:00:00 Telephone Yesenia Sarabia [facility] [place] 1.2.840.114 350.1.13.10 4.2.7.2.686 [id number] 198 [id number] [facility] 2020-05-23 00:00:00 2020-05-23 00:00:00 Telephone No Yesenia L [facility] Surgical Special libra [place] 1.2.840.114 350.1.13.10 4.2.7.2.686 [id number] 198 [id number] [facility] 2020-05-22 12:09:00 2020-05-22 23:59:00 Hospital Encounter No Yesenia Clarisa [facility] 1.2.840.114 350.1.13.10 4.2.7.2.686 [id number] [facility] 2020-05-22 00:00:00 2020-05-22 00:00:00 Orders Only Doctor Unassigned, [place] [facility] 1.2.840.114 350.1.13.10 4.2.7.2.686 [id number] 009 [id number] [facility] 2020-05-17 12:41:20 2020-05-17 23:59:00 Hospital Encounter Agustín Sarabiaig Clarisa [facility] 1.2.840.114 350.1.13.10 4.2.7.2.686 [id number] [facility] 2020-05-17 12:36:11 2020-05-17 12:51:11 Pelts Skinner Visit Cl, Adc Lab Main Yesenia Sarabia [facility] Building 1..114 350.1.13.10 4.2.7.2.686 [id number] [facility] 2020-05-17 10:25:36 2020-05-17 11:09:24 Office Visit Yesenia Sarabia [facility] Health Surgical Specialti [facility] 1..114 350.1.13.10 4.2.7.2.686 [id number] 198 [id number] [facility] 2020-05-17 10:30:00 2020-05-17 10:30:00 Outpatient R YESENIA SARABIA [facility] [id number] [facility] 2020-05-17 00:00:00 2020-05-17 00:00:00 Orders Only Doctor Unassigned, [place] [facility] 1.0.114 350.1.13.10 4.2.7.2.686 [id number] [id number] [facility] 2020-05-09 11:06:42 2020-05-09 23:59:00 Hospital Encounter Yesenia Sarabia [facility] 1.0.114 350.1.13.10 4.2.7.2.686 [id number] [facility] 2020-05-09 15:15:00 2020-05-09 15:15:00 Outpatient R NO YESENIA [facility] [id number] [facility] 2020-05-09 14:40:14 2020-05-09 14:55:14 Pelts Skinner Visit Cl, Adc Lab Main Yesenia Sarabia [facility] 1..114 350.1.13.10 4.2.7.2.686 [id number] [facility] 2020-05-09 13:41:15 2020-05-09 14:16:18 Office Visit Yesenia Sarabia [facility] Surgical Specialarcelia [place] 1.2.840.114 350.1.13.10 4.2.7.2.686 [id number] [facility] 2020-05-09 10:30:00 2020-05-09 10:45:00 Office Visit Yesenia Sarabia [facility] Surgical Special lib[facility] [place] 1.2.840.114 350.1.13.10 4.2.7.2.686 [id number] [facility] 2020-05-09 10:30:00 2020-05-09 10:30:00 [facility] [id number] [facility] 2020-05-08 00:00:00 2020-05-08 00:00:00 Telephone Yesenia Sarabia [facility] Surgical [facility] libra [place] 1.2.840.114 350.1.13.10 4.2.7.2.686 [id number] [facility] 2020-04-30 00:00:00 2020-04-30 00:00:00 Orders Only Doctor Unassigned, [place] [facility] 1.2.840.114 350.1.13.10 4.2.7.2.686 [id number] [id number] [facility] 2020-03-20 00:00:00 2020-03-20 00:00:00 Telephone Yesenia Sarabia [facility] Surgical [facility] libra [place] 1.2.840.114 350.1.13.10 4.2.7.2.686 [id number] [facility] 2020-02-22 00:00:00 2020-02-22 00:00:00 Orders Only Doctor Unassigned, [place] [facility] 1.2.840.114 350.1.13.10 4.2.7.2.686 [id number] [id number] [facility] 2020-02-13 00:00:00 2020-02-13 00:00:00 Orders Only Doctor Unassigned, [place] [facility] 1.2.840.114 350.1.13.10 4.2.7.2.686 [id number] [id number] [facility] 2019-11-08 00:00:00 2019-11-08 00:00:00 Orders Only Doctor Unassigned, [place] [facility] 1.2.840.114 350.1.13.10 4.2.7.2.686 [id number] [id number] [facility] 2019-11-02 13:45:00 2019-11-02 13:45:00 [facility] [id number] 2019-11-02 08:01:19 2019-11-02 08:16:19 Telemedici ne Visit Nikole [facility] Surgical Special es [place] 1.2.840.114 350.1.13.10 4.2.7.2.686 [id number] [facility] 2019-09-28 00:00:00 2019-09-28 00:00:00 Letter (Out) [facility] Surgical Specialti es [place] 1.2.840.114 350.1.13.10 4.2.7.2.686 [id number] [facility] 2019-09-13 00:00:00 2019-09-13 00:00:00 [facility] [place] 1.2.840.114 350.1.13.10 4.2.7.2.686 [id number] [facility] 2019-09-11 00:00:00 2019-09-11 00:00:00 [facility] [place] 1.2.840.114 350.1.13.10 4.2.7.2.686 [id number] 198 [id number] [facility] 2019-09-07 07:55:18 2019-09-07 08:10:18 Office Visit Agustin [facility] Surgical Specialarcelia [place] 1.2.840.114 350.1.13.10 4.2.7.2.686 [id number] [facility] 2019-09-07 00:00:00 2019-09-07 00:00:00 Orders Only Doctor Unassigned, [place] [facility] 1.2.840.114 350.1.13.10 4.2.7.2.686 [id number] [id number] [facility] 2019-09-07 00:00:00 2019-09-07 00:00:00 Letter (Out) [facility] Surgical [facility] libra [place] 1.2840.114 350.1.13.10 4.2.7.2.686 [id number] 198 [id number] [facility] 2019-08-24 00:00:00 2019-08-24 00:00:00 Orders Only Doctor Unassigned, [place] [facility] 1.2.840.114 350.1.13.10 4.2.7.2.686 [id number] [id number] [facility] 2019-07-31 14:24:05 2019-07-31 23:59:00 Outpatient NIKOLE [facility] [id number] [facility] 2019-07-31 14:24:00 2019-07-31 23:59:00 Hospital Encounter Lucas [facility] Surgical Specialarcelia [place] 1.2.840.114 350.1.13.10 4.2.7.2.686 [id number] [facility] 2019-07-31 13:50:19 2019-07-31 15:07:02 Office Visit Yesenia Sarabia [facility] Surgical Specialarcelia [place] 1.2.840.114 350.1.13.10 4.2.7.2.686 [id number] [facility] 2019-07-17 09:03:00 2019-07-18 14:40:00 Inpatient YESENIA OLIVEROS [facility] SOR [id number] [facility] 2019-07-10 15:22:42 2019-07-10 15:24:00 Outpatient YESENIA OLIVEROS [facility] [id number] [facility] 2019-06-23 08:07:23 2019-06-23 23:59:00 Outpatient YESENIA SARABIA [facility] [id number] [facility] Results Test Description Test Time Test Comments Results Result Co mments Source [facility] [id number] 18:15:13* Test Item Value Reference Range Interpretation Comme nts BF COLOR (test code = 1280149371) Yellow BF WBC Count (test code = 7594472862) 287 0-150 BF RBC Count (test code = 5926269489) 3000 See_Comment [Automated me ssage] The system which generated this result transmitted reference range: /?L. The reference range was not used to interpret this result as normal/abnormal. [facility] GLUCOSE (AUTOMATED)2023-11-01 13:41:16* Test Item Value Reference Range Interpretation Comme [facility] POCT GLU (test code = 3588740000) 161 mg/dL 70-110 H Lab Interpretation (test cod e = 52823-8) Abnormal [facility] GLUCOSE (AUTOMATED)2023-11-01 13:41:16* Test Item Value Reference Range Interpretation Comme [facility] POCT GLU (test code = 4202197635) 161 mg/dL 70-110 H Lab Interpretation (test cod e = 73879-6) [facility]normal [facility] (NA, K, CL, CO2, GLUCOSE, BUN, CREATININE, CA)2023-10-29 16:57:30* Test Item Value Reference Range Interpretation Comme [facility] NA (test code = 2845746296) 136 mmol/L 135-145 K (test code = 8242143393) 4.4 mmol/L 3.5-5.0 CL (test code = 1689736004) 101 mmol/L 98-108 CO2 TOTAL (test code = 2990848243) 28 mmol/L 23-31 AGAP (test code = 8230189762) 7 2-16 BUN (test code = 4498422234) 30 mg/dL 7-23 H GLUCOSE (test code = 3159270594) 254 mg/dL 70-110 H CREATININE (test code = 2160-0) 1.02 mg/dL 0.50-1.04 CALCIUM (test code = 0313290456) 8.5 mg/dL 8.6-10.6 L eGFR (test code = 69792-1) 62.3 mL/min/1.73m2 CKD-EPI eGFR (2020). Assuming creatinine has been stable day-to-day for at least three months, the eGFR indicates Category G2 (60 - 89 mL/min/1.73 m2) Lab Interpretation (test code = 46557-4) Abnormal [facility] METABOLIC PANEL (NA, K, CL, CO2, GLUCOSE, BUN, CREATININE, CA)2023-10-29 16:57:30* Test Item Value Reference Range Interpretation Comme nts NA (test code = 9612023453) 136 mmol/L 135-145 K (test code = 5774433720) 4.4 mmol/L 3.5-5.0 CL (test code = 5177802996) 101 mmol/L 98-108 CO2 TOTAL (test code = 9629980131) 28 mmol/L 23-31 AGAP (test code = 2190870792) 7 2-16 BUN (test code = 3552066613) 30 mg/dL 7-23 H GLUCOSE (test code = 6736211694) 254 mg/dL 70-110 H CREATININE (test code = 2160-0) 1.02 mg/dL 0.50-1.04 CALCIUM (test code = 5200793099) 8.5 mg/dL 8.6-10.6 L eGFR (test code = 45490-9) 62.3 mL/min/1.73m2 CKD-EPI eGFR (2020). Assuming creatinine has been stable day-to-day for at least three months, the eGFR indicates Category G2 (60 - 89 mL/min/1.73 m2) Lab Interpretation (test code = 76424-6) Abnormal [facility] WITH [id number] 16:36:09* Test Item Value Reference Range Interpretation [...] 32.2 g/dL 31.6-35.1 RDW-SD (test code = 86705-3) 47.5 fL 39.0-49.9 RDW-CV (test code = 788-0) 14.1 % 12.0-15.5 PLT (test code = 777-3) 290 166-358 MPV (test code = 98409-2) 9.8 fL 9.5-12.9 NRBC/100 WBC (test code = 4102676710) 0.0 0.0-10.0 NRBC x10^3 (test code = 8819446689) See_Comment [Automated messa ge] The system which generated this result transmitted reference range: 10*3/?L. The reference range was not used to interpret this result as normal/abnormal. GRAN MAT (NEUT) % (test code = 770-8) 52.4 % IMM GRAN % (test code = 8115576267) 0.40 % LYMPH % (test code = 736-9) 34.6 % MONO % (test code = 5905-5) 6.9 % EOS % (test code = 713-8) 4.4 % BASO % (test code = 706-2) 1.3 % GRAN MAT x10^3(ANC) (test code = 2330117865) 3.66 10*3/uL 1.88-7.09 IMM GRAN x10^3 (test code = 1425778070) 0.03 10*3/uL 0.00-0.06 LYMPH x10^3 (test code = 731-0) 2.42 10*3/uL 1.32-3.29 MONO x10^3 (test code = 742-7) 0.48 10*3/uL 0.33-0.92 EOS x10^3 (test code = 711-2) 0.31 10*3/uL 0.03-0.39 BASO x10^3 (test code = 704-7) 0.09 10*3/uL 0.01-0.07 H Lab Interpretation (test code = 29238-8) Abnormal [facility] WITH [id number] 16:36:09* Test Item Value Reference Range Interpretation [...] 32.2 g/dL 31.6-35.1 RDW-SD (test code = 64146-7) 47.5 fL 39.0-49.9 RDW-CV (test code = 788-0) 14.1 % 12.0-15.5 PLT (test code = 777-3) 290 166-358 MPV (test code = 55893-2) 9.8 fL 9.5-12.9 NRBC/100 WBC (test code = 5050170259) 0.0 0.0-10.0 NRBC x10^3 (test code = 6628467419) See_Comment [Automated messa ge] The system which generated this result transmitted reference range: 10*3/?L. The reference range was not used to interpret this result as normal/abnormal. GRAN MAT (NEUT) % (test code = 770-8) 52.4 % IMM GRAN % (test code = 7490360590) 0.40 % LYMPH % (test code = 736-9) 34.6 % MONO % (test code = 5905-5) 6.9 % EOS % (test code = 713-8) 4.4 % BASO % (test code = 706-2) 1.3 % GRAN MAT x10^3(ANC) (test code = 1126226895) 3.66 10*3/uL 1.88-7.09 IMM GRAN x10^3 (test code = 7884371512) 0.03 10*3/uL 0.00-0.06 LYMPH x10^3 (test code = 731-0) 2.42 10*3/uL 1.32-3.29 MONO x10^3 (test code = 742-7) 0.48 10*3/uL 0.33-0.92 EOS x10^3 (test code = 711-2) 0.31 10*3/uL 0.03-0.39 BASO x10^3 (test code = 704-7) 0.09 10*3/uL 0.01-0.07 H Lab Interpretation (test code = 38302-1) Abnormal [facility] [id number] 20:17:11* Test Item Value Reference Range Interpretation Comme nts ESR (test code = 12192-5) 38 0-20 H Lab Interpretation (test cod e = 93039-3) Abnormal [facility] [id number] 20:17:11* Test Item Value Reference Range Interpretation Comme nts ESR (test code = 57541-1) 38 0-20 H Lab Interpretation (test cod e = 60777-3) Abnormal [facility] 3 VW [id number] 15:06:58XR KNEE 3 VW LEFT INDICATION: lt knee pain Room 5 COMPARISON: 08/29/2021 FINDINGS: Constrained totalknee arthroplasty in anatomic alignment. No acutefracture or dislocation. Diffuse soft tissue swelling.[facility] LIPID [id number] 06:03:34* Test Item Value Reference Range Interpretation [...] SPECIMENS. FOR MOREINFORMATION, SEE CLIENT ANNOUNCEMENT AT [email or web address] RISK RATIO LDL/HDL (test code = 2237) 5.07 RATIO <3.22 H COMPREHENSIVE METABOLIC [id number] 06:03:34* Test Item Value Reference Range Interpretation Comme nts GLUCOSE (test code = 2216) 154 MG/DL 70-99 H BUN (test code = 2207) 20 MG/DL 8-23 CREATININE (test code = 221) 0.78 MG/DL 0.60-1.30 eGFR (2020 CKD-EPI) (test code = 26994) 87 ML/MIN/1.73 >60 CALC BUN/CREAT (test code [...] code = 2219) 16 U/L 5-40 HEMOGLOBIN [id number] 05:29:44* Test Item Value Reference Range Interpretation Comme nts HEMOGLOBIN A1c (test code = 59093) 7.3 % 4.2-5.6 H [employer] GUIDELINES FOR HGB A1C: [...] CONSULTATION. UNLESS OTHERWISE INDICATED, ALL TESTING PERFORMED [facility] [employer] [address] [place] [address] LAYOUT TECHNICIAN: SREEKANTH SEAY M.D. CLIA NUMBER [id number] [facility] [place]. [id number] CBC W/AUTO DIFF WITH [id number] 04:27:32* Test Item Value Reference Range Interpretation [...] 0.00-0.10 ABS NUCLEATED RBCS (test code = 39421) 0.00 K/UL 0.00-0.11 Notes Date/Time Note Provider Source 2023-10-29 11:00:00 Images from the original note were not included. Venipuncture collection performed by clean technique on the right anticubitus. Total of 1 attempts were made. Slight pressure and a bandage/dressing were applied to the site(s). The patient experienced no complications. The following specimens were processed according to instructions and sent to [facility] laboratories per lab order on 10/29/2023: LT BLUE SST 1 RED LAV 1 PPT DK GREEN (LiHep) DK GREEN (SodH) RAYMUNDO DK BLUE (K2) DK BLUE (S) ACD Blood Culture NIPT/NTD Pt could not void at Time of Draw. Urine kit provided to bring back soon. T [facility] 2023-10-29 09:25:04 The patient was called to notify about lab work and chest x-ray. The patient stated she was unaware and will come in as soon as she can. Venecia Foster RN [facility] 2023-10-25 13:09:57 Images from the original note were not included. Your procedure is at [facility] on 11/01/23. The address is [address] [place] [address], [address]. [facility] nursing staff will call you the [...] voiced no further questions at this time. [facility] 2023-10-19 13:53:56 Patient is scheduled. Marylu Negrete [facility] 2023-10-19 09:24:19 Routed message to PSS to schedule. Results are given at appointment. Celina Latham 10/19/2023 9:24 AM T [facility] 2023-10-18 11:14:14 Patient is requesting to go over lab results. Vannesa Verduzco [facility] 2023-10-14 09:45:00 Images from the original note were not included. Venipuncture collection performed by clean technique on the right anticubitus. Total of 1 attempts were made. Slight pressure and a bandage/dressing were applied to the site(s). The patient experienced no complications. The following specimens were processed according to instructions and sent to [facility] laboratories per lab order on 10/14/2023: LT BLUE SST 1 RED LAV 1 PPT DK GREEN (LiHep) DK GREEN (SodH) RAYMUNDO DK BLUE (K2) DK BLUE (S) ACD Blood Culture NIPT/NTD [facility] hospital
[2024-03-19] MEDS ORDERED: NA CHLORIDE 0.9% 1,000 ML ONE ×2 (13:13→16:34)
[2024-03-19] MEDS ORDERED: ONDANSETRON 4 MG/2 ML VIAL ONE (13:13)
--- NOTE | 2024-03-19 13:52 | RAD REPORT ---
EXAM DESCRIPTION: RAD - Chest Single View - 03/19/2024 1:41 pm CLINICAL HISTORY: CHEST PAIN Chest pain. COMPARISON: Abdomen 1 View (KUB) dated 03/07/2024; Chest Single View dated 03/06/2024; Chest Single Vi ew dated 07/15/2023; Chest Single View dated 03/13/2023 FINDINGS: Portable technique limits examination quality. The lungs are grossly clear. The heart is upper limit of normal in size. No displaced fractures. IMPRESSION: No acute intrathoracic process suspected.
[2024-03-19 13:54] LABS: Absolute Basophils 0.2 K/uL (0-0.5); Absolute Eosinophils 0.1 K/uL (0-0.5); Absolute Lymphocytes (CBC) 1.5 K/uL (0.7-4.9); Absolute Monocytes 0.6 K/uL (0.1-1.3); Absolute Neutrophil 9.2 K/uL (1.8-8.0); Basophils % 1.4 % (0-1.3); Eosinophils % 1.2 % (0-4.4); Hematocrit 33.7 % (36.0-45.0); Hemoglobin 11.1 g/dL (12.0-15.0); Lymphocytes % 12.7 % (15.3-44.8); MCH 29.4 pg (27.0-35.0); MCHC 32.9 g/dL (32.0-36.0); MCV 89.2 fL (80-100); MPV 6.9 fL (7.6-11.3); Monocytes % 4.8 % (3.3-12.3); Neutrophils % 79.9 % (41.7-73.7); Nucleated Red Blood Cells % 0.1 % (0-0); Platelets 606 thou/uL (152-406); RBC Red Blood Cell Count 3.78 M/uL (3.86-4.86); Red Cell Distribution Width 15.1 % (12.1-15.2)
[2024-03-19 14:03] LABS: PT Prothrombin Time 12.7 SECONDS (9.4-12.5); PTT, Activated Partial Thromb 33.7 SECONDS (24.3-36.9); Protime INR 1.14
[2024-03-19 14:14] LABS: ALT/SGPT 16 U/L (13-56); Albumin/Globulin Ratio 0.6 (1.1-1.8); Alkaline Phosphatase 113 U/L (45-117); Anion Gap 7.6 mEq/L (5.0-15.0); BUN Blood Urea Nitrogen 31 mg/dL (7-18); Bicarbonate 31 mEq/L (21-32); Bilirubin Total 0.3 mg/dL (0.2-1.0); Globulin 4.9 g/dL (2.3-3.5); Glomerular Filtration Rate 30 ml/min (=/>90); Glucose Level 286 mg/dL (74-106); Potassium 5.6 mEq/L (3.5-5.1); Protein, Total 7.9 g/dL (6.4-8.2); Sodium Level 130 mEq/L (136-145)
[2024-03-19 14:15] LABS: AST/SGOT < 10 U/L (15-37)
[2024-03-19] MEDS ORDERED: ALBUTEROL 2.5 MG/3 ML NEB SOL ONE (14:54)
[2024-03-19] MEDS ORDERED: CALCIUM GLUCONATE 1 GM IVPB 1 GM/50 ML BAG IV ONE (14:55)
[2024-03-19] MEDS ORDERED: INSULIN REGULAR (HUMAN) 100 UNIT/ML ONE (14:55)
--- NOTE | 2024-03-19 15:38 | RAD REPORT ---
EXAM DESCRIPTION: CT - Abdomen Pelvis Wo Contrast - 03/19/2024 3:32 pm CLINICAL HISTORY: Abdominal pain. Flank pain;Kidney stones COMPARISON: No comparisonsNo comparisonsAbdomen Pelvis Wo Contrast dated 03/06/2024 TECHNIQUE: CT imaging of the abdomen and pelvis was performed without contrast. Solid organ, bowel a nd vascular assessment is limited due to lack of IV and oral contrast. All CT scans are performed using dose optimization technique as appropriate and may include automated exposure control or mA/KV adjustment according to patient size. FINDINGS: The lower lung villagomez are clear.Cholecystectomy clips. The liver, spleen, pancreas, adrenal glands and left kidney are within normal limits for a limited no n-contrast examination.Right kidney demonstrates a double-J stent is in place. The stent is in expect ed positioning and alignment. No stone seen along the course of the stent. No left-sided urinary trac t stone or hydronephrosis. No bowel obstruction, free air, free fluid or abscess. Moderate stool is seen throughout the colon. T he appendix is not identified as a discrete structure, however, no secondary findings of appendicitis are identified. Mild lumbosacral degenerative changes. IMPRESSION: No acute intra-abdominal or pelvic findings. Right double-J stent in expected positionin g and alignment. A limited non-contrast examination was performed as detailed.
[2024-03-19 16:57] LABS: Specific Gravity 1.018 (1.005-1.030); Sqamous Epithelial <5 /HPF (None Seen); Urine Bacteria None Seen /HPF (<20); Urine Bilirubin NEGATIVE (Negative); Urine Blood 1+ (Negative); Urine Clarity Extremely Turbid (Clear); Urine Color Light-Yellow (Yellow); Urine Crystals Unidentified Few /HPF (None Seen); Urine Culture Reflex Order REFLEXED; Urine Glucose 3+ (Negative); Urine Ketones NEGATIVE (Negative); Urine Microscopic Reflex YN ORDER UMIC; Urine Mucus Slight /HPF (None Seen); Urine Nitrite NEGATIVE (Negative); Urine Protein 1+ (Negative); Urine Urobilinogen Normal (Normal); Urine WBC 20-50 /HPF (<5); Urine Yeast (Budding) Many /HPF (None Seen); Urine pH 5.5 (5.0-7.0)
--- NOTE | 2024-03-19 17:26 | EDPHYS ---
Physician Documentation [facility] Name: Jade Shaikh Age: 63 yrs Sex: Female : 1960 Arrival Date: 03/19/2024 Time: 11:51 Bed 13 Private MD: ED Physician Gina Moreno HPI: 03/19 13:05 This 63 yrs old Female presents to ER via Wheelchair with complaints of Weakness, Low sb4 Back Pain, Nausea/Vomiting. 13:06 Patient states that she was admitted here about 2 weeks ago for pyelonephritis and sb4 nephrolithiasis. She ended up having a right ureteral stent placed. She states that she was discharged 10 days ago and has been feeling poorly since. She states initially she was having some issues urinating but that is since resolved. Now she has been very weak, had nausea, vomiting, right flank pain. Historical: - Allergies: 12:14 Sulfa (Sulfonamide Antibiotics); ap3 - PMHx: 12:14 Arthritis; diabetes mellitus; Hypertensive disorder; neuropathy; prolapsed bladder; ap3 spot on lung; - PSHx: 12:14 Appendectomy; claudia knee replacements; Cholecystectomy; Ligation of fallopian tube; mass ap3 removed from right breast (ab); Total abdominal hysterectomy; - Immunization history:: Client reports receiving the 2nd dose of the Covid vaccine. - Infectious Disease History:: Denies. - Social history:: Smoking status: Patient reports the use of cigarette tobacco products, smokes one pack cigarettes per day. ROS: 13:06 Cardiovascular: Negative for chest pain, palpitations, and edema, sb4 13:06 Constitutional: Positive for fatigue, malaise, poor PO intake, 13:06 Abdomen/GI: Positive for abdominal pain, nausea and vomiting, 13:06 All other systems are negative, Exam: 13:06 Head/Face: Normocephalic, atraumatic. Eyes: Extra-ocular motions intact. Periorbital sb4 areas with no swelling, redness, or edema. Cardiovascular: Regular rate and rhythm with a normal S1 and S2. Respiratory: Lungs have equal breath sounds bilaterally, clear to auscultation and percussion. No rales, rhonchi or wheezes noted. No increased work of breathing, no retractions or nasal flaring. Abdomen/GI: Soft, non-tender, no distension. Skin: Warm, dry with normal turgor. Normal color with no rashes, no lesions, and no evidence of cellulitis. 13:06 Constitutional: The patient appears alert, awake, obviously ill, pale, uncomfortable, vomiting Vital Signs: 12:12 BP 90 / 72; Pulse 89; Temp 97.3; Pulse Ox 100% ; Weight 89.36 kg; Pain 6/10; ap3 15:05 BP 160 / 69; Pulse 71; Resp 17 S; Pulse Ox 99% on R/A; kc6 16:42 BP 101 / 58; Pulse 68; Resp 17 S; Pulse Ox 97% on R/A; kc6 17:59 BP 126 / 62; Pulse 69; Resp 17 S; Pulse Ox 98% on R/A; kc6 12:12 Pain Scale: Adult ap3 MDM: 12:00 Patient medically screened. sb4 17:25 Data reviewed: vital signs, nurses notes, lab test result(s), EKG, radiologic studies, sb4 and as a result, I will admit patient. Consideration of Admission/Observation Patient was admitted/placed on observation. Counseling: I had a detailed discussion with the patient and/or guardian regarding the historical points, exam findings, and any diagnostic results supporting the discharge/admit diagnosis, the presence of at least one elevated blood pressure reading (>120/80) during this emergency department visit, lab results, radiology results, the need for further work-up and treatment in the hospital. 03/19 12:15 Order name: Blood Culture Adult (2) [facility] 03/19 12:15 Order name: CBC with Diff; Complete Time: 14:02 [facility] 03/19 12:15 Order name: CMP; Complete Time: 14:16 [facility] 03/19 12:15 Order name: Lactate w/ 2H reflex if indic.; Complete Time: 14:13 [facility] 03/19 12:15 Order name: Protime (+inr); Complete Time: 14:05 [facility] 03/19 12:15 Order name: Ptt, Activated; Complete Time: 14:05 [facility] 03/19 12:15 Order name: Urinalysis w/ reflexes; Complete Time: 17:11 [facility] 03/19 17:14 Order name: Urine Culture EDIN 03/19 19:52 Order name: CBC with Automated Diff [facility] 03/19 19:52 Order name: CBC with Automated Diff; Complete Time: 09:25 EDMS 03/19 19:52 Order name: Comprehensive Metabolic Panel EDMS 03/19 19:52 Order name: Comprehensive Metabolic Panel; Complete Time: 09:25 EDMS 03/19 19:52 Order name: Troponin High Sensitivity EDMS 03/19 19:52 Order name: Troponin High Sensitivity; Complete Time: 09:25 EDMS 03/19 12:15 Order name: Chest Single View XRAY; Complete Time: 13:57 sb4 03/19 14:17 Order name: CT Abd/Pelvis - Without Contrast; Complete Time: 15:38 sb4 03/19 12:15 Order name: Accucheck; Complete Time: 13:48 sb4 03/19 12:15 Order name: Cardiac monitoring; Complete Time: 13:16 sb4 03/19 12:15 Order name: EKG - Nurse/Tech; Complete Time: 13:16 sb4 03/19 12:15 Order name: IV Saline Lock - Large Bore; Complete Time: 13:48 sb4 03/19 12:15 Order name: Labs collected and sent; Complete Time: 13:48 sb4 03/19 12:15 Order name: O2 Per Protocol; Complete Time: 13:02 sb4 03/19 12:15 Order name: O2 Sat Monitoring; Complete Time: 13:02 sb4 03/19 12:15 Order name: Vital Signs; Complete Time: 13:02 sb4 EC:09 Rate is 77 beats/min. Rhythm is regular, Sinus Rhythm with PACs. SD interval is normal sb4 at 176 msec. QRS interval is normal at 90 msec. QT interval is normal at 392 msec. No Q waves. T waves are Normal. No ST changes noted. Clinical impression: No evidence of ischemia. Interpreted by me. Reviewed by me. Administered Medications: 13:48 Drug: NS 0.9% IV 1000 ml IV at 1 bolus Per protocol; 1000 mL bolus Route: IV; Rate: 1 kc6 bolus; Site: left antecubital; 15:04 Follow up: Response: No adverse reaction; IV Status: Completed infusion; IV Intake: kc6 1000ml 13:48 Drug: Ondansetron IVP 4 mg IVP once; over 2 minutes Route: IVP; Site: left antecubital; kc6 15:04 Follow up: Response: No adverse reaction; Nausea is decreased kc6 15:04 Drug: Albuterol Inhalation 2.5 mg Inhalation once Route: Inhalation; kc6 16:41 Follow up: Response: No adverse reaction kc6 15:04 Drug: Insulin Regular Human IVP 10 units IVP once {Co-Signature: tl4 (Yasir Wilhelm RN).} Route: IVP; Site: left antecubital; 17:59 Follow up: Response: No adverse reaction kc6 15:04 Drug: Calcium Gluconate IVPB 1 grams IVPB once over 60 mins; (mix in NS 100 mL) Route: kc6 IVPB; Infused Over: 60 mins; Site: left antecubital; 16:41 Follow up: Response: No adverse reaction; IV Status: Completed infusion; IV Intake: kc6 100ml 16:41 Drug: NS 0.9% IV 1000 ml IV at 1 bolus Per protocol; 1000 mL bolus Route: IV; Rate: 1 kc6 bolus; Site: left antecubital; 17:59 Follow up: Response: No adverse reaction; IV Status: Completed infusion; IV Intake: kc6 1000ml Disposition Summary: 03/19/24 17:25 Hospitalization Ordered Notes: Hospitalization Status: Observation sb4 Provider: Rosa Tyler sb4 Location: Telemetry/MedSurg (observation) sb4 Condition: Fair sb4 Problem: new sb4 Symptoms: have improved sb4 Bed/Room Type: Standard sb4 Room Assignment: 210(03/19/24 20:26) sp Diagnosis - Acute kidney failure, unspecified sb4 - Hyperkalemia sb4 - Dehydration sb4 Forms: - Medication Reconciliation Form sb4 - SBAR form sb4 - Leadership Thank You Letter sb4 Signatures: Dispatcher [employer] EDMS Ness Emery Amanda, RN RN [email or web address] Jeannette Harris RN RN kc6 Zoe Larkin PA-C PALeia sb4 Alaina Gallo, SOPHIA RN pc2 Yasir Wilhelm RN tl4 Corrections: (The following items were deleted from the chart) 14:33 14:16 Abdomen Pelvis W Con+CT.RAD.BRZ ordered. EDMS EDMS 17:37 13:06 Back: Positive for flank pain, on the right, sb4 sb4 17:37 13:06 Back: CVA tenderness, that is mild, is noted on the right, sb4 sb4 20:26 17:25 sb4 sp
--- NOTE | 2024-03-19 17:26 | ER ---
Nurse's Notes [facility] Name: Jade Shaikh Age: 63 yrs Sex: Female : 1960 Arrival Date: 03/19/2024 Time: 11:51 Bed 13 Private MD: Diagnosis: Acute kidney failure, unspecified;Hyperkalemia;Dehydration Presentation: 03/19 12:12 Chief complaint: Patient states: she has been having nausea, vomiting, right lower back ap3 pain since her discharge from the hospital approx 11 days ago. patient currently rates her pain as a 6/10 on the pain scale. Coronavirus screen: At this time, the client does not indicate any symptoms associated with coronavirus-19. Ebola Screen: No symptoms or risks identified at this time. Initial Sepsis Screen: Does the patient have a suspected source of infection? No. Patient's initial sepsis screen is negative. Initial Sepsis Screen: Does the patient meet any 2 criteria? No. Patient's initial sepsis screen is negative. Risk Assessment: Do you want to hurt yourself or someone else? Patient reports no desire to harm self or others. Onset of symptoms is unknown. 12:12 Method Of Arrival: Wheelchair ap3 12:12 Acuity: STEVE 3 ap3 Triage Assessment: 12:15 General: Appears uncomfortable, Behavior is calm, cooperative, appropriate for age. ap3 Pain: Complains of pain in right low back Pain currently is 6 out of 10 on a pain scale. Neuro: Level of Consciousness is awake, alert, obeys commands, Oriented to person, place, time, situation. Neuro: Reports weakness. Cardiovascular: Patient's skin is warm and dry. Respiratory: Airway is patent Respiratory effort is even, unlabored, Respiratory pattern is regular, symmetrical. GI: Pt is actively vomiting Reports nausea, vomiting. Historical: - Allergies: 12:14 Sulfa (Sulfonamide Antibiotics); ap3 - PMHx: 12:14 Arthritis; diabetes mellitus; Hypertensive disorder; neuropathy; prolapsed bladder; ap3 spot on lung; - PSHx: 12:14 Appendectomy; claudia knee replacements; Cholecystectomy; Ligation of fallopian tube; mass ap3 removed from right breast (ab); Total abdominal hysterectomy; - Immunization history:: Client reports receiving the 2nd dose of the Covid vaccine. - Infectious Disease History:: Denies. - Social history:: Smoking status: Patient reports the use of cigarette tobacco products, smokes one pack cigarettes per day. Screenin:16 Abuse screen: Denies threats or abuse. Nutritional screening: No deficits noted. ap3 Tuberculosis screening: No symptoms or risk factors identified. 13:00 [facility] ED Fall Risk Assessment (Adult) History of falling in the last 3 months, kc6 including since admission No falls in past 3 months (0 pts) Confusion or Disorientation No (0 pts) Intoxicated or Sedated No (0 pts) Impaired Gait No (0 pts) Mobility Assist Device Used No (0 pt) Altered Elimination No (0 pt) Score/Fall Risk Level 0 - 2 = Low Risk. Assessment: 13:00 General: Appears in no apparent distress. uncomfortable, well groomed, well developed, kc6 Behavior is calm, cooperative, appropriate for age. Pain: Complains of pain in epigastric area and right low back. Neuro: Level of Consciousness is awake, alert, obeys commands, Oriented to person, place, time, situation, Appropriate for age. Cardiovascular: Denies chest pain, shortness of breath, Heart tones S1 S2 present Capillary refill < 3 seconds Rhythm is regular. Respiratory: Airway is patent Trachea midline Respiratory effort is even, unlabored, Respiratory pattern is regular, symmetrical. GI: Abdomen is round non-distended, Reports upper abdominal pain, nausea, vomiting, Patient currently denies diarrhea. : No signs and/or symptoms were reported regarding the genitourinary system. EENT: No signs and/or symptoms were reported regarding the EENT system. Derm: No signs and/or symptoms reported regarding the dermatologic system. Skin is intact, is healthy with good turgor, Skin is pink, warm \T\ dry. Musculoskeletal: No signs and/or symptoms reported regarding the musculoskeletal system. Circulation, motion, and sensation intact. Capillary refill < 3 seconds, Range of motion: intact in all extremities. 14:00 Reassessment: Patient appears in no apparent distress at this time. No changes from kc6 previously documented assessment. Patient and/or family updated on plan of care and expected duration. Pain level reassessed. Patient is alert, oriented x 3, equal unlabored respirations, skin warm/dry/pink. 15:00 Reassessment: Patient appears in no apparent distress at this time. No changes from kc6 previously documented assessment. Patient and/or family updated on plan of care and expected duration. Pain level reassessed. Patient is alert, oriented x 3, equal unlabored respirations, skin warm/dry/pink. 16:41 Reassessment: Patient appears in no apparent distress at this time. No changes from kc6 previously documented assessment. Patient and/or family updated on plan of care and expected duration. Pain level reassessed. Patient is alert, oriented x 3, equal unlabored respirations, skin warm/dry/pink. 17:59 Reassessment: Patient appears in no apparent distress at this time. No changes from kc6 previously documented assessment. Patient and/or family updated on plan of care and expected duration. Pain level reassessed. Patient is alert, oriented x 3, equal unlabored respirations, skin warm/dry/pink. Vital Signs: 12:12 BP 90 / 72; Pulse 89; Temp 97.3; Pulse Ox 100% ; Weight 89.36 kg; Pain 6/10; ap3 15:05 BP 160 / 69; Pulse 71; Resp 17 S; Pulse Ox 99% on R/A; kc6 16:42 BP 101 / 58; Pulse 68; Resp 17 S; Pulse Ox 97% on R/A; kc6 17:59 BP 126 / 62; Pulse 69; Resp 17 S; Pulse Ox 98% on R/A; kc6 12:12 Pain Scale: Adult ap3 ED Course: 11:58 Patient arrived in ED. mg5 11:59 [facility] sb4 11:59 Gina Moreno MD is Attending Physician. sb4 12:14 Triage completed. ap3 12:16 Arm band placed on left wrist. ap3 12:18 Jeannette Harris, SOPHIA is Primary Nurse. kc6 13:43 Chest Single View XRAY In Process Unspecified. EDMS 13:48 Patient has correct armband on for positive identification. Placed in gown. Bed in low kc6 position. Call light in reach. Side rails up X 1. Adult w/ patient. Pulse ox on. NIBP on. Door closed. Noise minimized. Lights dimmed. Warm blanket given. Pillow given. 13:48 Missed attempt(s): 20 gauge in right forearm. Inserted saline lock: 22 gauge in left kc6 antecubital area, using aseptic technique. Blood collected. Flushed with 10 mL NS. 15:33 CT Abd/Pelvis - Without Contrast In Process Unspecified. EDMS 17:24 Rosa Tyler MD is Hospitalizing Provider. sb4 20:40 Provided Education on: need for admit. pc2 20:40 No provider procedures requiring assistance completed. pc2 21:45 Patient admitted, IV remains in place. pc2 Administered Medications: 13:48 Drug: NS 0.9% IV 1000 ml IV at 1 bolus Per protocol; 1000 mL bolus Route: IV; Rate: 1 kc6 bolus; Site: left antecubital; 15:04 Follow up: Response: No adverse reaction; IV Status: Completed infusion; IV Intake: kc6 1000ml 13:48 Drug: Ondansetron IVP 4 mg IVP once; over 2 minutes Route: IVP; Site: left antecubital; kc6 15:04 Follow up: Response: No adverse reaction; Nausea is decreased kc6 15:04 Drug: Albuterol Inhalation 2.5 mg Inhalation once Route: Inhalation; kc6 16:41 Follow up: Response: No adverse reaction kc6 15:04 Drug: Insulin Regular Human IVP 10 units IVP once {Co-Signature: tl4 (Yasir Wilhelm6 RN).} Route: IVP; Site: left antecubital; 17:59 Follow up: Response: No adverse reaction kc6 15:04 Drug: Calcium Gluconate IVPB 1 grams IVPB once over 60 mins; (mix in NS 100 mL) Route: kc6 IVPB; Infused Over: 60 mins; Site: left antecubital; 16:41 Follow up: Response: No adverse reaction; IV Status: Completed infusion; IV Intake: kc6 100ml 16:41 Drug: NS 0.9% IV 1000 ml IV at 1 bolus Per protocol; 1000 mL bolus Route: IV; Rate: 1 kc6 bolus; Site: left antecubital; 17:59 Follow up: Response: No adverse reaction; IV Status: Completed infusion; IV Intake: kc6 1000ml Medication: 20:40 VIS not applicable for this client. pc2 Intake: 15:04 IV: 1000ml; Total: 1000ml. kc6 16:41 IV: 100ml; Total: 1100ml. kc6 17:59 IV: 1000ml; Total: 2100ml. kc6 Outcome: 17:25 Decision to Hospitalize by Provider. sb4 21:45 Admitted to Med/surg accompanied by tech, via stretcher, room 210, with chart, pc2 21:45 Condition: stable 21:45 Instructed on the need for admit, Demonstrated understanding of instructions, 21:49 Patient left the ED. pc2 Signatures: Dispatcher [employer] EDMireya Masters RN RN ap3 Jeannette Harris RN RN kc6 Zoe Larkin PA-C PA-C sb4 Collette Talamantes 5 Alaina Gallo, RN RN pc2 Yasir Wilhelm RN tl4
--- NOTE | 2024-03-19 19:42 | P.HP ---
Certification for Inpatient Patient admitted to: Inpatient With expected LOS: >2 Midnights Patient will require the following post-hospital care: None Practitioner: I am a practitioner with admitting privileges, knowledge of patient current condition, hospital course, and medical plan of care. Services: Services provided to patient in accordance with Admission requirements found in Title 42 Section 412.3 of the Code of Federal Regulations Patient History Date of Service: 03/20/24 Reason for admission: Recurrent nausea and vomiting History of Present Illness: 63-year-old with past medical history of HTN/DM/prolapsed bladder, recently diagnosed with infected right ureteral obstructing calculus status post cystoscopy ureteroscopy and has stent placed. At the time urine culture was growing gram-negative rods blood culture was not finalized. Patient was discharged with Cipro 9 days ago and she has been compliant with medication patient states she has been having recurrent intermittent nausea and vomiting since then. She continued to have worsening symptoms this morning with 3 episodes only this morning. Vomiting is nonbilious and nonbloody. She denies any abdominal pain or diarrhea. She presented to the ED because of worsening vomiting. On arrival in the ED she received IV Zofran and her nausea has resolved. She is able to tolerate p.o. now. On arrival in the ED blood pressure was borderline low at 90/51 nontachycardic, EKG shows normal sinus with no ST segment or QT prolongation. WBC was marginal at 11.5 with right shift, BMP was unremarkable except for elevated creatinine of 1.8 up from baseline of 0.9. Urinalysis shows still persistent for leukocytosis and urine WBC consistent with persistent UTI. CT of the abdomen and pelvis shows stable in situ indwelling right ureteral stent with no hydronephrosis. Stent remained in place. She has been admitted for persistent UTI with sepsis Allergies Sulfa (Sulfonamide Antibiotics) Adverse Reaction (Verified 03/06/24 17:04) Rash Home Medications: Amlodipine [Norvasc*] 10 mg PO DAILY 30 Days #30 tab 03/08/24 Ciprofloxacin HCl 500 mg PO BID 14 Days #28 tab 03/08/24 Gabapentin [Neurontin] 800 mg PO TID 03/08/24 Hydrocodone 10/APAP 325 [[place] 10/325] 1 tab PO Q6H PRN #30 tab 03/08/24 Lisinopril [Zestril] 20 mg PO BID #60 tab 03/08/24 Metformin HCl 1,000 mg PO BID 03/08/24 Metoprolol Tartrate [Lopressor] 25 mg PO BID #60 tab 03/08/24 Mvit-Mins/Folic Acid/Soy Isofl [One-A-Day Menopause Formula Tb] 1 each PO 30 MIN BEFORE HS 30 Days #30 tab 03/08/24 Pantoprazole [Protonix Tab*] 40 mg PO BID 30 Days #60 tab 03/08/24 Tamsulosin [Flomax*] 0.4 mg PO BEDTIME 30 Days #30 cap 03/08/24 glipiZIDE [Glipizide] 10 mg PO BID 03/08/24 - Past Medical/Surgical History Diabetic: Yes -: Arthritis -: diabetes mellitus -: Hypertensive disorder -: neuropathy -: spot on lung -: prolapsed bladder -: chronic back pain -: claudia knee replacements -: Appendectomy -: Cholecystectomy -: Ligation of fallopian - Family History Mother -: Diabetes Father -: Diabetes, Cancer - Social History Smoking Status: Heavy Tobacco smoker (>10 cigarettes/day) Smoking therapy provided: Yes Patient receptive to therapy: Yes Alcohol use: No CD- Drugs: No Caffeine use: Yes Place of Residence: Home Review of Systems Gastrointestinal: Nausea, Vomiting Physical Examination - Physical Exam General: Alert, In no apparent distress, Oriented x3, Cooperative, Obese HEENT: Atraumatic, Normocephalic, PERRLA Neck: Supple, 2+ carotid pulse no bruit, JVD not distended Respiratory: Clear to auscultation bilaterally, Normal air movement Cardiovascular: Normal pulses, Regular rate/rhythm, Normal S1 S2 Gastrointestinal: Normal bowel sounds, Soft and benign, Non-distended, No ascites, No rebound, No guarding Musculoskeletal: No clubbing, No swelling Integumentary: No rashes, No breakdown, No significant lesion Neurological: Normal speech, Normal strength at 5/5 x4 extr, Normal tone, Sensation intact, Cranial nerves 3-12 intact External genitalia: No edema, No lesions - Studies Laboratory Data (last 24 hrs) 03/19/24 03/19/24 03/19/24 13:30 13:30 13:30 WBC 11.60 H Hgb 11.1 L Hct 33.7 L Plt Count 606 H PT 12.7 H INR 1.14 APTT 33.7 Sodium 130 L Potassium 5.6 H BUN 31 H Creatinine 1.86 H Glucose 286 H Total Bilirubin 0.3 AST < 10 L ALT 16 Alkaline Phosphatase 113 Assessment and Plan - Problems (Diagnosis) (1) UTI (urinary tract infection) Current Visit: Yes Status: Acute (2) Sepsis Current Visit: No Status: Acute Qualifiers: Severe sepsis acute organ dysfunction type: acute renal failure (3) Ureterolithiasis Current Visit: No Status: Acute - Plan Impression Persistent UTInot resolved by Cipro Resolved obstructing ureteral calculus Acute sepsis Acute kidney injurywith hyperkalemia and hyponatremialikely due to septic ATN with lisinopril Hypotensiontransient Persistent nausea and vomitingdue to likely persistent UTI Diabetes mellitus History of hypertension Plan Will admit patient to inpatient status Follow urine culture, initial for culture and sensitivity obtained prior to discharge Switch Cipro to meropenem since likely urine culture with previous gram-negative rods was resistant to Cipro Gentle IV fluid Monitor creatinine trend Hold lisinopril for now Dose Kayexalate 30 g x 1 Insulin sliding scale with Accu-Cheks Lovenox for DVT prophylaxis Hold BP meds, resume in a.m. if resolved hypertension Full code Possible hospital stay for 48 hours Discharge Plan: Home - Advance Directives Does patient have a Living Will: No Does patient have a Durable POA for Healthcare: Yes Physician Review: Patient Assessed, Agree with Above Assessment and Plan Time Spent Managing Pts Care (In Minutes): 65
[2024-03-19] MEDS ORDERED: MORPHINE 2 MG/ML SYR IV PRN (19:44)
[2024-03-19] MEDS ORDERED: ACETAMINOPHEN 500 MG TAB PO PRN (19:44)
[2024-03-19] MEDS ORDERED: HYDROCODONE/APAP 10/325 TAB PO PRN (19:47)
[2024-03-19] MEDS: Meropenem 1,000 MG in NA CHLORIDE 0.9% 100 ML IV SCH (21:00)
[2024-03-19] MEDS ORDERED: INSULIN GLARGINE 100 UNIT/ML SQ SCH (21:00)
[2024-03-19] MEDS: HOME MED 1 EA UNK (Gabapentin [Neurontin] 800 MG Tablet) PO SCH (21:00)
[2024-03-19 22:07] VITALS: BMI 36.0
[2024-03-19] MEDS: SOD POLYSTYREN SUL 15 GM/60 ML UCUP ONE (22:10)
[2024-03-19] MEDS: PANTOPRAZOLE 40MG TABLET PO SCH (22:24)
[2024-03-19] MEDS: METFORMIN HCL 500 MG TAB PO SCH (22:24)
[2024-03-19] MEDS: GABAPENTIN 400 MG CAP PO ONE (22:24)
[2024-03-19] MEDS: NA CHLORIDE 0.9% 1,000 ML IV SCH (22:25)
[2024-03-19] MEDS: glipiZIDE 5 MG TAB PO SCH (22:25)
[2024-03-19] MEDS: Meropenem 1,000 MG in NA CHLORIDE 0.9% 100 ML IV ONE (22:25)
[2024-03-19] MEDS: METOPROLOL TAR 25 MG TAB PO SCH (22:42)
[2024-03-19] MEDS: SOD POLYSTYREN SUL 15 GM/60 ML UCUP PO ONE (22:43)
[2024-03-19] MEDS: ONDANSETRON 4 MG/2 ML VIAL IV PRN (22:43)
[2024-03-20] MEDS ORDERED: MORPHINE 2 MG/ML SYR IV PRN (03:27)
[2024-03-20 05:53] LABS: Absolute Basophils 0.1 K/uL (0-0.5); Absolute Eosinophils 0.2 K/uL (0-0.5); Absolute Lymphocytes (CBC) 1.9 K/uL (0.7-4.9); Absolute Monocytes 0.7 K/uL (0.1-1.3); Basophils % 1.3 % (0-1.3); Eosinophils % 2.3 % (0-4.4); Hematocrit 28.2 % (36.0-45.0); Hemoglobin 9.5 g/dL (12.0-15.0); Lymphocytes % 24.6 % (15.3-44.8); MCH 29.9 pg (27.0-35.0); MCHC 33.5 g/dL (32.0-36.0); MCV 89.2 fL (80-100); MPV 6.9 fL (7.6-11.3); Monocytes % 8.4 % (3.3-12.3); Neutrophils % 63.4 % (41.7-73.7); Platelets 511 thou/uL (152-406); RBC Red Blood Cell Count 3.17 M/uL (3.86-4.86); Red Cell Distribution Width 14.8 % (12.1-15.2)
[2024-03-20 06:12] LABS: Albumin 2.3 g/dL (3.4-5.0); Albumin/Globulin Ratio 0.6 (1.1-1.8); Alkaline Phosphatase 88 U/L (45-117); Anion Gap 8.5 mEq/L (5.0-15.0); BUN Blood Urea Nitrogen 28 mg/dL (7-18); Bicarbonate 26 mEq/L (21-32); Bilirubin Total 0.3 mg/dL (0.2-1.0); Globulin 3.9 g/dL (2.3-3.5); Glomerular Filtration Rate 36 ml/min (=/>90); Glucose Level 215 mg/dL (74-106); Potassium 4.5 mEq/L (3.5-5.1); Protein, Total 6.2 g/dL (6.4-8.2); Sodium Level 135 mEq/L (136-145); Troponin High Sensitivity 8.7 pg/mL (<58.9)
[2024-03-20 06:13] LABS: ALT/SGPT < 14 U/L (13-56); AST/SGOT < 10 U/L (15-37)
--- NOTE | 2024-03-20 07:58 | P.PN ---
Date of Service: 03/20/24 subjective Blood sugars uncontrolled, started on sliding scale insulin Reports mild nausea Review of Systems 10 point review of systems negative unless listed per HPI Physical Examination - Physical Exam General: Alert, In no apparent distress, Oriented x3 HEENT: Atraumatic, Normocephalic Neck: Supple, 2+ carotid pulse no bruit Respiratory: Clear to auscultation bilaterally, Normal air movement Cardiovascular: Normal pulses, Regular rate/rhythm Capillary refill: <2 Seconds Gastrointestinal: Normal bowel sounds, Other (right flank pain) Musculoskeletal: No swelling, No contractures Integumentary: No breakdown, No significant lesion Neurological: Normal speech, Normal strength at 5/5 x4 extr, Cranial nerves 3-12 intact Assessment and Plan - Plan Assessment/Plan Intractable nausea vomiting Acute kidney injury secondary to dehydration likely secondary to intractable nausea vomiting Hyponatremia Hyperkalemia IV fluids, as needed antiemetic Trend electrolytes replace as needed Sepsis secondary to UTI improved Persistent UTI 03/06 History pyelonephritis 03/06 History hydronephrosis with renal and ureteral calculous obstruction IV fluids, IV meropenem Urine cultures, blood cultures 03/07 Status post ureteral stent, Will need to follow-up with Dr. Brizuela after discharge Discharged on total of 14 days Cipro per urology recommendation Previous admission IV fluid, IV antibiotics, flomax, prn analgesics CT IMPRESSION: Mild right hydronephrosis. Questionable 4 mm distal right ureteric calculus. Prominent right perinephric fat stranding which could relate to ongoing obstruction versus infectious process such as pyelonephritis, although this is difficult to assess on noncontrast imaging. pyelonephritis,right hydronephrosis, 4 mm distal right ureteric obstructing calculus, with urology to consult. diabetes mellitus with hypeglycemia A1c, Acu cks, SSI Started on 70/30 sliding scale insulin Yeast infection Vaginal antifungal Or start on p.o. fluconazole Tobacco use educate on cessation Hypertensive disorder neuropathy resume appropp home meds Microcytic anemia Trend H&H, transfuse less than 7 spot on lung 02 2l prn Full code diet Diabetic DVT scd Dispostion, independent prior to admission Discharge Plan: Home - Advance Directives Does patient have a Living Will: No Does patient have a Durable POA for Healthcare: No - Code Status/Comfort Care Code Status: Full Code Critical Care: No Time Spent Managing Pts Care (In Minutes): 35 <Daksha Abbott - Last Filed: 03/21/24 20:33> Chart has been reviewed. Events of the last 24 hours have been noted. Case discussed with MABEL. I performed a substantial part of the MDM during this patient's care today. I personally made or approved the documented management plan and acknowledge its risk of complications. I agree with the findings and documentation provided in the MABEL's notes Patient was treated with IV antibiotics for UTI. Patient was also given IV fluids and antiemetics for VERNELL. Clinical symptoms have improved. Anticipate discharge in the morning. <Avis Snyder - Last Filed: 03/31/24 00:43>
[2024-03-20] MEDS: ENOXAPARIN 30 MG/0.3 ML SQ SCH (08:39)
[2024-03-20] MEDS: GABAPENTIN 300 MG CAP PO SCH (08:39)
[2024-03-20] MEDS: MICONAZOLE VAG SCH (08:40)
[2024-03-20] MEDS: NICOTINE 14 MG/PAT TD SCH (08:40)
[2024-03-20] MEDS ORDERED: ENOXAPARIN 40 MG/0.4 ML SQ SCH (09:00)
[2024-03-20] MEDS: HYDROCODONE/APAP 10/325 TAB PO PRN (12:16)
[2024-03-20] MEDS ORDERED: D50W 25 GM/50 ML SYRINGE IV PRN (14:53)
[2024-03-20] MEDS ORDERED: GLUCAGON 1 MG/VIAL IM PRN (14:53)
[2024-03-20] MEDS ORDERED: D10W 125 ML IV PRN (14:59)
[2024-03-20] MEDS: INSULIN REGULAR (HUMAN) 100 UNIT/ML SQ SCH (16:09)
[2024-03-20] MEDS ORDERED: INSULIN REGULAR (HUMAN) 100 UNIT/ML SQ SCH (16:30)
[2024-03-20] MEDS: INSULIN 70/30 100 UNITS/ML SQ SCH (16:30)
[2024-03-20] MEDS: Meropenem 1,000 MG in NA CHLORIDE 0.9% 100 ML IV SCH (20:08)
[2024-03-20] MEDS ORDERED: Meropenem 1,000 MG in NA CHLORIDE 0.9% 100 ML IV SCH (22:00)
--- NOTE | 2024-03-21 06:40 | P.DS ---
Admission Date: 03/19/24 Discharge Date: 03/21/24 Reason for Admission: Recurrent nausea and vomiting Brief History of Present Illness: 63-year-old with past medical history of HTN/DM/prolapsed bladder, recently diagnosed with infected right ureteral obstructing calculus status post c ystoscopy ureteroscopy and has stent placed. At the time urine culture was growing gram-negative rods blood culture was not finalized. Patient was discharged with Cipro 9 days ago and she has been compliant with medication patient states she has been having recurrent intermittent nausea and vomiting since then. She continued to have worsening symptoms this morning with 3 episodes only this morning. Vomiting is nonbilious and nonbloody. She denies any abdominal pain or diarrhea. She presented to the ED because of worsening vomiting. - Physical Exam General: Alert, In no apparent distress, Oriented x3, Cooperative, Obese HEENT: Atraumatic, Normocephalic, PERRLA Neck: Supple, 2+ carotid pulse no bruit, JVD not distended Respiratory: Clear to auscultation bilaterally, Normal air movement Cardiovascular: Normal pulses, Regular rate/rhythm, Normal S1 S2 Gastrointestinal: Normal bowel sounds, Soft and benign, Non-distended, No ascites, No rebound, No guarding Musculoskeletal: No clubbing, No swelling Integumentary: No rashes, No breakdown, No significant lesion Neurological: Normal speech, Normal strength at 5/5 x4 extr, Normal tone, Sensation intact, Cranial nerves 3-12 intact External genitalia: No edema, No lesions Hospital Course: 63-year-old with past medical history of HTN/DM/prolapsed bladder, recently diagnosed with infected right ureteral obstructing calculus status post cystoscopy ureteroscopy and has stent placed. At the time urine culture was growing gram-negative rods blood culture was not finalized. Patient was discharged with Cipro 9 days ago and she has been compliant with medication patient states she has been having recurrent intermittent nausea and vomiting. Treated with IV fluids, as needed antiemetics, IV fluconazole. Was noted to have uncontrolled diabetes with hyperglycemia, started on 70/30 insulin, sliding scale insulin,. She needs to follow-up with primary care after discharge, endocrinology after discharge. Dr. Brizuela for urology. Assessment Diabetes with hyperglycemia, Follow-up with endocrinology after discharge Resume home p.o. antihyper glycemic Yeast infection, treated with IV fluconazole, miconazole while inpatient Nausea vomiting IV fluids, as needed antiemetics while inpatient, improved Status post ureteral stent 03/07 follow-up with urology after discharge CT of the abdomen IMPRESSION: No acute intra-abdominal or pelvic findings. Right double-J stent in expected positioning and alignment.A limited non-contrast examination was performed as detailed. Continue home medicines as previously prescribed GOAL: Clear understanding of disease process INSTRUCTIONS: Physician Discharge Instructions: -Follow-up with PCP in 1 to 2 weeks -Please call Dr. Snyder at [phone] if any questions regarding hospital stay -Please call nursing station at [phone] if any nursing or medication questions -Return to the emergency room if symptoms worsen Diet: ADA, low sodium Activity: Fall precautions <Daksha Abbott - Last Filed: 03/21/24 20:38> Admission Date: 03/19/24 Discharge Date: 03/21/24 Hospital Course: Chart has been reviewed. Events of the last 24 hours have been noted. Case discussed with MABEL. I performed a substantial part of the MDM during this patient's care today. I personally made or approved the documented management plan and acknowledge its risk of complications. I agree with the findings and documentation provided in the MABEL's notes Patient was treated with IV antibiotics for UTI. Patient was also given IV fluids and antiemetics for VERNELL. Clinical symptoms have improved. Discharge home with outpatient follow-up with PCP and nephrology. Patient will benefit from seeing a [facility] urologist. <Avis Snyder - Last Filed: 03/31/24 00:44> Disposition: ROUTINE DISCHARGE Discharge Condition: GOOD Vital Signs/Physical Exam: Temp Pulse Resp BP Pulse Ox 97.7 F 72 18 151/90 H 96 03/21/24 04:00 03/21/24 04:00 03/21/24 04:00 03/21/24 04:00 03/21/24 04:00 Laboratory Data at Discharge: WBC 7.80 thou/uL (4.3-10.9) 03/20/24 05:25 Hgb 9.5 g/dL (12.0-15.0) L D 03/20/24 05:25 Hct 28.2 % (36.0-45.0) L 03/20/24 05:25 Plt Count 511 thou/uL (152-406) H 03/20/24 05:25 PT 12.7 SECONDS (9.4-12.5) H 03/19/24 13:30 INR 1.14 03/19/24 13:30 APTT 33.7 SECONDS (24.3-36.9) 03/19/24 13:30 Sodium 135 mEq/L (136-145) L D 03/20/24 05:25 Potassium 4.5 mEq/L (3.5-5.1) D 03/20/24 05:25 BUN 28 mg/dL (7-18) H 03/20/24 05:25 Creatinine 1.61 mg/dL (0.55-1.02) H 03/20/24 05:25 Glucose 215 mg/dL (74-106) H 03/20/24 05:25 Total Bilirubin 0.3 mg/dL (0.2-1.0) 03/20/24 05:25 AST < 10 U/L (15-37) L 03/20/24 05:25 ALT < 14 U/L (13-56) 03/20/24 05:25 Alkaline Phosphatase 88 U/L (45-117) D 03/20/24 05:25 <Daksha Abbott - Last Filed: 03/21/24 20:38> Vital Signs/Physical Exam: Temp Pulse Resp BP Pulse Ox 98.3 F 78 16 192/85 H 94 03/21/24 16:00 03/21/24 16:00 03/21/24 16:00 03/21/24 16:00 03/21/24 16:00 Laboratory Data at Discharge: WBC 7.00 thou/uL (4.3-10.9) 03/21/24 06:53 Hgb 9.9 g/dL (12.0-15.0) L 03/21/24 06:53 Hct 29.9 % (36.0-45.0) L 03/21/24 06:53 Plt Count 443 thou/uL (152-406) H 03/21/24 06:53 PT 12.7 SECONDS (9.4-12.5) H 03/19/24 13:30 INR 1.14 03/19/24 13:30 APTT 33.7 SECONDS (24.3-36.9) 03/19/24 13:30 Sodium 138 mEq/L (136-145) 03/21/24 06:53 Potassium 4.1 mEq/L (3.5-5.1) 03/21/24 06:53 BUN 19 mg/dL (7-18) H 03/21/24 06:53 Creatinine 1.04 mg/dL (0.55-1.02) H 03/21/24 06:53 Glucose 115 mg/dL (74-106) H 03/21/24 06:53 Phosphorus 2.8 mg/dL (2.5-4.9) 03/21/24 06:53 Magnesium 1.5 mg/dL (1.6-2.4) L 03/21/24 06:53 Total Bilirubin 0.3 mg/dL (0.2-1.0) 03/20/24 05:25 AST < 10 U/L (15-37) L 03/20/24 05:25 ALT < 14 U/L (13-56) 03/20/24 05:25 Alkaline Phosphatase 88 U/L (45-117) D 03/20/24 05:25 <Avis Snyder - Last Filed: 03/31/24 00:44> Physician Review: Patient Assessed, Agree with Above Assessment and Plan (55) Time spent managing pt's care (in minutes): 55 <Daksha Abbott - Last Filed: 03/21/24 20:38> <Avis Snyder - Last Filed: 03/31/24 00:44> Home Medications: Amlodipine [Norvasc*] 10 mg PO DAILY 30 Days #30 tab 03/08/24 Ciprofloxacin HCl 500 mg PO BID 14 Days #28 tab 03/08/24 Gabapentin [Neurontin] 800 mg PO TID 03/08/24 Hydrocodone 10/APAP 325 [[place] 10/325*] 1 tab PO Q6H PRN #30 tab 03/08/24 Lisinopril [Zestril] 20 mg PO BID #60 tab 03/08/24 Metformin HCl 1,000 mg PO BID 03/08/24 Metoprolol Tartrate [Lopressor*] 25 mg PO BID #60 tab 03/08/24 Mvit-Mins/Folic Acid/Soy Isofl [One-A-Day Menopause Formula Tb] 1 each PO 30 MIN BEFORE HS 30 Days #30 tab 03/08/24 Pantoprazole [Protonix Tab*] 40 mg PO BID 30 Days #60 tab 03/08/24 Tamsulosin [Flomax*] 0.4 mg PO BEDTIME 30 Days #30 cap 03/08/24 glipiZIDE [Glipizide] 10 mg PO BID 03/08/24 Physician Discharge Instructions: 63-year-old with past medical history of HTN/DM/prolapsed bladder, recently diagnosed with infected right ureteral obstructing calculus status post cystoscopy ureteroscopy and has stent placed. At the time urine culture was growing gram-negative rods blood culture was not finalized. Patient was discharged with Cipro 9 days ago and she has been compliant with medication patient states she has been having recurrent intermittent nausea and vomiting. Treated with IV fluids, as needed antiemetics, IV fluconazole. Was noted to have uncontrolled diabetes with hyperglycemia, started on 70/30 insulin, sliding scale insulin,. She needs to follow-up with primary care after discharge, endocrinology after discharge. She will need to continue close follow-up with Dr. Kumar,gynecologic urologist Assessment Diabetes with hyperglycemia, started on insulin, instructed to keep blood glucose log after discharge, take log to PCP, endocrinology appoint Will start 70/30 insulin, patient educated on insulin, UTI-yeast discharge home on p.o. fluconazole Nausea vomiting IV fluids, as needed antiemetics while inpatient, discharged home on Zofran Status post ureteral stent 03/07 follow-up with urology after discharge CT of the abdomen IMPRESSION: No acute intra-abdominal or pelvic findings. Right double-J stent in expected positioning and alignment.A limited non-contrast examination was performed as detailed. Continue home medicines as previously prescribed GOAL: Clear understanding of disease process INSTRUCTIONS: Physician Discharge Instructions: -Follow-up with PCP in 1 to 2 weeks -Please call Dr. Snyder at [phone] if any questions regarding hospital stay _follow-up with Dr. Kumar in 1-2 weeks -Please call nursing station at [phone] if any nursing or medication questions -Return to the emergency room if symptoms worsen Diet: ADA, low sodium Activity: Fall precautions Followup: Mitchell Palma MD [Primary Care Provider] - Phylicia Kumar MD [ACTIVE - CAN ADMIT] -
[2024-03-21 07:15] LABS: Absolute Eosinophils 0.2 K/uL (0-0.5); Absolute Monocytes 0.5 K/uL (0.1-1.3); Absolute Neutrophil 4.3 K/uL (1.8-8.0); Basophils % 0.3 % (0-1.3); Eosinophils % 2.4 % (0-4.4); Hematocrit 29.9 % (36.0-45.0); Hemoglobin 9.9 g/dL (12.0-15.0); MCH 29.4 pg (27.0-35.0); MCV 89.2 fL (80-100); Monocytes % 7.3 % (3.3-12.3); Platelets 443 thou/uL (152-406); RBC Red Blood Cell Count 3.35 M/uL (3.86-4.86); Red Cell Distribution Width 14.2 % (12.1-15.2)
[2024-03-21 07:21] LABS: Albumin 2.7 g/dL (3.4-5.0); Anion Gap 9.1 mEq/L (5.0-15.0); Magnesium 1.5 mg/dL (1.6-2.4); Phosphorus 2.8 mg/dL (2.5-4.9); Potassium 4.1 mEq/L (3.5-5.1)
[2024-03-21] MEDS: INSULIN REGULAR (HUMAN) 100 UNIT/ML SQ SCH (07:30)
[2024-03-21] MEDS: INSULIN 70/30 100 UNITS/ML SQ SCH (07:55)
[2024-03-21] MEDS: FLUCONAZOLE 200mg IVPB 200 MG/100 ML BAG IV SCH (07:55)
[2024-03-21] MEDS: ENOXAPARIN 40 MG/0.4 ML SQ SCH (07:56)
[2024-03-21 10:33] VITALS: O2SAT 96
--- NOTE | 2024-03-21 12:42 | EKG ---
Test Date: 2024-03-19 Test Time: 13:07:42 Outcomes Manager: SETH MEASUREMENT RESULTS: Intervals: Rate: 77 AR: 176 QRSD: 90 QT: 392 QTc: 443 [place]: P: 62 AR: 176 QRS: 67 T: 55 INTERPRETIVE STATEMENTS: Sinus rhythm with premature atrial complexes Possible Anterior infarct, age undetermined Abnormal ECG Compared to ECG 03/06/2024 12:47:38 Atrial premature complex(es) now present Myocardial infarct finding now present Electronically Signed On 03-21-24 12:38:56 CDT by Aki Menendez
[2024-03-21] MEDS: D5 0.9 NS 1,000 ML IV SCH (13:52)
[2024-03-21] MEDS: Meropenem 1,000 MG in NA CHLORIDE 0.9% 100 ML IV SCH (16:33)
[2024-03-21 16:57] VITALS: BP 192/85; TEMP 98.3
== END 2024-03-21 20:09 | disposition home or self-care (01) | DRG 689 ==
LOC: ER 11:51 → ERHOLD 19:44 → 2ND 20:56
PROVIDERS: ADMIT Internal Medicine; ATTEND Hospitalist
DX: N39.0 Urinary tract infection, site not specified (principal); N17.0 Acute kidney failure with tubular necrosis; E87.1 Hypo-osmolality and hyponatremia; E11.40 Type 2 diabetes mellitus with diabetic neuropathy, unspecified; D50.9 Iron deficiency anemia, unspecified; I95.9 Hypotension, unspecified; E11.65 Type 2 diabetes mellitus with hyperglycemia; F17.210 Nicotine dependence, cigarettes, uncomplicated; E87.5 Hyperkalemia; N81.10 Cystocele, unspecified; Z68.36 Body mass index [BMI] 36.0-36.9, adult; Z96.0 Presence of urogenital implants
CPT/HCPCS: 36415; 71045; 74176; 80053; 80069; 81001; 82947; 83605; 83735; 84484; 85025; 85610; 85730; 87040; 87086; 87088; 93005; 96361; 96365; 96366; 96375; 99285; J0612; J1450; J1650; J1815; J2185; J2405; J7030; J7042; J7613

== ENCOUNTER 2024-04-18 00:09 | Inpatient (IN) | payer OTHER ==
--- OUTSIDE RECORDS SUMMARY | 2024-04-18 00:15 | XMS REPORT | Continuity of Care Document ---
Author Name Unknown Address [address] [facility] [address] [place] [address] [facility] thconnect Address [address] [facility]. [address] [place] [address] Care Team Providers Care Business Administration Teacher Name Role Phone JODY PALMA Primary Care Physician Jody Driver Attending Clinician Unavailable YESENIA SARABIA Attending Clinician UnavailYESENIA Bruce Attending Clinician Yesenia Watters MD Attending Clinician [phone] Yesenia Sarabia MD Attending Clinician [phone] Pob, [facility] Main Attending Clinician Unavailyunier horn [email or web address] Attending Clinician Unavaila ble Lab, Ang - Db Attending Clinician Unavailable Doctor Unassigned, [place] Attending Clinician Vincent Sarkar Attending Clinician [phone] VINCENT AGUSTIN Attending Clinician Unavailable Only, Ad[facility] Test Attending Clinician Unavailable Olayinka Ricardo MD Attending Clinician [phone] OLAYINKA RICARDO Attending Clinician Unavailable Usama Arteaga DO Attending Clinician [phone] Eze Vallejo MD Attending Clinician [phone] Pj Mora MD Attending Clinician EZE VALLEJO Attending Clinician Unavailable YESENIA SARABIA Admitting Clinician YESENIA Watters Admitting Clinician Yesenia Watters MD Admitting Clinician [email or web address] Admitting Clinician Unavaila ble Payers Payer Name Policy Type Policy Number Effective Date Expirati on Date Source [employer] [facility] [id number] 2018 00:00:00 [facility] [id number] 2021 00:00:00 [employer] [facility] [id number] 2019 00:00:00 Problems Condition Name Condition Details Condition Category Status Onset Date Resolution Date Last Treatment Date Treating Clinician Comments Source Pre-op testing Pre-op testing Disease Active 4-04 00:00: 00 [facility] Type 2 diabetes mellitus Type 2 Diabetes Mellitus Problem Active 08-18 00:00: 00 [facility] Tobacco dependence syndrome Tobacco Dependence Syndrome Problem Active 08-18 00:00: 00 [facility] Constipati on by outlet obstructio n Constipati on by Outlet Obstructio n Problem Active 08-18 00:00: 00 [facility] Lateral cystocele Lateral Cystocele Problem Active 08-18 00:00: 00 [facility] 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 Prolapse of Vaginal Vault after Hysterecto my Problem Active 08-18 00:00: 00 [facility] Atrophic vaginitis Atrophic Vaginitis Problem Active 08-18 00:00: 00 [facility] Atypical chest pain Atypical Chest Pain Problem Active 08-18 00:00: 00 [facility] Incomplete emptying of urinary bladder Incomplete Emptying of Urinary Bladder Problem Active 08-18 00:00: 00 [facility] S/P revision of total knee, left S/P revision of total knee, left Disease Active 2020-07 00:00: 00 [facility] Status post revision of total knee replacemen t, 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 Added automatic ally from request for surgery [id number] [facility] Primary osteoarthr itis of left knee Primary osteoarthr itis of left knee Disease Active 03-25 00:00: 00 Overview: Formattin g of this note might be different from the original. 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 Added automatic ally from request for surgery [id number] [facility] Obesity (BMI 30-39.9) Obesity (BMI 30-39.9) Disease Active 2018-07 00:00: 00 [facility] Total knee replacemen t status Total knee replacemen t status Disease Active 2018-07 00:00: 00 [facility] Patellofem oral arthritis of right knee Patellofem oral arthritis of right knee Disease Active 2018-07 00:00: 00 Overview: Formattin g of this note might be different from the original. Added automatic ally from request for surgery [id number] [facility] Low back pain of over 3 months duration Low back pain of over 3 months duration Disease Active 09-06 00:00: 00 [facility] Type 2 diabetes mellitus, without long-term current use of insulin Type 2 diabetes mellitus, without long-term current use of insulin Disease Active 09-06 00:00: 00 [facility] Diabetic neuropathy associated with type 2 diabetes mellitus Diabetic neuropathy associated with type 2 diabetes mellitus Disease Active 09-06 00:00: 00 [facility] Right leg pain Right leg pain Disease Active 03-05 00:00: 00 [facility] Osteoarthr itis of knee Primary osteoarthr itis of left knee Problem [facility] Chronic pain syndrome Chronic pain syndrome Problem [facility] Lumbar spondylosi s Lumbar spondylosi s Problem [facility] [id number] Adult-onse t obesity Problem [facility] Allergies, Adverse Reactions, Alerts Allergy Name Allergy Type Status Severity Reaction(s) Onset Date Inactive Date Treating Clinician Comments Source SULFA (SULFONA MIDE ANTIBIOT ICS) Drug Class Active Hives 11-27 00:00: 00 [facility] Sulfa (Sulfona mide Antibiot ics) Propensi ty to adverse reaction s Active Hives 11-27 00:00: 00 [facility] Sulfa (Sulfona mide Antibiot ics) Propensi ty to adverse reaction s Active Hives 11-27 00:00: 00 [facility] Substanc e with sulfonam demetrius structur e and antibact erial mechanis m of action (substan ce) Substanc e with sulfonam demetrius structur e and antibact erial mechanis m of action (substan ce) Active Unknown [facility] SULFA (SULFONA MIDE ANTIBIOT ICS) Allergy to substanc e Active [facility] Social History Social Habit Start Date Stop Date Quantity Comments Source History of Tobacco Use Current Smoker [facility] Sex Assigned At [facility] Sexual orientation [facility] History SDOH Alcohol Frequency [facility] History SDOH Alcohol Std Drinks [facility] History SDOH Alcohol Binge [facility] Alcoholic beverage intake 2023-11-15 00:00:00 2023-11-15 00:00:00 0 /d [facility] Alcohol intake 2023-11-15 00:00:00 2023-11-15 00:00:00 0 /d [facility] History of Social function 2023-11-01 00:00:00 2023-11-01 00:00:00 [facility] Cigarettes smoked current (pack per day) - Reported 2023-10-25 00:00:00 2023-10-25 00:00:00 [facility] Cigarette pack-years 2023-10-25 00:00:00 2023-10-25 00:00:00 [facility] Tobacco use and exposure 2023-10-25 00:00:00 2023-10-25 00:00:00 User of smokeless tobacco [facility] Tobacco Comment 2023-10-14 00:00:00 2023-10-14 00:00:00 Vaped and quit 3 mnths, ago smoker for 44 years [facility] Exposure to SARS-CoV-2 (event) 2021-07-30 00:00:00 2021-08-29 10:57:00 Not sure [facility] Education 2021-07-14 00:00:00 2021-07-14 00:00:00 9 [facility] Alcohol Comment 2019-07-10 00:00:00 2019-07-10 00:00:00 Occasional Drinker [facility] Smoking Status Start Date Stop Date Source Heavy Tobacco Smoker [facility] Current Smoker 2024-01-12 00:00:00 [facility] Ex-smoker 2023-10-14 00:00:00 2023-10-14 00:00:00 [facility] Medications Ordered Medication Name Filled Medication Name Start Date Stop Date Current Medication? Ordering Clinician Indication Dosage Frequency Signature (SIG) Comments Components Source HYDROcodone -Acetaminop hen 10-325 MG HYDROcodone -Acetaminop hen 10-325 MG 8-05 00:00: 00 No 1{table t_as_ne eded} TID HYDROcodon e-Acetamin ophen 10-325 MG diclofenac 75 mg EC tablet 11-14 00:00: 00 Yes [id number] 75mg Take 1 tablet by mouth in the morning and 1 tablet in the evening. Take with meals. [facility] FENTanyl PF (SUBLIMAZE (PF)) injection 25 mcg 10-31 16:34: 31 10-31 19:49 :09 No 25ug 25 mcg, Slow IV Push, Q5MIN PRN, 4 doses, Starting on Wed11/01/23 at 1134, Until Wed11/01/23 at 1449, Routine, Pain (scale 4-6), PACU [facility] ondansetron (ZOFRAN (PF)) injection 4 mg 10-31 16:34: 31 10-31 19:49 :09 No 4mg 4 mg, Slow IV Push, PRN, 1 dose, Starting on Wed11/01/23 at 1134, Until Wed11/01/23 at 1449, Routine, Nausea and Vomiting (N/V), PACU [facility] lactated ringers IV infusion 1,000 mL 10-31 13:30: 00 10-31 13:39 :00 No 1000mL at 42 mL/hr, 1,000 mL, IV Infusion, ONCE, 1 dose, On Wed11/01/23 at 0830, Routine, DSU Pre-op [facility] glyBURIDE 5 mg tablet 10-31 12:49: 07 Yes 5mg Take 1 tablet by mouth in the morning and 1 tablet in the evening. [facility] baclofen 10 mg tablet 10-31 12:49: 07 Yes 10mg Take 1 tablet by mouth in the morning and 1 tablet in the evening. [facility] diclofenac 75 mg EC tablet 10-31 12:49: 07 Yes 75mg Take 1 tablet by mouth in the morning and 1 tablet at noon and 1 tablet in the evening. Take with meals. [facility] lisinopriL 20 mg tablet 10-31 12:49: 07 Yes 20mg Take 1 tablet by mouth in the morning. [facility] HYDROcodone -acetaminop hen 10-325 mg tablet 10-31 12:49: 07 Yes 1{tbl} Take 1 tablet by mouth every 8 (eight) hours as needed. [facility] aspirin 325 mg tablet 10-31 00:00: 00 11-29 04:59 :00 No [id number] 325mg Take 1 tablet by mouth in the morning and 1 tablet in the evening. Take with meals. Do all this for 28 days. [facility] lisinopriL 20 mg tablet 10-24 13:03: 45 Yes 20mg Take 1 tablet by mouth in the morning. [facility] baclofen 10 mg tablet 10-24 13:00: 52 Yes 10mg Take 1 tablet by mouth in the morning and 1 tablet in the evening. [facility] diclofenac 75 mg EC tablet 10-24 13:00: 52 Yes 75mg Take 1 tablet by mouth in the morning and 1 tablet at noon and 1 tablet in the evening. Take with meals. [facility] HYDROcodone -acetaminop hen 10-325 mg tablet 10-24 13:00: 52 Yes 1{tbl} Take 1 tablet by mouth every 8 (eight) hours as needed. [facility] WELLBUTRIN SR 100 mg SR tablet 08-18 00:00: 00 Yes 100mg Take 1 tablet by mouth in the morning. [facility] estradioL 0.01 % (0.1 mg/gram) vaginal cream 08-18 00:00: 00 Yes 1g Insert 1 g into vagina weekly. [facility] glyBURIDE 5 mg tablet 2020-07 15:00: 27 Yes 5mg Take 1 tablet by mouth in the morning and 1 tablet in the evening. [facility] acetaminoph en-codeine (TYLENOL-CO DEINE #3) 300-30 mg tablet 2020-07 00:00: 00 10-24 00:00 :00 No [id number] 2{tbl} Take 2 tablets by mouth every 6 (six) hours as needed for Pain (scale 4-6) or Pain (scale 7-10). Indication s: acute pain [facility] gabapentin 300 mg capsule 2018-07 00:00: 00 Yes 300mg Take 300 mg by mouth 4 (four) times daily. [facility] gabapentin 800 mg tablet 2018-07 00:00: 00 Yes 800mg Take 1 tablet by mouth in the morning and 1 tablet at noon and 1 tablet in the evening. [facility] NYSTOP 100,000 unit/gram powder 9 00:00: 00 Yes 1{dose} Apply 1 Dose to area(s) as needed. [facility] metFORMIN 500 mg tablet 2018-0 3-05 00:00: 00 Yes TAKE 1 TABLET BY MOUTH THREE TIMES DAILY [facility] glipiZIDE 10 MG glipiZIDE 10 MG No glipiZIDE 10 MG Diclofenac Sodium 75 MG Diclofenac Sodium 75 MG No 1{table t_as_ne eded} BID Diclofenac Sodium 75 MG Baclofen 10 MG Baclofen 10 MG No 1{table t_as_ne eded} BID Baclofen 10 MG Gabapentin 800 MG Gabapentin 800 MG No 1{table t} TID Gabapentin 800 MG amlodipine amlodipine No amlodipine [facility] Cipro Cipro No Cipro [facility] estradiol 0.01% (0.1 mg/gram) vaginal cream Insert 0.5 g 3 times a week by vaginal route at bedtime for 90 days. estradiol 0.01% (0.1 mg/gram) vaginal cream Insert 0.5 g 3 times a week by vaginal route at bedtime for 90 days. No .5g Q56H estradiol 0.01% (0.1 mg/gram) vaginal cream Insert 0.5 g 3 times a week by vaginal route at bedtime for 90 days. [facility] hydrocodone 10 mg-acetamin ophen 300 mg tablet Take 1 tablet every 6 hours by oral route. hydrocodone 10 mg-acetamin ophen 300 mg tablet Take 1 tablet every 6 hours by oral route. No 1 Q6H hydrocodon e 10 mg-acetami nophen 300 mg tablet Take 1 tablet every 6 hours by oral route. [facility] insulin glargine insulin glargine No insulin glargine [facility] lisinopril lisinopril No lisinopril [facility] metformin ER 1,000 mg 24 hr tablet,exte nded release (gastric reten.) Take 1 tablet every day by oral route. metformin ER 1,000 mg 24 hr tablet,exte nded release (gastric reten.) Take 1 tablet every day by oral route. No 1 Q1D metformin ER 1,000 mg 24 hr tablet,ext ended release (gastric reten.) Take 1 tablet every day by oral route. [facility] metoprolol succinate metoprolol succinate No metoprolol succinate [facility] pantoprazol e pantoprazol e No pantoprazo le [facility] tamsulosin tamsulosin No tamsulosin [facility] Immunizations Ordered Immunization Name Filled Immunization Name Date Status Comments Source Influenza Virus Vaccine Quad .5 mL IM 6+ MO 2019-07-18 00:00:00 Completed [facility] Influenza Virus Vaccine Quad .5 mL IM 6+ MO 2019-07-18 00:00:00 Completed [facility] Influenza Virus Vaccine Quad .5 mL IM 6+ MO 2019-07-18 00:00:00 Completed [facility] Influenza Virus Vaccine Quad .5 mL IM 6+ MO 2019-07-18 00:00:00 Completed [facility] Influenza Virus Vaccine Quad .5 mL IM 6+ MO 2019-07-18 00:00:00 Completed [facility] Influenza Virus Vaccine Quad .5 mL IM 6+ MO 2019-07-18 00:00:00 Completed [facility] Influenza Virus Vaccine Quad .5 mL IM 6+ MO (FLUZONE/FLULAVAL/F LUARIX) Unknown Completed [facility] Influenza Virus Vaccine Quad .5 mL IM 6+ MO (FLUZONE/FLULAVAL/F LUARIX) Unknown Completed [facility] Influenza Virus Vaccine Quad .5 mL IM 6+ MO (FLUZONE/FLULAVAL/F LUARIX) Unknown Completed [facility] Influenza Virus Vaccine Quad .5 mL IM 6+ MO (FLUZONE/FLULAVAL/F LUARIX) Unknown Completed [facility] Influenza Virus Vaccine Quad .5 mL IM 6+ MO (FLUZONE/FLULAVAL/F LUARIX) Unknown Completed [facility] Influenza Virus Vaccine Quad .5 mL IM 6+ MO (FLUZONE/FLULAVAL/F LUARIX) Unknown Completed [facility] Influenza Virus Vaccine Quad .5 mL IM 6+ MO (FLUZONE/FLULAVAL/F LUARIX) Unknown Completed [facility] Influenza Virus Vaccine Quad .5 mL IM 6+ MO (FLUZONE/FLULAVAL/F LUARIX) Unknown Completed [facility] Influenza Virus Vaccine Quad .5 mL IM 6+ MO (FLUZONE/FLULAVAL/F LUARIX) Unknown Completed [facility] Influenza Virus Vaccine Quad .5 mL IM 6+ MO (FLUZONE/FLULAVAL/F LUARIX) Unknown Completed [facility] Influenza Virus Vaccine Quad .5 mL IM 6+ MO (FLUZONE/FLULAVAL/F LUARIX) Unknown Completed [facility] Influenza Virus Vaccine Quad .5 mL IM 6+ MO (FLUZONE/FLULAVAL/F LUARIX) Unknown Completed [facility] Influenza Virus Vaccine Quad .5 mL IM 6+ MO (FLUZONE/FLULAVAL/F LUARIX) Unknown Completed [facility] Influenza Virus Vaccine Quad .5 mL IM 6+ MO (FLUZONE/FLULAVAL/F LUARIX) Unknown Completed [facility] Influenza Virus Vaccine Quad .5 mL IM 6+ MO (FLUZONE/FLULAVAL/F LUARIX) Unknown Completed [facility] Influenza Virus Vaccine Quad .5 mL IM 6+ MO (FLUZONE/FLULAVAL/F LUARIX) Unknown Completed [facility] Influenza Virus Vaccine Quad .5 mL IM 6+ MO (FLUZONE/FLULAVAL/F LUARIX) Unknown Completed [facility] Influenza Virus Vaccine Quad .5 mL IM 6+ MO (FLUZONE/FLULAVAL/F LUARIX) Unknown Completed [facility] Influenza Virus Vaccine Quad .5 mL IM 6+ MO (FLUZONE/FLULAVAL/F LUARIX) Unknown Completed [facility] Influenza Virus Vaccine Quad .5 mL IM 6+ MO (FLUZONE/FLULAVAL/F LUARIX) Unknown Completed [facility] Influenza Virus Vaccine Quad .5 mL IM 6+ MO (FLUZONE/FLULAVAL/F LUARIX) Unknown Completed [facility] Influenza Virus Vaccine Quad .5 mL IM 6+ MO (FLUZONE/FLULAVAL/F LUARIX) Unknown Completed [facility] Influenza Virus Vaccine Quad .5 mL IM 6+ MO (FLUZONE/FLULAVAL/F LUARIX) Unknown Completed [facility] Influenza Virus Vaccine Quad .5 mL IM 6+ MO (FLUZONE/FLULAVAL/F LUARIX) Unknown Completed [facility] Vital Signs Vital Name Observation Time Observation Value Comments S ource BMI (Body Mass Index) 2024-04-12 00:00:00 35.2 kg/m2 [facility] Body Weight 2024-04-12 00:00:00 192.6 [lb_av] [facility] BP Diastolic 2024-04-12 00:00:00 70 mm[Hg] [facility] Height 2024-04-12 00:00:00 62 [in_i] [facility] BP Systolic 2024-04-12 00:00:00 101 mm[Hg] [facility] BP Systolic 2024-03-23 00:00:00 165 mm[Hg] [facility] BP Diastolic 2024-03-23 00:00:00 82 mm[Hg] [facility] Height 2024-03-23 00:00:00 62 [in_i] [facility] Body Weight 2024-03-23 00:00:00 192.6 [lb_av] [facility] BMI (Body Mass Index) 2024-03-23 00:00:00 35.2 kg/m2 [facility] height 2024-01-12 10:45:00 62 [in_i] [facility] weight-kg 2024-01-12 10:45:00 87.09 kg [facility] bmi 2024-01-12 10:45:00 35.11 kg/m2 [facility] heart rate 2024-01-12 10:45:00 84 /min [facility] blood pressure systolic 2024-01-12 10:45:00 163 mm[Hg] [facility] blood pressure diastolic 2024-01-12 10:45:00 96 mm[Hg] [facility] Systolic blood pressure 2023-11-15 18:58:00 194 mm[Hg] [facility] Diastolic blood pressure 2023-11-15 18:58:00 89 mm[Hg] [facility] Heart rate 2023-11-15 18:58:00 78 /min [facility] Body height 2023-11-15 18:58:00 [facility].5 [facility] Body weight 2023-11-15 18:58:00 [facility].13 [facility] BMI 2023-11-15 18:58:00 36.34 kg/m2 [facility] Oxygen saturation in Arterial blood by Pulse oximetry 2023-11-15 18:58:00 96 /min [facility] Heart rate 2023-11-01 17:03:00 79 /min [facility] Oxygen saturation in Arterial blood by Pulse oximetry 2023-11-01 17:03:00 96 /min [facility] Respiratory rate 2023-11-01 17:02:00 19 /min [facility] Systolic blood pressure 2023-11-01 16:59:00 133 mm[Hg] [facility] Diastolic blood pressure 2023-11-01 16:59:00 71 mm[Hg] [facility] Body temperature 2023-11-01 16:09:00 36.44 Criselda [facility] Body height 2023-10-25 18:00:00 160 cm [facility] Body weight 2023-10-25 18:00:00 89.359 kg [facility] BMI 2023-10-25 18:00:00 34.90 kg/m2 [facility] Heart rate 2023-11-01 17:03:00 79 /min [facility] Oxygen saturation in Arterial blood by Pulse oximetry 2023-11-01 17:03:00 96 /min [facility] Respiratory rate 2023-11-01 17:02:00 19 /min [facility] Systolic blood pressure 2023-11-01 16:59:00 133 mm[Hg] [facility] Diastolic blood pressure 2023-11-01 16:59:00 71 mm[Hg] [facility] Body temperature 2023-11-01 16:09:00 36.44 Criselda [facility] Body height 2023-10-25 18:00:00 160 cm [facility] Body weight 2023-10-25 18:00:00 89.359 kg [facility] BMI 2023-10-25 18:00:00 34.90 kg/m2 [facility] Systolic blood pressure 2023-10-20 20:07:00 176 mm[Hg] [facility] Diastolic blood pressure 2023-10-20 20:07:00 84 mm[Hg] [facility] Heart rate 2023-10-20 20:07:00 81 /min [facility] Respiratory rate 2023-10-20 20:07:00 18 /min [facility] Body height 2023-10-20 20:07:00 160 cm [facility] Body weight 2023-10-20 20:07:00 89.449 kg [facility] BMI 2023-10-20 20:07:00 34.93 kg/m2 [facility] Oxygen saturation in Arterial blood by Pulse oximetry 2023-10-20 20:07:00 95 /min [facility] Body height 2023-10-14 13:25:00 157.5 cm [facility] Body weight 2023-10-14 13:25:00 89.359 [facility] BMI 2023-10-14 13:25:00 36.03 kg/m2 [facility] Systolic blood pressure 2021-08-29 17:33:00 151 mm[Hg] [facility] Diastolic blood pressure 2021-08-29 17:33:00 82 mm[Hg] [facility] Heart rate 2021-08-29 17:33:00 78 /min [facility] Body height 2021-08-29 17:22:00 160 cm [facility] Body weight 2021-08-29 17:22:00 98.93 kg [facility] BMI 2021-08-29 17:22:00 38.63 kg/m2 [facility] Oxygen saturation in Arterial blood by Pulse oximetry 2021-08-29 17:22:00 97 /min [facility] Procedures Procedure Date / Time Performed Performing Clinician Source BODY FLUID DIRECT COUNT 2023-11-01 16:01:00 Yesenia Sarabia [facility] BODY FLUID CULTURE(AEROBIC/ANAEROBIC) 2023-11-01 16:01:00 Yesenia Sarabia [facility] FUNGUS (ROUTINE) CULTURE 2023-11-01 16:01:00 Yesenia Sarabia [facility] ASPIRATION JOINT LOWER EXTREMITY 2023-11-01 15:32:00 Yesenia Sarabia [facility] ASPIRATION JOINT LOWER EXTREMITY 2023-11-01 15:32:00 Yesenia Sarabia [facility] POCT GLUCOSE (AUTOMATED) 2023-11-01 13:40:00 Yesenia Sarabia [facility] POCT GLUCOSE (AUTOMATED) 2023-11-01 13:40:00 Yesenia Sarabia [facility] BASIC METABOLIC PANEL (NA, K, CL, CO2, GLUCOSE, BUN, CREATININE, CA) 2023-10-29 16:15:00 Yesenia Sarabia [facility] CBC WITH DIFF 2023-10-29 16:15:00 [facility] 2023-10-14 14:24:00 Yesenia Sarabia [facility] XR KNEE 3 VW LEFT 2023-10-14 14:09:24 Yesenia Sarabia [facility] REFERRAL- REQUEST/RESPONSE 2023-08-18 06:01:00 D octor Unassigned, [place] [facility] DISABILITY/FMLA 2022-02-24 05:01:00 Doctor Unass igned, [place] [facility] XR KNEE <3 VW LEFT 2021-08-29 17:54:29 Yesenia Sarabia [facility] REFERRAL- REQUEST/RESPONSE 2021-08-19 06:01:00 D octor Unassigned, [place] [facility] Hysterectomy 2014-07-19 00:00:00 [facility] Excision of Mass of Breast [facility] Append[facility] Cholecystectomy (Gallbladder) [facility] Tubal Ligation [facility] - Knee Replacement [facility] Encounters Start Date/Time End Date/Time Encounter Type Admission Type Attending Clinicians Care Facility Care Department Encounter ID Source 2024-01-12 10:27:00 Outpatient Palma, Jody CLS CLS [id number] [facility] 2021-07-02 16:08:43 Outpatient R YESENIA SARABIA [facility] S[facility] [id number] [facility] 2021-05-19 20:54:10 Outpatient YESENIA SARABIA [facility] [id number] [facility] 2024-04-12 00:00:00 2024-04-12 00:00:00 AUSTIN Lange: [address], [address], [place] [address] , Ph. Formerly [facility] - GC_GCBZW_Barb Barnett* [id number] [facility] 2024-03-23 00:00:00 2024-03-23 00:00:00 AUSTIN Lange: [address], [address], [place] [address] , Ph. Formerly [facility] - GC_GCBZW_Barb Barnett* [id number] [facility] 2024-02-22 08:00:00 2024-02-22 08:00:00 Outpatient R YESENIA SARABIA [facility] [id number] [facility] 2024-02-21 00:00:00 2024-02-21 00:00:00 (TEL) [facility] CLS [id number] [facility]don 2024-02-14 14:30:00 2024-02-14 15:00:00 Office Visit Yesenia Sarabia [facility] 1.2.840.114 350.1.13.10 4.2.7.2.686 [id number] 198 [id number] [facility] 2024-02-14 14:30:00 2024-02-14 14:30:00 Outpatient R YESENIA SARABIA [facility] [id number] [facility] 2024-02-02 00:00:00 2024-02-02 00:00:00 (TEL) CLS CLS [id number] [facility] 2024-01-26 00:00:00 2024-01-26 00:00:00 (TEL) CLS CLS [id number] [facility] 2024-01-21 00:00:00 2024-01-21 00:00:00 (TEL) CLS CLS [id number] [facility] 2024-01-18 00:00:00 2024-01-18 08:45:41 Refill Yesenia Sarabia [facility] 1.2.840.114 350.1.13.10 4.2.7.2.686 [id number] [facility] 2024-01-12 00:00:00 2024-01-12 00:00:00 Office Visit- Est Pt.- Level 4 CLS CLS [id number] [facility] 2023-11-15 14:45:00 2023-11-15 14:45:00 Office Visit Yesenia Sarabia [facility] 1.2840.114 350.1.13.10 4.2.7.2.686 [id number] [facility] 2023-11-15 14:45:00 2023-11-15 14:42:24 Outpatient R YESENIA SARABIA [facility] [id number] [facility] 2023-11-01 08:14:00 2023-11-01 12:09:00 Outpatient R YESENIA SARABIA C[facility]IG [facility] SOR [id number] [facility] 2023-11-01 08:14:00 2023-11-01 12:09:00 Hospital Encounter Yesenia Sarabia [facility] 1.2.840.114 350.1.13.10 4.2.7.2.686 [id number] [facility] 2023-11-01 11:40:00 2023-11-01 12:05:00 Surgery Yesenia Sarabia [facility] [place] 1.2.840.114 350.1.13.10 4.2.7.2.686 [id number] [facility] 2023-10-29 10:54:02 2023-10-29 23:59:00 Hospital Encounter Yesenia Sarabia [facility] 1.2.840.114 350.1.13.10 4.2.7.2.686 [id number] [facility] 2023-10-29 11:00:00 2023-10-29 11:15:00 Model Maker Scale Visit Pob, Adc Lab Main Yesenia aSrabia [facility] [place] 1..840.114 350.1.13.10 4.2.7.2.686 [id number] [facility] 2023-10-29 10:52:34 2023-10-29 10:53:00 Outpatient R YESENIA SARABIA [facility] [id number] [facility] 2023-10-29 10:52:34 2023-10-29 10:53:00 Hospital Encounter Yesenia Sarabia [facility] 1..840.114 350.1.13.10 4.2.7.2.686 [id number] [facility] 2023-10-22 00:00:00 2023-10-22 00:00:00 Outpatient R YESENIA SARABIA [facility] [id number] [facility] 2023-10-22 00:00:00 2023-10-22 00:00:00 Outpatient GC_GCBZW_Ka diyala_S PRIV PRIV [id number] [facility] Medical 2023-10-21 00:00:00 2023-10-21 00:00:00 Prep For Surgery Yesenia Sarabia [facility] 1..840.114 350.1.13.10 4.2.7.2.686 [id number] 198 [id number] [facility] 2023-10-20 15:15:00 2023-10-20 15:50:11 Outpatient R YESENIA SARABIA [facility] [id number] [facility] 2023-10-20 15:15:00 2023-10-20 15:50:11 Office Visit Yesenia Sarabia [facility] 1.2.840.114 350.1.13.10 4.2.7.2.686 [id number] [facility] 2023-10-18 00:00:00 2023-10-18 00:00:00 Telephone [facility] 1.2.840.114 350.1.13.10 4.2.7.2.686 [id number] [facility] 2023-10-14 09:06:14 2023-10-14 23:59:00 Outpatient R AGUSTÍN SARABIAIG NO [facility] [id number] [facility] 2023-10-14 09:06:14 2023-10-14 23:59:00 Hospital Encounter Yesenia Sarab[facility] 1.2840.114 350.1.13.10 4.2.7.2.686 [id number] [facility] 2023-10-14 09:45:00 2023-10-14 10:00:00 Model Maker Scale Visit Lab, Marito - Logan Yesenia Sarabia [facility] 1.2.840.114 350.1.13.10 4.2.7.2.686 [id number] [facility] 2023-10-14 08:00:00 2023-10-14 09:18:54 Office Visit Yesenia Sarabia [facility] 1..840.114 350.1.13.10 4.2.7.2.686 [id number] [facility] 2023-09-24 00:00:00 2023-09-24 00:00:00 Outpatient GC_GCBZW_Ka diyala_S PRIV [facility] [id number] [facility] Medical 2023-09-20 00:00:00 2023-09-20 00:00:00 Outpatient GC_GCBZW_Ka diyala_S PRIV PRIV [id number] [facility] 2023-09-18 00:00:00 2023-09-18 00:00:00 Outpatient GC_GCBZW_Ka diyala_S PRIV PRIV [id number] [facility] 2023-09-06 00:00:00 2023-09-06 00:00:00 Outpatient GC_GCBZW_Ka diyala_S PRIV PRIV [id number] [facility] 2023-08-30 00:00:00 2023-08-30 00:00:00 Outpatient GC_GCBZW_Ka diyala_S PRIV PRIV [id number] [facility] 2023-08-18 00:00:00 2023-08-18 00:00:00 Outpatient GC_GCBZW_Ka diyala_S PRIV PRIV [id number] [facility] 2023-08-18 00:00:00 2023-08-18 00:00:00 Orders Only Doctor Unassigned, [place] 11729.840.114 350.1.13.10 4.2.7.2.686 [id number] [facility] 2023-08-12 00:00:00 2023-08-12 00:00:00 Outpatient GC_GCBZW_Ka diyala_S PRIV PRIV [id number] [facility] 2023-05-16 00:00:00 2023-05-16 00:00:00 Outpatient GC_GCBZW_Ka diyala_S PRIV PRIV [id number] [facility] 2022-02-24 00:00:00 2022-02-24 00:00:00 Orders Only Doctor Unassigned, [place] 11729.840.114 350.1.13.10 4.2.7.2.686 [id number] [facility] 2021-10-20 00:00:00 2021-10-20 00:00:00 Letter (Out) Yesenia Sarabia [facility] 1.84.114 350.1.13.10 4.2.7.2.686 [id number] [facility] 2021-10-20 00:00:00 2021-10-20 00:00:00 Letter (Out) Yesenia Sarabia [facility] 1.84.114 350.1.13.10 4.2.7.2.686 [id number] [facility] 2021-08-29 11:45:00 2021-08-29 23:59:00 Outpatient R SARABIAYESENIA WILLIS [facility] [id number] [facility] 2021-08-29 11:45:00 2021-08-29 23:59:00 Hospital Encounter Yesenia Sarabia [facility] 1.84.114 350.1.13.10 4.2.7.2.686 [id number] [facility] 2021-08-29 11:00:00 2021-08-29 11:15:00 Office Visit [facility] 1.84.114 350.1.13.10 4.2.7.2.686 [id number] [facility] 2021-08-29 11:00:00 2021-08-29 11:00:00 Outpatient R VINCENT AGUSTIN [facility] [id number] [facility] 2021-08-19 00:00:00 2021-08-19 00:00:00 Orders Only Doctor Unassigned, [place] [facility] 1.84.114 350.1.13.10 4.2.7.2.686 [id number] [id number] [facility] 2021-07-31 11:15:00 2021-07-31 11:15:00 Outpatient R NIKOLE [facility] [id number] [facility] 2021-07-31 11:15:00 2021-07-31 11:15:00 Outpatient R VINCENT AGUSTIN [facility] [id number] [facility] 2021-07-29 13:28:03 2021-07-29 23:59:00 Outpatient R NIKOLE [facility] [id number] [facility] 2021-07-29 13:28:03 2021-07-29 23:59:00 Hospital Encounter Nikole [facility] 1.2.840.114 350.1.13.10 4.2.7.2.686 [id number] [facility] 2021-07-29 13:28:03 2021-07-29 23:59:00 Outpatient R VINCENT AGUSTIN [facility] [id number] [facility] 2021-07-29 13:15:00 2021-07-29 13:30:00 Office Visit Nikole [facility] 1.2.840.114 350.1.13.10 4.2.7.2.686 [id number] [facility] 2021-07-29 13:15:00 2021-07-29 13:15:00 Outpatient R NIKOLE [facility] [id number] [facility] 2021-07-28 00:00:00 2021-07-28 00:00:00 Telephone Yesenia Sarabia [facility] 1.2.840.114 350.1.13.10 4.2.7.2.686 [id number] [facility] 2021-07-25 09:00:00 2021-07-25 09:00:00 Outpatient R VINCENT AGUSTIN [facility] [id number] [facility] 2021-07-17 00:00:00 2021-07-17 00:00:00 Telephone Yesenia Sarabia [facility] 1.840.114 350.1.13.10 4.2.7.2.686 [id number] [facility] 2021-07-17 00:00:00 2021-07-17 00:00:00 Telephone Yesenia Sarabia Clarisa [facility] 1.840.114 350.1.13.10 4.2.7.2.686 [id number] [facility] 2021-07-17 00:00:00 2021-07-17 00:00:00 Orders Only Doctor Unassigned, [place] [facility] 1.84.114 350.1.13.10 4.2.7.2.686 [id number] [id number] [facility] 2021-07-16 00:00:00 2021-07-16 00:00:00 Telephone Yesenia Sarabia [facility] 1.84.114 350.1.13.10 4.2.7.2.686 [id number] [facility] 2021-07-14 10:19:00 2021-07-15 15:00:00 Outpatient R YESENIA SARABIA [facility] [id number] [facility] 2021-07-14 10:19:00 2021-07-15 15:00:00 Hospital Encounter Yesenia Sarabia [facility] 1.84.114 350.1.13.10 4.2.7.2.686 [id number] [facility] 2021-07-14 12:35:00 2021-07-14 15:54:00 Surgery Yesenia Sarabia [facility] 1.840.114 350.1.13.10 4.2.7.2.686 [id number] [facility] 2021-07-14 00:00:00 2021-07-14 00:00:00 Orders Only Doctor Unassigned, [place] [facility] 1.2840.114 350.1.13.10 4.2.7.2.686 [id number] [id number] [facility] 2021-07-11 11:15:00 2021-07-11 11:30:00 Laboratory Only Only, Adc Test Yesenia Sarabia [facility] 1.840.114 350.1.13.10 4.2.7.2.686 [id number] [facility] 2021-07-11 11:15:00 2021-07-11 11:15:00 Outpatient R YESENIA SARABIA [facility] [id number] [facility] 2021-07-11 00:00:00 2021-07-11 00:00:00 Orders Only Doctor Unassigned, [place] [facility] 1.2840.114 350.1.13.10 4.2.7.2.686 [id number] [facility] 2021-07-10 14:32:10 2021-07-10 23:59:00 Outpatient R YESENIA SARABIA [facility] [id number] [facility] 2021-07-10 12:00:00 2021-07-10 23:59:00 Hospital Encounter Yesenia Sarabia [facility] 1.840.114 350.1.13.10 4.2.7.2.686 [id number] [facility] 2021-07-10 14:31:09 2021-07-10 14:31:09 Outpatient R YESENIA SARABIA [facility] [id number] [facility] 2021-07-10 11:45:00 2021-07-10 11:59:00 Hospital Encounter Yesenia Sarabia [facility] 1.2.840.114 350.1.13.10 4.2.7.2.686 [id number] [facility] 2021-07-10 11:30:00 2021-07-10 11:45:00 Model Maker Scale Visit Pob, Adc Lab Main Yesenia Sarabia [facility] BUILD[facility] 1.2.840.114 350.1.13.10 4.2.7.2.686 [id number] [facility] 2021-06-30 00:00:00 2021-06-30 00:00:00 Telephone Yesenia Sarab[facility] 1.2.840.114 350.1.13.10 4.2.7.2.686 [id number] [facility] 2021-06-30 00:00:00 2021-06-30 00:00:00 Prep For Surgery Yesenia Sarabia [facility] 1.2.840.114 350.1.13.10 4.2.7.2.686 [id number] [facility] 2021-06-27 00:00:00 2021-06-27 00:00:00 Telephone Olayinka Ricardo [facility] BUILD[facility] 1.2.840.114 350.1.13.10 4.2.7.2.686 [id number] [facility] 2021-06-26 09:00:00 2021-06-26 11:19:13 Outpatient R SARABIAYESENIA [facility] [id number] [facility] 2021-06-26 09:00:00 2021-06-26 11:19:13 Outpatient R YESENIA SARABIA [facility] [id number] [facility] 2021-06-26 08:43:47 2021-06-26 11:19:13 Office Visit Yesenia Sarabia [facility] 1..840.114 350.1.13.10 4.2.7.2.686 [id number] [facility] 2021-06-26 09:00:00 2021-06-26 09:00:00 Outpatient R YESENIA SARABIA [facility] [id number] [facility] 2021-06-17 00:00:00 2021-06-17 00:00:00 Telephone Yesenia Sarabia [facility] 1..840.114 350.1.13.10 4.2.7.2.686 [id number] [facility] 2021-06-16 00:00:00 2021-06-16 00:00:00 Orders Only Doctor Unassigned, [place] [facility] 1.840.114 350.1.13.10 4.2.7.2.686 [id number] [id number] [facility] 2021-05-14 13:01:51 2021-05-14 13:16:51 Office Visit Vincent Agustin [facility]Gu[facility] Medical Office Building 1..840.114 350.1.13.10 4.2.7.2.686 [id number] [facility] 2021-05-14 13:00:00 2021-05-14 13:00:00 Outpatient R VINCENT AGUSTIN [facility] [id number] [facility] 2021-05-08 00:00:00 2021-05-08 00:00:00 Orders Only Doctor Unassigned, [place] [facility] 1.2840.114 350.1.13.10 4.2.7.2.686 [id number] [id number] [facility] 2021-04-14 13:35:00 2021-04-14 23:59:00 [facility]Guillaume lopez Medical Office Building 1.2840.114 350.1.13.10 4.2.7.2.686 [id number] [facility] 2021-04-14 13:35:00 2021-04-14 23:59:00 Outpatient R NIKOLE [facility] [id number] [facility] 2021-04-14 13:45:00 2021-04-14 13:45:00 Outpatient R NIKOLE [facility] [id number] [facility] 2021-04-14 13:12:59 2021-04-14 13:27:59 Office [facility]Guillaume lopez Medical Office Building 1.84.114 350.1.13.10 4.2.7.2.686 [id number] [facility] 2021-04-04 00:00:00 2021-04-04 00:00:00 Patient Secure Msg Doctor Unassigned, [place] [facility] 1.2840.114 350.1.13.10 4.2.7.2.686 [id number] [facility] 2021-03-31 06:35:00 2021-03-31 15:05:00 Hospital Encounter Yesenia Sarabia [facility] 1.20.114 350.1.13.10 4.2.7.2.686 [id number] [facility] 2021-03-31 07:30:00 2021-03-31 09:59:00 Surgery Yesenia Sarabia [facility] 1.2840.114 350.1.13.10 4.2.7.2.686 [id number] [facility] 2021-03-31 00:00:00 2021-03-31 00:00:00 Vincent Arellano [facility] Surgical Specialti libra [place] 1.2.840.114 350.1.13.10 4.2.7.2.686 [id number] [facility] 2021-03-31 00:00:00 2021-03-31 00:00:00 Orders Only Doctor Unassigned, [place] [facility] 1.2.840.114 350.1.13.10 4.2.7.2.686 [id number] [id number] [facility] 2021-03-28 10:00:00 2021-03-28 23:59:00 Hospital Encounter Yesenia Sarabia [facility] 1.2.840.114 350.1.13.10 4.2.7.2.686 [id number] [facility] 2021-03-28 13:30:08 2021-03-28 13:45:08 Laboratory Only Only, Adc Test Yesenia Sarabia [facility] 1.2.840.114 350.1.13.10 4.2.7.2.686 [id number] [facility] 2021-03-28 13:24:59 2021-03-28 13:39:59 Model Maker Scale Visit Pob, Adc Lab Main Yesenia Sarabia [facility] 1.2.840.114 350.1.13.10 4.2.7.2.686 [id number] [facility] 2021-03-28 08:00:00 2021-03-28 09:59:00 Hospital Encounter Yesenia Sarabia [facility] 1.2.840.114 350.1.13.10 4.2.7.2.686 [id number] [facility] 2021-03-28 00:00:00 2021-03-28 00:00:00 Outpatient R YESENIA SARABIA [facility] [id number] [facility] 2021-03-25 00:00:00 2021-03-25 00:00:00 Telephone Yesenia Sarabia [facility] Surgical Specialti libra [place] 1.2840.114 350.1.13.10 4.2.7.2.686 [id number] [facility] 2021-03-17 00:00:00 2021-03-17 00:00:00 Orders Only Doctor Unassigned, [place] [facility] 1.2.114 350.1.13.10 4.2.7.2.686 [id number] [id number] [facility] 2021-03-17 00:00:00 2021-03-17 00:00:00 Prep For Surgery Yesenia Sarabia Count includes the [facility] Medical Office Building 1.84.114 350.1.13.10 4.2.7.2.686 [id number] [facility] 2021-03-17 00:00:00 2021-03-17 00:00:00 Telephone Yesenia Sarabia Count includes the [facility] Medical Office Building 1.84.114 350.1.13.10 4.2.7.2.686 [id number] [facility] 2021-03-12 00:00:00 2021-03-12 00:00:00 Telephone Vincent Agustin Count includes the [facility] Medical Office Building 1.84.114 350.1.13.10 4.2.7.2.686 [id number] [facility] 2021-03-09 00:00:00 2021-03-09 00:00:00 Patient Secure Olayinka Roger [facility] PROFESS[facility] NAL BUILDING 1.2.114 350.1.13.10 4.2.7.2.686 [id number] [facility] 2021-03-07 10:37:43 2021-03-07 23:59:00 [facility] [id number] [facility] 2021-03-07 09:20:00 2021-03-07 09:47:20 Outpatient R [facility] [id number] [facility] 2021-03-07 09:16:38 2021-03-07 09:47:20 Office Visit [facility] Building 1..840.114 350.1.13.10 4.2.7.2.686 [id number] [facility] 2021-03-07 09:16:38 2021-03-07 09:47:20 Office Visit [facility] NAL BUILDING 1..840.114 350.1.13.10 4.2.7.2.686 [id number] [facility] 2021-03-07 09:20:00 2021-03-07 09:20:00 Outpatient R [facility] [id number] [facility] 2021-03-07 00:00:00 2021-03-07 00:00:00 Telephone [facility] Building 1..840.114 350.1.13.10 4.2.7.2.686 [id number] [facility] 2021-03-07 00:00:00 2021-03-07 00:00:[address] [facility] 1..840.114 350.1.13.10 4.2.7.2.686 [id number] [facility] 2021-03-06 10:30:00 2021-03-06 10:30:00 Outpatient [facility] [id number] [facility] 2021-03-06 00:00:00 2021-03-06 00:00:00 Patient Secure Msg Doctor Unassigned, [place] [facility] 1.2.840.114 350.1.13.10 4.2.7.2.686 [id number] [facility] 2021-03-05 00:00:00 2021-03-05 00:00:00 Refill Yesenia Sarabia [facility] 1.2.840.114 350.1.13.10 4.2.7.2.686 [id number] [facility] 2021-01-02 16:00:00 2021-01-02 16:00:00 Outpatient [facility] [id number] [facility] 2021-01-02 15:41:45 2021-01-02 15:56:45 Office Visit Nikole [facility] 1.2.840.114 350.1.13.10 4.2.7.2.686 [id number] [facility] 2020-12-26 00:00:00 2020-12-26 00:00:00 Telephone Yesenia Sarabia [facility] 1.2.840.114 350.1.13.10 4.2.7.2.686 [id number] [facility] 2020-12-20 00:00:00 2020-12-20 00:00:00 Telephone Nikole [facility] 1.2.840.114 350.1.13.10 4.2.7.2.686 [id number] [facility] 2020-12-06 08:37:34 2020-12-06 23:59:00 Hospital Encounter Nikole [facility] 1.2.840.114 350.1.13.10 4.2.7.2.686 [id number] [facility] [facility] 2020-12-06 08:37:34 2020-12-06 23:59:00 Outpatient [facility] [id number] [facility] 2020-12-06 08:37:34 2020-12-06 23:59:00 [facility] [id number] [facility] 2020-12-06 08:16:04 2020-12-06 09:36:38 Office Visit Nikole [facility] libra [place] 1.2.840.114 350.1.13.10 4.2.7.2.686 [id number] [facility] 2020-12-06 08:30:00 2020-12-06 08:30:[address] [facility] [id number] [facility] 2020-11-25 00:00:00 2020-11-25 00:00:00 Orders Only Doctor Unassigned, [place] [facility] 1.2840.114 350.1.13.10 4.2.7.2.686 [id number] 009 [id number] [facility] 2020-10-29 00:00:00 2020-10-29 00:00:00 Orders Only Doctor Unassigned, [place] [facility] 1.2840.114 350.1.13.10 4.2.7.2.686 [id number] 009 [id number] [facility] 2020-10-15 00:00:00 2020-10-15 00:00:00 Orders Only Doctor Unassigned, [place] [facility] 1.2840.114 350.1.13.10 4.2.7.2.686 [id number] 009 [id number] [facility] 2020-09-28 00:00:00 2020-09-28 00:00:00 Patient Outreach Usama Arteaga [facility] 1.2.840.114 350.1.13.10 4.2.7.2.686 [id number] [facility] 2020-09-11 00:00:00 2020-09-11 00:00:00 Orders Only Doctor Unassigned, [place] [facility] 1.2.840.114 350.1.13.10 4.2.7.2.686 [id number] 009 [id number] [facility] 2020-08-16 10:00:00 2020-08-16 10:00:00 Outpatient R OLAYINKA RICARDO [facility] [id number] [facility] 2020-08-13 14:11:28 2020-08-13 23:59:00 Hospital Encounter Eze Vallejo [facility] 1.2.840.114 350.1.13.10 4.2.7.2.686 [id number] [facility] 2020-08-13 14:16:27 2020-08-13 14:31:27 Model Maker Scale Visit Pob, Adc Lab Main Pj Mor[facility] 1.2840.114 350.1.13.10 4.2.7.2.686 [id number] [facility] 2020-08-13 14:10:27 2020-08-13 14:10:27 Outpatient R EZE VALLEJO [facility] [id number] [facility] 2020-08-13 14:10:27 2020-08-13 14:10:27 Hospital Encounter Eze Vallejo [facility] 1.2.840.114 350.1.13.10 4.2.7.2.686 [id number] [facility] 2020-08-13 00:00:00 2020-08-13 00:00:00 Orders Only Doctor Unassigned, [place] [facility] 1.2.840.114 350.1.13.10 4.2.7.2.686 [id number] 009 [id number] [facility] 2020-08-06 09:29:10 2020-08-06 09:44:10 Office Visit [facility] [place] 1.2.840.114 350.1.13.10 4.2.7.2.686 [id number] [facility] 2020-08-06 09:30:00 2020-08-06 09:30:[address] [facility] [id number] [facility] 2020-07-17 00:00:00 2020-07-17 00:00:00 Orders Only Doctor Unassigned, [place] [facility] 1.2840.114 350.1.13.10 4.2.7.2.686 [id number] 009 [id number] [facility] 2020-07-09 09:13:48 2020-07-09 23:59:00 [facility] [id number] [facility] 2020-07-09 09:13:48 2020-07-09 23:59:[address] [facility] [id number] [facility] 2020-07-09 09:13:48 2020-07-09 23:59:00 Hospital Encounter [facility] [place] 1.2.840.114 350.1.13.10 4.2.7.2.686 [id number] [facility] 2020-07-09 08:45:28 2020-07-09 09:27:23 Office Visit [facility] [place] 1.2.840.114 350.1.13.10 4.2.7.2.686 [id number] [facility] 2020-06-24 09:13:00 2020-06-25 13:00:00 Outpatient R YESENIA SARABIA [facility] SOR [id number] [facility] 2020-06-24 09:13:00 2020-06-25 13:00:00 Hospital Encounter Yesenia Sarabia [facility] 1.2.840.114 350.1.13.10 4.2.7.2.686 [id number] [facility] 2020-06-21 14:31:45 2020-06-21 14:46:45 Model Maker Scale Visit Pob, Adc Lab Main Yesenia Sarabia [facility] 1.2840.114 350.1.13.10 4.2.7.2.686 [id number] [facility] 2020-06-21 14:17:58 2020-06-21 14:32:58 Laboratory Only Only, Adc Test Yesenia Sarabia [facility] 1.2840.114 350.1.13.10 4.2.7.2.686 [id number] [facility] 2020-06-21 14:15:00 2020-06-21 14:15:00 Outpatient R YESENIA SARABIA [facility] [id number] [facility] 2020-06-21 00:00:00 2020-06-21 00:00:00 Orders Only Doctor Unassigned, [place] [facility] 1.2840.114 350.1.13.10 4.2.7.2.686 [id number] [id number] [facility] 2020-06-10 00:00:00 2020-06-10 00:00:00 Prep For Surgery Yesenia Sarabia [facility] Health Surgical Specialti [facility] 1.2840.114 350.1.13.10 4.2.7.2.686 [id number] [facility] 2020-06-10 00:00:00 2020-06-10 00:00:00 Prep For Surgery Yesenia Sarabia [facility] Surgical Specialti libra [place] 1.2.840.114 350.1.13.10 4.2.7.2.686 [id number] 2020-06-05 14:35:26 2020-06-05 14:50:26 Office Visit [facility] Surgical Specialti libra [place] 1.2.840.114 350.1.13.10 4.2.7.2.686 [id number] [facility] 2020-06-05 14:35:26 2020-06-05 14:50:26 Office Visit [facility] Surgical Specialti libra [place] 1.2.840.114 350.1.13.10 4.2.7.2.686 [id number] 2020-06-05 14:30:00 2020-06-05 14:30:00 [facility] [id number] 2020-05-29 00:00:00 2020-05-29 00:00:00 Telephone Yesenia Sarabia [facility] Surgical Specialarcelia [place] 1.2.840.114 350.1.13.10 4.2.7.2.686 [id number] [facility] 2020-05-23 00:00:00 2020-05-23 00:00:00 Telephone Yesenia Sarabia [facility] Surgical Specialti libra [place] 1.2.840.114 350.1.13.10 4.2.7.2.686 [id number] [facility] 2020-05-22 12:09:00 2020-05-22 23:59:00 Hospital Encounter Yesenia Sarabia [facility] 1.2.840.114 350.1.13.10 4.2.7.2.686 [id number] [facility] 2020-05-22 00:00:00 2020-05-22 00:00:00 Orders Only Doctor Unassigned, [place] [facility] 1.2.840.114 350.1.13.10 4.2.7.2.686 [id number] [id number] [facility] 2020-05-17 12:41:20 2020-05-17 23:59:00 Hospital Encounter Yesenia Sarabia [facility] 1.2.840.114 350.1.13.10 4.2.7.2.686 [id number] [facility] 2020-05-17 12:36:11 2020-05-17 12:51:11 Model Maker Scale Visit Pob, Adc Lab Main [facility] 1.2.840.114 350.1.13.10 4.2.7.2.686 [id number] [facility] 2020-05-17 10:25:36 2020-05-17 11:09:24 Office Visit Yesenia Sarabia [facility] 1.2.840.114 350.1.13.10 4.2.7.2.686 [id number] [facility] 2020-05-17 10:30:00 2020-05-17 10:30:00 Outpatient R YESENIA SARABIA [facility] [id number] [facility] 2020-05-17 00:00:00 2020-05-17 00:00:00 Orders Only Doctor Unassigned, [place] [facility] 1.2.840.114 350.1.13.10 4.2.7.2.686 [id number] [id number] [facility] 2020-05-09 11:06:42 2020-05-09 23:59:00 Hospital Encounter Yesenia Sarabia [facility] 1.2.840.114 350.1.13.10 4.2.7.2.686 [id number] [facility] 2020-05-09 15:15:00 2020-05-09 15:15:00 Outpatient R AGUSTÍN SARABIAIG [facility] [id number] [facility] 2020-05-09 14:40:14 2020-05-09 14:55:14 Model Maker Scale Visit Pob, Adc Lab Main Agustín Sarabiaig Clarisa [facility] 1..114 350.1.13.10 4.2.7.2.686 [id number] [facility] 2020-05-09 13:41:15 2020-05-09 14:16:18 Office Visit Yesenia Sarabia [facility] Surgical Specialarcelia [place] 1.2.114 350.1.13.10 4.2.7.2.686 [id number] [facility] 2020-05-09 10:30:00 2020-05-09 10:45:00 Office Visit Yesenia Sarabia [facility] 1..114 350.1.13.10 4.2.7.2.686 [id number] [facility] 2020-05-09 10:30:00 2020-05-09 10:30:00 Outpatient R NO YESENIA [facility] [id number] [facility] 2020-05-08 00:00:00 2020-05-08 00:00:00 Telephone Agustín Sarabiaig Clarisa [facility] Surgical Special libra [place] 1.2.114 350.1.13.10 4.2.7.2.686 [id number] [facility] 2020-04-30 00:00:00 2020-04-30 00:00:00 Orders Only Doctor Unassigned, [place] [facility] 1.2.114 350.1.13.10 4.2.7.2.686 [id number] [id number] [facility] 2020-03-20 00:00:00 2020-03-20 00:00:00 Telephone SarabiaAgustín willisig L [facility] Surgical Special libra [place] 1.2.840.114 350.1.13.10 4.2.7.2.686 [id number] [facility] 2020-02-22 00:00:00 2020-02-22 00:00:00 Orders Only Doctor Unassigned, [place] [facility] 1.2.840.114 350.1.13.10 4.2.7.2.686 [id number] [id number] [facility] 2020-02-13 00:00:00 2020-02-13 00:00:00 Orders Only Doctor Unassigned, [place] [facility] 1.2.840.114 350.1.13.10 4.2.7.2.686 [id number] [id number] [facility] 2019-11-08 00:00:00 2019-11-08 00:00:00 Orders Only Doctor Unassigned, [place] [facility] 1.2.840.114 350.1.13.10 4.2.7.2.686 [id number] [id number] [facility] 2019-11-02 13:45:00 2019-11-02 13:45:00 Outpatient R NIKOLE VINCENT [facility] [id number] [facility] 2019-11-02 08:01:19 2019-11-02 08:16:19 Telemedici ne Visit Nikole [facility] Surgical Special libra [place] 1.2.840.114 350.1.13.10 4.2.7.2.686 [id number] [facility] 2019-09-28 00:00:00 2019-09-28 00:00:00 Letter (Out) Nikole [facility] Surgical Special libra [place] 1.2.840.114 350.1.13.10 4.2.7.2.686 [id number] [facility] 2019-09-13 00:00:00 2019-09-13 00:00:00 Letter (Out) Nikole [facility] Surgical Specialarcelia [place] 1.2.840.114 350.1.13.10 4.2.7.2.686 [id number] [facility] 2019-09-11 00:00:00 2019-09-11 00:00:00 Telephone Nikole [facility] Surgical Specialarcelia [place] 1.2.840.114 350.1.13.10 4.2.7.2.686 [id number] [facility] 2019-09-07 07:55:18 2019-09-07 08:10:18 Office Visit Nikole [facility] Surgical Specialarcelia [place] 1.2.840.114 350.1.13.10 4.2.7.2.686 [id number] [facility] 2019-09-07 00:00:00 2019-09-07 00:00:00 Orders Only Doctor Unassigned, [place] [facility] 1.2.840.114 350.1.13.10 4.2.7.2.686 [id number] [id number] [facility] 2019-09-07 00:00:00 2019-09-07 00:00:00 Letter (Out) [place] [facility] Surgical Special libra [place] 1.2.840.114 350.1.13.10 4.2.7.2.686 [id number] [facility] 2019-08-24 00:00:00 2019-08-24 00:00:00 Orders Only Doctor Unassigned, [place] [facility] 1.2.840.114 350.1.13.10 4.2.7.2.686 [id number] [id number] [facility] 2019-07-31 14:24:05 2019-07-31 23:59:[address] [facility] [id number] [facility] 2019-07-31 14:24:00 2019-07-31 23:59:00 Hospital Encounter Vincent Agustin [facility] Surgical Specialti libra [place] 1.2.840.114 350.1.13.10 4.2.7.2.686 [id number] [facility] 2019-07-31 13:50:19 2019-07-31 15:07:02 Office Visit Yesenia Sarabia [facility] Surgical Special libra [place] 1.2.840.114 350.1.13.10 4.2.7.2.686 [id number] [facility] 2019-07-17 09:03:00 2019-07-18 14:40:00 Inpatient R YESENIA SARABIA [facility] SOR [id number] [facility] 2019-07-10 15:22:42 2019-07-10 15:24:00 Outpatient YESENIA OLIVEROS [facility] [id number] [facility] 2019-06-23 08:07:23 2019-06-23 23:59:00 Outpatient YESENIA SARABIA [facility] [id number] [facility] Results Test Description Test Time Test Comments Results Result Co mments Source [facility] Direct [id number] 18:15:13* Test Item Value Reference Range Interpretation Comme nts BF COLOR (test code = 4068646827) Yellow BF WBC Count (test code = 7686301082) 287 0-150 BF RBC Count (test code = 2527339277) 3000 See_Comment [Automated me ssage] The system which generated this result transmitted reference range: /?L. The reference range was not used to interpret this result as normal/abnormal. [facility] GLUCOSE (AUTOMATED)2023-11-01 13:41:16* Test Item Value Reference Range Interpretation Comme nts POCT GLU (test code = 3713543823) 161 mg/dL 70-110 H Lab Interpretation (test cod e = 69992-5) Abnormal [facility] GLUCOSE (AUTOMATED)2023-11-01 13:41:16* Test Item Value Reference Range Interpretation Comme nts POCT GLU (test code = 0616304264) 161 mg/dL 70-110 H Lab Interpretation (test cod e = 83462-9) Abnormal [facility] METABOLIC PANEL (NA, K, CL, CO2, GLUCOSE, BUN, CREATININE, CA)2023-10-29 16:57:30* Test Item Value Reference Range Interpretation Comme nts NA (test code = 6442109305) 136 mmol/L 135-145 K (test code = 6589034897) 4.4 mmol/L 3.5-5.0 CL (test code = 2215581435) 101 mmol/L 98-108 CO2 TOTAL (test code = 0198801709) 28 mmol/L 23-31 AGAP (test code = 5106344647) 7 2-16 BUN (test code = 7472449464) 30 mg/dL 7-23 H GLUCOSE (test code = 2643619475) 254 mg/dL 70-110 H CREATININE (test code = 2160-0) 1.02 mg/dL 0.50-1.04 CALCIUM (test code = 8526910750) 8.5 mg/dL 8.6-10.6 L eGFR (test code = 66702-2) 62.3 mL/min/1.73m2 CKD-EPI eGFR (2020). Assuming creatinine has been stable day-to-day for at least three months, the eGFR indicates Category G2 (60 - 89 mL/min/1.73 m2) Lab Interpretation (test code = 58720-5) Abnormal [facility] METABOLIC PANEL (NA, K, CL, CO2, GLUCOSE, BUN, CREATININE, CA)2023-10-29 16:57:30* Test Item Value Reference Range Interpretation Comme nts NA (test code = 0735842723) 136 mmol/L 135-145 K (test code = 9371479040) 4.4 mmol/L 3.5-5.0 CL (test code = 4254432193) 101 mmol/L 98-108 CO2 TOTAL (test code = 7076887817) 28 mmol/L 23-31 AGAP (test code = 1469571948) 7 2-16 BUN (test code = 1352279623) 30 mg/dL 7-23 H GLUCOSE (test code = 5674126314) 254 mg/dL 70-110 H CREATININE (test code = 2160-0) 1.02 mg/dL 0.50-1.04 CALCIUM (test code = 9173506426) 8.5 mg/dL 8.6-10.6 L eGFR (test code = 81621-8) 62.3 mL/min/1.73m2 CKD-EPI eGFR (2020). Assuming creatinine has been stable day-to-day for at least three months, the eGFR indicates Category G2 (60 - 89 mL/min/1.73 m2) Lab Interpretation (test code = 10622-1) Abnormal [facility] WITH [id number] 16:36:09* Test Item Value Reference Range Interpretation [...] 32.2 g/dL 31.6-35.1 RDW-SD (test code = 75361-8) 47.5 fL 39.0-49.9 RDW-CV (test code = 788-0) 14.1 % 12.0-15.5 PLT (test code = 777-3) 290 166-358 MPV (test code = 06954-7) 9.8 fL 9.5-12.9 NRBC/100 WBC (test code = 2610129277) 0.0 0.0-10.0 NRBC x10^3 (test code = 0803886241) See_Comment [Automated [employer]here[employer] ge] The system which generated this result transmitted reference range: 10*3/?L. The reference range was not used to interpret this result as normal/abnormal. GRAN MAT (NEUT) % (test code = 770-8) 52.4 % IMM GRAN % (test code = 1822096175) 0.40 % LYMPH % (test code = 736-9) 34.6 % MONO % (test code = 5905-5) 6.9 % EOS % (test code = 713-8) 4.4 % BASO % (test code = 706-2) 1.3 % GRAN MAT x10^3(ANC) (test code = 4184506036) 3.66 10*3/uL 1.88-7.09 IMM GRAN x10^3 (test code = 4093676979) 0.03 10*3/uL 0.00-0.06 LYMPH x10^3 (test code = 731-0) 2.42 10*3/uL 1.32-3.29 MONO x10^3 (test code = 742-7) 0.48 10*3/uL 0.33-0.92 EOS x10^3 (test code = 711-2) 0.31 10*3/uL 0.03-0.39 BASO x10^3 (test code = 704-7) 0.09 10*3/uL 0.01-0.07 H Lab Interpretation (test code = 30342-4) Abnormal [facility] WITH [id number] 16:36:09* Test Item Value Reference Range Interpretation [...] 32.2 g/dL 31.6-35.1 RDW-SD (test code = 57614-6) 47.5 fL 39.0-49.9 RDW-CV (test code = 788-0) 14.1 % 12.0-15.5 PLT (test code = 777-3) 290 166-358 MPV (test code = 53295-3) 9.8 fL 9.5-12.9 NRBC/100 WBC (test code = 9291446590) 0.0 0.0-10.0 NRBC x10^3 (test code = 4091581503) See_Comment [Automated messa ge] The system which generated this result transmitted reference range: 10*3/?L. The reference range was not used to interpret this result as normal/abnormal. GRAN MAT (NEUT) % (test code = 770-8) 52.4 % IMM GRAN % (test code = 9675622711) 0.40 % LYMPH % (test code = 736-9) 34.6 % MONO % (test code = 5905-5) 6.9 % EOS % (test code = 713-8) 4.4 % BASO % (test code = 706-2) 1.3 % GRAN MAT x10^3(ANC) (test code = 2270039252) 3.66 10*3/uL 1.88-7.09 IMM GRAN x10^3 (test code = 8055347445) 0.03 10*3/uL 0.00-0.06 LYMPH x10^3 (test code = 731-0) 2.42 10*3/uL 1.32-3.29 MONO x10^3 (test code = 742-7) 0.48 10*3/uL 0.33-0.92 EOS x10^3 (test code = 711-2) 0.31 10*3/uL 0.03-0.39 BASO x10^3 (test code = 704-7) 0.09 10*3/uL 0.01-0.07 H Lab Interpretation (test code = 90446-7) [facility] [id number] 20:17:11* Test Item Value Reference Range Interpretation Comme nts ESR (test code = 85940-7) 38 0-20 H Lab Interpretation (test cod e = 76983-8) Abnormal [facility] [id number] 20:17:11* Test Item Value Reference Range Interpretation Comme nts ESR (test code = 54872-2) 38 0-20 H Lab Interpretation (test cod e = 34058-4) Abnormal [facility] KNEE 3 VW [id number] 15:06:58XR KNEE 3 VW LEFT INDICATION: lt knee pain Room 5 COMPARISON: 08/29/2021 FINDINGS: Constrained totalknee arthroplasty in anatomic alignment. No acutefracture or dislocation. Diffuse soft tissue swelling.[facility] LIPID [id number] 06:03:34* Test Item Value Reference Range Interpretation Comme nts CHOLESTEROL (test code = 2210) 288 MG/DL <200 H TRIGLYCERIDES (test code = 2232) 165 MG/DL <150 H HDL CHOLESTEROL (test code = 2220) 42 MG/DL >39 CALC LDL CHOL (test code = 2237) 213 MG/DL <100 H NOTE: CALCULATED LDL IS BASED ON ALEXANDER-GANDHI METHOD WHICHINCLUDES ADJUSTABLE TRIGLYCERIDE:VLDL CHOLESTEROL RATIO.THIS FACTOR VARIES BY MEASURED TRIGLYCERIDE AND NON-HDLCHOLESTEROL CONCENTRATIONS WITH INCREASED CALCULATED LDL SEENIN HIGHER TRIGLYCERIDE OR LOWER NON-HDL SPECIMENS. FOR MOREINFORMATION, SEE CLIENT ANNOUNCEMENT AT [email or web address] /[email or web address]-[email or web address] RISK RATIO LDL/HDL (test code = 2238) 5.07 RATIO <3.22 H COMPREHENSIVE METABOLIC [id number] 06:03:34* Test Item Value Reference Range Interpretation Comme nts GLUCOSE (test code = 2217) 154 MG/DL 70-99 H BUN (test code = 2208) 20 MG/DL 8-23 CREATININE (test code = 2214) 0.78 MG/DL 0.60-1.30 eGFR (2020 CKD-EPI) (test code = 66597) 87 ML/MIN/1.73 >60 CALC BUN/CREAT (test code = 2235) 26 RATIO 6-28 SODIUM (test code = 2231) 137 MEQ/L 133-146 POTASSIUM (test code = 2228) 4.4 MEQ/L 3.5-5.4 CHLORIDE (test code = 2215) 99 MEQ/L 95-107 CARBON DIOXIDE (test code = 2206) 24 MEQ/L 19-31 CALCIUM (test code = 2209) 9.4 MG/DL 8.5-10.5 PROTEIN, TOTAL (test code = 222) 7.6 G/DL 6.1-8.3 ALBUMIN (test code = 2201) 4.7 G/DL 3.5-5.2 CALC GLOBULIN (test code = 2240) 2.9 G/DL 1.9-3.7 CALC A/G RATIO (test code = 2234) 1.6 RATIO 1.0-2.6 BILIRUBIN, TOTAL (test code = 2207) 0.4 MG/DL See_Comment [Automated me ssage] The system which generated this result transmitted reference range: <=1.2. The reference range was not used to interpret this result as normal/abnormal. ALKALINE PHOSPHATASE (test code = 2204) 136 U/L 40-136 AST (test code = 2218) 14 U/L 9-40 ALT (test code = 2219) 16 U/L 5-40 HEMOGLOBIN [id number] 05:29:44* Test Item Value Reference Range Interpretation Comme nts HEMOGLOBIN A1c (test code = 73294) 7.3 % 4.2-5.6 H [employer] GUIDELINES FOR HGB A1C: [...] CONSULTATION. UNLESS OTHERWISE INDICATED, ALL TESTING PERFORMED [email or web address] [address] [place] [address] SERVICE AIDE: SREEKANTH SEAY M.D. CLIA NUMBER [id number] [facility] [place]. [id number] CBC W/AUTO DIFF WITH [id number] 04:27:32* Test Item Value Reference Range Interpretation [...] 0.00-0.10 ABS NUCLEATED RBCS (test code = 16192) 0.00 K/UL 0.00-0.11 Notes Date/Time Note Provider Source 2023-10-29 11:00:00 Images from the original note were not included. Venipuncture collection performed by clean technique on the right anticubitus. Total of 1 attempts were made. Slight pressure and a bandage/dressing were applied to the site(s). The patient experienced no complications. The following specimens were processed according to instructions and sent to [facility] laboratories per lab order on 10/29/2023: LT BLUE SST 1 RED LAV 1 PPT DK GREEN (LiHep) DK GREEN (SodH) RAYMUNDO DK BLUE (K2) DK BLUE (S) ACD Blood Culture NIPT/NTD Pt could not void at Time of Draw. Urine kit provided to bring back soon. T [facility] 2023-10-29 09:25:04 The patient was called to notify about lab work and chest x-ray. The patient stated she was unaware and will come in as soon as she can. Venecia Foster RN [facility] 2023-10-25 13:09:57 Images from the original note were not included. Your procedure is at [facility] on 11/01/23. The address is [address] [place] [address], [facility]. [facility] nursing staff will call you the workday [...] voiced no further questions at this time. [facility] 2023-10-19 13:53:56 Patient is scheduled. Marylu Negrete [facility] 2023-10-19 09:24:19 Routed message to PSS to schedule. Results are given at appointment. Celina Latham 10/19/2023 9:24 AM [facility] 2023-10-18 11:14:14 Patient is requesting to go over lab results. Vannesa Verduzco [facility] 2023-10-14 09:45:00 Images from the original note were not included. Venipuncture collection performed by clean technique on the right anticubitus. Total of 1 attempts were made. Slight pressure and a bandage/dressing were applied to the site(s). The patient experienced no complications. The following specimens were processed according to instructions and sent to [facility] laboratories per lab order on 10/14/2023: LT BLUE SST 1 RED LAV 1 PPT DK GREEN (LiHep) DK GREEN (SodH) RAYMUNDO DK BLUE (K2) DK BLUE (S) ACD Blood Culture NIPT/NTD T [facility]
[2024-04-18] MEDS ORDERED: NA CHLORIDE 0.9% 1,000 ML ONE ×3 (01:00→08:56)
[2024-04-18] MEDS ORDERED: ACETAMINOPHEN 500 MG TAB ONE (01:00)
[2024-04-18] MEDS ORDERED: NA CHLORIDE 0.9% 100 ML ONE ×2 (01:00→08:56)
[2024-04-18] MEDS ORDERED: CEFEPIME 2 GM VIAL ONE (01:00)
[2024-04-18 01:11] LABS: Absolute Lymphocytes (CBC) 2.5 K/uL (0.7-4.9); Absolute Monocytes 0.9 K/uL (0.1-1.3); Absolute Neutrophil 8.9 K/uL (1.8-8.0); Basophils % 0.4 % (0-1.3); Eosinophils % 0.2 % (0-4.4); Hematocrit 33.7 % (36.0-45.0); Lymphocytes % 20.4 % (15.3-44.8); MCH 28.2 pg (27.0-35.0); MCHC 32.7 g/dL (32.0-36.0); MCV 86.2 fL (80-100); MPV 8.3 fL (7.6-11.3); Monocytes % 7.2 % (3.3-12.3); Neutrophils % 71.8 % (41.7-73.7); Platelets 227 thou/uL (152-406); RBC Red Blood Cell Count 3.91 M/uL (3.86-4.86); Red Cell Distribution Width 14.5 % (12.1-15.2)
[2024-04-18] MEDS ORDERED: MORPHINE 2 MG/ML SYR ONE (01:12)
[2024-04-18 01:13] LABS: PT Prothrombin Time 13.4 SECONDS (9.4-12.5); PTT, Activated Partial Thromb 34.2 SECONDS (24.3-36.9); Protime INR 1.2
[2024-04-18 01:24] LABS: Albumin 3.5 g/dL (3.4-5.0); Albumin/Globulin Ratio 0.8 (1.1-1.8); Anion Gap 5.9 mEq/L (5.0-15.0); Bilirubin Total 0.4 mg/dL (0.2-1.0); Globulin 4.5 g/dL (2.3-3.5); Potassium 4.9 mEq/L (3.5-5.1); Troponin High Sensitivity 9.9 pg/mL (<58.9)
[2024-04-18 03:32] LABS: SARS-CoV-2 Antigen CONTROL BLUE LINE VIS/BG OK; SARS-CoV-2 Antigen Rapid Res Negative (Negative)
--- NOTE | 2024-04-18 03:41 | RAD REPORT ---
EXAM: CT Abdomen and Pelvis Without Intravenous Contrast CLINICAL HISTORY: ABD pain. TECHNIQUE: Axial computed tomography images of the abdomen and pelvis without intravenous contrast. Sagittal a nd coronal reformatted images were created and reviewed. This CT exam was performed using one or more of the following dose reduction techniques: automated exposure control, adjustment of the mA a nd/or kV according to patient size, and/or use of iterative reconstruction technique. COMPARISON: CT Abdomen Pelvis 03/19/2024. FINDINGS: Lung bases: Unremarkable. No mass. No consolidation. ABDOMEN: Liver: Unremarkable. Gallbladder and bile ducts: There has been a cholecystectomy. No ductal dilation. Pancreas: Unremarkable. No ductal dilation. Spleen: Unremarkable. No splenomegaly. Adrenals: Unremarkable. No mass. Kidneys and ureters: Right ureteral stent remains in place no hydronephrosis. No calculi along the course of the stent. Stomach and bowel: Unremarkable. No obstruction. No mucosal thickening. PELVIS: Appendix: The appendix is not definitively visualized. No findings to suggest acute appendicitis. Bladder: The urinary bladder is decompressed. No stones. Reproductive: There has been a hysterectomy. No adnexal cysts or masses are identified. Vaginal pessary in place. ABDOMEN and PELVIS: Intraperitoneal space: Unremarkable. No free air. No significant fluid collection. Bones/joints: Multilevel spondylosis. No acute fracture. No dislocation. Soft tissues: Unremarkable. Vasculature: Moderate atherosclerotic disease. No abdominal aortic aneurysm. Lymph nodes: Unremarkable. No enlarged lymph nodes. IMPRESSION: 1. Right ureteral stent remains in place. No hydronephrosis. No calculi along the course of the freda nt. 2. Other findings as above. Electronically signed by: Kristyn Melara MD 04/18/2024 03:23 AM [facility] Due to temporary technical issues with the PACS/MyClean reporting system, reports are being ysabel d by the in-house radiologist without review as a courtesy to ensure prompt reporting the interpreting radiologist is fully responsible for the content of the report. Transcribed Date/Time: 04/18/2024 3:41 AM
--- NOTE | 2024-04-18 03:53 | ER ---
Nurse's Notes [facility] Name: Jade Shaikh Age: 63 yrs Sex: Female : 1960 Arrival Date: 04/18/2024 Time: 00:09 Bed 15 Private MD: Diagnosis: Fever;Leukocytosis;Acute kidney injury;Hyponatremia Presentation: 04/18 00:22 Chief complaint: Patient states: SOB THAT STARTED PRIOR TO ARRIVAL. Coronavirus screen: vc1 Client denies travel out of the [place] in the last 14 days. difficulty breathing, fatigue, fever, shortness of breath, Client presents with at least one sign or symptom that may indicate coronavirus-19. Standard/surgical mask placed on the client. Ebola Screen: Patient negative for fever greater than or equal to 101.5 degrees Fahrenheit, and additional compatible Ebola Virus Disease symptoms Patient denies exposure to infectious person. Patient denies travel to an Ebola-affected area in the 21 days before illness onset. No symptoms or risks identified at this time. Initial Sepsis Screen: Does the patient meet any 2 criteria? Temp <36.0*C (96.8*F)) or > 38.3*C (100.9*F). HR > 90 bpm. Yes Does the patient have a suspected source of infection? No. Patient's initial sepsis screen is negative. Risk Assessment: Do you want to hurt yourself or someone else? Patient reports no desire to harm self or others. Onset of symptoms was April 17, 2024. 00:22 Method Of Arrival: Wheelchair vc1 00:22 Acuity: STEVE 3 vc1 Triage Assessment: 00:29 General: Appears distressed, uncomfortable, obese, Behavior is cooperative, flat. Pain: vc1 Complains of pain in neck Pain does not radiate. EENT: No deficits noted. No signs and/or symptoms were reported regarding the EENT system. Neuro: Level of Consciousness is awake, alert, obeys commands, Oriented to person, place, time, situation, Appropriate for age. Cardiovascular: Capillary refill < 3 seconds Rhythm is sinus tachycardia. Respiratory: Reports shortness of breath at rest labored breathing Airway is patent Respiratory effort is even, labored, Respiratory pattern is regular, the patient has moderate shortness of breath. GI: Abdomen is round non-distended. Derm: Skin is intact, is healthy with good turgor, Skin is dry, Skin is normal, Skin temperature is hot. Musculoskeletal: No deficits noted. No signs and/or symptoms reported regarding the musculoskeletal system. Historical: - Allergies: 00:26 Sulfa (Sulfonamide Antibiotics); vc1 - Home Meds: 00:26 baclofen 10 mg Oral tablet 2 times per day [Active]; diclofenac sodium 75 mg Oral vc1 tablet 2 times per day [Active]; gabapentin 800 mg Oral tablet 3 times per day [Active]; glipizide 10 mg Oral tablet 2 times per day [Active]; hydrocodone-acetaminophen 10-325 mg Oral tablet 3 times per day [Active]; lisinopril 20 mg Oral tablet daily [Active]; metformin 1 Oral tablet 2 times per day [Active]; - PMHx: 00:26 Arthritis; diabetes mellitus; Hypertensive disorder; neuropathy; prolapsed bladder; vc1 spot on lung; - PSHx: 00:26 Appendectomy; Ligation of fallopian tube; claudia knee replacements; Cholecystectomy; mass vc1 removed from right breast; Total abdominal hysterectomy; - Immunization history:: Adult Immunizations unknown. - Infectious Disease History:: Denies. - Social history:: Smoking status: Patient reports the use of cigarette tobacco products, smokes one pack cigarettes per day. - Family history:: not pertinent. Screenin:28 Abuse screen: Denies threats or abuse. Nutritional screening: No deficits noted. vc1 Tuberculosis screening: No symptoms or risk factors identified. Assessment: 02:14 Reassessment: Patient appears in no apparent distress at this time. Patient and/or jb4 family updated on plan of care and expected duration. Pain level reassessed. Patient is alert, oriented x 3, equal unlabored respirations, skin warm/dry/pink. Patient states feeling better. Vital Signs: 00:22 BP 141 / 74; Pulse 118; Resp 18; Temp 102.3; Pulse Ox 95% ; vc1 00:28 Weight 89.36 kg; vc1 02:14 BP 107 / 53; Pulse 96; Resp 16; Temp 98.1(TE); Pulse Ox 98% on R/A; jb4 ED Course: 00:11 Patient arrived in ED. im 00:19 Vitaliy Pires MD is Attending Physician. rt 00:26 Triage completed. vc1 00:28 Arm band placed on right wrist. vc1 00:32 Patient has correct armband on for positive identification. Bed in low position. Call vc1 light in reach. monitoring tech on. Pulse ox on. NIBP on. 00:35 EKG done, by ED staff, reviewed by Vitaliy Pires MD. oe 00:59 Chest Single View XRAY In Process Unspecified. EDMS 01:05 Blood Culture Adult (2) Sent. jb4 01:06 CBC with Diff Sent. jb4 01:06 CMP Sent. jb4 01:06 Lactate w/ 2H reflex if indic. Sent. jb4 01:06 Protime (+inr) Sent. jb4 01:06 Ptt, Activated Sent. jb4 01:47 CT Abd/Pelvis - Without Contrast In Process Unspecified. EDMS 02:14 Hakan De León, SOPHIA is Primary Nurse. jb4 03:52 Lorenzo Camacho MD is Hospitalizing Provider. rt Administered Medications: 01:15 Drug: Cefepime IVPB 2 grams IVPB at 200 ml/hr once over 30 mins; (mix in NS 100 mL) jb4 Route: IVPB; Rate: 200 ml/hr; Infused Over: 30 mins; Site: right antecubital; 04:28 Follow up: Response: No adverse reaction; IV Status: Completed infusion; IV Intake: rg5 100ml 01:15 Drug: NS 0.9% IV 1000 ml IV at 1 bolus Per protocol; 1000 mL bolus Route: IV; Rate: 1 jb4 bolus; Site: right antecubital; 04:28 Follow up: IV Status: Completed infusion; IV Intake: 1000ml rg5 01:15 Drug: Acetaminophen PO 1000 mg PO once Route: PO; jb4 04:27 Follow up: Response: No adverse reaction; Pain is decreased rg5 01:15 Drug: morphine IVP or IV 2 mg IVP once over 4 mins Route: IVP; Infused Over: 4 mins; jb4 Site: right antecubital; 04:27 Follow up: Response: No adverse reaction; Pain is decreased rg5 Medication: 00:32 VIS not applicable for this client. vc1 Intake: 04:28 IV: 1000ml; Total: 1000ml. rg5 04:28 IV: 100ml; Total: 1100ml. rg5 Outcome: 03:53 Decision to Hospitalize by Provider. rt 14:18 Patient left the ED. db Signatures: Dispatcher [employer] EDMS Hakan De León RN RN jb4 [place] Templeton Vanessa RN RN vc1 Michelle Cifuentes RN RN db Vitaliy Pires MD MD rt Caron Tomas Rommel, SOPHIA RN rg5 Corrections: (The following items were deleted from the chart) 02:29 02:14 BP 107 / 53; Pulse 96bpm; Resp 16bpm; Pulse Ox 98% RA; jb4 jb4 06:53 06:52 [facility] ED Fall Risk Assessment (Adult) Altered Elimination rg5 rg5
--- NOTE | 2024-04-18 03:53 | EDPHYS ---
Physician Documentation [facility] Name: Jade Shaikh Age: 63 yrs Sex: Female : 1960 Arrival Date: 04/18/2024 Time: 00:09 Bed 15 Private MD: ED Physician Vitaliy Pires HPI: 04/18 00:38 This 63 yrs old Female presents to ER via Wheelchair with complaints of Abdominal Pain, rt kidney problem, Shortness Of Breath. 00:38 Patient presents to the ED with neck pain, shortness of breath starting today. Patient rt states this was similar to when she was admitted last time. Reports a vague abdominal pain. Denies other acute complaints, symptoms are moderate in severity, no other aggravating alleviating factors.. Historical: - Allergies: 00:26 Sulfa (Sulfonamide Antibiotics); vc1 - Home Meds: 00:26 baclofen 10 mg Oral tablet 2 times per day [Active]; diclofenac sodium 75 mg Oral vc1 tablet 2 times per day [Active]; gabapentin 800 mg Oral tablet 3 times per day [Active]; glipizide 10 mg Oral tablet 2 times per day [Active]; hydrocodone-acetaminophen 10-325 mg Oral tablet 3 times per day [Active]; lisinopril 20 mg Oral tablet daily [Active]; metformin 1 Oral tablet 2 times per day [Active]; - PMHx: 00:26 Arthritis; diabetes mellitus; Hypertensive disorder; neuropathy; prolapsed bladder; vc1 spot on lung; - PSHx: 00:26 Appendectomy; Ligation of fallopian tube; claudia knee replacements; Cholecystectomy; mass vc1 removed from right breast; Total abdominal hysterectomy; - Immunization history:: Adult Immunizations unknown. - Infectious Disease History:: Denies. - Social history:: Smoking status: Patient reports the use of cigarette tobacco products, smokes one pack cigarettes per day. - Family history:: not pertinent. ROS: 00:38 Constitutional: Negative for fever, chills, and weight loss, Cardiovascular: Negative rt for chest pain, palpitations, and edema, MS/Extremity: Negative for injury and deformity, Skin: Negative for injury, rash, and discoloration, Neuro: Negative for headache, weakness, numbness, tingling, and seizure, 00:38 Neck: Positive for pain at rest, Negative for injury or acute deformity, 00:38 Respiratory: Positive for shortness of breath, Negative for cough, 00:38 Abdomen/GI: Positive for abdominal pain, Negative for nausea and vomiting, Exam: 00:38 Constitutional: This is a well developed, well nourished patient who is awake, alert, rt and in no acute distress. Head/Face: Normocephalic, atraumatic. Chest/axilla: Normal chest wall appearance and motion. Nontender with no deformity. No lesions are appreciated. Cardiovascular: Regular rate and rhythm with a normal S1 and S2. No gallops, murmurs, or rubs. Normal PMI, no JVD. No pulse deficits. Respiratory: Lungs have equal breath sounds bilaterally, clear to auscultation and percussion. No rales, rhonchi or wheezes noted. No increased work of breathing, no retractions or nasal flaring. Abdomen/GI: Soft, non-tender, with normal bowel sounds. No distension or tympany. No guarding or rebound. No evidence of tenderness throughout. Skin: Warm, dry with normal turgor. Normal color with no rashes, no lesions, and no evidence of cellulitis. MS/ Extremity: Pulses equal, no cyanosis. Neurovascular intact. Full, normal range of motion. Neuro: Awake and alert, GCS 15, oriented to person, place, time, and situation. Cranial nerves II-XII grossly intact. Motor strength 5/5 in all extremities. Sensory grossly intact. Cerebellar exam normal. Normal gait. 00:38 ECG was reviewed by the Attending Physician. Vital Signs: 00:22 BP 141 / 74; Pulse 118; Resp 18; Temp 102.3; Pulse Ox 95% ; vc1 00:28 Weight 89.36 kg; vc1 02:14 BP 107 / 53; Pulse 96; Resp 16; Temp 98.1(TE); Pulse Ox 98% on R/A; jb4 MDM: 00:19 Patient medically screened. rt 03:53 Differential diagnosis: UTI, pyelonephritis, fever. Data reviewed: vital signs, nurses rt notes, lab test result(s), EKG, radiologic studies. Consideration of Admission/Observation Patient was admitted/placed on observation. Management of patient was discussed with the following: Hospitalist: Agrees to admit. I considered the following discharge prescriptions or medication management in the emergency department Medications were administered in the Emergency Department. See MAR. Independent interpretation of the following test(s) in the Emergency Department CT Scan: My interpretation is No bowel obstruction syndrome interpretation of CT scan images. Care significantly affected by the following chronic conditions: Diabetes, Hypertension. Counseling: I had a detailed discussion with the patient and/or guardian regarding the historical points, exam findings, and any diagnostic results supporting the discharge/admit diagnosis, lab results, radiology results, the need for further work-up and treatment in the hospital. Response to treatment: the patient's symptoms have markedly improved after treatment. 04/18 00:26 Order name: Blood Culture Adult (2) rt 04/18 00:26 Order name: CBC with Diff; Complete Time: :41 rt 04/18 00:26 Order name: CMP; Complete Time: : rt 04/18 00:26 Order name: Lactate w/ 2H reflex if indic.; Complete Time: :41 rt 04/18 00:26 Order name: Protime (+inr); Complete Time: :41 rt 04/18 00:26 Order name: Ptt, Activated; Complete Time: :41 rt 04/18 00:26 Order name: Urinalysis w/ reflexes rt 04/18 00:26 Order name: Troponin HS; Complete Time: :41 rt 04/18 00:31 Order name: Influenza Screen (a \T\ B); Complete Time: 03:28 rt 04/18 00:31 Order name: SARS RAPID; Complete Time: 03:34 rt 04/18 05:00 Order name: Urinalysis w/ reflexes EDMS 04/18 05:00 Order name: CBC with Automated Diff EDMS 04/18 05:00 Order name: CBC with Automated Diff EDMS 04/18 05:00 Order name: Comprehensive Metabolic Panel EDMS 04/18 05:00 Order name: Comprehensive Metabolic Panel EDMS 04/18 08:29 Order name: Glucose, Ancillary Testing EDMS 04/18 11:45 Order name: Glucose, Ancillary Testing EDMS 04/18 14:05 Order name: D-Dimer EDMS 04/18 14:07 Order name: CBC with Automated Diff EDMS 04/18 14:16 Order name: Comprehensive Metabolic Panel EDMS 04/18 00:26 Order name: Chest Single View XRAY rt 04/18 00:26 Order name: CT Abd/Pelvis - Without Contrast rt 04/18 00:26 Order name: Accucheck; Complete Time: : rt 04/18 00:26 Order name: Cardiac monitoring; Complete Time: rt 04/18 00:26 Order name: EKG - Nurse/Tech; Complete Time: : rt 04/18 00:26 Order name: IV Saline Lock - Large Bore; Complete Time: : rt 04/18 00:26 Order name: Labs collected and sent; Complete Time: rt 04/18 00:26 Order name: O2 Per Protocol; Complete Time: : rt 04/18 00:26 Order name: O2 Sat Monitoring; Complete Time: : rt 04/18 00:26 Order name: Vital Signs; Complete Time: rt 04/18 00: Order name: IV Saline Lock; Complete Time: : rt EC:38 Rate is 113 beats/min. Rhythm is regular, Sinus tachycardia with No ectopy. QRS [place] is rt Normal. [place] interval is normal. QRS interval is normal. QT interval is normal. No Q waves. T waves are Normal. No ST changes noted. Interpreted by me. Administered Medications: 01:15 Drug: Cefepime IVPB 2 grams IVPB at 200 ml/hr once over 30 mins; (mix in NS 100 mL) jb4 Route: IVPB; Rate: 200 ml/hr; Infused Over: 30 mins; Site: right antecubital; 04:28 Follow up: Response: No adverse reaction; IV Status: Completed infusion; IV Intake: rg5 100ml 01:15 Drug: NS 0.9% IV 1000 ml IV at 1 bolus Per protocol; 1000 mL bolus Route: IV; Rate: 1 jb4 bolus; Site: right antecubital; 04:28 Follow up: IV Status: Completed infusion; IV Intake: 1000ml rg5 01:15 Drug: Acetaminophen PO 1000 mg PO once Route: PO; jb4 04:27 Follow up: Response: No adverse reaction; Pain is decreased rg5 01:15 Drug: morphine IVP or IV 2 mg IVP once over 4 mins Route: IVP; Infused Over: 4 mins; jb4 Site: right antecubital; 04:27 Follow up: Response: No adverse reaction; Pain is decreased rg5 Disposition Summary: 04/18/24 03:53 Hospitalization Ordered Notes: Hospitalization Status: Observation rt Provider: Lorenzo Camacho rt Condition: Stable rt Problem: new rt Symptoms: have improved rt Bed/Room Type: Standard rt Location: Telemetry/MedSurg (observation)(04/18/24 13:16) ja1 Room Assignment: 207(04/18/24 13:16) [place] Diagnosis - Fever rt - Leukocytosis rt - Acute kidney injury rt - Hyponatremia rt Forms: - Medication Reconciliation Form rt - SBAR form rt - Leadership Thank You Letter rt Signatures: Dispatcher [employer] EDMS Hakan De León, RN RN jb4 Tim Reid RN RN ja1 Alisha Jacobs RN RN vc1 Vitaliy Pires MD MD rt Ruth Ann Patel rv1 Kalen Foster RN rg5 Corrections: (The following items were deleted from the chart) 00:27 00:27 BLOOD CULTURE*+BA.LAB.BRZ ordered. EDMS EDMS 00:27 00:27 CBC+H.LAB.BRZ ordered. EDMS EDMS 00:27 00:27 COMPREHENSIVE METABOLIC PANEL+C.LAB.BRZ ordered. EDMS EDMS 00:27 00:27 LACTATE+C.LAB.BRZ ordered. EDMS EDMS 00:27 00:27 PROTIME (+INR)+COAG.LAB.BRZ ordered. EDMS EDMS 00:27 00:27 PTT, ACTIVATED+COAG.LAB.BRZ ordered. EDMS EDMS 00:27 00:27 Urinalysis+U.LAB.BRZ ordered. EDMS EDMS 00:27 00:27 Troponin High Sensitivity+C.LAB.BRZ ordered. EDMS EDMS 00:27 00:27 Chest Single View+RAD.RAD.BRZ ordered. EDMS EDMS 00:27 00:27 Abdomen Pelvis Wo Con+CT.RAD.BRZ ordered. EDCT EDMS 05:19 03:53 Telemetry/MedSurg (observation) rt rv1 05:19 03:53 rt rv1 13:16 05:19 [facility] ER HOLD rv 13:16 05:19 ERHOLD- rv1
--- NOTE | 2024-04-18 04:55 | P.HP ---
Certification for Inpatient Patient admitted to: Inpatient With expected LOS: >2 Midnights Practitioner: I am a practitioner with admitting privileges, knowledge of patient current condition, hospital course, and medical plan of care. Services: Services provided to patient in accordance with Admission requirements found in Title 42 Section 412.3 of the Code of Federal Regulations Patient History Date of Service: 04/18/24 Reason for admission: Neck pain, fever History of Present Illness: 63 yrs old Female with past medical history of diabetes, hypertension, arthritis, neuropathy, possible lung mass, prolapsed bladder , was brought to ER with abdominal pain neck pain and generalized body pain and fatigue .Patient presents to the ED with neck pain, shortness of breath starting today. Patient states this was similar to when she was admitted last time. Reports abdominal pain as well which was diffuse, cramping type. Denies any fever or chills. Denies any chest pain or shortness of breath. No nausea vomiting or diarrhea. The patient was assessed in the ER and was admitted for further management of possible sepsis with UTI Allergies Sulfa (Sulfonamide Antibiotics) Adverse Reaction (Verified 03/06/24 17:04) Rash Home medications list reviewed: Yes Home Medications: Amlodipine [Norvasc*] 10 mg PO DAILY 30 Days #30 tab 03/08/24 Ciprofloxacin HCl 500 mg PO BID 14 Days #28 tab 03/08/24 Gabapentin [Neurontin] 800 mg PO TID 03/08/24 Hydrocodone 10/APAP 325 [[place] 10/325*] 1 tab PO Q6H PRN #30 tab 03/08/24 Lisinopril [Zestril] 20 mg PO BID #60 tab 03/08/24 Metformin HCl 1,000 mg PO BID 03/08/24 Metoprolol Tartrate [Lopressor*] 25 mg PO BID #60 tab 03/08/24 Mvit-Mins/Folic Acid/Soy Isofl [One-A-Day Menopause Formula Tb] 1 each PO 30 MIN BEFORE HS 30 Days #30 tab 03/08/24 Pantoprazole [Protonix Tab*] 40 mg PO BID 30 Days #60 tab 03/08/24 Tamsulosin [Flomax*] 0.4 mg PO BEDTIME 30 Days #30 cap 03/08/24 glipiZIDE [Glipizide] 10 mg PO BID 03/08/24 - Past Medical/Surgical History Diabetic: Yes Past Medical History: Reviewed- Non-Contributory -: Arthritis -: diabetes mellitus -: Hypertensive disorder -: neuropathy -: spot on lung -: prolapsed bladder -: chronic back pain -: Kidney Stone -: UTI Past Surgical History: Reviewed- Non-Contributory -: claudia knee replacements -: Appendectomy -: Cholecystectomy -: Ligation of fallopian -: Cystoscopy with stent placement right - Family History Family History: Reviewed- Non-Contributory - Family History Mother -: Diabetes Father -: Diabetes, Cancer - Social History Smoking Status: Never smoker Alcohol use: No CD- Drugs: No Caffeine use: Yes Review of Systems 10-point ROS is otherwise unremarkable Physical Examination - Vital Signs Temperature: 98.2 F Blood Pressure: 132/68 Pulse: 74 Respirations: 18 Pulse Ox (%): 94 - Physical Exam General: Alert, Oriented x3, Mild distress HEENT: Atraumatic, Normocephalic Neck: Supple Respiratory: Clear to auscultation bilaterally, Normal air movement Cardiovascular: Regular rate/rhythm, Normal S1 S2 Capillary refill: <2 Seconds Gastrointestinal: Soft and benign, Non-distended, W/out hepatosplenomegaly Musculoskeletal: No clubbing, No swelling Integumentary: No rashes Neurological: Normal strength at 5/5 x4 extr, Cranial nerves 3-12 intact, Normal reflexes 2+ Lymphatics: No axilla or inguinal lymphadenopathy - Studies Laboratory Data (last 24 hrs) 04/18/24 04/18/24 04/18/24 00:50 00:50 00:50 WBC 12.50 H Hgb 11.0 L Hct 33.7 L Plt Count 227 PT 13.4 H INR 1.20 APTT 34.2 Sodium 127 L Potassium 4.9 BUN 16 Creatinine 1.55 H Glucose 180 H Total Bilirubin 0.4 AST 17 ALT 22 Alkaline Phosphatase 136 H Microbiology Data (last 24 hrs): 04/18/24 02:17 Nasopharnyx Influenza Type A Antigen Screen - Final 04/18/24 02:17 Nasopharnyx Influenza Type B Antigen Screen - Final Assessment and Plan - Plan Leukocytosis Possible UTI Started on antibiotic empirically Awaiting urine test and culture Change antibiotic as per sensitivity Hyponatremia Acute kidney injury Dehydration Started on IV hydration Monitor renal parameters closely Hypertension Antihypertensives titrated Continue home medications and titrate as needed Diabetes Insulin sliding scale Accu-Chek before every meal and at bedtime GI/DVT prophylaxis Advanced directive full code Discharge Plan: Home Plan to discharge in: 48 Hours - Advance Directives Does patient have a Living Will: No Does patient have a Durable POA for Healthcare: Yes - Code Status/Comfort Care Code Status: Full Code Time Spent Managing Pts Care (In Minutes): 48
[2024-04-18] MEDS: NA CHLORIDE 0.9% 1,000 ML IV SCH (05:00)
--- NOTE | 2024-04-18 05:41 | RAD REPORT ---
TIME OF STUDY: 04/18/2024 12:26 AM CDT REASON FOR EXAM: DYSPNEA COMPARISON: None. FINDINGS: AP view of the chest was obtained, chest 1 view. Lungs: Normal lung volume. No mass, or consolidation. Normal pulmonary vascularity.. Pleura: No pneumothorax. There is no pleural effusion. Heart and Mediastinum: Normal cardiomediastinal silhouette and great vessels.. Bones: No acute bony abnormality.. IMPRESSION: 1. No acute cardiopulmonary process. Electronically signed by: Kwasi Kennedy MD 04/18/2024 01:59 AM CDT RP Due to temporary technical issues with the PACS/[employer] reporting system, reports are being ysabel d by the in-house radiologist without review as a courtesy to ensure prompt reporting the interpreting radiologist is fully responsible for the content of the report. Transcribed Date/Time: 04/18/2024 5:40 AM
[2024-04-18] MEDS ORDERED: ACETAMINOPHEN 325 MG TABLET ONE (07:02)
[2024-04-18] MEDS: ACETAMINOPHEN 325 MG TABLET PO PRN (07:10)
[2024-04-18] MEDS ORDERED: ONDANSETRON 4 MG/2 ML VIAL ONE (07:19)
[2024-04-18] MEDS: ONDANSETRON 4 MG/2 ML VIAL IV PRN (07:26)
[2024-04-18] MEDS ORDERED: Meropenem 1000 MG/VIAL IV ONE (08:55)
[2024-04-18] MEDS ORDERED: ENOXAPARIN 40 MG/0.4 ML SQ ONE (08:55)
[2024-04-18] MEDS ORDERED: KETOROLAC 30 MG/ML INJ ONE (08:55)
[2024-04-18] MEDS ORDERED: CEFEPIME 1 GM in NA CHLORIDE 0.9% 100 ML IV SCH ×2 (09:00→21:00)
[2024-04-18] MEDS: KETOROLAC 30 MG/ML INJ IV ONE (09:00)
[2024-04-18] MEDS ORDERED: CEFEPIME 2 GM in NA CHLORIDE 0.9% 100 ML IV SCH (09:00)
[2024-04-18] MEDS ORDERED: Meropenem 1,000 MG in NA CHLORIDE 0.9% 100 ML IV SCH (09:00)
[2024-04-18] MEDS: Meropenem 1,000 MG in NA CHLORIDE 0.9% 100 ML IV SCH (09:00)
[2024-04-18] MEDS: NA CHLORIDE 0.9% 500 ML IV ONE (09:00)
[2024-04-18] MEDS: ENOXAPARIN 40 MG/0.4 ML SQ SCH (09:00)
[2024-04-18] MEDS ORDERED: CYCLOBENZAPRINE 10 MG TAB PO PRN (09:11)
--- NOTE | 2024-04-18 09:44 | P.PN ---
Subjective Date of Service: 04/18/24 Patient with fever and rigors; <Diana Snyderrosa isela Cox - Last Filed: 04/18/24 09:40> Date of Service: 04/19/24 <Daksha Abbott - Last Filed: 04/22/24 18:39> Review of Systems 10-point ROS is otherwise unremarkable (except for upper back pain) <Avis Snyder - Last Filed: 04/18/24 09:40> Physical Examination - Vital Signs Temperature: 103.2 F Blood Pressure: 112/97 Pulse: 123 Respirations: 25 Pulse Ox (%): 97 - Physical Exam General: Alert, In no apparent distress, Oriented x3 HEENT: Atraumatic, PERRLA, EOMI Neck: Supple, JVD not distended Respiratory: Clear to auscultation bilaterally, Normal air movement Cardiovascular: Regular rate/rhythm, Normal S1 S2 Gastrointestinal: Normal bowel sounds, No tenderness Musculoskeletal: No tenderness Integumentary: No rashes Neurological: Normal speech, Normal tone, Normal affect Lymphatics: No axilla or inguinal lymphadenopathy - Studies Laboratory Data (last 24 hrs) 04/18/24 04/18/24 04/18/24 00:50 00:50 00:50 WBC 12.50 H Hgb 11.0 L Hct 33.7 L Plt Count 227 PT 13.4 H INR 1.20 APTT 34.2 Sodium 127 L Potassium 4.9 BUN 16 Creatinine 1.55 H Glucose 180 H Total Bilirubin 0.4 AST 17 ALT 22 Alkaline Phosphatase 136 H Microbiology Data (last 24 hrs): 04/18/24 02:17 Nasopharnyx Influenza Type A Antigen Screen - Final 04/18/24 02:17 Nasopharnyx Influenza Type B Antigen Screen - Final Medications List Reviewed: Yes <Avis Snyder - Last Filed: 04/18/24 09:40> - Studies Microbiology Data (last 24 hrs): 04/18/24 00:50 Blood - Blood Gram Stain - Final 04/18/24 00:35 Blood - Blood Blood Culture Gram Stain - Final 04/18/24 00:35 Blood - Blood Gram Stain - Final <Daksha Abbott - Last Filed: 04/22/24 18:39> Assessment & Plan - Problems (Diagnosis) (1) Bacteremia Status: Acute (2) Obstructive pyelonephritis Status: Acute (3) Sepsis Status: Acute Qualifiers: Severe sepsis acute organ dysfunction type: acute renal failure (4) UTI (urinary tract infection) Status: Acute - Advance Directives Does patient have a Living Will: No Does patient have a Durable POA for Healthcare: Yes - Code Status/Comfort Care Code Status: Full Code <Avis Snyder - Last Filed: 04/18/24 09:40> Discharge Plan: Home Critical Care: No Time Spent Managing PTS Care (In Minutes): 55 <Daksha Abbott - Last Filed: 04/22/24 18:39>
[2024-04-18] MEDS: INSULIN REGULAR (HUMAN) 100 UNIT/ML SQ SCH (11:30)
[2024-04-18] MEDS ORDERED: GABAPENTIN 300 MG CAP ONE (13:10)
[2024-04-18] MEDS ORDERED: INSULIN REGULAR (HUMAN) 100 UNIT/ML ONE (13:11)
[2024-04-18] MEDS: GABAPENTIN 300 MG CAP PO SCH (13:18)
[2024-04-18] MEDS ORDERED: HYDROCODONE/APAP 10/325 TAB ONE (13:23)
[2024-04-18] MEDS: HYDROCODONE/APAP 10/325 TAB PO PRN (13:49)
[2024-04-18 14:02] LABS: Absolute Lymphocytes (CBC) 1.7 K/uL (0.7-4.9); Absolute Monocytes 0.8 K/uL (0.1-1.3); Basophils % 0.2 % (0-1.3); Hematocrit 28.7 % (36.0-45.0); Hemoglobin 9.4 g/dL (12.0-15.0); Lymphocytes % 12.6 % (15.3-44.8); MCH 28.6 pg (27.0-35.0); MCHC 32.9 g/dL (32.0-36.0); MCV 86.8 fL (80-100); MPV 8.2 fL (7.6-11.3); Monocytes % 5.9 % (3.3-12.3); Neutrophils % 81.3 % (41.7-73.7); Platelets 179 thou/uL (152-406); Red Cell Distribution Width 14.4 % (12.1-15.2)
[2024-04-18 14:15] LABS: Albumin 2.9 g/dL (3.4-5.0); Albumin/Globulin Ratio 0.8 (1.1-1.8); Anion Gap 11.1 mEq/L (5.0-15.0); Bilirubin Total 0.5 mg/dL (0.2-1.0); Globulin 3.8 g/dL (2.3-3.5); Potassium 4.1 mEq/L (3.5-5.1); Protein, Total 6.7 g/dL (6.4-8.2)
[2024-04-18] MEDS: MORPHINE 2 MG/ML SYR IV PRN (16:37)
[2024-04-18] MEDS: METOCLOPRAMIDE 10 MG/2mL INJ IV PRN (19:35)
[2024-04-18] MEDS: METOCLOPRAMIDE 10 MG/2mL INJ ONE (19:38)
[2024-04-18 20:16] LABS: Specific Gravity 1.015 (1.005-1.030); Urine Bacteria <20 /HPF (<20); Urine Bilirubin NEGATIVE (Negative); Urine Blood Trace (Negative); Urine Clarity Extremely Turbid (Clear); Urine Color Light-Yellow (Yellow); Urine Culture Reflex Order REFLEXED; Urine Glucose TRACE (Negative); Urine Ketones NEGATIVE (Negative); Urine Microscopic Reflex YN ORDER UMIC; Urine Mucus Slight /HPF (None Seen); Urine Nitrite NEGATIVE (Negative); Urine Protein 1+ (Negative); Urine Urobilinogen Normal (Normal); Urine WBC 20-50 /HPF (<5); Urine Yeast (Budding) Few /HPF (None Seen); Urine pH 5.5 (5.0-7.0)
--- NOTE | 2024-04-18 20:39 | CON ---
History Of Present Illness: This is a 63-year-old female, I was consulted for urinary tract infectio n and urosepsis. The patient has significant past medical history of diabetes mellitus, hypertension , arthritis, neuropathy with lung mass, prolapsed bladder, and longstanding history of tobacco use si nce age 15, 1 pack per day. The patient came to the emergency room with abdominal pain, neck pain, a nd generalized body aches and fatigue. Denies any nausea, vomiting, chest pain, abdominal pain. Past Medical History: As per HPI. Social History: Tobacco positive. Alcohol negative. Family History: Noncontributory. Medications: Cefepime. Meropenem. Cefepime has been discontinued. The patient on meropenem. See MARs for other medications. Allergies: SULFA DRUGS. Review of Systems: A 10-point review was performed. Physical Examination: General: This is a 63-year-old female, lying in bed, not in any acute cardiopulmonary distress. Vital Signs: Temperature 99.4, T-max of 103.2, pulse 79, respirations 18, blood pressure 124/76. HEENT: Unremarkable. Neck: Supple. Lungs: Basal crackles. Heart: S1, S2. Regular. Abdomen: Tenderness in lower quadrant. Extremities: No edema. Laboratory Data: Shows WBC 13.6, hemoglobin 9.4, platelets are 179. Chemistry shows BUN of 17, crea tinine 1.3. Blood cultures are pending. Abdominal CT scan done earlier today shows right ureteral s tent remains in place. No hydronephrosis. No calculi along the course. Chest x-ray shows no acute cardiopulmonary disease. Assessment And Plan: 63-year-old female with recent history of urosepsis, coming in with leukocytosi s and have fevers of 103. Patient currently on meropenem, pending culture results. Has been given 1 shot of cefepime. Renal insufficiency. Anemia of chronic disease. Continue current treatment. Co ntinue supportive care. Education for tobacco was given. We will follow the patient as needed. NF/MODL Voice ID: [id number] Report ID: [id number]
[2024-04-18] MEDS: METOPROLOL TAR 25 MG TAB PO SCH (21:00)
[2024-04-18] MEDS: TAMSULOSIN 0.4 MG SR CAP PO SCH (21:26)
[2024-04-18] MEDS: PANTOPRAZOLE 40MG TABLET PO SCH (21:27)
[2024-04-18] MEDS: BACLOFEN 10 MG TAB PO SCH (21:27)
[2024-04-19 05:18] LABS: Absolute Lymphocytes (CBC) 1.6 K/uL (0.7-4.9); Absolute Monocytes 1.3 K/uL (0.1-1.3); Absolute Neutrophil 10.8 K/uL (1.8-8.0); Basophils % 0.2 % (0-1.3); Eosinophils % 0.1 % (0-4.4); Hematocrit 28.7 % (36.0-45.0); Hemoglobin 9.4 g/dL (12.0-15.0); Lymphocytes % 11.5 % (15.3-44.8); MCH 28.4 pg (27.0-35.0); MCHC 32.6 g/dL (32.0-36.0); MCV 86.9 fL (80-100); MPV 8.5 fL (7.6-11.3); Monocytes % 9.6 % (3.3-12.3); Neutrophils % 78.6 % (41.7-73.7); Platelets 178 thou/uL (152-406); Red Cell Distribution Width 14.6 % (12.1-15.2)
[2024-04-19 05:40] LABS: Albumin 2.8 g/dL (3.4-5.0); Albumin/Globulin Ratio 0.7 (1.1-1.8); Anion Gap 11.4 mEq/L (5.0-15.0); Bilirubin Total 0.5 mg/dL (0.2-1.0); Globulin 3.9 g/dL (2.3-3.5); Potassium 4.4 mEq/L (3.5-5.1); Protein, Total 6.7 g/dL (6.4-8.2)
[2024-04-19 06:56] VITALS: BMI 36.1
--- NOTE | 2024-04-19 07:49 | P.PN ---
Date of Service: 04/20/24 Subjective Reports fever overnight, mild nausea, Chronic neck pain, as needed analgesia was added Review of Systems 10-point ROS is otherwise unremarkable Physical Examination - Vital Signs reviewed - Physical Exam General: Alert, In no apparent distress, Oriented x3, afebrile HEENT: Atraumatic, PERRLA, EOMI Neck: Supple, JVD not distended Respiratory: Clear to auscultation bilaterally, Normal air movement Cardiovascular: Regular rate/rhythm, Normal S1 S2 Gastrointestinal: Normal bowel sounds, No tenderness Musculoskeletal: No tenderness Integumentary: No rashes Neurological: Normal speech, Normal tone, Normal affect Lymphatics: No axilla or inguinal lymphadenopathy Assessment & Plan - Problems (Diagnosis) Bacteremia likely secondary to Salmonella Current Visit: No Status: Acute BC GM neg rods, x 2 bottles Added Levaquin, ceftriaxone severe Sepsis without shock Qualifiers: Severe sepsis acute organ dysfunction type: acute renal failure Current Visit: No Status: Acute temp 103, fever, chills, tachypnea, Obstructive pyelonephritis Current Visit: No Status: Acute post ureteral stent, discussed w urology, fu po 1 week for anticipated removal transaminitis History of hepatitis C Liver ultrasound, hepatitis panel Likely secondary from Salmonella, Hepatitis panel, diabetes tpye ii uncontrolled Current Visit: No Status: Acute UTI (urinary tract infection) Current Visit: No Status: Acute iv merrem, follow culture tobacco use nicotine patch - Advance Directives Does patient have a Living Will: No Does patient have a Durable POA for Healthcare: Yes - Code Status/Comfort Care Code Status: Full Code Time spent with patient 30 minutes
[2024-04-19] MEDS: INFLUENZA VACCINE (for 6+ mo) 0.5 ML DOSE IMVAC ONE (10:00)
[2024-04-19] MEDS: NICOTINE 21 MG/PAT TD SCH (11:41)
--- NOTE | 2024-04-19 13:01 | EKG ---
Test Date: 2024-04-18 Test Time: 00:26:57 Core Cleaner: DANYEL MEASUREMENT RESULTS: Intervals: Rate: 113 DC: 150 QRSD: 86 QT: 330 QTc: 452 Bath: P: 62 DC: 150 QRS: 78 T: 57 INTERPRETIVE STATEMENTS: Sinus tachycardia Otherwise normal ECG Compared to ECG 03/19/2024 13:07:42 Sinus rhythm no longer present Atrial premature complex(es) no longer present Myocardial infarct finding no longer present Electronically Signed On 04-19-24 12:55:42 CDT by Aki Menendez
--- NOTE | 2024-04-19 21:36 | PN ---
Subjective: The patient lying in bed. Family by the bedside. Continued to have fever spike of 101. Denies any headache. Has some nausea, no vomiting, back pain. Objective: Vital Signs: Temperature 99.9, pulse 96, respiration 14, blood pressure 156/83. Lungs: Basal crackles. Heart: S1, S2. Regular. Abdomen: Soft. Bowel sounds present. Extremities: Trace edema. Laboratory Data: Shows WBC 13.7, hemoglobin 9.4, platelets 178. BUN of 13, creatinine 1.2. Assessment And Plan: Urinary tract infection, possible cause, a stent in the right ureter; leukocyto sis; anemia of chronic disease; renal insufficiency; tobacco use. The patient continued to be on IV antibiotic. We will follow the patient as needed. NF/MODL Voice ID: [id number] Report ID: [id number]
[2024-04-20 05:10] LABS: Anion Gap 4.5 mEq/L (5.0-15.0); Magnesium 1.5 mg/dL (1.6-2.4); Phosphorus 2.1 mg/dL (2.5-4.9); Potassium 3.5 mEq/L (3.5-5.1)
[2024-04-20] MEDS: MAGNESIUM SULFATE 1 gm IVPB 1 GM/100 ML BAG IV ONE (07:25)
[2024-04-20] MEDS: POTASS/SODIUM PHOSPHATE 1 PKT POWD.PACK PO SCH (08:10)
[2024-04-20] MEDS: Meropenem 1,000 MG in NA CHLORIDE 0.9% 100 ML IV SCH (08:50)
[2024-04-20] MEDS: POTASSIUM CL SA 10 MEQ TAB PO ONE (08:52)
--- NOTE | 2024-04-20 14:57 | P.DS ---
Admission Date: 04/18/24 Discharge Date: 04/22/24 Disposition: ROUTINE DISCHARGE Discharge Condition: FAIR Reason for Admission: Neck pain, fever Brief History of Present Illness: 63 yrs old Female with past medical history of diabetes, hypertension, arthritis, neuropathy, possible lung mass, prolapsed bladder , was brought to ER with abdominal pain neck pain and generalized body pain and fatigue .Patient presents to the ED with neck pain, shortness of breath starting today. Patient states this was similar to when she was admitted last time. Reports abdominal pain as well which was diffuse, cramping type. Denies any fever or chills. Denies any chest pain or shortness of breath. No nausea vomiting or diarrhea. The patient was assessed in the ER and was admitted for further management of possible sepsis with UTI - Physical Exam General: Alert, Oriented x3, HEENT: Atraumatic, Normocephalic Neck: Supple Respiratory: Clear to auscultation bilaterally, Normal air movement Cardiovascular: Regular rate/rhythm, Normal S1 S2 Capillary refill: <2 Seconds Gastrointestinal: Soft and benign, Non-distended, W/out hepatosplenomegaly Musculoskeletal: No clubbing, No swelling Integumentary: No rashes Neurological: Normal strength at 5/5 x4 extr, Cranial nerves 3-12 intact, Normal reflexes 2+ Lymphatics: No axilla or inguinal lymphadenopathy Hospital Course: 63 yrs old Female with past medical history of diabetes, hypertension, arthritis, neuropathy, possible lung mass, prolapsed bladder , was brought to ER with abdominal pain neck pain and generalized body pain and fatigue . It was noted to have sepsis, bacteremia bacteremia, obstructive pyelonephritis, diabetes type 2 uncontrolled, acute cystitis treated with IV Merrem, she did not respond to meropenem, she did not respond on cefepime, change antibiotic to Levaquin. Discharge home with she is tolerating diet, stable to discharge home on antibiotics follow-up with urology in 1 week for removal of ureteral stent. She verbalized understanding. Tolerating diet, pain controlled. Follow-up with Dr. Brizuela next week for stent removal New medications Cipro twice daily for 14 days Nicotine patch daily Zofran 1 every 4-6 hours as needed for nausea 1 Assessment Severe sepsis from Salmonella bacteremia, recent Salmonella outbreak possible exposure improved with IV fluids, IV Transaminitis-hepatitis panel liver ultrasound ordered follow-up with GI after discharge to evaluate for elevated LFTs-likely secondary to Salmonella bacteremia History of hepatitis C will repeat hepatitis panel Bacteremia -repeat blood cultures drawn-started on meropenem, transition to Levaquin, discharged home on p.o. antibiotics as needed analgesics Obstructive pyelonephritis-has ureteral stent needs to follow-up with urology after discharge Diabetes type 2 uncontrolled-instructed on strict blood glucose control severe Sepsis without shock-improved with IV fluids IV antibiotics. Acute cystitis treated with IV meropenem Ureteral stent needs to follow-up with urology after discharge next week for removal in the [place] location Tobacco use, discharged home with nicotine patch educated on tobacco cessation UA normal stefano Repeat blood cultures, Continue home medicines as previously prescribed GOAL: Clear understanding of disease process INSTRUCTIONS: Physician Discharge Instructions: -Follow-up with urology in 1 week -Follow-up with PCP in 1 to 2 weeks -Please call Dr. Snyder at [phone] if any questions regarding hospital stay -Please call nursing station at [phone] if any nursing or medication questions -Return to the emergency room if symptoms worsen Diet: ADA, low sodium Activity: Fall precautions Vital Signs/Physical Exam: Temp Pulse Resp BP Pulse Ox 97.6 F 76 16 145/69 H 94 04/20/24 12:00 04/20/24 12:00 04/20/24 12:00 04/20/24 12:00 04/20/24 12:00 Laboratory Data at Discharge: WBC 13.70 thou/uL (4.3-10.9) H 04/19/24 04:53 Hgb 9.4 g/dL (12.0-15.0) L 04/19/24 04:53 Hct 28.7 % (36.0-45.0) L 04/19/24 04:53 Plt Count 178 thou/uL (152-406) 04/19/24 04:53 PT 13.4 SECONDS (9.4-12.5) H 04/18/24 00:50 INR 1.20 04/18/24 00:50 APTT 34.2 SECONDS (24.3-36.9) 04/18/24 00:50 Sodium 131 mEq/L (136-145) L 04/20/24 04:38 Potassium 3.5 mEq/L (3.5-5.1) D 04/20/24 04:38 BUN 12 mg/dL (7-18) 04/20/24 04:38 Creatinine 0.94 mg/dL (0.55-1.02) 04/20/24 04:38 Glucose 163 mg/dL (74-106) H 04/20/24 04:38 Phosphorus 2.1 mg/dL (2.5-4.9) L 04/20/24 04:38 Magnesium 1.5 mg/dL (1.6-2.4) L 04/20/24 04:38 Total Bilirubin 0.5 mg/dL (0.2-1.0) 04/19/24 04:53 AST 29 U/L (15-37) 04/19/24 04:53 ALT 28 U/L (13-56) 04/19/24 04:53 Alkaline Phosphatase 127 U/L (45-117) H 04/19/24 04:53 Home Medications: Amlodipine [Norvasc*] 10 mg PO DAILY 30 Days #30 tab 03/08/24 Gabapentin [Neurontin] 800 mg PO TID 03/08/24 Hydrocodone 10/APAP 325 [[place] [address]*] 1 tab PO Q6H PRN #30 tab 03/08/24 Lisinopril [Zestril] 20 mg PO BID #60 tab 03/08/24 Metformin HCl 1,000 mg PO BID 03/08/24 Metoprolol Tartrate [Lopressor*] 25 mg PO BID #60 tab 03/08/24 Mvit-Mins/Folic Acid/Soy Isofl [One-A-Day Menopause Formula Tb] 1 each PO 30 MIN BEFORE HS 30 Days #30 tab 03/08/24 Pantoprazole [Protonix Tab*] 40 mg PO BID 30 Days #60 tab 03/08/24 Tamsulosin [Flomax*] 0.4 mg PO BEDTIME 30 Days #30 cap 03/08/24 glipiZIDE [Glipizide] 10 mg PO BID 03/08/24 Baclofen [Lioresal] 10 mg PO BID 04/18/24 Ibuprofen 800 mg PO Q8H 04/18/24 estradioL [Estradiol] 0.5 gr VAG SEECOM 04/18/24 Ciprofloxacin HCl 500 mg PO BID 14 Days #28 tab 04/22/24 Lactobacillus Acidophilus 1 each PO BID 14 Days #28 tab 04/22/24 Nicotine [Nicoderm*] 21 mg TD DAILY 30 Days #1 box 04/22/24 Ondansetron [Zofran] 4 mg PO Q6H PRN 7 Days #25 tab 04/22/24 New Medications: Ciprofloxacin HCl 500 mg PO BID 14 Days #28 tab Lactobacillus Acidophilus 1 each PO BID 14 Days #28 tab Nicotine [Nicoderm*] 21 mg TD DAILY 30 Days #1 box Ondansetron [Zofran] 4 mg PO Q6H PRN 7 Days #25 tab PRN Reason: Nausea / Vomiting Physician Discharge Instructions: PROBLEM: (UTI/Bacteremia) GOAL: Clear understanding of disease process INSTRUCTIONS: INSTRUCTIONS: -Follow-up with urology in 1 week -Follow-up with PCP in 1 to 2 weeks -Please call Dr. Snyder at [phone] if any questions regarding hospital stay -Please call nursing station at [phone] if any nursing or medication questions -Return to the emergency room if symptoms worsen Diet: ADA, low sodium Activity: Fall precautions Diet: Renal Activity: Fall precautions IMMUNIZATION Influenza Vaccine Indicated: Yes Influenza Vaccine Given: No Date Given: Pneumonia Vaccine Indicated: No Pneumonia Vaccine Given: Date Given: Followup: Bernardo Brizuela [ACTIVE - CAN ADMIT] - 1-2 Weeks Ivory Partida NP [Primary Care Provider] - 1-2 Weeks Time spent managing pt's care (in minutes): 55
[2024-04-21] MEDS: DOCUSATE NA 100 MG CAP PO SCH (00:52)
[2024-04-21 05:26] LABS: Anion Gap 7.2 mEq/L (5.0-15.0); Magnesium 1.6 mg/dL (1.6-2.4); Phosphorus 1.7 mg/dL (2.5-4.9); Potassium 4.2 mEq/L (3.5-5.1)
[2024-04-21] MEDS: MAGNESIUM SULFATE 1 gm IVPB 1 GM/100 ML BAG IV ONE (06:31)
--- NOTE | 2024-04-21 06:44 | P.PN ---
Date of Service: 04/21/24 Subjective spiked a fever overnight, will add Levaquin, additional antibiotic. Review of Systems 10-point ROS is otherwise unremarkable (except for upper back pain) Physical Examination - Vital Signs reviewed - Physical Exam General: Alert, In no apparent distress, Oriented x3, HEENT: Atraumatic, PERRLA, EOMI Neck: Supple, JVD not distended Respiratory: Clear to auscultation bilaterally, Normal air movement Cardiovascular: Regular rate/rhythm, Normal S1 S2 Gastrointestinal: Normal bowel sounds, No tenderness Musculoskeletal: No tenderness Integumentary: No rashes Neurological: Normal speech, Normal tone, Normal affect Lymphatics: No axilla or inguinal lymphadenopathy Assessment & Plan - Problems (Diagnosis) (1) Salmonella bacteremia improving tobacco use Current Visit: No Status: Acute BC GM neg rods, x 2 bottles nicotine patch Levaquin added (2) Obstructive pyelonephritis Current Visit: No Status: Acute post ureteral stent, discussed w urology, fu po 1 week for anticipated removal Patient treated with meropenem diabetes tpye ii uncontrolled Current Visit: No Status: Acute (3) severe Sepsis withoutshock improved Current Visit: No Status: Acute temp 103, fever, chills, tachypnea, Qualifiers: Severe sepsis acute organ dysfunction type: acute renal failure (4) UTI (urinary tract infection) improved Current Visit: No Status: Acute iv merrem, follow culture (5) tobacco use Current Visit: No Status: Acute Nicotine patch - Advance Directives Does patient have a Living Will: No Does patient have a Durable POA for Healthcare: Yes - Code Status/Comfort Care Code Status: Full Code Time spent with patient 30 minutes
--- NOTE | 2024-04-21 06:57 | P.PN ---
Date of Service: 04/21/24 Subjective reports feeling better, Will add Levaquin, discussed case with Dr. Brizuela she needs to follow-up outpatient Review of Systems 10-point ROS is otherwise unremarkable (except for upper back pain) Physical Examination - Vital Signs reviewed - Physical Exam General: Alert, In no apparent distress, Oriented x3, afebrile HEENT: Atraumatic, PERRLA, EOMI Neck: Supple, JVD not distended Respiratory: Clear to auscultation bilaterally, Normal air movement Cardiovascular: Regular rate/rhythm, Normal S1 S2 Gastrointestinal: Normal bowel sounds, No tenderness Musculoskeletal: No tenderness Integumentary: No rashes Neurological: Normal speech, Normal tone, Normal affect Lymphatics: No axilla or inguinal lymphadenopathy Assessment & Plan - Problems (Diagnosis) Bacteremia Current Visit: No Status: Acute BC GM neg rods, x 2 bottles. Add Levaquin, ceftriaxone severe Sepsis withoutshock Qualifiers: Severe sepsis acute organ dysfunction type: acute renal failure Current Visit: No Status: Acute temp 103, fever, chills, tachypnea, Obstructive pyelonephritis Current Visit: No Status: Acute post ureteral stent, discussed w urology, fu po 1 week for anticipated removal Right ureteral stent remains in place no hydronephrosis. No calculi along the course of the stent. transaminitis Liver ultrasound, hepatitis panel Follow-up with outpatient for GI for evaluation for possible fatty liver UTI (urinary tract infection) Current Visit: No Status: Acute iv merrem, follow culture diabetes tpye ii uncontrolled Current Visit: No Status: Acute . Patient cannot afford long-acting insulin, To follow-up with PCP, with blood sugar log, covered button maker after discharge tobacco use nicotine patch - Advance Directives Does patient have a Living Will: No Does patient have a Durable POA for Healthcare: Yes - Code Status/Comfort Care Code Status: Full Code Time spent with patient 30 minutes
[2024-04-21] MEDS: POTASS/SODIUM PHOSPHATE 1 PKT POWD.PACK PO SCH (08:20)
[2024-04-21] MEDS: Levofloxacin500mg IV 500 MG/100 ML BAG IV SCH (11:44)
[2024-04-22] MEDS ORDERED: Levofloxacin500mg IV 500 MG/100 ML BAG IV SCH (08:00)
[2024-04-22 08:46] VITALS: BP 138/68
[2024-04-22] MEDS: CEFTRIAXONE 2,000 MG in NA CHLORIDE 0.9% 100 ML IV SCH (08:52)
[2024-04-22 08:57] LABS: Albumin 2.3 g/dL (3.4-5.0); Anion Gap 10.1 mEq/L (5.0-15.0); Phosphorus 2.2 mg/dL (2.5-4.9); Potassium 4.1 mEq/L (3.5-5.1)
[2024-04-22 09:03] VITALS: TEMP 97.8
[2024-04-22 09:07] LABS: Absolute Basophils 0.1 K/uL (0-0.5); Absolute Eosinophils 0.1 K/uL (0-0.5); Absolute Lymphocytes (CBC) 1.7 K/uL (0.7-4.9); Absolute Monocytes 1.1 K/uL (0.1-1.3); Absolute Neutrophil 4.3 K/uL (1.8-8.0); Basophils % 0.8 % (0-1.3); Eosinophils % 1.2 % (0-4.4); Hematocrit 26.4 % (36.0-45.0); Hemoglobin 8.6 g/dL (12.0-15.0); MCH 28.2 pg (27.0-35.0); MCHC 32.8 g/dL (32.0-36.0); MCV 86.1 fL (80-100); MPV 7.7 fL (7.6-11.3); Monocytes % 14.8 % (3.3-12.3); Neutrophils % 59.2 % (41.7-73.7); Platelets 334 thou/uL (152-406); RBC Red Blood Cell Count 3.06 M/uL (3.86-4.86); Red Cell Distribution Width 14.7 % (12.1-15.2)
[2024-04-22] MEDS: Levofloxacin 750mg IV 750 MG/150 ML BAG IV SCH (09:08)
[2024-04-22 09:20] VITALS: O2SAT 95
--- NOTE | 2024-04-22 09:53 | RAD REPORT ---
Liver Only: 04/22/2024 9:46 AM CLINICAL HISTORY: elevated lft STUDY: Limited right upper quadrant ultrasound of abdomen. COMPARISON: CT 04/18/2024, 03/19/2024, 03/06/2024 FINDINGS: Liver: No significant abnormality. Bile ducts: . Common bile duct measures 10 mm and is dilated. This is similar going back to the CT from 03/06/2024. Gallbladder: Cholecystectomy IMPRESSION: Cholecystectomy. Similar extrahepatic biliary duct dilatation which may be related to the postcholecy stectomy state. If there is strong clinical concern for choledocholithiasis or stricture, MRCP could further evaluate.
[2024-04-22] MEDS ORDERED: levoFLOXacin 750 MG TAB PO ONE (10:00)
[2024-04-22] MEDS: levoFLOXacin 750 MG TAB PO SCH (11:58)
[2024-04-22 12:11] LABS: Hepatitis B Core IgM Nonreactive (Nonreactive); Hepatitis B surface AG Interp. Nonreactive (Nonreactive); Hepatitis C Virus Ab Reactive (Nonreactive)
[2024-04-22 12:12] LABS: HBsAG Nonreactive Report Report
--- NOTE | 2024-04-22 18:24 | P.DS ---
Admission Date: 04/18/24 Discharge Date: 04/22/24 Disposition: ROUTINE DISCHARGE Discharge Condition: FAIR Reason for Admission: Neck pain, fever Brief History of Present Illness: 63 yrs old Female with past medical history of diabetes, hypertension, arthritis, neuropathy, possible lung mass, prolapsed bladder , was brought to ER with abdominal pain neck pain and generalized body pain and fatigue .Patient presents to the ED with neck pain, shortness of breath starting today. Patient states this was similar to when she was admitted last time. Reports abdominal pain as well which was diffuse, cramping type. Denies any fever or chills. Denies any chest pain or shortness of breath. No nausea vomiting or diarrhea. The patient was assessed in the ER and was admitted for further management of possible sepsis with UTI - Physical Exam General: Alert, Oriented x3, HEENT: Atraumatic, Normocephalic Neck: Supple Respiratory: Clear to auscultation bilaterally, Normal air movement Cardiovascular: Regular rate/rhythm, Normal S1 S2 Capillary refill: <2 Seconds Gastrointestinal: Soft and benign, Non-distended, W/out hepatosplenomegaly Musculoskeletal: No clubbing, No swelling Integumentary: No rashes Neurological: Normal strength at 5/5 x4 extr, Cranial nerves 3-12 intact, Normal reflexes 2+ Lymphatics: No axilla or inguinal lymphadenopathy Hospital Course: 63 yrs old Female with past medical history of diabetes, hypertension, arthritis, neuropathy, possible lung mass, prolapsed bladder , was brought to ER with abdominal pain neck pain and generalized body pain and fatigue . It was noted to have sepsis, bacteremia bacteremia, obstructive pyelonephritis, diabetes type 2 uncontrolled, acute cystitis treated with IV Merrem, she did not respond to meropenem, she did not respond on cefepime, change antibiotic to Levaquin. Discharge home with she is tolerating diet, stable to discharge home on antibiotics follow-up with urology in 1 week for removal of ureteral stent. She verbalized understanding. Tolerating diet, pain controlled. Follow-up with Dr. Brizuela next week for stent removal New medications Cipro twice daily for 14 days Nicotine patch daily Zofran 1 every 4-6 hours as needed for nausea 1 Assessment Severe sepsis from Salmonella bacteremia, recent Salmonella outbreak possible exposure improved with IV fluids, IV Transaminitis-hepatitis panel liver ultrasound ordered follow-up with GI after discharge to evaluate for elevated LFTs-likely secondary to Salmonella bacteremia History of hepatitis C will repeat hepatitis panel Bacteremia -repeat blood cultures drawn-started on meropenem, transition to Levaquin, discharged home on p.o. antibiotics as needed analgesics Obstructive pyelonephritis-has ureteral stent needs to follow-up with urology after discharge Diabetes type 2 uncontrolled-instructed on strict blood glucose control severe Sepsis without shock-improved with IV fluids IV antibiotics. Acute cystitis treated with IV meropenem Ureteral stent needs to follow-up with urology after discharge next week for removal in the [place] location Tobacco use, discharged home with nicotine patch educated on tobacco cessation UA normal stefano Repeat blood cultures, Continue home medicines as previously prescribed GOAL: Clear understanding of disease process INSTRUCTIONS: Physician Discharge Instructions: -Follow-up with urology in 1 week -Follow-up with PCP in 1 to 2 weeks -Please call Dr. Snyder at [phone] if any questions regarding hospital stay -Please call nursing station at [phone] if any nursing or medication questions -Return to the emergency room if symptoms worsen Diet: ADA, low sodium Activity: Fall precautions Vital Signs/Physical Exam: Temp Pulse Resp BP Pulse Ox 97.8 F 73 17 138/68 95 04/22/24 08:00 04/22/24 08:44 04/22/24 08:00 04/22/24 08:44 04/22/24 08:00 Laboratory Data at Discharge: WBC 7.30 thou/uL (4.3-10.9) 04/22/24 08:31 Hgb 8.6 g/dL (12.0-15.0) L 04/22/24 08:31 Hct 26.4 % (36.0-45.0) L 04/22/24 08:31 Plt Count 334 thou/uL (152-406) 04/22/24 08:31 PT 13.4 SECONDS (9.4-12.5) H 04/18/24 00:50 INR 1.20 04/18/24 00:50 APTT 34.2 SECONDS (24.3-36.9) 04/18/24 00:50 Sodium 132 mEq/L (136-145) L 04/22/24 08:31 Potassium 4.1 mEq/L (3.5-5.1) 04/22/24 08:31 BUN 7 mg/dL (7-18) 04/22/24 08:31 Creatinine 0.90 mg/dL (0.55-1.02) 04/22/24 08:31 Glucose 173 mg/dL (74-106) H 04/22/24 08:31 Phosphorus 2.2 mg/dL (2.5-4.9) L 04/22/24 08:31 Magnesium 1.6 mg/dL (1.6-2.4) 04/21/24 04:46 Total Bilirubin 0.5 mg/dL (0.2-1.0) 04/19/24 04:53 AST 29 U/L (15-37) 04/19/24 04:53 ALT 28 U/L (13-56) 04/19/24 04:53 Alkaline Phosphatase 127 U/L (45-117) H 04/19/24 04:53 Home Medications: Amlodipine [Norvasc*] 10 mg PO DAILY 30 Days #30 tab 03/08/24 Gabapentin [Neurontin] 800 mg PO TID 03/08/24 Hydrocodone 10/APAP 325 [[place] 10325*] 1 tab PO Q6H PRN #30 tab 03/08/24 Lisinopril [Zestril] 20 mg PO BID #60 tab 03/08/24 Metformin HCl 1,000 mg PO BID 03/08/24 Metoprolol Tartrate [Lopressor*] 25 mg PO BID #60 tab 03/08/24 Mvit-Mins/Folic Acid/Soy Isofl [One-A-Day Menopause Formula Tb] 1 each PO 30 MIN BEFORE HS 30 Days #30 tab 03/08/24 Pantoprazole [Protonix Tab*] 40 mg PO BID 30 Days #60 tab 03/08/24 Tamsulosin [Flomax*] 0.4 mg PO BEDTIME 30 Days #30 cap 03/08/24 glipiZIDE [Glipizide] 10 mg PO BID 03/08/24 Baclofen [Lioresal] 10 mg PO BID 04/18/24 Ibuprofen 800 mg PO Q8H 04/18/24 estradioL [Estradiol] 0.5 gr VAG SEECOM 04/18/24 Ciprofloxacin HCl 500 mg PO BID 14 Days #28 tab 04/22/24 Lactobacillus Acidophilus 1 each PO BID 14 Days #28 tab 04/22/24 Nicotine [Nicoderm*] 21 mg TD DAILY 30 Days #1 box 04/22/24 Ondansetron [Zofran] 4 mg PO Q6H PRN 7 Days #25 tab 04/22/24 New Medications: Ciprofloxacin HCl 500 mg PO BID 14 Days #28 tab Lactobacillus Acidophilus 1 each PO BID 14 Days #28 tab Nicotine [Nicoderm*] 21 mg TD DAILY 30 Days #1 box Ondansetron [Zofran] 4 mg PO Q6H PRN 7 Days #25 tab PRN Reason: Nausea / Vomiting Physician Discharge Instructions: PROBLEM: (UTI/Bacteremia) GOAL: Clear understanding of disease process INSTRUCTIONS: INSTRUCTIONS: -Follow-up with urology in 1 week -Follow-up with PCP in 1 to 2 weeks -Please call Dr. Snyder at [phone] if any questions regarding hospital stay -Please call nursing station at [phone] if any nursing or medication quest ions -Return to the emergency room if symptoms worsen Diet: ADA, low sodium Activity: Fall precautions Diet: Renal Activity: Fall precautions IMMUNIZATION Influenza Vaccine Indicated: Yes Influenza Vaccine Given: No Date Given: Pneumonia Vaccine Indicated: No Pneumonia Vaccine Given: Date Given: Diet: Renal Activity: Fall precautions Followup: Bernardo Brizuela [ACTIVE - CAN ADMIT] - 1-2 Weeks Ivory Partida NP [Primary Care Provider] - 1-2 Weeks
== END 2024-04-22 12:11 | disposition home or self-care (01) | DRG 872 ==
LOC: ER 00:09 → ERHOLD 04:55 → 2ND 13:58
PROVIDERS: ADMIT Family Medicine; ATTEND Hospitalist
DX: A02.1 Salmonella sepsis (principal); N17.9 Acute kidney failure, unspecified; E87.1 Hypo-osmolality and hyponatremia; N11.1 Chronic obstructive pyelonephritis; N30.00 Acute cystitis without hematuria; E11.40 Type 2 diabetes mellitus with diabetic neuropathy, unspecified; I10 Essential (primary) hypertension; E86.0 Dehydration; D63.8 Anemia in other chronic diseases classified elsewhere; D72.829 Elevated white blood cell count, unspecified; F17.210 Nicotine dependence, cigarettes, uncomplicated; R65.20 Severe sepsis without septic shock; Z88.2 Allergy status to sulfonamides; Z98.51 Tubal ligation status; Z11.52 Encounter for screening for COVID-19; Z90.11 Acquired absence of right breast and nipple; Z79.84 Long term (current) use of oral hypoglycemic drugs; Z90.49 Acquired absence of other specified parts of digestive tract; Z79.899 Other long term (current) drug therapy; Z96.653 Presence of artificial knee joint, bilateral; Z90.710 Acquired absence of both cervix and uterus
CPT/HCPCS: 36415; 71045; 74176; 76705; 80048; 80053; 80069; 80074; 81001; 82947; 83605; 83735; 84100; 84145; 84484; 85025; 85379; 85610; 85730; 87040; 87077; 87086; 87088; 87186; 87205; 87804; 87811; 93005; 94010; 94760; 96365; 96366; 96375; 99285; J0692; J0696; J1650; J2185; J2270; J2405; J2765; J3475; J7030

== ENCOUNTER 2024-04-25 08:48 | Day surgery (SDC) | payer OTHER ==
[2024-04-25] MEDS: NA CHLORIDE 0.9% 1,000 ML ONE (09:30)
[2024-04-25] MEDS ORDERED: MIDAZOLAM HCL 2 MG/2 ML INJ ONE (11:30)
[2024-04-25] MEDS ORDERED: propofoL 200 MG/20 ML VIAL IV ONE (11:30)
[2024-04-25] MEDS ORDERED: ONDANSETRON 4 MG/2 ML VIAL ONE (11:30)
[2024-04-25] MEDS ORDERED: LIDOCAINE 1% MPF 5 ML VIAL ONE (11:30)
[2024-04-25] MEDS ORDERED: FENTANYL CITR 100 MCG/2 ML ONE ×2 (11:30→12:29)
[2024-04-25] MEDS: AMPICILLIN SODIUM 2 GM/VIAL VIAL ONE (12:00)
[2024-04-25] MEDS: GENTAMICIN 80 MG/100 ML BAG 160 MG/200 ML BAG IV ONE (12:05)
[2024-04-25] MEDS ORDERED: FENTANYL CITR 250 MCG/5 ML ONE (12:28)
[2024-04-25] MEDS ORDERED: KETOROLAC 30 MG/ML INJ ONE (12:34)
--- NOTE | 2024-04-25 12:53 | P.OP ---
Date of Service: 04/25/24 Preoperative diagnoses: Right obstructive ureterolithiasis History of right hydronephrosis Recurrent complicating infections requiring hospitalization Postoperative diagnoses: History of right hydronephrosis Recurrent complicating infections requiring hospitalization Principal procedures: Cystoscopy Right retrograde pyelography Right ureteroscopy with pyeloscopy Right ureteral stent extraction Indication for procedure: 63-year-old woman with DM 2 with neuropathy, hypertension and arthritis, who was a first time presumptive stone former admitted with a presumptive 4 mm distal right obstructive ureterolithiasis with pyelonephritic sepsis suspected. I reviewed the images of the CT scan, and while I did not definitively appreciate the obstructive right ureterolithiasis in the setting of multiple pelvic phleboliths on that side, the radiologist did make that diagnosis; so given the patient's suspicion for infection, a right ureteral stent was placed 03/07/2024. She presents today for definitive management of her right upper tract. Procedure note: The patient was consented in the preoperative holding area before being t ransferred to the operative suite where general anesthesia was induced. She was given ampicillin 2 g and gentamicin 160 mg IV antimicrobial prophylaxis, and pneumoboots were provided for DVT prophylaxis. Of note, she was taking ciprofloxacin from her most recent hospitalization where she was discharged over the weekend. She was placed in the lithotomy position, padded and secured to the table appropriately, and her genitalia was prepped with Hibiclens and draped in standard fashion. A 22 [place] flexible cystoscope was used to traverse the urethra and into the bladder with ease. There was downward angulation of the urethra owing to the presence of a cystocele for which the patient had a pessary placed due to some voiding dysfunction recently observed and managed on her hospitalization. Upon entry into the bladder, I decompressed it of fluid and urine and surveyed it in its entirety. There were some hemorrhagic patches posteriorly, potentially from prior catheter trauma or cystitis. The stent was noted emanating from the right ureteral orifice and was in excellent orthotopic position. As a result, I grasped the tip of the coil of the right ureteral stent and delivered it to the meatus leaving the proximal coil in the proximal ureter as evidenced fluoroscopically. I then passed a sensor wire via the stent coiling it in the putative collecting system on the right. I then remove the stent and left the wire in place before using pressurized saline irrigation and a semirigid ureteroscope to perform direct vision ureteroscopy. I surveyed via the urethra into her bladder and into the ureteral orifice navigating all the way up the distal into the mid and proximal ureter before reaching the UPJ and just entering the renal pelvis with a semirigid ureteroscope. No stones were noted along the entirety of the ureter. As a result, I performed a retrograde pyelography study: Right retrograde pyelography: Using a 70: 30 mixture of Omnipaque and saline, I injected the contrast mixture via the semirigid ureteroscope and delineated the renal pelvis and calyces without any evidence of filling defect. No radiopaque stones were noted. So I passed a Bentson guidewire via the semirigid ureteroscope coiling it within the pelvis of the right kidney and remove the ureteroscope leaving the wire in place. I then backloaded the flexible ureteroscope over the Bentson guidewire and navigated all the way into her upper pole calyx as evidenced fluoroscopically. I then remove the Bentson guidewire and surveyed each of the calyces marking them fluoroscopically along the way. After each of the calyces had been visualized and no stone was noted throughout, I then again survey down the proximal into the mid and distal ureter on the way out to ensure no stones. No stones were noted along the entirety of the course of her right collecting system and ureter. As a result, I backloaded the cystoscope over the indwelling safety sensor wire, and I passed a 5 [place] ureteral access catheter over that sensor wire into her renal pelvis. I asked the anesthesiologist to give her a dose of Toradol for ureteral spasm, and I allowed the renal pelvis to decompress and then backed the 5 [place] ureteral access catheter slowly out and down the ureter decompressing along the way before ultimately removing the 5 [place] ureteral access catheter. As a result, no stent was replaced. She was then taken out of the lithotomy position, awakened from general anesthesia, transferred to a stretcher, and then transferred to the recovery room in good condition. Complications: None Discharge disposition: Subsequent urology follow-up should be established to evaluate the potential for recurrent infection. She is already seeing who has placed a pessary and management of some aspects of the voiding dysfunction. If I can help in that process, I am happy to do so. Otherwise, as a presumptive first-time stone former with no stone definitively identified, no recommended follow-up is currently made other than to increase the volume of fluid intake so that she voids about 2 L of urine a day, or about every 3-4 hours with a full bladder during the waking hours of the day.
--- NOTE | 2024-04-25 13:00 | RAD REPORT ---
EXAM: Fluoroscopy use, Urethrocystogrphy Retrograde HISTORY: RT STENT COMPARISON: None FINDINGS: A total of 12 images were sent to PACS, during a fluoroscopically guided retrograde urethro cystography. No radiologist was involved in protocoling or performance of the study, and no radiologist was present for the duration of the procedure. No interpretation of the saved images will be provided. Total fluoroscopy time: 0.4 minutes. IMPRESSION: Documentation of fluoroscopy use as above.
[2024-04-25 13:42] VITALS: BP 157/75; TEMP 97; O2SAT 100
[2024-04-25] MEDS ORDERED: CODEINE 30MG/APAP 300MG TAB ONE (13:53)
[2024-04-25] MEDS ORDERED: PHENAZOPYRIDINE 100MG TAB PO ONE (13:53)
[2024-04-25] MEDS: PHENAZOPYRIDINE 100MG TAB PO ONE (14:08)
[2024-04-25] MEDS: CODEINE 30MG/APAP 300MG TAB PO PRN (14:08)
== END 2024-04-25 14:42 | disposition home or self-care (01) ==
LOC: OR 08:48
PROVIDERS: ATTEND Urology
PROC: 0TP98DZ Removal of Intraluminal Device from Ureter, Via Natural or Artificial Opening Endoscopic (ICD-10-PCS; principal; 2024-04-25 11:15)
DX: N20.2 Calculus of kidney with calculus of ureter (principal); E11.9 Type 2 diabetes mellitus without complications; I10 Essential (primary) hypertension; M19.90 Unspecified osteoarthritis, unspecified site; G62.9 Polyneuropathy, unspecified
CPT/HCPCS: 82947; 74450; 51610; 52310; 52351; J2704; J2001; J2250; J3010; J2405; J0290; J7030; J1580

== ENCOUNTER 2025-04-28 07:48 | Emergency (ER) | payer OTHER ==
--- OUTSIDE RECORDS SUMMARY | 2025-04-28 07:55 | XMS REPORT | Continuity of Care Document ---
Author Name Unknown Address [address] [facility]. [address] [place] [address] [facility] [place] Address [address] [facility] [place] [address] Care Team Providers Care Engraver Wood Name Role Phone MITCHELL PALMA Primary Care Physician UnavailMitchell Ramírez Attending Clinician Unavailable YESENIA SARAIBA Attending Clinician UnavailARTIE Caba Attending Clinician Unavailable Doctor Unassigned, [place] Attending Clinician U YESENIA Treviño Attending Clinician UnavailYesenia Bates MD Attending Clinician [phone] Yesenia Sarabia MD Attending Clinician [phone] Pob, [facility] Main Attending Clinician Unavailyunier e [email or web address] Attending Clinician Unavaila ble Lab, Ang - Db Attending Clinician Unavailable Doctor Unassigned, [place] Attending Clinician U Vincent Villaseñor Attending Clinician [phone] VINCENT AGUSTIN Attending Clinician Unavailable Only, Adc Test Attending Clinician Unavailable Olayinka Ricardo MD Attending Clinician [phone] OLAYINKA RICARDO Attending Clinician Unavailable Chandler DOUsama Attending Clinician Eze Vallejo MD Attending Clinician [phone] Pj Mora MD Attending Clinician [phone] EZE VALLEJO Attending Clinician Unavailable YESENIA SARABIA Admitting Clinician ARTIE Duke Admitting Clinician Unavailable YESENIA SARABIA Admitting Clinician Yesenia Au MD Admitting Clinician [phone] [email or web address] Admitting Clinician Unavaila ble Payers Payer Name Policy Type Policy Number Effective Date Expiration Date Source [employer] II [id number] 2018 00:00:00 [facility]ETHODIST [facility] OUT [facility] STATE [id number] 2021 00:00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 Added automatic ally from request for surgery [id number] [facility] Primary osteoarthr itis of left knee Primary osteoarthr itis of left knee Disease Active 03-25 00:00: 00 Overview: Formattin g of this note might be different from the original. 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 Added automatic ally from request for surgery [id number] [facility] Obesity (BMI 30-39.9) Obesity (BMI 30-39.9) Disease Active 2018-07 00:00: 00 [facility] Total knee replacemen t status Total knee replacemen t status Disease Active 2018-07 00:00: 00 [facility] Patellofem oral arthritis of right knee Patellofem oral arthritis of right knee Disease Active 2018-07 00:00: 00 Overview: Formattin g of this note might be different from the original. Added automatic ally from request for surgery [id number] [facility] Low back pain of over 3 months duration Low back pain of over 3 months duration Disease Active 09-06 00:00: 00 [facility] Type 2 diabetes mellitus, without long-term current use of insulin Type 2 diabetes mellitus, without long-term current use of insulin Disease Active 09-06 00:00: 00 [facility] Diabetic neuropathy associated with type 2 diabetes mellitus Diabetic neuropathy associated with type 2 diabetes mellitus Disease Active 09-06 00:00: 00 [facility] Right leg pain Right leg pain Disease Active 03-05 00:00: 00 [facility] [id number] Other chronic pain Problem [facility] [id number] Adult-onse t obesity Problem [facility] Chronic pain syndrome Chronic pain syndrome Problem [facility] Primary osteoarthr itis of left knee Primary osteoarthr itis of left knee Problem [facility] Lumbar spondylosi s Lumbar spondylosi s Problem [facility] [id number] Cervical spondylosi s Problem [facility] Cervical radiculopa thy Cervical radiculopa thy Problem [facility] Allergies, Adverse Reactions, Alerts Allergy Name Allergy Type Status Severity Reaction(s) Onset Date Inactive Date Treating Clinician Comments Source SULFA (SULFONA MIDE ANTIBIOT ICS) Drug Class Active Hives 11-27 00:00: 00 [facility] Sulfa (Sulfona mide Antibiot ics) Propensi ty to adverse reaction s Active Hives 11-27 00:00: 00 [facility] Sulfa (Sulfona mide Antibiot ics) Propensi ty to adverse reaction s Active Hives 11-27 00:00: 00 [facility] SULFA (SULFONA MIDE ANTIBIOT ICS) Allergy to substanc e Active [facility] Substanc e with sulfonam demetrius structur e and antibact erial mechanis m of action (substan ce) Substanc e with sulfonam demetrius structur e and antibact erial mechanis m of action (substan ce) Active Unknown [facility] Family History Family Member Diagnosis Comments Start Date Stop Date Sourc e Natural mother Diabetes [facility] Social History Social Habit Start Date Stop Date Quantity Comments Source History of Tobacco Use Current Smoker [facility] Sex Assigned At [facility] Sexual [facility] History SDOH Alcohol Frequency [facility] History SDOH Alcohol [facility]d [facility]inks [facility]OH Alcohol Binge [facility] ASSERTION Not [facility] History of Occupation [facility] Alcoholic beverage intake 2025-01-30 00:00:00 2025-01-30 00:00:00 0 /d [facility] Alcohol intake 2023-11-15 00:00:00 2023-11-15 00:00:00 0 /d [facility] History of Social function 2023-11-01 00:00:00 2023-11-01 00:00:00 [facility] Cigarettes smoked current (pack per day) - Reported 2023-10-25 00:00:00 2023-10-25 00:00:00 [facility] Cigarette pack-years 2023-10-25 00:00:00 2023-10-25 00:00:00 [facility] Tobacco use and exposure 2023-10-25 00:00:00 2023-10-25 00:00:00 User of smokeless tobacco [facility] Tobacco Comment 2023-10-14 00:00:00 2023-10-14 00:00:00 Vaped and quit 3 mnths, ago smoker for 44 years [facility] Exposure to SARS-CoV-2 (event) 2021-07-30 00:00:00 2021-08-29 10:57:00 Not sure [facility] Education 2021-07-14 00:00:00 2021-07-14 00:00:00 9 [facility] Alcohol Comment 2019-07-10 00:00:00 2019-07-10 00:00:00 Occasional Drinker [facility] Smoking Status Start Date Stop Date Source Heavy Tobacco Smoker [facility] Smokes tobacco daily 2023-10-25 00:00:00 [facility] Ex-smoker 2023-10-14 00:00:00 2023-10-14 00:00:00 [facility] Medications Ordered Medication Name Filled Medication Name Start Date Stop Date Current Medication? Ordering Clinician Indication Dosage Frequency Signature (SIG) Comments Components Source HYDROcodone -Acetaminop hen 10-325 MG HYDROcodone -Acetaminop hen 10-325 MG 7-18 00:00: 00 No 1{table t_as_ne eded} TID HYDROcodon e-Acetamin ophen 10-325 MG NaCl 0.9% (NS) bolus infusion 1,000 mL 01-30 18:45: 00 01-30 20:54 :00 No 1000mL at 999 mL/hr, 1,000 mL, IV Infusion, ONCE, 1 dose, On Wed01/30/25 at 1345, NABOR [facility] Baclofen 20 MG Baclofen 20 MG 01-10 00:00: 00 No BID Baclofen 20 MG DICLOFENAC 75 mg EC tablet 01-17 00:00: 00 Yes [id number] TAKE 1 TABLET BY MOUTH EVERY MORNING AND 1 TABLET IN THE EVENING WITH A MEAL [facility] diclofenac 75 mg EC tablet 11-14 00:00: 00 Yes [id number] 75mg Take 1 tablet by mouth in the morning and 1 tablet in the evening. Take with meals. [facility] FENTanyl PF (SUBLIMAZE (PF)) injection 25 mcg 10-31 16:34: 31 10-31 19:49 :09 No 25ug 25 mcg, Slow IV Push, Q5MIN PRN, 4 doses, Starting on Wed11/01/23 at 1134, Until Wed11/01/23 at 1449, Routine, Pain (scale 4-6), PACU [facility] ondansetron (ZOFRAN (PF)) injection 4 mg 10-31 16:34: 31 10-31 19:49 :09 No 4mg 4 mg, Slow IV Push, PRN, 1 dose, Starting on Wed11/01/23 at 1134, Until Wed11/01/23 at 1449, Routine, Nausea and Vomiting (N/V), PACU [facility] lactated ringers IV infusion 1,000 mL 10-31 13:30: 00 10-31 13:39 :00 No 1000mL at 42 mL/hr, 1,000 mL, IV Infusion, ONCE, 1 dose, On Wed11/01/23 at 0830, Routine, DSU Pre-op [facility] glyBURIDE 5 mg tablet 10-31 12:49: 07 Yes 5mg Take 1 tablet by mouth in the morning and 1 tablet in the evening. [facility] baclofen 10 mg tablet 10-31 12:49: 07 Yes 10mg Take 1 tablet by mouth in the morning and 1 tablet in the evening. [facility] diclofenac 75 mg EC tablet 10-31 12:49: 07 Yes 75mg Take 1 tablet by mouth in the morning and 1 tablet at noon and 1 tablet in the evening. Take with meals. [facility] lisinopriL 20 mg tablet 10-31 12:49: 07 Yes 20mg Take 1 tablet by mouth in the morning. [facility] HYDROcodone -acetaminop hen 10-325 mg tablet 10-31 12:49: 07 Yes 1{tbl} Take 1 tablet by mouth every 8 (eight) hours as needed. [facility] aspirin 325 mg tablet 10-31 00:00: 00 11-29 04:59 :00 No [id number] 325mg Take 1 tablet by mouth in the morning and 1 tablet in the evening. Take with meals. Do all this for 28 days. [facility] lisinopriL 20 mg tablet 10-24 13:03: 45 Yes 20mg Take 1 tablet by mouth in the morning. [facility] baclofen 10 mg tablet 10-24 13:00: 52 Yes 10mg Take 1 tablet by mouth in the morning and 1 tablet in the evening. [facility] diclofenac 75 mg EC tablet 10-24 13:00: 52 Yes 75mg Take 1 tablet by mouth in the morning and 1 tablet at noon and 1 tablet in the evening. Take with meals. [facility] HYDROcodone -acetaminop hen 10-325 mg tablet 10-24 13:00: 52 Yes 1{tbl} Take 1 tablet by mouth every 8 (eight) hours as needed. [facility] WELLBUTRIN SR 100 mg SR tablet 08-18 00:00: 00 Yes 100mg Take 1 tablet by mouth in the morning. [facility] estradioL 0.01 % (0.1 mg/gram) vaginal cream 08-18 00:00: 00 Yes 1g Insert 1 g into vagina weekly. [facility] glyBURIDE 5 mg tablet 2020-07 15:00: 27 Yes 5mg Take 1 tablet by mouth in the morning and 1 tablet in the evening. [facility] acetaminoph en-codeine (TYLENOL-CO DEINE #3) 300-30 mg tablet 2020-07 00:00: 00 10-24 00:00 :00 No [id number] 2{tbl} Take 2 tablets by mouth every 6 (six) hours as needed for Pain (scale 4-6) or Pain (scale 7-10). Indication s: acute pain [facility] gabapentin 300 mg capsule 2018-07 00:00: 00 Yes 300mg Take 300 mg by mouth 4 (four) times daily. [facility] gabapentin 800 mg tablet 2018-07 00:00: 00 Yes 800mg Take 1 tablet by mouth in the morning and 1 tablet at noon and 1 tablet in the evening. [facility] glipiZIDE 10 mg tablet 2018-07 00:00: 00 Yes 10mg Take 1 tablet by mouth in the morning and 1 tablet in the evening. [facility] NYSTOP 100,000 unit/gram powder 04-12 00:00: 00 Yes 1{dose} Apply 1 Dose to area(s) as needed. [facility] metFORMIN 500 mg tablet 09-20 00:00: 00 Yes TAKE 1 TABLET BY MOUTH THREE TIMES DAILY [facility] metformin ER 1,000 mg 24 hr tablet,exte nded release (gastric reten.) Take 1 tablet every day by oral route. metformin ER 1,000 mg 24 hr tablet,exte nded release (gastric reten.) Take 1 tablet every day by oral route. No 1 Q1D metformin ER 1,000 mg 24 hr tablet,ext ended release (gastric reten.) Take 1 tablet every day by oral route. [facility] metoprolol succinate metoprolol succinate No metoprolol succinate [facility] pantoprazol e pantoprazol e No pantoprazo le [facility] tamsulosin tamsulosin No tamsulosin [facility] Baclofen 10 MG Baclofen 10 MG No 1{table t_as_ne eded} BID Baclofen 10 MG Gabapentin 800 MG Gabapentin 800 MG No 1{table t} TID Gabapentin 800 MG metFORMIN HCl 1000 MG metFORMIN HCl 1000 MG No metFORMIN HCl 1000 MG amlodipine amlodipine No [facility]lodipine [facility] Cipro Cipro No Cipro [facility] [...] vaginal route at bedtime for 90 days. [facility] hydrocodone 10 mg-acetamin ophen 300 mg tablet Take 1 tablet every 6 hours by oral route. hydrocodone 10 mg-acetamin ophen 300 mg tablet Take 1 tablet every 6 hours by oral route. No 1 Q6H hydrocodon e 10 mg-acetami nophen 300 mg tablet Take 1 tablet every 6 hours by oral route. [facility] insulin glargine insulin glargine No insulin glargine [facility] lisinopril lisinopril No lisinopril [facility] Immunizations Ordered Immunization Name Filled Immunization Name Date Status Comments Source Influenza Virus Vaccine Quad .5 mL IM 6+ MO (FLUZONE/FLULAVAL/F LUARIX) 2024-02-14 14:30:00 Completed [facility] Influenza Virus Vaccine Quad .5 mL IM 6+ MO (FLUZONE/FLULAVAL/F LUARIX) 2023-11-15 14:45:00 Completed [facility] Influenza Virus Vaccine Quad .5 mL IM 6+ MO (FLUZONE/FLULAVAL/F LUARIX) 2023-11-01 11:40:00 Completed [facility] Influenza Virus Vaccine Quad .5 mL IM 6+ MO (FLUZONE/FLULAVAL/F LUARIX) 2023-11-01 08:14:00 Completed [facility] Influenza Virus Vaccine Quad .5 mL IM 6+ MO (FLUZONE/FLULAVAL/F LUARIX) 2023-10-29 11:00:00 Completed [facility] Influenza Virus Vaccine Quad .5 mL IM 6+ MO (FLUZONE/FLULAVAL/F LUARIX) 2023-10-29 10:54:02 Completed [facility] Influenza Virus Vaccine Quad .5 mL IM 6+ MO (FLUZONE/FLULAVAL/F LUARIX) 2023-10-29 10:52:34 Completed [facility] Influenza Virus Vaccine Quad .5 mL IM 6+ MO (FLUZONE/FLULAVAL/F LUARIX) 2023-10-21 00:00:00 Completed [facility] Influenza Virus Vaccine Quad .5 mL IM 6+ MO (FLUZONE/FLULAVAL/F LUARIX) 2023-10-20 15:15:00 Completed [facility] Influenza Virus Vaccine Quad .5 mL IM 6+ MO (FLUZONE/FLULAVAL/F LUARIX) 2023-10-18 00:00:00 Completed [facility] Influenza Virus Vaccine Quad .5 mL IM 6+ MO (FLUZONE/FLULAVAL/F LUARIX) 2023-10-14 09:45:00 Completed [facility] Influenza Virus Vaccine Quad .5 mL IM 6+ MO (FLUZONE/FLULAVAL/F LUARIX) 2023-10-14 09:06:14 Completed [facility] Influenza Virus Vaccine Quad .5 mL IM 6+ MO (FLUZONE/FLULAVAL/F LUARIX) 2023-10-14 08:00:00 Completed [facility] Influenza Virus Vaccine Quad .5 mL IM 6+ MO (FLUZONE/FLULAVAL/F LUARIX) 2023-08-18 00:00:00 Completed [facility] Influenza Virus Vaccine Quad .5 mL IM 6+ MO (FLUZONE/FLULAVAL/F LUARIX) 2021-04-04 00:00:00 Completed [facility] Influenza Virus Vaccine Quad .5 mL IM 6+ MO (FLUZONE/FLULAVAL/F LUARIX) 2021-03-09 00:00:00 Completed [facility] Influenza Virus Vaccine Quad .5 mL IM 6+ MO (FLUZONE/FLULAVAL/F LUARIX) 2021-03-06 00:00:00 Completed [facility] Influenza Virus Vaccine Quad .5 mL IM 6+ MO 2019-07-18 00:00:00 Completed [facility] Influenza Virus Vaccine Quad .5 mL IM 6+ MO 2019-07-18 00:00:00 Completed [facility] Influenza Virus Vaccine Quad .5 mL IM 6+ MO 2019-07-18 00:00:00 Completed [facility] Influenza Virus Vaccine Quad .5 mL IM 6+ MO 2019-07-18 00:00:00 Completed [facility] Influenza Virus Vaccine Quad .5 mL IM 6+ MO 2019-07-18 00:00:00 Completed [facility] Influenza Virus Vaccine Quad .5 mL IM 6+ MO 2019-07-18 00:00:00 Completed [facility] Vital Signs Vital Name Observation Time Observation Value Comments S ource Systolic blood pressure 2025-01-30 22:08:30 162 mm[Hg] [facility] Diastolic blood pressure 2025-01-30 22:08:30 88 mm[Hg] [facility] Heart rate 2025-01-30 22:08:30 75 /min [facility] Body temperature 2025-01-30 22:08:30 36.61 Criselda [facility] Respiratory rate 2025-01-30 22:08:30 16 /min [facility] Oxygen saturation in Arterial blood by Pulse oximetry 2025-01-30 22:08:30 97 /min [facility] Body height 2025-01-30 15:39:00 157.5 cm [facility] Body weight 2025-01-30 15:39:00 86.637 kg [facility] BMI 2025-01-30 15:39:00 34.93 kg/m2 [facility] height 2024-09-27 13:45:00 62 [in_i] [facility] weight-kg 2024-09-27 13:45:00 86.18 [facility] 2024-09-27 13:45:00 34.75 kg/m2 [facility] heart rate 2024-09-27 13:45:00 80 /min [facility] blood pressure systolic 2024-09-27 13:45:00 140 mm[Hg] [facility] blood pressure diastolic 2024-09-27 13:45:00 79 mm[Hg] [facility] height 2024-06-28 13:45:00 62 [in_i] [facility] weight-kg 2024-06-28 13:45:00 87.09 kg [facility] bmi 2024-06-28 13:45:00 35.11 kg/m2 [facility] heart rate 2024-06-28 13:45:00 86 /min [facility] blood pressure systolic 2024-06-28 13:45:00 137 mm[Hg] [facility] blood pressure diastolic 2024-06-28 13:45:00 85 mm[Hg] [facility] BP Systolic 2024-05-09 00:00:00 125 mm[Hg] [facility] BP Diastolic 2024-05-09 00:00:00 67 mm[Hg] [facility] Body Weight 2024-05-09 00:00:00 192.6 [lb_av] [facility] BMI (Body Mass Index) 2024-05-09 00:00:00 35.2 kg/m2 [facility] Height 2024-05-09 00:00:00 62 [in_i] [facility] BMI (Body Mass Index) 2024-04-12 00:00:00 35.2 kg/m2 [facility] Body Weight 2024-04-12 00:00:00 192.6 [lb_av] [facility] BP Diastolic 2024-04-12 00:00:00 70 mm[Hg] [facility] Height 2024-04-12 00:00:00 62 [in_i] [facility] BP Systolic 2024-04-12 00:00:00 101 mm[Hg] [facility] height 2024-03-29 13:15:00 62 [in_i] [facility] weight-kg 2024-03-29 13:15:00 87.09 kg [facility] bmi 2024-03-29 13:15:00 35.11 kg/m2 [facility] heart rate 2024-03-29 13:15:00 83 /min [facility] blood pressure systolic 2024-03-29 13:15:00 145 mm[Hg] [facility] blood pressure diastolic 2024-03-29 13:15:00 77 mm[Hg] [facility] BP Systolic 2024-03-23 00:00:00 165 mm[Hg] [facility] BP Diastolic 2024-03-23 00:00:00 82 mm[Hg] [facility] Height 2024-03-23 00:00:00 62 [in_i] [facility] Body Weight 2024-03-23 00:00:00 192.6 [lb_av] [facility] BMI (Body Mass Index) 2024-03-23 00:00:00 35.2 kg/m2 [facility] height 2024-01-12 10:45:00 62 [in_i] [facility] weight-kg 2024-01-12 10:45:00 87.09 kg [facility] bmi 2024-01-12 10:45:00 35.11 kg/m2 [facility] heart rate 2024-01-12 10:45:00 84 /min [facility] blood pressure systolic 2024-01-12 10:45:00 163 mm[Hg] [facility] blood pressure diastolic 2024-01-12 10:45:00 96 mm[Hg] [facility] Systolic blood pressure 2023-11-15 18:58:00 194 mm[Hg] [facility] Diastolic blood pressure 2023-11-15 18:58:00 89 mm[Hg] [facility] Heart rate 2023-11-15 18:58:00 78 /min [facility] Body height 2023-11-15 18:58:00 157.5 cm [facility] 2023-11-15 18:58:00 90.13 kg Univ [facility] BMI 2023-11-15 18:58:00 36.34 kg/m2 [facility] Oxygen saturation in Arterial blood by Pulse oximetry 2023-11-15 18:58:00 96 /min [facility] Heart rate 2023-11-01 17:03:00 79 /min [facility] Oxygen saturation in Arterial blood by Pulse oximetry 2023-11-01 17:03:00 96 /min [facility] Respiratory rate 2023-11-01 17:02:00 19 /min [facility] Systolic blood pressure 2023-11-01 16:59:00 133 mm[Hg] [facility] Diastolic blood pressure 2023-11-01 16:59:00 71 mm[Hg] [facility] Body temperature 2023-11-01 16:09:00 36.44 Criselda [facility] Body height 2023-10-25 18:00:00 160 cm [facility] Body weight 2023-10-25 18:00:00 89.359 kg [facility] BMI 2023-10-25 18:00:00 34.90 kg/m2 [facility] Heart rate 2023-11-01 17:03:00 79 /min [facility] Oxygen saturation in Arterial blood by Pulse oximetry 2023-11-01 17:03:00 96 /min [facility] Respiratory rate 2023-11-01 17:02:00 19 /min [facility] Systolic blood pressure 2023-11-01 16:59:00 133 mm[Hg] [facility] Diastolic blood pressure 2023-11-01 16:59:00 71 mm[Hg] [facility] Body temperature 2023-11-01 16:09:00 36.44 Criselda [facility] Body height 2023-10-25 18:00:00 160 cm [facility] Body weight 2023-10-25 18:00:00 89.359 kg Univ [facility] BMI 2023-10-25 18:00:00 34.90 kg/m2 [facility] Systolic blood pressure 2023-10-20 20:07:00 176 mm[Hg] [facility] Diastolic blood pressure 2023-10-20 20:07:00 84 mm[Hg] [facility] Heart rate 2023-10-20 20:07:00 81 /min [facility] Respiratory rate 2023-10-20 20:07:00 18 /min [facility] Body height 2023-10-20 20:07:00 160 cm [facility] Body weight 2023-10-20 20:07:00 89.449 kg [facility] BMI 2023-10-20 20:07:00 34.93 kg/m2 [facility] Oxygen saturation in Arterial blood by Pulse oximetry 2023-10-20 20:07:00 95 /min [facility] Body height 2023-10-14 13:25:00 157.5 cm Univ [facility] Body weight 2023-10-14 13:25:00 89.359 kg [facility] BMI 2023-10-14 13:25:00 36.03 kg/m2 [facility] Systolic blood pressure 2021-08-29 17:33:00 151 mm[Hg] [facility] Diastolic blood pressure 2021-08-29 17:33:00 82 mm[Hg] [facility] Heart rate 2021-08-29 17:33:00 78 /min [facility] Body height 2021-08-29 17:22:00 160 cm [facility] Body weight 2021-08-29 17:22:00 98.93 kg Univ [facility] BMI 2021-08-29 17:22:00 38.63 kg/m2 [facility] Oxygen saturation in Arterial blood by Pulse oximetry 2021-08-29 17:22:00 97 /min [facility] Systolic blood pressure 2023-11-15 18:58:00 194 mm[Hg] [facility] Diastolic blood pressure 2023-11-15 18:58:00 89 mm[Hg] [facility] Heart rate 2023-11-15 18:58:00 78 /min [facility] Body height 2023-11-15 18:58:00 157.5 cm Univ [facility] Body weight 2023-11-15 18:58:00 90.13 kg Univ [facility] BMI 2023-11-15 18:58:00 36.34 kg/m2 [facility] Oxygen saturation in Arterial blood by Pulse oximetry 2023-11-15 18:58:00 96 /min [facility] Respiratory rate 2023-11-01 17:02:00 19 /min [facility] Body temperature 2023-11-01 16:09:00 36.44 Criselda [facility] Procedures Procedure Date / Time Performed Performing Clinician Source URINALYSIS 2025-01-30 20:11:00 Artie Pond [facility] TROPONIN I 2025-01-30 16:48:00 Artie Pond [facility] COMP. METABOLIC PANEL (11292) 2025-01-30 16:48:00 Artie Pond [facility] N-TERMINAL PRO-BNP 2025-01-30 16:48:00 Anel Pond [facility] CBC WITH DIFF 2025-01-30 16:46:00 Artie Pond [facility] DSU PRE-OP 2023-11-05 13:15:48 Doctor Unass igned, [place] [facility] BODY FLUID DIRECT COUNT 2023-11-01 16:01:00 Yesenia Sarabia [facility] BODY FLUID CULTURE(AEROBIC/ANAEROBIC) 2023-11-01 16:01:00 Yesenia Sarabia [facility] FUNGUS (ROUTINE) CULTURE 2023-11-01 16:01:00 Yesenia Sarabia [facility] ASPIRATION JOINT LOWER EXTREMITY 2023-11-01 15:32:00 Yesenia Sarabia [facility] ASPIRATION JOINT LOWER EXTREMITY 2023-11-01 15:32:00 Yesenia Sarabia [facility] POCT GLUCOSE (AUTOMATED) 2023-11-01 13:40:00 Yesenia Sarabia [facility] POCT GLUCOSE (AUTOMATED) 2023-11-01 13:40:00 Yesenia Sarabia [facility] BASIC METABOLIC PANEL (NA, K, CL, CO2, GLUCOSE, BUN, CREATININE, CA) 2023-10-29 16:15:00 Yesenia Sarabia [facility] CBC WITH DIFF 2023-10-29 16:15:00 [facility] BASIC METABOLIC PANEL (NA, K, CL, CO2, GLUCOSE, BUN, CREATININE, CA) 2023-10-29 16:15:00 Yesenia Sarabia [facility] NON-[facility]MB ORDERS 2023-10-25 14:22:39 Doctor Unass igned, [place] [facility] SEDIMENTATION RATE 2023-10-14 14:24:00 Yesenia Sarabia [facility] XR KNEE 3 VW LEFT 2023-10-14 14:09:24 Yesenia Sarabia [facility] REFERRAL- REQUEST/RESPONSE 2023-08-18 06:01:00 D octor Unassigned, [place] [facility] DISABILITY/FMLA 2022-02-24 05:01:00 Doctor Unass igned, [place] [facility] XR KNEE <3 VW LEFT 2021-08-29 17:54:29 Yesenia Sarabia [facility] REFERRAL- REQUEST/RESPONSE 2021-08-19 06:01:00 D octor Unassigned, [place] [facility] GLYCOSYLATED HEMOGLOBIN (A1C) 2021-07-15 10:54:00 Seth Guillermo [facility] CT THORAX W WO CONTRAST 2020-08-13 20:53:00 Kevin Vallejo ed [facility] BI SCREENING MAMMOGRAM BILATERAL 2015-01-08 14:23:00 Unknown, Attending [facility] Hysterectomy 2014-07-19 00:00:00 [facility] RENTAL CLERK ORDER/REPORT PROCEDURE 2007-12-27 13:39:00 Flora Babb [facility] Excision of Mass of Breast [facility] Cholecystectomy (Gallbladder) [facility] Tubal Ligation [facility] - Knee Replacement [facility] Encounters Start Date/Time End Date/Time Encounter Type Admission Type Attending Clinicians Care Facility Care Department Encounter ID Source 2024-09-26 16:39:00 Outpatient Mitchell Palma [facility] [id number] [place] [place] [facility] 2024-06-21 14:58:01 Outpatient Mitchell Palma [facility] [id number] [facility] 2024-01-12 10:27:00 Outpatient Mitchell Palma [facility] [id number] [place] [place] [facility] 2021-07-02 16:08:43 Outpatient R YESENIA SARABIA [facility] SOR [id number] [facility] 2021-05-19 20:54:10 Outpatient YESENIA SARABIA [facility] SOR [id number] [facility] 2025-01-30 10:43:00 2025-01-30 17:10:00 Emergency X ARTIE POND [facility] ERT [id number] [facility] 2024-10-04 00:00:00 2024-10-04 00:00:00 (TEL) CLS CLS [id number] [facility] 2024-09-27 00:00:00 2024-09-27 00:00:00 Office Visit- Est Pt.- Level 4 CLS CLS [id number] [facility] 2024-09-06 00:00:00 2024-09-06 00:00:00 (TEL) CLS CLS [id number] [facility] 2024-09-05 00:00:00 2024-09-05 00:00:00 (TEL) CLS CLS [id number] [facility] 2023-10-25 00:00:00 2024-09-02 02:25:42 Orders Only Doctor Unassigned, [place] Doctor Unassigned, [place] [facility] 1.2.840.114 350.1.13.10 4.2.7.2.686 [id number] [facility] 2023-11-05 00:00:00 2024-09-02 02:16:11 Orders Only Doctor Unassigned, [place] Doctor Unassigned, [place] [facility] 1.2.840.114 350.1.13.10 4.2.7.2.686 [id number] [facility] 2024-08-03 00:00:00 2024-08-03 00:00:00 (TEL) CLS CLS [id number] [facility] 2024-07-03 00:00:00 2024-07-03 00:00:00 (WEB) CLS CLS [id number] [facility] 2024-06-30 00:00:00 2024-06-30 00:00:00 (TEL) CLS CLS [id number] [place] [facility] 2024-06-28 00:00:00 2024-06-28 00:00:00 Office Visit- Est Pt.- Level 4 CLS CLS [id number] [place] [facility] 2024-06-26 00:00:00 2024-06-26 00:00:00 (TEL) CLS CLS [id number] [place] [facility] 2024-06-13 00:00:00 2024-06-13 00:00:00 Phylicia Kumar MD: [address], [address], [place] [address] , Ph[facility] - GC_GCBZW_[facility]* [id number] [facility] 2024-05-31 00:00:00 2024-05-31 00:00:00 AUSTIN Lange: [address], [address], [place] [address] , [facility] - [facility]* [id number] [facility] 2024-05-26 00:00:00 2024-05-26 00:00:00 (TEL) CLS CLS [id number] [place] [facility] 2024-05-09 00:00:00 2024-05-09 00:00:00 EMILIANO Farrell: [address], [address], [place] [address] , [facility] - GC[facility]GCBZ[facility]* [id number] [facility] 2024-04-24 00:00:00 2024-04-24 00:00:00 (TEL) CLS CLS [id number] [place] [facility] 2024-04-12 00:00:00 2024-04-12 00:00:00 AUSTIN Lange: [address], [address], [place] [address] , Ph. [facility] - GC_GCBZW_La jody Barnett* [id number] [facility] 2024-03-29 00:00:00 2024-03-29 00:00:00 Office Visit- Est Pt.- Level 4 CLS CLS [id number] [facility] 2024-03-24 00:00:00 2024-03-24 00:00:00 (TEL) CLS CLS [id number] [place] [facility] 2024-03-23 00:00:00 2024-03-23 00:00:00 AUSTIN Lange: [address], [address], [place] [address] , [facility] - GC_GCBZW_Barb Barnett* [id number] [facility] 2024-03-16 00:00:00 2024-03-16 00:00:00 (TEL) CLS CLS [id number] [place] [facility] 2024-02-22 08:00:00 2024-02-22 08:00:00 Outpatient R YESENIA SARABIA C[facility] [id number] [facility] 2024-02-21 00:00:00 2024-02-21 00:00:00 (TEL) CLS CLS [id number] [place] [facility] 2024-02-14 14:30:00 2024-02-14 15:00:00 Office Visit [facility] 1.2.840.114 350.1.13.10 4.2.7.2.686 [id number] [facility] 2024-02-14 14:30:00 2024-02-14 14:30:00 Outpatient R YESENIA SARABIA CRAIG [facility] [id number] [facility] 2024-02-02 00:00:00 2024-02-02 00:00:00 (TEL) CLS CLS [id number] [place] [facility] 2024-01-26 00:00:00 2024-01-26 00:00:00 (TEL) CLS CLS [id number] [facility] 2024-01-21 00:00:00 2024-01-21 00:00:00 (TEL) CLS CLS [id number] [facility] 2024-01-18 00:00:00 2024-01-18 08:45:41 Refill Yesenia Sarabia Clarisa [facility] OFF[facility] 1.840.114 350.1.13.10 4.2.7.2.686 [id number] [facility] 2024-01-12 00:00:00 2024-01-12 00:00:00 Office Visit- Est Pt.- Level 4 CLS [facility] [id number] [facility] 2023-11-15 14:45:00 2023-11-15 14:45:00 Office Visit Yesenia Sarabia [facility] 1.84.114 350.1.13.10 4.2.7.2.686 [id number] [facility] 2023-11-15 14:45:00 2023-11-15 14:42:24 Outpatient R YESENIA SARABIA CRAIG [facility] [id number] [facility] 2023-11-01 08:14:00 2023-11-01 12:09:00 Out[address] R YESENIA SARABIA [facility] SOR [id number] [facility] 2023-11-01 08:14:00 2023-11-01 12:09:00 Hospital Encounter Yesenia Sarabia [facility] 1..114 350.1.13.10 4.2.7.2.686 [id number] [facility] 2023-11-01 11:40:00 2023-11-01 12:05:00 Surgery Yesenia Sarabia [facility] [place] 1.2840.114 350.1.13.10 4.2.7.2.686 [id number] [facility] 2023-10-29 10:54:02 2023-10-29 23:59:00 Hospital Encounter Yesenia Sarabia [facility] 1.2840.114 350.1.13.10 4.2.7.2.686 [id number] [facility] 2023-10-29 11:00:00 2023-10-29 11:15:00 [facility] Visit Pob, Adc Lab Main Yesenia Sarabia [facility] PROFESSIO NAL BUILDING 1..114 350.1.13.10 4.2.7.2.686 [id number] [facility] 2023-10-29 10:52:34 2023-10-29 10:53:00 [facility] [id number] 2023-10-29 10:52:34 2023-10-29 10:53:00 Hospital Encounter Yesenia Sarabia [facility] 1.84.114 350.1.13.10 4.2.7.2.686 [id number] [facility] 2023-10-22 00:00:00 2023-10-22 00:00:00 Outpatient GC_GCBZW_Ka diyala_S [facility] [id number] [facility] 2023-10-22 00:00:00 2023-10-22 00:00:00 Outpatient R YESENIA SARABIA YESENIA [facility] [id number] [facility] 2023-10-21 00:00:00 2023-10-21 00:00:00 Prep For Surgery Yesenia Sarabia [facility] 1.84.114 350.1.13.10 4.2.7.2.686 [id number] [facility] 2023-10-20 15:15:00 2023-10-20 15:50:11 Outpatient R YESENIA SARABIA CRAIG [facility] [id number] [facility] 2023-10-20 15:15:00 2023-10-20 15:50:11 Office Visit [facility] 1.0.114 350.1.13.10 4.2.7.2.686 [id number] [facility] 2023-10-18 00:00:00 2023-10-18 00:00:00 Telephone Yesenia Sarabia [facility] MED[facility] OFF[facility] BU[facility] 1.114 350.1.13.10 4.2.7.2.686 [id number] [facility] 2023-10-14 09:06:14 2023-10-14 23:59:00 Outpatient R AGUSTÍN SARABIAIG SARABIAAGUSTÍNIG [facility] [id number] [facility] 2023-10-14 09:06:14 2023-10-14 23:59:00 Hospital Encounter Yesenia Sarabia [facility] MED[facility] OFF[facility] BU[facility] 1.114 350.1.13.10 4.2.7.2.686 [id number] [facility] 2023-10-14 09:45:00 2023-10-14 10:00:00 [facility] Advocate Visit Lab, Ang - Db Yesenia Sarabia [facility] MED[facility] OFF[facility] 1.114 350.1.13.10 4.2.7.2.686 [id number] [facility] 2023-10-14 08:00:00 2023-10-14 09:18:54 Office Visit Yesenia Sarabia [facility] OFF[facility] 1.2.840.114 350.1.13.10 4.2.7.2.686 [id number] [facility] 2023-08-18 00:00:00 2023-08-18 00:00:00 Orders Only Doctor Unassigned, [place] [facility] 1.2840.114 350.1.13.10 4.2.7.2.686 [id number] [facility] 2022-02-24 00:00:00 2022-02-24 00:00:00 Orders Only Doctor Unassigned, [place] [facility] 1.2840.114 350.1.13.10 4.2.7.2.686 [id number] [facility] 2021-10-20 00:00:00 2021-10-20 00:00:00 Letter (Out) Yesenia Sarabia [facility] MED[facility] OFF[facility] BUILD[facility] 1.2840.114 350.1.13.10 4.2.7.2.686 [id number] [facility] 2021-10-20 00:00:00 2021-10-20 00:00:00 Letter (Out) Yesenia Sarabia [facility] 1.2840.114 350.1.13.10 4.2.7.2.686 [id number] [facility] 2021-08-29 11:45:00 2021-08-29 23:59:00 Outpatient R YESENIA ASRABIA [facility] [id number] [facility] 2021-08-29 11:45:00 2021-08-29 23:59:00 Hospital Encounter Yesenia Sarabia [facility] 1.2840.114 350.1.13.10 4.2.7.2.686 [id number] [facility] 2021-08-29 11:00:00 2021-08-29 11:15:00 Office Visit Nikole [facility] DA[facility]?DAV[facility]ony [facility] 1.2.840.114 350.1.13.10 4.2.7.2.686 [id number] [facility] 2021-08-29 11:00:00 2021-08-29 11:00:00 [facility] [id number] 2021-08-19 00:00:00 2021-08-19 00:00:00 Orders Only Doctor Unassigned, [place] [facility] 1.2.840.114 350.1.13.10 4.2.7.2.686 [id number] [facility] 2021-07-31 11:15:00 2021-07-31 11:15:00 [facility] [id number] [facility] 2021-07-31 11:15:00 2021-07-31 11:15:00 Outpatient R NIKOLE [facility] [id number] [facility] 2021-07-29 13:28:03 2021-07-29 23:59:00 Outpatient R VINCENT AGUSTIN [facility] [id number] [facility] 2021-07-29 13:28:03 2021-07-29 23:59:00 Hospital Encounter Nikole [facility] DAQUAN?DAVIDSony [facility] 1.2.840.114 350.1.13.10 4.2.7.2.686 [id number] [facility] 2021-07-29 13:28:03 2021-07-29 23:59:00 Out[facility] [id number] [facility] 2021-07-29 13:15:00 2021-07-29 13:30:00 Office Visit Nikole [facility] DAQUAN?DAVIDSony [facility] 1.2.840.114 350.1.13.10 4.2.7.2.686 [id number] [facility] 2021-07-29 13:15:00 2021-07-29 13:15:00 Outpatient VINCENT MYERS [facility] [id number] [facility] 2021-07-28 00:00:00 2021-07-28 00:00:00 Telephone Yesenia Sarabia [facility]?GUILL[facility]ME [facility] MED[facility] OFF[facility] BUILD[facility] 1.840.114 350.1.13.10 4.2.7.2.686 [id number] [facility] 2021-07-25 09:00:00 2021-07-25 09:00:00 Outpatient Jimena AGUSTIN [facility] [id number] [facility] 2021-07-17 00:00:00 2021-07-17 00:00:00 Telephone Yesenia Sarabia [facility] MED[facility] OFFICE BUILD[facility] 1.840.114 350.1.13.10 4.2.7.2.686 [id number] [facility] 2021-07-17 00:00:00 2021-07-17 00:00:00 Telephone Yesenia Sarabia [facility] 1.840.114 350.1.13.10 4.2.7.2.686 [id number] [facility] 2021-07-17 00:00:00 2021-07-17 00:00:00 Orders Only Doctor Unassigned, [place] [facility] 1.840.114 350.1.13.10 4.2.7.2.686 [id number] [facility] 2021-07-16 00:00:00 2021-07-16 00:00:00 Telephone Yesenia Sarabia [facility] 1.2.840.114 350.1.13.10 4.2.7.2.686 [id number] [facility] 2021-07-14 10:19:00 2021-07-15 15:00:00 Outpatient R NO YESENIA [facility] SOR [id number] [facility] 2021-07-14 10:19:00 2021-07-15 15:00:00 Hospital Encounter Yesenia Sarabia [facility] 1.2.840.114 350.1.13.10 4.2.7.2.686 [id number] [facility] 2021-07-14 12:35:00 2021-07-14 15:54:00 Surgery Yesenia Sarabia [facility] 1.2840.114 350.1.13.10 4.2.7.2.686 [id number] [facility] 2021-07-14 00:00:00 2021-07-14 00:00:00 Orders Only Doctor Unassigned, [place] [facility] 1.2840.114 350.1.13.10 4.2.7.2.686 [id number] [facility] 2021-07-11 11:15:00 2021-07-11 11:30:00 Laboratory Only Only, Adc Test Yesenia Sarabia [facility] 1.2.840.114 350.1.13.10 4.2.7.2.686 [id number] [facility] 2021-07-11 11:15:00 2021-07-11 11:15:00 Outpatient R NO YESENIA [facility] [id number] [facility] 2021-07-11 00:00:00 2021-07-11 00:00:00 Orders Only Doctor Unassigned, [place] [facility] 1.2840.114 350.1.13.10 4.2.7.2.686 [id number] [facility] 2021-07-10 14:32:10 2021-07-10 23:59:00 Outpatient R YESENIA SARABIA [facility] [id number] [facility] 2021-07-10 12:00:00 2021-07-10 23:59:00 Hospital Encounter Yesenia Sarabia [facility] 1..114 350.1.13.10 4.2.7.2.686 [id number] [facility] 2021-07-10 14:31:09 2021-07-10 14:31:09 Outpatient R YESENIA SARABIA [facility] [id number] [facility] 2021-07-10 11:45:00 2021-07-10 11:59:00 Hospital Encounter Yesenia Sarabia [facility] 1..114 350.1.13.10 4.2.7.2.686 [id number] [facility] 2021-07-10 11:30:00 2021-07-10 11:45:00 Lay Health Advocate Visit [place] Lab Main Yesenia Sarabia [facility] PROFESSIO NAL BUILDING 1.114 350.1.13.10 4.2.7.2.686 [id number] [facility] 2021-06-30 00:00:00 2021-06-30 00:00:00 Telephone Yesenia Sarabia [facility] MED[facility] OFF[facility] 1.114 350.1.13.10 4.2.7.2.686 [id number] [facility] 2021-06-30 00:00:00 2021-06-30 00:00:00 Prep For Surgery Yesenia Sarabia [facility] 1.114 350.1.13.10 4.2.7.2.686 [id number] [facility] 2021-06-27 00:00:00 2021-06-27 00:00:00 Telephone Olaynika Ricardo [facility] NAL BUILDING 1..840.114 350.1.13.10 4.2.7.2.686 [id number] [facility] 2021-06-26 09:00:00 2021-06-26 11:19:13 Outpatient R YESENIA SARABIA [facility] [id number] [facility] 2021-06-26 09:00:00 2021-06-26 11:19:13 Outpatient R YESENIA SARABIA [facility] [id number] [facility] 2021-06-26 08:43:47 2021-06-26 11:19:13 Office Visit Agustín Sarabiasonya Mckenna [facility] 1..840.114 350.1.13.10 4.2.7.2.686 [id number] [facility] 2021-06-26 09:00:00 2021-06-26 09:00:00 Outpatient R YESENIA SARABIA [facility] [id number] [facility] 2021-06-17 00:00:00 2021-06-17 00:00:00 Telephone Yesenia Sarabia [facility] 1..840.114 350.1.13.10 4.2.7.2.686 [id number] [facility] 2021-06-16 00:00:00 2021-06-16 00:00:00 Orders Only Doctor Unassigned, [place] [facility] 1..840.114 350.1.13.10 4.2.7.2.686 [id number] [facility] 2021-05-14 13:01:51 2021-05-14 13:16:51 Office Visit Nikole [facility] Daquan?Guillaume lopez Medical Office Building 1.2.840.114 350.1.13.10 4.2.7.2.686 [id number] [facility] 2021-05-14 13:00:00 2021-05-14 13:00:00 Outpatient R NIKOLE [facility] [id number] [facility] 2021-05-08 00:00:00 2021-05-08 00:00:00 Orders Only Doctor Unassigned, [place] [facility] 1..840.114 350.1.13.10 4.2.7.2.686 [id number] [facility] 2021-04-14 13:35:00 2021-04-14 23:59:00 Hospital Encounter Nikole [facility]?Guillaume [facility] Medical Office Building 1.2.840.114 350.1.13.10 4.2.7.2.686 [id number] [facility] 2021-04-14 13:35:00 2021-04-14 23:59:00 Outpatient R NIKOLE [facility] [id number] [facility] 2021-04-14 13:45:00 2021-04-14 13:45:00 Outpatient R NIKOLE [facility] [id number] [facility] 2021-04-14 13:12:59 2021-04-14 13:27:59 Office Visit Farrell [facility]?Guillaume [facility] 1.2.840.114 350.1.13.10 4.2.7.2.686 [id number] [facility] 2021-04-04 00:00:00 2021-04-04 00:00:00 Patient Secure Msg Doctor Unassigned, [place] [facility] 1.2.840.114 350.1.13.10 4.2.7.2.686 [id number] [facility] 2021-03-31 06:35:00 2021-03-31 15:05:00 Hospital Encounter Yesenia Sarabia [facility] 1.2.840.114 350.1.13.10 4.2.7.2.686 [id number] [facility] 2021-03-31 07:30:00 2021-03-31 09:59:00 Surgery Yesenia Sarabia [facility] 1.2.840.114 350.1.13.10 4.2.7.2.686 [id number] [facility] 2021-03-31 00:00:00 2021-03-31 00:00:00 L[facility] 1.2.840.114 350.1.13.10 4.2.7.2.686 [id number] [facility] 2021-03-31 00:00:00 2021-03-31 00:00:00 Orders Only Doctor Unassigned, [place] [facility] 1.2.840.114 350.1.13.10 4.2.7.2.686 [id number] [facility] 2021-03-28 10:00:00 2021-03-28 23:59:00 Hospital Encounter Yesenia Sarabia [facility] 1.2.840.114 350.1.13.10 4.2.7.2.686 [id number] [facility] 2021-03-28 13:30:08 2021-03-28 13:45:08 Laboratory Only Only, Adc Test Yesenia Sarabia [facility] 1.2.840.114 350.1.13.10 4.2.7.2.686 [id number] [facility] 2021-03-28 13:24:59 2021-03-28 13:39:59 [facility] Visit Pob, Adc Lab Main Sarabia, Yesenia Mckenna [facility] ED Professio nal Building 1..114 350.1.13.10 4.2.7.2.686 [id number] [facility] 2021-03-28 08:00:00 2021-03-28 09:59:00 Hospital Encounter Sarabia, Yesenia Mckenna [facility] 1..114 350.1.13.10 4.2.7.2.686 [id number] [facility] 2021-03-28 00:00:00 2021-03-28 00:00:00 Outpatient R YESENIA SARABIA [facility] [id number] [facility] 2021-03-25 00:00:00 2021-03-25 00:00:00 Telephone Yesenia Sarabia [facility] 1..114 350.1.13.10 4.2.7.2.686 [id number] [facility] 2021-03-17 00:00:00 2021-03-17 00:00:00 Orders Only Doctor Unassigned, [place] [facility] 1.114 350.1.13.10 4.2.7.2.686 [id number] 009 [id number] [facility] 2021-03-17 00:00:00 2021-03-17 00:00:00 Prep For Surgery [facility]Guillaume lopez Medical Office Building 1..114 350.1.13.10 4.2.7.2.686 [id number] 198 [id number] [facility] 2021-03-17 00:00:00 2021-03-17 00:00:00 Telephone Yesenia Sarabia [facility]?Guillaume [facility] Medical Office Building 1.840.114 350.1.13.10 4.2.7.2.686 [id number] 198 [id number] [facility] 2021-03-12 00:00:00 2021-03-12 00:00:00 Telephone Vincent Agustin [facility]?Guillaume [facility] Medical Office Building 1.84.114 350.1.13.10 4.2.7.2.686 [id number] 198 [id number] [facility] 2021-03-09 00:00:00 2021-03-09 00:00:00 Patient Secure Msg Alfredito [facility] BUILDING 1.840.114 350.1.13.10 4.2.7.2.686 [id number] 059 [id number] [facility] 2021-03-07 10:37:43 2021-03-07 23:59:00 [id number] 2021-03-07 09:20:00 2021-03-07 09:47:20 [facility] [id number] [facility] 2021-03-07 09:16:38 2021-03-07 09:47:20 Office Visit Alfredito [facility] Building 1.840.114 350.1.13.10 4.2.7.2.686 [id number] 059 [id number] [facility] 2021-03-07 09:16:38 2021-03-07 09:47:20 Office Visit Alfredito [facility] BUILDING 1.840.114 350.1.13.10 4.2.7.2.686 [id number] 059 [id number] [facility] 2021-03-07 09:20:00 2021-03-07 09:20:00 Outpatient OLAYINKA ROA [facility] [id number] [facility] 2021-03-07 00:00:00 2021-03-07 00:00:00 [facility] 1.84.114 350.1.13.10 4.2.7.2.686 [id number] 059 [id number] [facility] 2021-03-07 00:00:00 2021-03-07 00:00:00 Telephone Nikole [facility] Daquan?Guillaume lopez Medical Office Building 1.84.114 350.1.13.10 4.2.7.2.686 [id number] 198 [id number] [facility] 2021-03-06 10:30:00 2021-03-06 10:30:00 Outpatient Jimena AGUSTIN [facility] [id number] [facility] 2021-03-06 00:00:00 2021-03-06 00:00:00 Patient Secure Msg Doctor Unassigned, [place] [facility] 1..114 350.1.13.10 4.2.7.2.686 [id number] 019 [id number] [facility] 2021-03-05 00:00:00 2021-03-05 00:00:00 Yesenia Porter [facility] Surgical Special libra [place] 1.84.114 350.1.13.10 4.2.7.2.686 [id number] 198 [id number] [facility] 2021-01-02 16:00:00 2021-01-02 16:00:00 Outpatient Jimena AGUSTIN [facility] [id number] [facility] 2021-01-02 15:41:45 2021-01-02 15:56:45 Office Visit Nikole [facility] Surgical Specialarcelia [place] 1.84.114 350.1.13.10 4.2.7.2.686 [id number] 198 [id number] [facility] 2020-12-26 00:00:00 2020-12-26 00:00:00 Telephone Yesenia Sarabia [facility] Surgical Specialti libra [place] 1.2.840.114 350.1.13.10 4.2.7.2.686 [id number] 198 [id number] [facility] 2020-12-20 00:00:00 2020-12-20 00:00:00 Telephone Nik[facility] Surgical Specialti libra [place] 1.2.840.114 350.1.13.10 4.2.7.2.686 [id number] [facility] 2020-12-06 08:37:34 2020-12-06 23:59:00 Hospital Encounter Nikole [facility] Surgical Special libra [place] 1.2.840.114 350.1.13.10 4.2.7.2.686 [id number] [facility] 2020-12-06 08:37:34 2020-12-06 23:59:00 Outpatient VINCENT AGUSTIN [facility] [id number] [facility] 2020-12-06 08:37:34 2020-12-06 23:59:00 Outpatient NIKOLE VINCENT [facility] [id number] [facility] 2020-12-06 08:16:04 2020-12-06 09:36:38 Office Visit Nik[facility] Surgical Special libra [place] 1.2.840.114 350.1.13.10 4.2.7.2.686 [id number] 198 [id number] [facility] 2020-12-06 08:30:00 2020-12-06 08:30:00 Outpatient R NIKOLE [facility] [id number] [facility] 2020-11-25 00:00:00 2020-11-25 00:00:00 Orders Only Doctor Unassigned, [place] [facility] 1.2.840.114 350.1.13.10 4.2.7.2.686 [id number] 009 [id number] [facility] 2020-10-29 00:00:00 2020-10-29 00:00:00 Orders Only Doctor Unassigned, [place] [facility] 1.2.840.114 350.1.13.10 4.2.7.2.686 [id number] 009 [id number] [facility] 2020-10-15 00:00:00 2020-10-15 00:00:00 Orders Only Doctor Unassigned, [place] [facility] 1.2.840.114 350.1.13.10 4.2.7.2.686 [id number] 009 [id number] [facility] 2020-09-28 00:00:00 2020-09-28 00:00:00 Patient Outreach Usama Arteaga [facility] 1.2.840.114 350.1.13.10 4.2.7.2.686 [id number] [facility] 2020-09-11 00:00:00 2020-09-11 00:00:00 Orders Only Doctor Unassigned, [place] [facility] 1.2.840.114 350.1.13.10 4.2.7.2.686 [id number] 009 [id number] [facility] 2020-08-16 10:00:00 2020-08-16 10:00:00 Outpatient OLAYINKA ROA [facility] [id number] [facility] 2020-08-13 14:11:28 2020-08-13 23:59:00 Hospital Encounter Eze Vallejo [facility] 1.2.840.114 350.1.13.10 4.2.7.2.686 [id number] [facility] 2020-08-13 14:16:27 2020-08-13 14:31:27 [facility] Advocate Visit Pob, Adc Lab Main Pj Mora [facility] 1.84.114 350.1.13.10 4.2.7.2.686 [id number] 353 [id number] [facility] 2020-08-13 14:10:27 2020-08-13 14:10:27 Outpatient R EZE VALLEJO [facility] [id number] [facility] 2020-08-13 14:10:27 2020-08-13 14:10:27 Hospital Encounter Eze Vallejo [facility] 1.84.114 350.1.13.10 4.2.7.2.686 [id number] [facility] 2020-08-13 00:00:00 2020-08-13 00:00:00 Orders Only Doctor Unassigned, [place] [facility] 1.840.114 350.1.13.10 4.2.7.2.686 [id number] 009 [id number] [facility] 2020-08-06 09:29:10 2020-08-06 09:44:10 Office Visit Vincent Agustin [facility] 1.284.114 350.1.13.10 4.2.7.2.686 [id number] [facility] 2020-08-06 09:30:00 2020-08-06 09:30:00 Outpatient VINCENT MYERS [facility] [id number] [facility] 2020-07-17 00:00:00 2020-07-17 00:00:00 Orders Only Doctor Unassigned, [place] [facility] 1.284.114 350.1.13.10 4.2.7.2.686 [id number] [id number] [facility] 2020-07-09 09:13:48 2020-07-09 23:59:00 Outpatient VINCENT MYERS [facility] [id number] [facility] 2020-07-09 09:13:48 2020-07-09 23:59:00 Outpatient VINCENT AGUSTIN [facility] [id number] [facility] 2020-07-09 09:13:48 2020-07-09 23:59:00 Hospital Encounter [facility] Surgical Specialti libra [place] 1.2.840.114 350.1.13.10 4.2.7.2.686 [id number] [facility] 2020-07-09 08:45:28 2020-07-09 09:27:23 Office Visit Nikole [facility] Surgical Specialti libra [place] 1.2.840.114 350.1.13.10 4.2.7.2.686 [id number] 198 [id number] [facility] 2020-06-24 09:13:00 2020-06-25 13:00:00 Outpatient R YESENIA SARABIA [facility] [id number] [facility] 2020-06-24 09:13:00 2020-06-25 13:00:00 Hospital Encounter Yesenia Sarabia [facility] 1.2840.114 350.1.13.10 4.2.7.2.686 [id number] 081 [id number] [facility] 2020-06-21 14:31:45 2020-06-21 14:46:45 Lay Health Advocate Visit Pob, Adc Lab Main [facility] 1.2840.114 350.1.13.10 4.2.7.2.686 [id number] [facility] 2020-06-21 14:17:58 2020-06-21 14:32:58 Laboratory Only Only, Adc Test Yesenia Sarabia [facility] 1.2840.114 350.1.13.10 4.2.7.2.686 [id number] [facility] 2020-06-21 14:15:00 2020-06-21 14:15:00 Outpatient R NO YESENIA [facility] [id number] [facility] 2020-06-21 00:00:00 2020-06-21 00:00:00 Orders Only Doctor Unassigned, [place] [facility] 1.2.840.114 350.1.13.10 4.2.7.2.686 [id number] [id number] [facility] 2020-06-10 00:00:00 2020-06-10 00:00:00 Prep For Surgery Yesenia Sarabia [facility] Surgical Specialti es [place] 1.2.840.114 350.1.13.10 4.2.7.2.686 [id number] 198 [id number] [facility] 2020-06-10 00:00:00 2020-06-10 00:00:00 Prep For Surgery Yesenia Sarabia [facility] Surgical Specialti es [place] 1.2.840.114 350.1.13.10 4.2.7.2.686 [id number] 198 [id number] 2020-06-05 14:35:26 2020-06-05 14:50:26 Office Visit Vincent Agustin [facility] Surgical Specialti es [place] 1.2.840.114 350.1.13.10 4.2.7.2.686 [id number] 198 [id number] [facility] 2020-06-05 14:35:26 2020-06-05 14:50:26 Office Visit Vincent Agustin [facility] Surgical Specialti es [place] 1.2.840.114 350.1.13.10 4.2.7.2.686 [id number] 2020-06-05 14:30:00 2020-06-05 14:30:00 Outpatient R VINCENT AGUSTIN [facility] [id number] [facility] 2020-05-29 00:00:00 2020-05-29 00:00:00 Telephone Yesenia Sarabia [facility] Surgical Specialti es [place] 1.2.840.114 350.1.13.10 4.2.7.2.[id number] [facility] ity [facility] 2020-05-23 00:00:00 2020-05-23 00:00:00 Telephone Yesenia Sarabia [facility] Surgical Specialti lib[place] 1.2.840.114 350.1.13.10 4.2.7.2.686 [id number] [facility] 2020-05-22 12:09:00 2020-05-22 23:59:00 Hospital Encounter Yesenia Sarabia [facility] 1.2.840.114 350.1.13.10 4.2.7.2.686 [id number] [facility] 2020-05-22 00:00:00 2020-05-22 00:00:00 Orders Only Doctor Unassigned, [place] [facility] 1.2.840.114 350.1.13.10 4.2.7.2.686 [id number] [id number] [facility] 2020-05-17 12:41:20 2020-05-17 23:59:00 Hospital Encounter Yesenia Sarabia [facility] 1.2.840.114 350.1.13.10 4.2.7.2.686 [id number] [facility] 2020-05-17 12:36:11 2020-05-17 12:51:11 Lay Health Advocate Visit Pob, Adc Lab Main Yesenia Sarabia [facility] 1.2.840.114 350.1.13.10 4.2.7.2.686 [id number] 353 [id number] [facility] 2020-05-17 10:25:36 2020-05-17 11:09:24 Office Visit Yesenia Sarabia [facility] Surgical Specialti lib[place] 1.2.840.114 350.1.13.10 4.2.7.2.686 [id number] [facility] 2020-05-17 10:30:00 2020-05-17 10:30:00 Outpatient R YESENIA SARABIA [facility] [id number] [facility] 2020-05-17 00:00:00 2020-05-17 00:00:00 Orders Only Doctor Unassigned, [place] [facility] 1.2.840.114 350.1.13.10 4.2.7.2.686 [id number] [id number] [facility] 2020-05-09 11:06:42 2020-05-09 23:59:00 Hospital Encounter Yesenia Sarabia [facility] 1.2840.114 350.1.13.10 4.2.7.2.686 [id number] [facility] 2020-05-09 15:15:00 2020-05-09 15:15:00 Outpatient R AGUSTÍN SARABIAIG [facility] [id number] [facility] 2020-05-09 14:40:14 2020-05-09 14:55:14 Lay Health Advocate Visit Pob, Adc Lab Main Yesenia Sarabia [facility] 1.2840.114 350.1.13.10 4.2.7.2.686 [id number] 353 [id number] [facility] 2020-05-09 13:41:15 2020-05-09 14:16:18 Office Visit Yesenia Sarabia [facility] Health Surgical Specialti [facility] 1.2840.114 350.1.13.10 4.2.7.2.686 [id number] 198 [id number] [facility] 2020-05-09 10:30:00 2020-05-09 10:45:00 Office Visit Yesenia Sarabia [facility] Surgical Specialti [facility] 1.2840.114 350.1.13.10 4.2.7.2.686 [id number] 198 [id number] [facility] 2020-05-09 10:30:00 2020-05-09 10:30:00 Outpatient R YESENIA SARABIA [facility] [id number] [facility] 2020-05-08 00:00:00 2020-05-08 00:00:00 Telephone Yesenia Sarabia [facility] Surgical Special libra [place] 1.2.840.114 350.1.13.10 4.2.7.2.686 [id number] 198 [id number] [facility] 2020-04-30 00:00:00 2020-04-30 00:00:00 Orders Only Doctor Unassigned, [place] [facility] 1.2.840.114 350.1.13.10 4.2.7.2.686 [id number] 009 [id number] [facility] 2020-03-20 00:00:00 2020-03-20 00:00:00 Telephone Yesenia Sarabia [facility] libra [place] 1.2.840.114 350.1.13.10 4.2.7.2.686 [id number] 198 [id number] [facility] 2020-02-22 00:00:00 2020-02-22 00:00:00 Orders Only Doctor Unassigned, [place] [facility] 1.2.840.114 350.1.13.10 4.2.7.2.686 [id number] [id number] [facility] 2020-02-13 00:00:00 2020-02-13 00:00:00 Orders Only Doctor Unassigned, [place] [facility] 1.2.840.114 350.1.13.10 4.2.7.2.686 [id number] [id number] [facility] 2019-11-08 00:00:00 2019-11-08 00:00:00 Orders Only Doctor Unassigned, [place] [facility] 1.2.840.114 350.1.13.10 4.2.7.2.686 [id number] [id number] [facility] 2019-11-02 13:45:00 2019-11-02 13:45:00 Outpatient VINCENT MYERS [facility] [id number] [facility] 2019-11-02 08:01:19 2019-11-02 08:16:19 Telemedici ne Visit Nikole [facility] Surgical Specialarcelia [place] 1.2.840.114 350.1.13.10 4.2.7.2.686 [id number] 198 [id number] [facility] 2019-09-28 00:00:00 2019-09-28 00:00:00 Letter (Out) [facility] Surgical Specialarcelia R[place] 1.2.840.114 350.1.13.10 4.2.7.2.686 [id number] 198 [id number] [facility] 2019-09-13 00:00:00 2019-09-13 00:00:00 Letter (Out) [facility] Surgical Specialarcelia Rouse 1.2.840.114 350.1.13.10 4.2.7.2.686 [id number] 198 [id number] [facility] 2019-09-11 00:00:00 2019-09-11 00:00:00 Telephone [facility] Surgical Specialarcelia [place] 1.2.840.114 350.1.13.10 4.2.7.2.686 [id number] 198 [id number] [facility] 2019-09-07 07:55:18 2019-09-07 08:10:18 Office Visit [facility] Surgical Specialarcelia Rouse 1.2.840.114 350.1.13.10 4.2.7.2.686 [id number] 198 [id number] [facility] 2019-09-07 00:00:00 2019-09-07 00:00:00 Orders Only Doctor Unassigned, [place] [facility] 1.2.840.114 350.1.13.10 4.2.7.2.686 [id number] [id number] [facility] 2019-09-07 00:00:00 2019-09-07 00:00:00 Letter (Out) Vincent Agustin [facility] Surgical Special libra [place] 1.2.840.114 350.1.13.10 4.2.7.2.686 [id number] [facility] 2019-08-24 00:00:00 2019-08-24 00:00:00 Orders Only Doctor Unassigned, [place] [facility] 1.2.840.114 350.1.13.10 4.2.7.2.686 [id number] [id number] [facility] 2019-07-31 14:24:05 2019-07-31 23:59:00 Outpatient VINCENT AGUSTIN [facility] [id number] [facility] 2019-07-31 14:24:00 2019-07-31 23:59:00 Hospital Encounter Vincent Agustin [facility] Surgical Special libra [place] 1.2.840.114 350.1.13.10 4.2.7.2.686 [id number] [facility] 2019-07-31 13:50:19 2019-07-31 15:07:02 Office Visit Yesenia Sarabia [facility] Surgical Special libra [place] 1.2.840.114 350.1.13.10 4.2.7.2.686 [id number] [facility] 2019-07-17 09:03:00 2019-07-18 14:40:00 Inpatient R YESENIA SARABIA [facility] [id number] [facility] 2019-07-10 15:22:42 2019-07-10 15:24:00 Outpatient R YESENIA SARABIA [facility] [id number] [facility] 2019-06-23 08:07:23 2019-06-23 23:59:00 Outpatient YESENIA SARABIA [facility] [id number] [facility] Results Test Description Test Time Test Comments Results Result Co mments Source [facility] Medicalmeasurement of post-voiding residual urine and/or bladder capacity (PROC)2024-05-09 15:19:00* Test Item Value Reference Range Interpretation Comme nts (PVR) (test code = (PVR)) [id number] 13:15:48Ordered by an unspecified provider. [facility] Fluid Manual [id number] 18:17:26* Test Item Value Reference Range Interpretation Comme nts BF SEGS% (test code = 47434-2) 10 % 0-25 BF LYMPHS% (test code = 16626-2) 38 % BF MACROPHAGE% (test code = 65101-5) 51 % BF EOS% (test code = 31918-4) 1 % BF #CELLS CNTD (test code = 5078113575) 100 cells/u L [facility] Fluid Direct [id number] 18:15:13* Test Item Value Reference Range Interpretation Comme nts BF COLOR (test code = 7423182228) Yellow BF WBC Count (test code = 0090544514) 287 0-150 BF RBC Count (test code = 4178608528) 3000 See_Comment [Automated me ssage] The system which generated this result transmitted reference range: /?L. The reference range was not used to interpret this result as normal/abnormal. [facility] GLUCOSE (AUTOMATED)2023-11-01 13:41:16* Test Item Value Reference Range Interpretation Comme nts POCT GLU (test code = 4179355961) 161 mg/dL 70-110 H Lab Interpretation (test cod e = 78119-5) Abnormal [facility] GLUCOSE (AUTOMATED)2023-11-01 13:41:16* Test Item Value Reference Range Interpretation Comme nts POCT GLU (test code = 2011659046) 161 mg/dL 70-110 H Lab Interpretation (test cod e = 90446-6) Abnormal [facility] METABOLIC PANEL (NA, K, CL, CO2, GLUCOSE, BUN, CREATININE, CA)2023-10-29 16:57:30* Test Item Value Reference Range Interpretation Comme nts NA (test code = 2493575212) 136 mmol/L 135-145 K (test code = 9046084077) 4.4 mmol/L 3.5-5.0 CL (test code = 4103120339) 101 mmol/L 98-108 CO2 TOTAL (test code = 1418148904) 28 mmol/L 23-31 AGAP (test code = 9046344349) 7 2-16 BUN (test code = 3752930460) 30 mg/dL 7-23 H GLUCOSE (test code = 3801950861) 254 mg/dL 70-110 H CREATININE (test code = 2160-0) 1.02 mg/dL 0.50-1.04 CALCIUM (test code = 7460565193) 8.5 mg/dL 8.6-10.6 L eGFR (test code = 27234-3) 62.3 mL/min/1.73m2 CKD-EPI eGFR (2020). Assuming creatinine has been stable day-to-day for at least three months, the eGFR indicates Category G2 (60 - 89 mL/min/1.73 m2) Lab Interpretation (test code = 66002-0) Abnormal [facility] METABOLIC PANEL (NA, K, CL, CO2, GLUCOSE, BUN, CREATININE, CA)2023-10-29 16:57:30* Test Item Value Reference Range Interpretation Comme nts NA (test code = 0016174737) 136 mmol/L 135-145 K (test code = 8054951396) 4.4 mmol/L 3.5-5.0 CL (test code = 2210922980) 101 mmol/L 98-108 CO2 TOTAL (test code = 8622550658) 28 mmol/L 23-31 AGAP (test code = 9557925269) 7 2-16 BUN (test code = 0189147423) 30 mg/dL 7-23 H GLUCOSE (test code = 8496529547) 254 mg/dL 70-110 H CREATININE (test code = 2160-0) 1.02 mg/dL 0.50-1.04 CALCIUM (test code = 1803200062) 8.5 mg/dL 8.6-10.6 L eGFR (test code = 46875-6) 62.3 mL/min/1.73m2 CKD-EPI eGFR (2020). Assuming creatinine has been stable day-to-day for at least three months, the eGFR indicates Category G2 (60 - 89 mL/min/1.73 m2) Lab Interpretation (test code = 99429-4) Abnormal [facility] WITH [id number] 16:36:09* Test Item Value Reference Range Interpretation [...] 32.2 g/dL 31.6-35.1 RDW-SD (test code = 80258-6) 47.5 fL 39.0-49.9 RDW-CV (test code = 788-0) 14.1 % 12.0-15.5 PLT (test code = 777-3) 290 166-358 MPV (test code = 78110-5) 9.8 fL 9.5-12.9 NRBC/100 WBC (test code = 9766915412) 0.0 0.0-10.0 NRBC x10^3 (test code = 1911956384) See_Comment [Automated messa ge] The system which generated this result transmitted reference range: 10*3/?L. The reference range was not used to interpret this result as normal/abnormal. GRAN MAT (NEUT) % (test code = 770-8) 52.4 % IMM GRAN % (test code = 8916731296) 0.40 % LYMPH % (test code = 736-9) 34.6 % MONO % (test code = 5905-5) 6.9 % EOS % (test code = 713-8) 4.4 % BASO % (test code = 706-2) 1.3 % GRAN MAT x10^3(ANC) (test code = 8741704220) 3.66 10*3/uL 1.88-7.09 IMM GRAN x10^3 (test code = 0964185746) 0.03 10*3/uL 0.00-0.06 LYMPH x10^3 (test code = 731-0) 2.42 10*3/uL 1.32-3.29 MONO x10^3 (test code = 742-7) 0.48 10*3/uL 0.33-0.92 EOS x10^3 (test code = 711-2) 0.31 10*3/uL 0.03-0.39 BASO x10^3 (test code = 704-7) 0.09 10*3/uL 0.01-0.07 H Lab Interpretation (test code = 38262-1) Abnormal [facility] WITH [id number] 16:36:09* Test Item Value Reference Range Interpretation [...] 32.2 g/dL 31.6-35.1 RDW-SD (test code = 35346-5) 47.5 fL 39.0-49.9 RDW-CV (test code = 788-0) 14.1 % 12.0-15.5 PLT (test code = 777-3) 290 166-358 MPV (test code = 45869-0) 9.8 fL 9.5-12.9 NRBC/100 WBC (test code = 8748982719) 0.0 0.0-10.0 NRBC x10^3 (test code = 4761256444) See_Comment [Automated messa ge] The system which generated this result transmitted reference range: 10*3/?L. The reference range was not used to interpret this result as normal/abnormal. GRAN MAT (NEUT) % (test code = 770-8) 52.4 % IMM GRAN % (test code = 2215653838) 0.40 % LYMPH % (test code = 736-9) 34.6 % MONO % (test code = 5905-5) 6.9 % EOS % (test code = 713-8) 4.4 % BASO % (test code = 706-2) 1.3 % GRAN MAT x10^3(ANC) (test code = 6554709207) 3.66 10*3/uL 1.88-7.09 IMM GRAN x10^3 (test code = 2388015182) 0.03 10*3/uL 0.00-0.06 LYMPH x10^3 (test code = 731-0) 2.42 10*3/uL 1.32-3.29 MONO x10^3 (test code = 742-7) 0.48 10*3/uL 0.33-0.92 EOS x10^3 (test code = 711-2) 0.31 10*3/uL 0.03-0.39 BASO x10^3 (test code = 704-7) 0.09 10*3/uL 0.01-0.07 H Lab Interpretation (test code = 73771-7) Abnormal [facility] [id number] 14:22:39Ordered by an unspecified provider.[facility] 2023[facility]-14 20:17:11* Test Item Value Reference Range Interpretation Comme nts ESR (test code = 20265-8) 38 0-20 H Lab Interpretation (test cod e = 13180-4) [facility] [id number] 20:17:11* Test Item Value Reference Range Interpretation Comme nts ESR (test code = 53777-5) 38 0-20 H Lab Interpretation (test cod e = 48389-5) [facility] [id number] 15:06:58XR KNEE 3 VW LEFT INDICATION: lt knee pain Room 5 COMPARISON: 08/29/2021 FINDINGS: Constrained totalknee arthroplasty in anatomic alignment. No acutefracture or dislocation. Diffuse soft tissue swelling.[facility] LIPID [id number] 06:03:34* Test Item Value Reference Range Interpretation Comme nts CHOLESTEROL (test code = 2210) 288 MG/DL <200 H TRIGLYCERIDES (test code = 2232) 165 MG/DL <150 H HDL CHOLESTEROL (test code = 222) 42 MG/DL >39 CALC LDL CHOL (test code = 223) 213 MG/DL <100 H NOTE: CALCULATED LDL IS BASED ON ALEXANDER-GANDHI METHOD WHICHINCLUDES ADJUSTABLE TRIGLYCERIDE:VLDL CHOLESTEROL RATIO.THIS FACTOR VARIES BY MEASURED TRIGLYCERIDE AND NON-HDLCHOLESTEROL CONCENTRATIONS WITH INCREASED CALCULATED LDL SEENIN HIGHER TRIGLYCERIDE OR LOWER NON-HDL SPECIMENS. FOR MOREINFORMATION, SEE CLIENT ANNOUNCEMENT AT [email or web address] RISK RATIO LDL/HDL (test code = 2237) 5.07 RATIO <3.22 H COMPREHENSIVE METABOLIC [id number] 06:03:34* Test Item Value Reference Range Interpretation Comme nts GLUCOSE (test code = 221) 154 MG/DL 70-99 H BUN (test code = 2207) 20 MG/DL 8-23 CREATININE (test code = 221) 0.78 MG/DL 0.60-1.30 eGFR (2020 CKD-EPI) (test code = 95889) 87 ML/MIN/1.73 >60 CALC BUN/CREAT (test code = 2235) 26 RATIO 6-28 SODIUM (test code = 223) 137 MEQ/L 133-146 POTASSIUM (test code = 222) 4.4 MEQ/L 3.5-5.4 CHLORIDE (test code = 2215) 99 MEQ/L 95-107 CARBON DIOXIDE (test code = 2206) 24 MEQ/L 19-31 CALCIUM (test code = 2208) 9.4 MG/DL 8.5-10.5 PROTEIN, TOTAL (test code = 222) 7.6 G/DL 6.1-8.3 ALBUMIN (test code = 220) 4.7 G/DL 3.5-5.2 CALC GLOBULIN (test code = 2240) 2.9 G/DL 1.9-3.7 CALC A/G RATIO (test code = 2234) 1.6 RATIO 1.0-2.6 BILIRUBIN, TOTAL (test code = 220) 0.4 MG/DL See_Comment [Automated me ssage] The system which generated this result transmitted reference range: <=1.2. The reference range was not used to interpret this result as normal/abnormal. ALKALINE PHOSPHATASE (test code = 2204) 136 U/L 40-136 AST (test code = 2218) 14 U/L 9-40 ALT (test code = 2219) 16 U/L 5-40 HEMOGLOBIN [id number] 05:29:44* Test Item Value Reference Range Interpretation Comme nts HEMOGLOBIN A1c (test code = 73871) 7.3 % 4.2-5.6 H [employer] GUIDELINES FOR HGB A1C: [...] CONSULTATION. UNLESS OTHERWISE INDICATED, ALL TESTING PERFORMED [facility] [employer] [address] [place] [address] DRIER TAKE OFF TENDER: SREEKANTH SEAY M.D. CLIA NUMBER [id number] [facility] [place]. [id number] CBC W/AUTO DIFF WITH [id number] 04:27:32* Test Item Value Reference Range Interpretation [...] 0.00-0.10 ABS NUCLEATED RBCS (test code = 36104) 0.00 K/UL 0.00-0.11 Notes Date/Time Note Provider Source 2025-01-30 10:40:24 Neck pain for 4 months. Diarrhea and nausea/vomiting starting this AM. Denies chest pain, abdominal pain, headache, weakness, fevers at home. HX: DM, HTN. Gissel Argueta RN [facility] 2023-10-29 11:00:00 Images from the original note were not included. Venipuncture collection performed by clean technique on the right anticubitus. Total of 1 attempts were made. Slight pressure and a bandage/dressing were applied to the site(s). The patient experienced no complications. The following specimens were processed according to instructions and sent to [facility] laboratories per lab order on 10/29/2023: LT BLUE SST 1 RED LAV 1 PPT DK GREEN (LiHep) DK GREEN (SodH) RAYMUNDO DK BLUE (K2) DK BLUE (S) ACD Blood Culture NIPT/NTD Pt could not void at Time of Draw. Urine kit provided to bring back soon. [facility] 2023-10-29 09:25:04 The patient was called to notify about lab work and chest x-ray. The patient stated she was unaware and will come in as soon as she can. Venecia Foster RN [facility] 2023-10-25 13:09:57 Images from the original note were not included. Your procedure is at [facility] on 11/01/23. The address is [address] [place] [address], [id number]. [facility] nursing staff will call you [...] voiced no further questions at this time. T [facility] 2023-10-19 13:53:56 Patient is scheduled. Marylu Negrete [facility] 2023-10-19 09:24:19 Routed message to PSS to schedule. Results are given at appointment. Celina Latham 10/19/2023 9:24 AM T [facility] 2023-10-18 11:14:14 Patient is requesting to go over lab results. T Vannesa Verduzco [facility] 2023-10-14 09:45:00 Images from the original note were not included. Venipuncture collection performed by clean technique on the right anticubitus. Total of 1 attempts were made. Slight pressure and a bandage/dressing were applied to the site(s). The patient experienced no complications. The following specimens were processed according to instructions and sent to [facility] laboratories per lab order on 10/14/2023: LT BLUE SST 1 RED LAV 1 PPT DK GREEN (LiHep) DK GREEN (SodH) RAYMUNDO DK BLUE (K2) DK BLUE (S) ACD Blood Culture NIPT/NTD [facility]
--- NOTE | 2025-04-28 08:09 | ER ---
Nurse's Notes [facility] Name: Jade Shaikh Age: 64 yrs Sex: Female : 1960 Arrival Date: 04/28/2025 Time: 07:48 Bed 15 Private MD: Diagnosis: Allergic contact dermatitis due to plants, except food Presentation: 04/28 08:02 Chief complaint: Patient states: Rash with itching to body for 3 days. Coronavirus ll1 screen: Client denies travel out of the [place] in the last 14 days. At this time, the client does not indicate any symptoms associated with coronavirus-19. Ebola Screen: Patient denies travel to an Ebola-affected area in the 21 days before illness onset. Initial Sepsis Screen: Does the patient meet any 2 criteria? No. Patient's initial sepsis screen is negative. Does the patient have a suspected source of infection? No. Patient's initial sepsis screen is negative. Risk Assessment: Do you want to hurt yourself or someone else? Patient reports no desire to harm self or others. Onset of symptoms was April 26, 2025. 08:02 Method Of Arrival: Ambulatory 1 08:02 Acuity: STEVE 4 ll1 Triage Assessment: 08:05 General: Appears in no apparent distress. Behavior is calm, cooperative, appropriate bp for age. Pain: Denies pain. EENT: No deficits noted. Neuro: No deficits noted. Cardiovascular: No deficits noted. Respiratory: Reports. GI: No signs and/or symptoms were reported involving the gastrointestinal system. : No signs and/or symptoms were reported regarding the genitourinary system. Derm: Reports itching. Musculoskeletal: No deficits noted. Historical: - Allergies: 08:01 Sulfa (Sulfonamide Antibiotics); ll1 - PMHx: 08:01 neuropathy; Hypertensive disorder; spot on lung; prolapsed bladder; diabetes mellitus; ll1 Arthritis; - PSHx: 08:01 Cholecystectomy; claudia knee replacements; Ligation of fallopian tube; mass removed from ll1 right breast; Appendectomy; Total abdominal hysterectomy; kidney stent (Total abdominal hysterectomy); - Immunization history:: Adult Immunizations up to date. - Infectious Disease History:: Denies. - Social history:: Smoking status: Patient reports the use of cigarette tobacco products, smokes one-half pack cigarettes per day. Screenin:05 [facility] ED Fall Risk Assessment (Adult) History of falling in the last 3 months, bp including since admission No falls in past 3 months (0 pts) Confusion or Disorientation No (0 pts) Intoxicated or Sedated No (0 pts) Impaired Gait No (0 pts) Mobility Assist Device Used No (0 pt) Altered Elimination No (0 pt) Score/Fall Risk Level 0 - 2 = Low Risk Oriented to surroundings. Abuse screen: Denies threats or abuse. Denies injuries from another. Nutritional screening: No deficits noted. Tuberculosis screening: No symptoms or risk factors identified. Vital Signs: 08:02 BP 155 / 72; Pulse 53; Resp 17; Temp 97.1; Pulse Ox 100% on R/A; Weight 81.19 kg; Pain ll1 8/10; 08:02 Pain Scale: Adult ll1 ED Course: 07:51 Patient arrived in ED. ts1 07:54 Sukhdev Sanchez, RN is Primary Nurse. bp 07:59 Sharon Barnett FNP-C is PHCP. kb 07:59 Pato West MD is Attending Physician. kb 08:01 Arm band placed on Patient placed in an exam room, on a stretcher. ll1 08:05 Triage completed. ll1 08:05 Patient has correct armband on for positive identification. bp 08:49 No provider procedures requiring assistance completed. Patient did not have IV access bp during this emergency room visit. Administered Medications: 08:26 Drug: Dexamethasone IM 10 mg IM once Route: IM; Site: right deltoid; bp 08:46 Follow up: Response: No adverse reaction bp 08:26 Drug: Famotidine PO 20 mg PO once Route: PO; bp 08:47 Follow up: Response: No adverse reaction bp 08:46 Drug: Ondansetron Oral Disintegrating Tablet Oral Disintegrating Tablet 4 mg PO once bp Route: PO; 08:47 Follow up: Response: No adverse reaction bp Outcome: 08:08 Discharge ordered by . kb 08:49 Discharged to home ambulatory, bp 08:49 Condition: stable 08:49 Discharge instructions given to patient, Instructed on discharge instructions, follow up and referral plans. medication usage, Demonstrated understanding of instructions, follow-up care, medications, Prescriptions given X 2, 08:50 Patient left the ED. bp Signatures: Sharon Barnett FNP-C FNP-Ckb Sukhdev Sanchez, RN RN bp Kane Hutchison RN RN ll1 Noemi Ruiz PAS PAS ts1 Corrections: (The following items were deleted from the chart) 08:49 08:05 General: Appears in no apparent distress. Behavior is calm, cooperative, bp appropriate for age, bp 08:49 08:05 Pain: Complains of pain in face bp bp 08:49 08:05 EENT: No deficits noted. bp bp 08:49 08:05 Neuro: No deficits noted. bp bp 08:49 08:05 Cardiovascular: No deficits noted. bp bp 08:49 08:05 Respiratory: No deficits noted. bp bp 08:49 08:05 GI: No signs and/or symptoms were reported involving the gastrointestinal system. bp bp 08:49 08:05 : No signs and/or symptoms were reported regarding the genitourinary system. bp bp 08:49 08:05 Derm: No deficits noted. bp bp 08:49 08:05 Musculoskeletal: No deficits noted. bp bp 08:49 08:05 Injury Description: Laceration sustained to left eye is full thickness, was bp sustained 2-4 hours ago. a small amount of bleeding noted at this time. bp
--- NOTE | 2025-04-28 08:09 | EDPHYS ---
Physician Documentation [facility] Name: Jade Shaikh Age: 64 yrs Sex: Female : 1960 Arrival Date: 04/28/2025 Time: 07:48 Bed 15 Private MD: ED Physician Pato West HPI: 04/28 08:07 This 64 yrs old Female presents to ER via Ambulatory with complaints of Possible poisen kb krysta. 08:07 Pt is a 64 year old female who presents for rash that started 3 days ago. States she kb was clearing property when she came into contact with poison sumac. Reports itching. denies fever. . Historical: - Allergies: 08:01 Sulfa (Sulfonamide Antibiotics); ll1 - PMHx: 08:01 neuropathy; Hypertensive disorder; spot on lung; prolapsed bladder; diabetes mellitus; ll1 Arthritis; - PSHx: 08:01 Cholecystectomy; claudia knee replacements; Ligation of fallopian tube; mass removed from ll1 right breast; Appendectomy; Total abdominal hysterectomy; kidney stent (Total abdominal hysterectomy); - Immunization history:: Adult Immunizations up to date. - Infectious Disease History:: Denies. - Social history:: Smoking status: Patient reports the use of cigarette tobacco products, smokes one-half pack cigarettes per day. ROS: 08:06 Constitutional: As per HPI kb Exam: 08:06 Constitutional: This is a well developed, well nourished patient who is awake, alert, kb and in no acute distress. Head/Face: Normocephalic, atraumatic. ENT: Moist Mucous membranes Cardiovascular: Regular rate Respiratory: Respirations even and unlabored. No increased work of breathing. Talking in full sentences MS/ Extremity: Pulses equal, no cyanosis. Neurovascular intact. Full, normal range of motion. Neuro: Awake and alert, GCS 15, oriented to person, place, time, and situation. 08:06 Skin: rash a moderate rash is noted, consistent with contact dermatitis, on the face, right arm, left arm, right leg and left leg, Vital Signs: 08:02 BP 155 / 72; Pulse 53; Resp 17; Temp 97.1; Pulse Ox 100% on R/A; Weight 81.19 kg; Pain ll1 8/10; 08:02 Pain Scale: Adult ll1 MDM: 07:59 Medical Screening Exam initiated kb 08:06 Differential diagnosis: contact dermatitis, impetigo, urticaria, scabies. Data kb reviewed: vital signs, nurses notes. Counseling: I had a detailed discussion with the patient and/or guardian regarding the historical points, exam findings, and any diagnostic results supporting the discharge/admit diagnosis, the need for outpatient follow up, a family practitioner, to return to the emergency department if symptoms worsen or persist or if there are any questions or concerns that arise at home. Administered Medications: 08:26 Drug: Dexamethasone IM 10 mg IM once Route: IM; Site: right deltoid; bp 08:46 Follow up: Response: No adverse reaction bp 08:26 Drug: Famotidine PO 20 mg PO once Route: PO; bp 08:47 Follow up: Response: No adverse reaction bp 08:46 Drug: Ondansetron Oral Disintegrating Tablet Oral Disintegrating Tablet 4 mg PO once bp Route: PO; 08:47 Follow up: Response: No adverse reaction bp Disposition: 11:15 Co-signature as Attending Physician, Pato West MD I reviewed the patient's care rn provided by the Advanced Practice Provider and agree with the diagnosis and treatment plan. Disposition Summary: 04/28/25 08:08 Discharge Ordered Notes: Location: Home kb Condition: Stable kb Diagnosis - Allergic contact dermatitis due to plants, except food kb Followup: kb - With: Emergency Department - When: As needed - Reason: Worsening of condition Followup: kb - With: Private Physician - When: 2 - 3 days - Reason: Recheck today's complaints, Continuance of care, Re-evaluation by your physician Discharge Instructions: - Discharge Summary Sheet kb - Poison Krysta Dermatitis, [id number] kb Forms: - Work release form kb - Medication Reconciliation Form kb - Antibiotic Education kb - Prescription Opioid Use kb - Patient Portal Instructions kb - Leadership Thank You Letter kb Prescriptions: - Pepcid 20 mg Oral Tablet - take 1 tablet ORAL route every 12 hours for 5 days; 10 tablet; Refills: 0, kb Product Selection Permitted - Prednisone 20 mg Oral Tablet - take 1 tablet ORAL route once daily for 5 days; 5 tablet; Refills: 0, Product kb Selection Permitted Signatures: Sharon Barnett, MABEL CUMMINGS-Ckb West, Pato, MD MD rn Laura, Sukhdev, RN RN bp Foster, Lynsay, RN RN ll1 Corrections: (The following items were deleted from the chart) 08:06 08:06 Skin: rash a moderate rash is noted, consistent with contact dermatitis, kb kb
[2025-04-28] MEDS ORDERED: FAMOTIDINE 20 MG TAB ONE (08:20)
[2025-04-28] MEDS ORDERED: ONDANSETRON 4 MG (ODT) TAB ONE (08:39)
[2025-04-28 09:01] VITALS: BP 155/72; TEMP 97.1; O2SAT 100
== END 2025-04-28 08:50 | disposition home or self-care (01) ==
LOC: ER 07:48
DX: L23.7 Allergic contact dermatitis due to plants, except food (principal)
CPT/HCPCS: 96372; 99284; Q0162; J1100